=== PATIENT | male | born 1955 | race Caucasian/White ===

== ENCOUNTER 2023-09-02 22:23 | Emergency (ER) | payer MEDICARE, MEDICAID, SELFPAY ==
[2023-09-02 22:25] VITALS: BP 158/101; PULSE 102; RESP 15; TEMP 36.6; O2SAT 96; BMI 31.6
[2023-09-02 23:00] LABS: Absolute Lymphocyte Count 1.81 X10^3/uL (0.83-4.51); Basophil# 0.05 X10^3/uL; Basophil% 0.4 % (0-1); Eosinophil# 0.03 X10^3/uL; Eosinophils% 0.2 % (0-5); Hematocrit 45.3 % (40-54); Hemoglobin 14.8 g/dL (13.0-16.5); Lymphocyte # 1.81 X10^3/ul (0.83-4.51); Mean Corp Hgb Conc 32.7 g/dL (32-36); Mean Corpuscular Hgb 29.7 pg (27.0-32.0); Mean Platelet Vol. 10.5 fl (6.2-12.0); Monocyte# 0.96 X10^3/uL; Monocyte% 6.9 % (0-10); NRBC Flagged by Analyzer 0 % (0-5); Neutrophil % 79.1 % (47-70); Platelet Count 226 K/mm3 (150-450); RBC Distribution Width CV 12.9 % (11.6-14.6); RBC Distribution Width SD 42.8 fl (35.1-43.9); Red Blood Count 4.98 M/mm3 (4.6-6.2); White Blood Count 13.9 K/mm3 (4.4-11.0)
[2023-09-02 23:20] LABS: ALB/GLOB Ratio 0.9 RATIO (0.9-2.4); AST(SGOT) 22 U/L (15-37); Alanine Aminotransfer ALT/SGPT 45 U/L (16-61); Albumin, Serum 3.7 g/dL (3.2-5.0); Alkaline Phosphatase 59 U/L (45-117); Anion Gap 7 (5-15); BUN 9 mg/dL (7-18); BUN/Creat Ratio 8.6 RATIO (10-20); Calcium,Total 9.3 mg/dL (8.5-10.1); Chloride 106 mmol/L (98-107); Creatinine, Serum 1.05 mg/dL (0.70-1.30); EST Glomerular Filtration Rate 75 mL/min (>60); Est Glom Filt Rate - Afr Amer 90 mL/min (>60); Estimated Creatinine Clearance 62.95 ml/min; Globulin 3.9 g/dL (2.2-4.2); Glucose 101 mg/dL (74-106); Lipase 38 U/L (13-75); Potassium 3.6 mmol/L (3.5-5.1); Protein, Total 7.6 g/dL (6.4-8.2); Sodium Level 135 mmol/L (136-145)
--- NOTE | 2023-09-02 23:30 | US_ITS ---
STUDY: ABDOMINAL ULTRASOUND - RIGHT UPPER QUADRANT REASON FOR VISIT: Male, 68 years old patient with right upper quadrant abdominal pain. TECHNIQUE: Ultrasound evaluation of the right upper quadrant was performed with real-time and static jordan-scale imaging. TECHNICAL QUALITY: Adequate. COMPARISON: CT of abdomen and pelvis dated September 02, 2023. FINDINGS: Liver: The liver measures 17 cm. There is a heterogeneous increased echogenicity of the liver. The bile ducts are within normal limits. There is hepatic color flow. The direction of portal flow is hepatopetal. There is a small cyst with possible septation measuring 2.6 x 2.1 x 2.8 cm. Gallbladder: Normal distended gallbladder. The gallbladder wall measures 1.9 mm. There is a negative sonographic Wheat''s sign. There is no pericholecystic fluid. There are no gallstones. Common Bile Duct (C.B.D.): The common bile duct measures 4.2 mm. Pancreas: Normal size of the head, body and tail of the pancreas. There is increased echogenicity of the pancreas. There is no demonstrated pancreatic mass or cyst. Right Kidney: Normal size of the right kidney. The right kidney measures 12.7 x 4.9 x 5.7 cm. Normal renal cortex. The right cortex measures 1.6 cm. There is a small cyst arising from the upper pole of the right kidney measuring 1.4 x 1.2 by 2.1 cm. There are questionable nonobstructing renal calculi. There is no right hydronephrosis. US/Gallbladder IMPRESSION: 1. Hepatic steatosis. 2. Hepatic and right sided renal cysts. Electronically Signed: Heather Mcmanus MD at 2:10 EDT ,
--- NOTE | 2023-09-02 23:35 | CT_ITS ---
STUDY: CT ABDOMEN AND PELVIS WITH CONTRAST REASON FOR EXAM: Male, 68 years old. abdominal pain RADIATION DOSAGE (If Supplied By Facility): CTDIvol = ( 17.33 ) mGy, DLP = ( 1316.43 ) mGycm TECHNIQUE: Transaxial images were obtained from the dome of the diaphragm to the symphysis pubis without oral contrast. IV 100mL Isovue-370 was administered. Sagittal and coronal images were reconstructed. Individualized dose optimization techniques were used for this CT. COMPARISON: None. FINDINGS: The visualized lung bases are unremarkable. The visualized portions of the heart are within normal limits. Multiloculated cyst near the dome of the liver measuring 2.4 cm in diameter. Normal gallbladder and extrahepatic biliary system. Normal spleen. Normal pancreas. Normal bilateral adrenal glands. Normal right kidney. Millimeters simple left renal cortical cyst. No further follow-up required as it appears simple/benign. Normal visualized stomach. Normal small intestine. Circumferential thickening of the ascending colon and stranding of the mesenteric fat. The appendix is visualized and appears normal. Normal abdominal aorta. Normal inferior vena cava. Normal retroperitoneum. Normal urinary bladder. Normal abdominal wall. Slight retrolisthesis L5-S1. CT/Abdomen/Pelvis W IV Cont ONLY IMPRESSION: Acute nonspecific colitis on the right Electronically Signed: Elmo Knight MD at 0:59 EDT ,
--- NOTE | 2023-09-02 23:42 | ED.VIS.GI ---
HPI HPI - GI History of Present Illness Chief Complaint: Abd Pain Narrative Narrative: 68-year-old male presenting with abdominal pain. He describes it as cramping. It seems to be related with food. Every time he eats or drinks he has pain across the mid abdomen in the right upper quadrant. He has not a fever but notes he started having worsening diarrhea on Monday and he had chills and body aches. The abdominal pain started on no black or bloody stools. No urinary complaints. No chest pain or shortness of breath. He states that every time he eats he gets nauseous. Patient states that he was recently seen by his primary care provider and started on something for BPH because he was urinating 3 times a night. He states has been urinating much more frequently after he started this medication. He denies dysuria or hematuria. PFSH PFSH Home Medications ciprofloxacin HCl 500 mg tablet (Cipro) 500 mg PO BID 10 days #20 tabs 09/03/23 [Rx Last Taken Unknown] metronidazole 500 mg tablet 500 mg PO Q8H 10 days #30 tabs 09/03/23 [Rx Last Taken Unknown] ondansetron 4 mg disintegrating tablet 4 mg PO Q8H PRN PRN Nausea #14 tabs 09/03/23 [Rx Last Taken Unknown] Allergy/AdvReac Type Severity Reaction Status Date / Time No Known Allergies Allergy Verified 09/02/23 22:29 Social History Smoking Status: Never smoker EXAM Physical Exam Const Vital Signs: 09/02/23 22:25 09/03/23 02:38 Temperature 97.8 F Temperature Source Temporal Pulse Rate 102 H 82 Respiratory Rate 15 18 Blood Pressure 158/101 H 148/79 H Blood Pressure Mean 120 102 Pulse Ox 96 96 Oxygen Delivery Method Room Air General Appearance ED: Negative for pallor HEENT Reports normocephalic, head/scalp atraumatic and moist mucous membranes Eyes PERRL and EOMs intact bilaterally Neck no lymphadenopathy and supple Resp normal respiratory effort Cardio regular rate and regular rhythm GI non-distended Palpation: soft and tender epigastric and RUQ Narrative: Deferred Back/Spine no CVA tenderness Extremity normal to inspection General Extremety ED: Negative for edema or tenderness General Extremity: Negative for edema Neuro oriented x3 and CN's II-XII intact bilaterally Sensorium / Orientation: alert Motor Exam: strength 5/5 throughout Psych mental status grossly normal Attitude: No agitated Skin no rashes or lesions noted and no wounds General Skin Exam: Negative for jaundice or pallor MDM MDM MDM Narrative Medical decision making narrative: Patient presenting with right flank pain. Differential includes colitis, diverticulitis, gastritis, pancreatitis, acute cholecystitis, constipation, appendicitis, UTI, pyelonephritis, calculi, ureteral calculi, obstruction, malignancy, dehydration, electrolyte abnormalities. BC will be obtained to assess white blood cell count, hemoglobin, platelets. CMP to assess liver function, renal function, electrolytes, glucose. Lipase to assess for pancreatitis. Urinalysis to assess for UTI or occult blood. Declined analgesia. States he is tender in the right upper quadrant epigastric region I did order ultrasound which was ultimately negative. CT of the abdomen pelvis was obtained with IV contrast which shows a right-sided colitis which is nonspecific. Given the patient's white count I will start him on Cipro and Flagyl. He is given Zofran for nausea at home. Return precautions were discussed. Patient discharged home in stable condition. Impression: 1. Colitis 2. Nausea 3. Diarrhea Lab Data Attestation: I reviewed the patient's lab results. Labs: Laboratory Results - last 24 hr 09/02/23 09/02/23 22:54 23:12 WBC 13.9 H RBC 4.98 Hgb 14.8 Hct 45.3 MCV 91.0 MCH 29.7 MCHC 32.7 RDW Std Deviation 42.8 RDW Coeff of Brianna 12.9 Plt Count 226 MPV 10.5 Immature Gran % (Auto) 0.400 Neut % (Auto) 79.1 H Lymph % (Auto) 13.0 L Crenshaw % (Auto) 6.9 Eos % (Auto) 0.2 Baso % (Auto) 0.4 Absolute Neuts (auto) 11.0 H Absolute Lymphs (auto) 1.81 Nucleated RBC % 0 Sodium 135 L Potassium 3.6 Chloride 106 Carbon Dioxide 22.0 Anion Gap 7 BUN 9 Creatinine 1.05 Estim Creat Clear Calc 62.95 Est GFR (MDRD) Af Amer 90 Est GFR (MDRD) Non-Af 75 BUN/Creatinine Ratio 8.6 L Glucose 101 Calcium 9.3 Total Bilirubin 0.50 AST 22 ALT 45 Alkaline Phosphatase 59 Total Protein 7.6 Albumin 3.7 Globulin 3.9 Albumin/Globulin Ratio 0.9 Lipase 38 Urine Color Yellow Urine Clarity Clear Urine pH 6.0 Ur Specific Luana 1.025 Urine Protein 30 H Urine Glucose (UA) Normal Urine Ketones 15 H Urine Occult Blood 150 H Urine Nitrite Negative Urine Bilirubin Negative Urine Urobilinogen Normal Ur Leukocyte Esterase 25 H Urine RBC 0-5 SEEN Urine WBC 0-5 SEEN Ur Squamous Epith Cells 0 SEEN Urine Bacteria RARE Urine Mucus 0 SEEN Radiography Diagnostic Testing: Clinical Impression(s) from Imaging Studies Gallbladder Ultrasound 09/02/23 23:30 IMPRESSION: 1. Hepatic steatosis. 2. Hepatic and right sided renal cysts. Electronically Signed: Heather Mcmanus MD at 2:10 EDT Reading Location ID and State: [facility] / [place] , Service support , Abdomen/Pelvis CT 09/02/23 23:35 IMPRESSION: Acute nonspecific colitis on the right Electronically Signed: Elmo Knight MD at 0:59 EDT , Discharge Plan Triage Chief Complaint: Abd Pain ED Provider: Mohamud Chung Dx/Rx/DC Orders Instructions: ED Understanding Colitis Prescriptions: New ciprofloxacin HCl [Cipro] 500 mg tablet 500 mg PO BID 10 Days Qty: 20 0RF metronidazole 500 mg tablet 500 mg PO Q8H 10 Days Qty: 30 0RF ondansetron 4 mg tablet,disintegrating 4 mg PO Q8H PRN PRN (Reason: Nausea) Qty: 14 0RF Primary Care Provider: Care Physician,No Primary Referrals: Friend,Radames, DO [Med Staff - Active Staff] - As soon as possible Care Physician,No Primary [Primary Care Provider] - Disposition Disposition: Home, Self Care
[2023-09-02 23:47] LABS: Mucous, Urine 0 SEEN /hpf (<or=2+); Squamous Epithelial Cells - UA 0 SEEN /hpf (0-5)
[2023-09-02 23:49] LABS: Color, Urine Yellow (Yellow); Glucose, Dipstick Normal (Normal); Ketone-Dipstick 15 mg/dl (Negative); Leukocyte Esterase-Dipstick 25 /ul (Negative); Nitrite-Dipstick Negative (Negative); Occult Blood-Urine 150 /ul (Negative); Protein-Dipstick 30 mg/dl (Negative); Specific Gravity, Urine 1.025 (1.002-1.030); Urine Bilirubin Dipstick Negative (Negative); Urine Clarity Clear (Clear); Urine Urobilinogen Normal (Normal)
[2023-09-03 00:17] LABS: Bacteria RARE /hpf (None Seen); Red Blood Cells-Urine 0-5 SEEN /hpf (0-5); White Blood Cells 0-5 SEEN /hpf (0-5)
[2023-09-03] MEDS: Ciprofloxacin 500 MG Tablet PO (02:32)
[2023-09-03] MEDS: metroNIDAZOLE 500 MG Tablet PO (02:32)
[2023-09-03 02:38] VITALS: BP 148/79; PULSE 82; RESP 18; O2SAT 96
== END 2023-09-03 03:03 | disposition home or self-care (01) ==
PROVIDERS: Emergency Provider Student in an Organized Health Care Education/Training Program; Visit Provider Student in an Organized Health Care Education/Training Program
DX: K52.9 Noninfective gastroenteritis and colitis, unspecified (principal); R11.0 Nausea; R19.7 Diarrhea, unspecified
CPT/HCPCS: 74177; 76705; 80053; 81001; 83690; 85025; 99283; Q9967

== ENCOUNTER 2023-11-07 06:56 | Day surgery (SDC) | payer MEDICARE, SELFPAY ==
[2023-11-07 07:17] VITALS: BP 148/87; PULSE 62; RESP 18; TEMP 36.3; O2SAT 99; BMI 32.8
[2023-11-07] MEDS: Lactated Ringers 1,000 ML 15 ML IV (07:23)
--- NOTE | 2023-11-07 07:50 | HP.PCM_ITS ---
History and Physical Date of Admission: 11/07/23 Intake Vital Signs 09/02/2322:25 10/16/2313:20 Height 5 ft 7 in 5 ft 7 in Weight: 204 lb BMI 31.9 BP 162/77 H Blood Pressure Location Rt brachial Position Sitting Respiration 17 Pulse 69 Pulse Source Monitor Temp 97.8 F Temp Source Temporal Pulse Oximetry (%) 96 Oxygen Delivery Method room air Intake Visit Reasons: COLONOSCOPY Chief Complaint: colonoscopy Is patient in pain?: No Allergies No Known Allergies Allergy (Verified 10/16/23 13:21) Medications pantoprazole 20 mg tablet,delayed release (Protonix) 20 mg PO DAILY 10/16/23 [History Confirmed 10/16/23] PFSH Family History (Updated 10/16/23 @ 13:19 by Lisseth Eason) Mother Cancer Social History (Updated 10/16/23 @ 13:20 by Lisseth Eason) Smoking Status: Never smoker alcohol intake: never substance use type: does not use HPI HPI HPI: Patient is a 68-year-old male here for follow-up after ER visit. He was in the emergency room in early August and was diagnosed with right-sided colitis. He was given antibiotics. He says that it took about 4 weeks to finally go away but he is feeling better now with no current complaints. He does have family history of colon cancer and his last colonoscopy was 8 years ago. He denies any blood in his stool. ROS General General: No weight change, appetite, fatigue, colon cancer, breast cancer or weakness HEENT HEENT: No difficulty swallowing, eye injury, eye surgery, swollen glands or hoarseness Endo Endocrine: No thyroid disease, diabetes mellitus, thyroid cancer, Hair loss, heat intolerance or cold intolerance Skin Skin: No rash or changing moles Musc Musculoskeletal: Yes back problems and arthritis; No rheumatoid arthritis, gout or joint pain Cardio Cardiovascular: No murmur, pacemaker, heart disease, atrial fibrillation, high blood pressure, heart attack, heart stent, palpitations, shortness of breat with exertion or chest pain Psych Psychiatric: No depression, anxiety or hearing voices Resp Respiratory: No shortness of breath, No sleep apnea, No cough, No COPD, No asthma, No emphysema and No wheezing Gastro Gastrointestinal: No abdominal pain, No nausea or vomiting, No diarrhea, No constipation, No blood in stool, Yes acid reflux, Yes hemorrhoids, No ulcers, No gallbladder problem and No black,tarry stools Binu Hematologic: No blood thinners, No blood disorders, No bleeding, No anemia and No blood clots Neuro Neurologic: No system reviewed and no additional complaints, except as documented, No as per HPI, No abnormal gait, No abnormal hearing, No abnormal movements, No abnormal speech, No behavioral changes, No burning sensations, No confusion, No convulsions, No disequilibrium, No dizziness, No localized weakness, No frequent falls, No headache(s), No lack of coordination, No loss of vision, No memory loss, No numbness, No other visual disturbances, No radicular pain, No restless legs, No sensory deficit, No syncope, No tingling, No tremor(s), No weakness and No other Exam Const General: cooperative Orientation: alert and oriented x3 HENMT Head: normal to inspection Neck Neck: normal visual inspection and full ROM Chest Chest palpation & inspection: normal inspection of the chest Resp Effort & Inspection: normal respiratory effort Auscultation: clear to auscultation bilaterally Cardio Rate: regular rate Rhythm: regular rhythm GI Inspection: non-distended Palpation: soft and nontender Skin General: no rashes or lesions noted Neuro General: patient alert and patient oriented x3 Extrem General: full ROM Psych Appearance: grossly normal Mental Status: mental status grossly normal Assessment and Plan Assessment and Plan (1) History of colitis: Status: Acute Plan: The patient had colitis in early August and he is sent here for follow-up colonoscopy. His last colonoscopy was 8 years ago. I explained endoscopy in detail to the patient. I explained the risks including but not limited to stroke or heart attack with anesthesia, perforation of the GI tract, bleeding, infection. I explained that any of these could necessitate further emergency surgery. The patient understands and all questions were answered sufficiently. The patient wishes to proceed with procedure. Javier Portillo MD Pager: [facility] [address] [place] [address], [address] [place] [address] Office: I have examined the patient and the H&P has been reviewed. There are no clinical changes since date of exam.
[2023-11-07 08:19] VITALS: BP 104/69; BP 148/87; PULSE 71; RESP 16; TEMP 36.3; O2SAT 94
--- NOTE | 2023-11-07 08:20 | OP.COLON_ITS ---
Patient Name: Willy Sanders Procedure Date: 11/07/2023 7:56 AM Date of : 1955 Age: 68 Procedure: Colonoscopy Indications: Follow-up of colitis Providers: Javier Portillo MD Medicines: Propofol per Anesthesia Patient Profile: This is a 68 year old male. Refer to note in patient chart for documentation of history and physical. Last Colonoscopy: several years ago. Complications: No immediate complications. Procedure: Pre-Anesthesia Assessment: - Prior to the procedure, a History and Physical was performed, and patient medications and allergies were reviewed. The patient's tolerance of previous anesthesia was also reviewed. The risks and benefits of the procedure and the sedation options and risks were discussed with the patient. All questions were answered, and informed consent was obtained. Prior Anticoagulants: The patient has taken no anticoagulant or antiplatelet agents. After reviewing the risks and benefits, the patient was deemed in satisfactory condition to undergo the procedure. After I obtained informed consent, the scope was passed under direct vision. Throughout the procedure, the patient's blood pressure, pulse, and oxygen saturations were monitored continuously. The Colonoscope was introduced through the anus and advanced to the terminal ileum, with identification of the appendiceal orifice and IC valve. The colonoscopy was performed without difficulty. The patient tolerated the procedure well. The quality of the bowel preparation was good. Anatomical landmarks were photographed. Scope In: 8:03:13 AM Scope Withdrawal Time 0 hours 6 minutes 3 seconds Scope Out: 8:12:52 AM Total Procedure Duration Time 0 hours 9 minutes 39 seconds Findings: The entire examined colon appeared normal on direct and retroflexion views. Impression: - The entire examined colon is normal on direct and retroflexion views. - No specimens collected. Recommendation: - Discharge patient to home. - Resume previous diet. - Continue present medications. - Repeat colonoscopy is not recommended due to current age (66 years or older) for screening purposes. Procedure Code(s): --- Professional --- 59671, Colonoscopy, flexible; diagnostic, including collection of specimen(s) by brushing or washing, when performed (separate procedure) Diagnosis Code(s): --- Professional --- K52.9, Noninfective gastroenteritis and colitis, unspecified CPT copyright 2021 [employer]. All rights reserved. The codes documented in this report are preliminary and upon cpc coder review may be revised to meet current compliance requirements. Javier Portillo MD 11/07/2023 8:19:41 AM This report has been signed electronically. Number of Addenda: 0 Note Initiated On: 11/07/2023 7:56 AM
[2023-11-07 08:25] VITALS: BP 105/66; BP 148/87; PULSE 65; RESP 16; O2SAT 94
[2023-11-07 08:30] VITALS: BP 109/71; BP 148/87; PULSE 77; RESP 16; O2SAT 98
[2023-11-07 08:32] VITALS: BP 111/72; BP 148/87; PULSE 71; RESP 16; TEMP 36.6; O2SAT 97
[2023-11-07 08:58] VITALS: BP 148/87
== END 2023-11-07 09:02 | disposition home or self-care (01) ==
LOC: EN 06:59 → AC 07:01
PROVIDERS: Referring Provider Surgery; Visit Provider Surgery
PROC: 0DJD8ZZ Inspection of Lower Intestinal Tract, Via Natural or Artificial Opening Endoscopic (ICD-10-PCS; CPT 45378; principal; 2023-11-07 08:10)
DX: K52.9 Noninfective gastroenteritis and colitis, unspecified (principal); Z80.0 Family history of malignant neoplasm of digestive organs
CPT/HCPCS: 45378; J7120; J2405

== ENCOUNTER 2024-09-19 05:09 | Emergency (ER) | payer MEDICARE, SELFPAY ==
[2024-09-19] VITALS (13 sets, daily range): BP systolic 129–191; BP diastolic 71–107; PULSE 58–72; RESP 13–23; TEMP 36.4–36.7; O2SAT 94–97; BMI 35.2
--- OUTSIDE RECORDS SUMMARY | 2024-09-19 05:40 | XMS RPT_ITS | CCD ---
Author Organization [facility] Care Team Providers Care Spectrographer Name Role Phone ALIGUY Primary Care Physician [phone] GUY PINEDA Primary Care Unavailable PADILLA BONNER Attending Unavailable KIERAN RAMON, LYNNETTE Attending Unavailable GAVIN DURON CNP Primary Care Unavail able SO MEJÍA Attending Unavailable ALI, GUY Primary Care Unavailable Unavailable Primary Care Provider Unavailgiuliana Avila MD, Lizette Reis Primary Care Provider [phone] Lizette Avila MD Primary Care Provider [phone] AL SAIF, ALAA MAHDI Attending Unavailable AL SAIF, ALAA MAHDI Referring Unavailable AL SAIF, ALAA MAHDI Primary Care Unavailable EVELIA FALLON Attending Unavailable AL SAIF, ALAA MAHDI Primary Care Unavailable EVELIA FALLON Attending Unavailable AL SAIF, ALAA MAHDI Primary Care Unavailable EVELIA FALLON Referring Unavailable AL SAIF, ALAA MAHDI Primary Care Unavailable AL SAIF, ALAA MAHDI Attending Unavailable AL SAIF, ALAA MAHDI Primary Care Unavailable AL SAIF, ALAA MAHDI Referring Unavailable AL SAIF, ALAA MAHDI Primary Care Unavailable AL SAIF, ALAA MAHDI Referring Unavailable AL SAIF, ALAA MAHDI Primary Care Unavailable DELMA CHEEK Attending Unavailable AL SAIF, ALAA MAHDI Referring Unavailable AL SAIF, ALAA MAHDI Primary Care Unavailable MARGA CM Attending Unavailable DELMA CHEEK Referring Unavailable AL SAIF, ALAA MAHDI Primary Care Unavailable Medications Current Medications Medication Drug Class(es) Dates Sig (Normalized) Sig (Original) amLODIPine 5 mg oral tablet (3 sources) Dihydropyridine Calcium Channel Aileen Start: 10-17-20 22 End: 02-15-20 23 amLODIPine 5 mg oral tablet 0 Refill(s) Start Date: 10/30/22 Status: Ordered Comment on above: Take 1 tablet by russ once daily. amoxicillin 500 mg / clavulanate 125 mg oral tablet (2 sources) Penicillin-class Antibacterial Start: 10-30-20 End: 11-09-20 take 1 tablet by mouth every twelve hours Augmentin 500 mg-125 mg oral tablet 1 tab(s), Oral, q12h, X 10 day(s), # 20 tab(s), 0 Refill(s), 11/09/22 23:07:00 EST, 91.6 Start Date: 10/30/22 Stop Date: 11/09/22 Status: Ordered clindamycin 300 mg oral capsule (2 sources) Lincosamide Antibacterial Start: 10-30-20 End: 11-06-20 clindamycin 300 mg oral capsule Dose : 300 mg = 1 cap(s), Oral, q6h, X 7 day(s), # 28 cap(s), 0 Refill(s), 11/06/22 15:00:00 EST, 90 Start Date: 10/30/22 Stop Date: 11/06/22 Status: Ordered hydrocortisone 10 mg/ml topical cream (1 source) Corticosteroid Start: 02-15-20 End: 05-15-20 hydrocortisone (PROCTOCORT) 1 % cream Indications: Grade I hemorrhoids Apply 1 application to affected area twice daily as needed. 40 g 0 02/14/2023 05/15/2023 Active Comment on above: Apply 1 application to affected area twice daily as needed. methylPREDNISolone (4 sources) Corticosteroid Start: 07-15-20 methylPREDNISolone (MEDROL, WINDY,) 4 mg Dose-Pack Indications: Primary osteoarthritis of first carpometacarpal joint of right hand As Instructed per package 21 tablet 07/15/2024 Active pantoprazole 40 mg delayed release oral tablet (17 sources) Proton Pump Inhibitor Start: 03-07-20 End: 05-31-20 take 1 tablet by mouth once daily pantoprazole DR (PROTONIX) 40 mg tablet Indications: GERD without esophagitis Take 1 tablet by mouth once daily 30 tablet 05/31/2024 Active Start: 12-01-2023 End: 03-07-2024 take 1 tablet by mouth once daily pantoprazole DR (PROTONIX) 20 mg tablet Indications: GERD without esophagitis Take 1 tablet by mouth once daily. 90 tablet 3 12/01/2023 03/07/2024 Discontinued (Adjust Sig - Block E-Cancel) Start: 10-17-2022 take 1 tablet by russ th once daily pantoprazole DR (PROTONIX) 20 mg tablet Indications: GERD without esophagitis Take 1 tablet by mouth once daily. 90 tablet 3 10/17/2022 Active Comment on above: Take 1 tablet by russ once daily. tamsulosin hydrochloride 0.4 mg oral capsule (12 sources) alpha-Adrenergic Aileen Start: 3 End: take 1 capsule by mouth once daily at bedtime tamsulosin (FLOMAX) 0.4 mg Indications: Benign prostatic hyperplasia with urinary frequency Take 1 capsule by mouth daily at bedtime. 90 capsule 1 05/20/2024 11/16/2024 Active Comment on above: Take 1 capsule by mo [facility] daily at bedtime. Completed/Discontinued Medications Medication Drug Class(es) Dates Sig (Normalized) Sig (Original) betamethasone 3 mg/ml / betamethasone acetate 3 mg/ml injectable suspension (2 sources) Corticosteroid Start: 07-17-2024 End: 07-17-2024 betamethasone acetate-betamethason e sodium phosphate 3 mg injection (CELESTONE) Start: 07-17-2024 End: 07-17-2024 3 mg, Injection - FOR ORTHO USE ONLY, ONCE, 1 dose, Starting on Mon07/17/24 at 1148, Until Mon07/17/24 at 1148 famciclovir 250 mg oral tablet (2 sources) Herpes Simplex Virus Nucleoside Analog DNA Polymerase Inhibitor Start: 04-29-2022 End: 04-30-2022 famciclovir 250 mg oral tablet Dose : 750 mg = 3 tab(s), Oral, BID, herpes gingivostomatitis, # 6 tab(s), 0 Refill(s), Gingivostomatitis Viral pharyngitis Start Date: 04/29/22 Stop Date: 04/30/22 Status: Ordered fluticasone propionate 0.05 mg/actuat metered dose nasal spray (6 sources) Corticosteroid Start: 03-07-2024 End: 07-15-2024 take 1 spray(s) nasal route twice daily fluticasone (FLONASE) 50 mcg/actuation nasal spray Indications: Seasonal allergic rhinitis, unspecified trigger Use 1 Mckean in each nostril two times a day. 1 Each 1 03/07/2024 07/15/2024 Discontinued Comment on above: Use 1 Mckean in each nostril two times a day. 10 ml lidocaine hydrochloride 10 mg/ml injection (2 sources) Antiarrhythmic, Amide Local Anesthetic Start: 07-17-2024 End: 07-17-2024 lidocaine (PF) 10 mg/mL (1 %) 0.5 mL injection (XYLOCAINE) Start: 07-17-2024 End: 07-17-2024 0.5 mL, Injection - FOR ORTH O USE ONLY, ONCE, 1 dose, Starting on Mon07/17/24 at 1148, Until Mon07/17/24 at 1148 1 ml triamcinolone acetonide 40 mg/ml injection (1 source) Corticosteroid Start: 02-14-2023 End: 02-14-2023 triamcinolone acetonide 40 mg injection (KeNALog 40) Problems Active Problems Problem Classification Problem Date Documented Da te Episodic/Chronic Acute and chronic tonsillitis (2 sources) Hypertrophy of tonsils; Translations: [Hypertrophy of tonsils] Onset: 4 03-07-2024 Chronic Disorders of lipid metabolism (17 sources) Mixed hyperlipidemia; Translations: [Mixed hyperlipidemia] Onset: 3 Chronic Esophageal disorders (18 sources) Gastroesophageal reflux disease without esophagitis; Translations: [Gastro-esophageal reflux disease without esophagitis] Onset: 2 Chronic Essential hypertension (18 sources) Essential hypertension; Translations: [Essential (primary) hypertension] Onset: 2 Chronic Genitourinary symptoms and ill-defined conditions (1 source) Frequency of micturition; Translations: [Benign prostatic hyperplasia with urinary frequency] Onset: 4 Episodic Hemorrhoids (1 source) Internal hemorrhoids grade I; Translations: [First degree hemorrhoids] Episodic Hyperplasia of prostate (9 sources) Urinary frequency due to benign prostatic hypertrophy; Translations: [Benign prostatic hyperplasia with lower urinary tract symptoms] Onset: 3 08-17-2023 Chronic Lymphadenitis (3 sources) Cervical lymphadenopathy; Translations: [Localized enlarged lymph nodes] Onset: 4 03-07-2024 Episodic Nutritional deficiencies (16 sources) Vitamin D deficiency; Translations: [Vitamin D deficiency, unspecified] Onset: 3 Chronic Osteoarthritis (20 sources) Bilateral osteoarthritis of knees; Translations: [Bilateral primary osteoarthritis of knee] Onset: 3 Chronic Other and unspecified benign neoplasm (1 source) History of polyp of colon; Translations: [Personal history of colonic polyps] 09-12-2023 Episodic Other gastrointestinal disorders (1 source) Swollen abdomen; Translations: [Intra-abdominal and pelvic swelling, mass and lump, unspecified site] 08-17-2023 Episodic Other nutritional; endocrine; and metabolic disorders (15 sources) Obese class I; Translations: [Obesity, unspecified] Onset: 2 10-17-2022 Chronic Other nutritional; endocrine; and metabolic disorders (1 source) Obesity, unspecified; Translations: [Obesity, Class I, BMI 30-34.9] Onset: 2 Chronic Other upper respiratory disease (1 source) Seasonal allergic rhinitis; Translations: [Other seasonal allergic rhinitis] 03-07-2024 Chronic Other upper respiratory disease (1 source) Other seasonal allergic rhinitis; Translations: [Seasonal allergic rhinitis, unspecified trigger] Onset: 4 Chronic Past or Other Problems Problem Classification Problem Date Documented Da te Episodic/Chronic Administrative/social admission (2 sources) Patient encounter status; Translations: [Persons encountering health services in other specified circumstances] Onset: 09-12-2023 09-12-2023 Episodic Disorders of teeth and jaw (10 sources) Disorder of teeth AND/OR supporting structures; Translations: [Other specified disorders of teeth and supporting structures] Onset: 10-30-2022 Resolved: 08-17-2023 Episodic Noninfectious gastroenteritis (4 sources) Colitis; Translations: [Noninfective gastroenteritis and colitis, unspecified] Onset: 09-12-2023 09-12-2023 Episodic Nonspecific chest pain (10 sources) Chest pain; Translations: [Chest pain, unspecified] Onset: 10-30-2022 Resolved: 08-17-2023 Episodic Other and unspecified benign neoplasm (1 source) Personal history of colonic polyps; Translations: [History of colonic polyps] Onset: 09-12-2023 Episodic Other gastrointestinal disorders (1 source) Intra-abdominal and pelvic swelling, mass and lump, unspecified site; Translations: [Abdominal wall swelling] Onset: 08-17-2023 Episodic Results Test Name Value Interpretation Reference Range Facility [id number] 07-22-2024 [id number] HNO ID: [id number] Author: MARGA CM OTR/L Service: ? Author Type: Occupational Therapist Type: [id number] Filed: 07/22/2024 10:29 Note Text: [facility] Occupational Therapy Plan of Care Certification Patient Name: Willy Sanders : 1955 CC #: [id number] Date: 07/22/2024 To: Delma Cheek MD From Therapist: VY Hanson/Nela RE: Patient Certification/ Recertification Your review, approval and electronic signature are required in order to comply with Payor: [employer] [facility] [employer] / Plan: [employer]VANT[employer] HMO / Product Type: HMO / regulations. The identified Occupational Therapy PLAN OF CARE for the patient is as follows: M18.11 Osteoarthritis of right thumb PLAN OF CARE: Assessment: Willy Sanders presents with diagnosis of OA of right thumb. that interferes with physical activities, recreational activities, gripping, pinching . He presents with impairments in strength and symptom management. PROMIS? (Patient-Reported Outcomes Measurement Information System) scores were reviewed and identified as within normal limits. Prognosis for therapy is Good due to: within-session changes, current objective clinical presentation . He will benefit from skilled therapy services to meet the goals established for this plan of care as noted below. Goals for Episode of Care created on 07/22/24 through 07/22/24 All were met today. Patient will report a good understanding of diagnosis and OT recommendations for progression of program. Patient will demonstrate independence with ongoing home recommendations/exerci se program throughout therapy plan of care. Patient will independently demonstrate correct application of PREFABRICATED orthosis and verbalize understanding of proper wear/care. Patient Goals: decrease pain Planned Interventions, Frequency, and Duration: Current Frequency: 1 visit Duration: 1 visit Total Number of Visits Planned: 1 Planned Treatment Interventions: Prefabricated orthosis fitting, Self-penitentiary management ([id number]), Orthotics management and training ([id number]) PLAN FOR NEXT VISIT: Patient demonstrates good understanding of plan of care and treatment. The above goals and plan of care were discussed and agreed upon by patient/family. For further details regarding this patient refer to the Occupational Therapy electronically documented visit dated 07/22/2024. Provider Attestation I have reviewed the treatment plan for Willy Ciarra Sanders, [facility]# [id number] for the period of 07/22/24 -- 07/22/24, established on 07/22/2024. Signature certifies the need for therapy services. [facility] CNTHERAPYon 07-22-2024 CNTHERAPY OT/PT/Speech Visit (OTMROP) WILLY SANDERS ([id number]) 1955 M Date Time Provider Department 07/22/24 10:00 AM MARGA CM OTMROP Date Time Provider Department Center 07/22/2024 10:00 AM [id number], DEBORAH OTMROP [facility] Reason for Visit: OT Discharge [750] Visit Diagnosis:Osteoarthrit is of right thumb [M18.11] Allergies As of Date: 07/22/2024 (No Known Allergies) Date Reviewed: 07/17/2024 Reviewed by: Sugar Agulia MA - Fully Assessed Prescriptions as of 07/22/2024 - methylPREDNISolone (MEDROL, WINDY,) 4 mg Dose-Pack As Instructed per package - pantoprazole DR (PROTONIX) 40 mg tablet Take 1 tablet by mouth once daily - tamsulosin (FLOMAX) 0.4 mg Take 1 capsule by mouth daily at bedtime. Annotated image of OT HAND/CMC STRENGTHENING last updated by Marga Cm OTR/Nela on 07/22/2024 9:44 AM [facility] XR Finger - right AP and Lat eral and obliqueon 07-18-2024 IMPRESSION: Moderate osteoarthritic change first carpometacarpal joint. Technical Support Consultant: JAMAL Transcribe Date/Time: Jul 18 2024 6:22A Dictated by : BARBARA PALUMBO MD This examination was interpreted and the report reviewed and electronically signed by: BARBARA PALUMBO MD on Jul 18 2024 6:23AM EST [facility] * * *Final Report* * * DATE OF EXAM: Jul 15 2024 10:29AM [id number] [id number] - XR DIGIT 3V FRONTAL/LAT/OBL RT / PROCEDURE REASON: Primary osteoarthritis of first carpometacarpal joint of right hand * * * * Physician Interpretation * * * * XR DIGIT 3V FRONTAL/LAT/OBL RT Ordering Physician: LIZETTE AVILA Clinical Statement: Primary osteoarthritis. FINDINGS: No fracture or dislocation. The alignment is normal. Moderate osteoarthritic change at the first carpometacarpal joint. Mild degenerative changes are noted at the first metacarpal phalangeal joint and at the first interphalangeal joint. No chondrocalcinosis or erosive arthropathy. [facility] Provider, [facility] - 07/18/2024 * * *Final Report* * * DATE OF EXAM: Jul 15 2024 10:29AM [id number] [id number] - XR DIGIT 3V FRONTAL/LAT/OBL RT / PROCEDURE REASON: Primary osteoarthritis of first carpometacarpal joint of right hand * * * * Physician Interpretation * * * * XR DIGIT 3V FRONTAL/LAT/OBL RT Ordering Physician: LIZETTE AVILA Clinical Statement: Primary osteoarthritis. FINDINGS: No fracture or dislocation. The alignment is normal. Moderate osteoarthritic change at the first carpometacarpal joint. Mild degenerative changes are noted at the first metacarpal phalangeal joint and at the first interphalangeal joint. No chondrocalcinosis or erosive arthropathy. IMPRESSION IMPRESSION: Moderate osteoarthritic change first carpometacarpal joint. Technical Support Consultant: JAMAL Transcribe Date/Time: Jul 18 2024 6:22A Dictated by : BARBARA PALUMBO MD This examination was interpreted and the report reviewed and electronically signed by: BARBARA PALUMBO MD on Jul 18 2024 6:23AM EST [facility] XR Finger - right AP and Lat eral and obliqueOrdered By: Ccf Provider on 07-18-2024 [facility] CNOVon 07-17-2024 CNOV Office Visit ([facility]MB ) WILLY SANDERS ([id number]) 1955 M Date Time Provider Department 07/17/24 10:30 AM DELMA CHEEK [facility] During your visit today, we recorded the following information about you: Pulse Weight Height 78/minute 93.4 kg 1.702 m Delma Cheek MD 07/17/2024 11:49 AM Signed Delma Cheek MD Hand AND Upper Extremity Surgery [address], [facility] [address] [address] [facility] [address], [facility] [address] [address], [address], [place] [address] OUTPATIENT VISIT SERVICE DATE: 07/17/2024 CHIEF COMPLAINT: Right thumb pain HISTORY OF PRESENT ILLNESS: Willy Sanders is a Right Handed 69 year old male who presents for above chief complaint. Patient is referred by: My final recommendation will be communicated back to the requesting physician by way of shared medical record or letter to requesting physician via fax/US mail. Patient does not recall a specific injury. Pain has been worsening since doing a lot of drywall. Denies numbness/tingling. Has tried ice/heat, OTC oral medication, and rest/reposition with no relief. 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 Yes, Provider notified Yes, Provider notified Pain Scales Verbal (Numeric Rating or Visual Analog Scale) Verbal (Numeric Rating or Visual Analog Scale) Pain Level 8 5 Pain Location -- Hand-Right Description Sharp;Aching;Shooting Aching Duration Amount of Time 3 3 Duration Units Months Months Frequency Continuous Continuous Comments It is not better or worse with anything. PMDP report reviewed and All prescriptions have been APPROPRIATELY filled. No suspicious activity was identified. 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 PAST MEDICAL HISTORY 10/17/2022: GERD without esophagitis PAST SURGICAL HISTORY 1999: EXCISION OF A GRANULOMA SUTURE Comment: throat FAMILY HISTORY Problem Relation Age of Onset other (stomach cancer) Mother Brain Cancer Father Social History Tobacco Use Smoking status: Never Passive exposure: Never Smokeless tobacco: Never Vaping Use Vaping status: Never Used Substance Use Topics Alcohol use: Not Currently Drug use: Never MEDICATIONS: Current Outpatient Medications Medication Sig pantoprazole DR (PROTONIX) 40 mg tablet Take 1 tablet by mouth once daily tamsulosin (FLOMAX) 0.4 mg Take 1 capsule by mouth daily at bedtime. methylPREDNISolone (MEDROL, WINDY,) 4 mg Dose-Pack As Instructed per package (Patient not taking: Reported on 07/17/2024) No current facility-administered medications for this visit. ALLERGIES: ALLERGIES No Known Allergies PHYSICAL EXAM: VITAL SIGNS: Pulse 78 Ht 5' 7.008 (1.70m) Wt 206 lb (93.4kg) SpO2 98% BMI 32.26 kg/(m2). GENERAL: The patient is awake, alert, and oriented with appropriate mood and affect. SKIN: The skin over the right hand shows no rash, lesion or erythema, and that is comparable to the contralateral hand. INSPECTION/PALPATION: There is no gross asymmetry compared to the contralateral hand. There is localized swelling about the thumb CMC joint, with obvious shoulder sign deformity. There is no palpable joint effusion. TENDERNESS: There is tenderness to palpation about the right CMC joint with a positive grind test. Hyperextension of the right thumb reproduces the pain. There is no tenderness at the STT joint. There is no tenderness with palpation over the 1st dorsal compartment. ROM: There is limited range of motion of the thumb, and there is an adducted posture to the thumb. LIGAMENTS: There is no compensatory hyperextension of the MP joint. 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 NEURO: The patient reports no decreased sensation to the thumb. VASCULAR: Strong radial pulse. Excellent capillary refill to all digits. IMAGING PER MY INTERPRETATION: 3 views of the right thumb finger were reviewed from 07/15/24 and demonstrate cystic changes at the base of the 1st metacarpal with early degenerative changes. OTHER TESTS: None ASSESSMENT AND PLAN: (M18.11) Osteoarthritis of right thumb (primary encounter diagnosis) Discussed the treatment algorithm of thumb CMC arthritis which includes hand-based thumb braces, topical anti-inflammatories, oral anti-inflammatories, steroid injections and surgical intervention in late stages. Patient wishes to try injection and bracing. OT order placed. Risks of corticosteroid injection were discussed including self-ha (more content not included)... Normal [facility] Small Joint Arthro/Inj: R th umb CMCon 07-17-2024 Delma Cheek MD 07/17/2024 11:49 AM Small Joint Arthro/Inj: R thumb CMC Informed Consent Consent Obtained: Verbal Rozet Protocol A moment to CARE was completed. SIGN IN Personnel directly involved with the procedure wore the appropriate PPE. Special Equipment: N/A Patient/Surrogate Stated/Verified: Patient name, Relevant allergies and Intended procedure TIME OUT Intended patient and procedure match the source document(s). Relevant labs, photos, and/or imaging studies have been reviewed. Correct side/site marked and visible. Medications required for procedure verified. No fire risk assessment and interventions applicable. No implant(s) inserted. 07/17/2024 11:48 AM The procedure site was prepped in the usual sterile fashion. Medications: 3 mg betamethasone acetate-betamethasone sodium phosphate 6 mg/mL Anesthetics: 0.5 mL lidocaine (PF) 10 mg/mL (1 %) Outcome: tolerated well, no immediate complications Post-injection instructions were reviewed with the patient and the patient voiced understanding of these instructions. SIGN OUT All instruments, equipment, possible retained foreign bodies accounted for. [facility] 25(OH)D3 Davidl-Duy 2023 25-hydroxyvitamin D3 [Mass/Vol] 18.8 ng/mL Low 30.0-100.0 [facility] Comment on above: Order Comment: Speci men Type: BLOOD SPECIMENOrdering Facility: [facility] Address: [address] [place] [address] Result Comment: Defi ciency\X09\Less than 20 ng/mL Insufficiency\X09\20 - Less than 30 ng/mL Sufficiency\X09\30 - 100 ng/mL Performed By: #### 2 857-1, 1989-01 ####[facility] LABORATORYCLIA [id number] [place] [address] [place] [facility] 25-hydroxyvitamin D3 [Mass/V ol]on 07-15-2024 Interpretation and review of laboratory results Abnormal [facility] CBC panel Auto (Bld)Ordered By: Lynne Wheeler on 07-15-2024 Erythrocyte distribution width (RBC) [Ratio] 12.9 % 11.5 - 15.0 % [facility] Hematocrit (Bld) [Volume fraction] 45.0 % 39.0 - 51.0 % [facility] Hemoglobin (Bld) [Mass/Vol] 14.8 g/dL 13.0 - 17.0 g/dL [facility] Interpretation and review of laboratory results Normal [facility] MCH (RBC) [Entitic mass] 29.5 pg 26.0 - 34.0 pg [facility] MCHC (RBC) [Mass/Vol] 32.9 g/dL 30.5 - 36.0 g/dL [facility] MCV (RBC) [Entitic vol] 89.6 fL 80.0 - 100.0 fL [facility] Platelet mean volume (Bld) [Entitic vol] 10.3 fL 9.0 - 12.7 fL [facility] Platelets (Bld) [#/Vol] 241 10*3/uL [facility] RBC (Bld) [#/Vol] 5.02 10*6/uL 4.20 - 6.0 0 m/uL [facility] WBC (Bld) [#/Vol] 9.11 10*3/uL [facility] CBC panel Auto (Bld)on 07-15 Erythrocyte distribution width (RBC) [Ratio] 12.9 % Normal 11.5-15.0 [facility] Comment on above: Order Comment: Speci men Type: BLOOD SPECIMENOrdering Facility: [facility] Address: [address] [place] [address] Performed By: #### 5 8410-2 ####[facility] LABCLIA [id number] [place] [address] [facility] Hematocrit (Bld) [Volume fraction] 45.0 % Normal 39.0-51.0 [facility] Comment on above: Order Comment: Speci men Type: BLOOD SPECIMENOrdering Facility: [facility] Address: [address] [place] [address] Performed By: #### 5 8410-2 ####[facility] LABCLIA [id number] [place] [address] [facility] Hemoglobin (Bld) [Mass/Vol] 14.8 g/dL Normal 13.0-17.0 [facility] Comment on above: Order Comment: Speci men Type: BLOOD SPECIMENOrdering Facility: [facility] Address: [address] [place] [address] Performed By: #### 5 8410-2 ####PAT HAWTHORNESamantha LABCLIA [id number] [place] [id number] [facility] MCH (RBC) [Entitic mass] 29.5 pg Normal 26.0-34.0 [facility] Comment on above: Order Comment: Speci men Type: BLOOD SPECIMENOrdering Facility: [facility] Address: [address] [place] [address] Performed By: #### 5 8410-2 ####PAT HAWTHORNESamantha LABCLIA [id number] [place] [address] [place] [facility] MCHC (RBC) [Mass/Vol] 32.9 g/dL Normal 30.5-36.0 [facility] Comment on above: Order Comment: Speci men Type: BLOOD SPECIMENOrdering Facility: [facility] Address: [address] [place] [address] Performed By: #### 5 8410-2 ####PAT HAWTHORNESamantha LABCLIA [id number] [place] [address] [facility] MCV (RBC) [Entitic vol] 89.6 fL Normal 80.0-100.0 [facility] Comment on above: Order Comment: Speci men Type: BLOOD SPECIMENOrdering Facility: [facility] Address: [address] [place] [address] Performed By: #### 5 8410-2 ####PAT TOLBERT LABCLIA [id number] [place] [address] [place] Platelet mean volume (Bld) [Entitic vol] 10.3 fL Normal 9.0-12.7 [facility] Comment on above: Order Comment: Speci men Type: BLOOD SPECIMENOrdering Facility: [facility] Address: [address] [place] [address] Performed By: #### 5 8410-2 ####GABRIELARoxane CONSUELOPARRIS LABCLIA [id number] [place] [address] [place] Platelets (Bld) [#/Vol] 241 10*3/uL Normal 150-400 [facility] Comment on above: Order Comment: Speci men Type: BLOOD SPECIMENOrdering Facility: [facility] Address: [address] [place] [address] Performed By: #### 5 8410-2 ####GABRIELARoxane CONSUELOPARRIS LABIA [id number] [place] [address] [place] RBC (Bld) [#/Vol] 5.02 10*6/uL Normal 4.20-6.00 [facility] Comment on above: Order Comment: Speci men Type: BLOOD SPECIMENOrdering Facility: [facility] Address: [address] [place] [address] Performed By: #### 5 8410-2 ####GABRIEALRoxane CONSUELOPARRIS LABCLIA [id number] [place] [address] [place] WBC (Bld) [#/Vol] 9.11 10*3/uL Normal 3.70-11.00 [facility] Comment on above: Order Comment: Speci men Type: BLOOD SPECIMENOrdering Facility: [facility] Address: [address] [place], [place] [address], [place] [address] Performed By: #### 5 8410-2 ####PAT TOLBERT [facility] [id number] [place] [address] [facility] CNOVon 07-15-2024 CNOV Office Visit (FAMAAR ) WILLY SANDERS ([id number]) 1955 M Date Time Provider Department 07/15/24 9:30 AM LIZETTE AVILA FAMAAR During your visit today, we recorded the following information about you: Pulse Blood pressure Weight Height 61/minute 135/70 93.4 kg 1.702 m Lizette Avila MD 07/15/2024 9:50 AM Signed This note was created using [employer]. Subjective Willy Sanders is a 69 year old male. HPI RIght Thumb Pain (Wlily is here today for RIght Thumb Pain. Pain in the right thumb MCP joint first. 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 Pain with movement. BPH on tamsulosin stable. GERD on PPI symptoms controlled , no dysphagia, no weight loss, no blood in the stool. Stable to continue. Obesity Body mass index is 32.26 kg/m?. The patient is asked to make an attempt to improve diet and exercise patterns to aid in medical management of this problem. PAST MEDICAL HISTORY 10/17/2022: GERD without esophagitis PAST SURGICAL HISTORY 1999: EXCISION OF A GRANULOMA SUTURE Comment: throat Social History Tobacco Use Smoking status: Never Passive exposure: Never Smokeless tobacco: Never Vaping Use Vaping status: Never Used Substance Use Topics Alcohol use: Not Currently Drug use: Never All medications have been reviewed and verified. Review of Systems Constitutional: Negative for fever. HENT: Negative for congestion, dental problem, drooling and ear discharge. Eyes: Negative for pain, discharge and itching. Respiratory: Negative for cough, chest tightness, shortness of breath and wheezing. Cardiovascular: Negative for chest pain, palpitations and leg swelling. Gastrointestinal: Negative for abdominal pain, blood in stool and constipation. Endocrine: Negative for cold intolerance, heat intolerance, polydipsia, polyphagia and polyuria. Genitourinary: Negative for difficulty urinating, dysuria, enuresis and flank pain. Musculoskeletal: Positive for arthralgias. Skin: Negative for color change and pallor. Allergic/Immunologic: Negative for environmental allergies, food allergies and immunocompromised state. Neurological: Negative for dizziness, facial asymmetry, light-headedness and headaches. Hematological: Negative for adenopathy. Does not bruise/bleed easily. Objective BP 144/78 (BP Site: Left Arm, BP Position: Sitting, BP Cuff Size: Large Adult) Pulse 61 Ht 170.2 cm (5' 7 ) Wt 93.4 kg (206 lb) SpO2 95% BMI 32.26 kg/m? Physical Exam Vitals and nursing note reviewed. Constitutional: General: He is not in acute distress. Appearance: Normal appearance. He is obese. He is not ill-appearing. HENT: Head: Normocephalic and atraumatic. Nose: Nose normal. No congestion or rhinorrhea. Eyes: Pupils: Pupils are equal, round, and reactive to light. Cardiovascular: Rate and Rhythm: Normal rate and regular rhythm. Pulses: Normal pulses. Heart sounds: Normal heart sounds. No murmur heard. Pulmonary: Effort: Pulmonary effort is normal. No respiratory distress. Breath sounds: Normal breath sounds. No wheezing, rhonchi or rales. Abdominal: General: Bowel sounds are normal. Palpations: Abdomen is soft. There is no mass. Tenderness: There is no abdominal tenderness. Hernia: No hernia is present. Musculoskeletal: General: Normal range of motion. Right wrist: Swelling and tenderness present. Arms: Cervical back: Normal range of motion and neck supple. Lymphadenopathy: Cervical: No cervical adenopathy. Skin: Findings: No bruising, lesion or rash. Neurological: General: No focal deficit present. Mental Status: He is alert and oriented to person, place, and time. Mental status is at baseline. Cranial Nerves: No cranial nerve deficit. Motor: No weakness. Gait: Gait normal. Psychiatric: Mood and Affect: Mood normal. Behavior: Behavior normal. Assessment and Plan ASSESSMENT/PLAN: 1. Primary osteoarthritis of first carpometacarpal joint of right hand - ICD9: 715.14, ICD10: M18.11 (primary diagnosis) - XR DIGIT GENERAL 3V FRONTAL/LAT/OBL RIGHT - CONSULT TO ORTHOPAEDIC SURGERY - METHYLPREDNISOLONE 4 MG TABLETS IN A DOSE PACK 2. Benign prostatic hyperplasia with urinary frequency - ICD9: 600.01, 788.41, ICD10: N40.1, R35.0 - PROSTATE-SPECIFIC ANTIGEN DIAGNOSTIC 3. Obesity, Class I, BMI 30-34.9 - ICD9: 278.00, ICD10: E66.9 Obesity Body mass index is 32.26 kg/m?. Last Wt 07/15/24 : 93.4 kg (206 lb) 5% weight loss = 196 lbs, 10% weight loss = 185 lbs The patient is asked to make an attempt to improve diet and exercise patterns to aid in medical management of this problem. Counseling 15 min . 4. 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 Essential hypertension - ICD9: 401.9, ICD10: (more content not included)... Normal [facility] Comprehensive metabolic 2000 panelon 07-15-2024 Albumin [Mass/Vol] 4.1 g/dL 3.2 - 5.0 g/dL [facility] ALP [Catalytic activity/Vol] 64 U/L 45 - 117 U/L [facility] ALT [Catalytic activity/Vol] 71 U/L High 13 - 61 U/L [facility] Comment on above: Results may be false ly depressed after the administration of Sulfasalazine and/or Sulfapyridine. Anion gap [Moles/Vol] 8 mmol/L 5 - 16 mmol/L [facility] AST [Catalytic activity/Vol] 61 U/L High 8 - 34 U/L [facility] Comment on above: Results may be false ly depressed after the administration of Sulfasalazine and/or Sulfapyridine. Bilirubin [Mass/Vol] 0.5 mg/dL 0.2 - 1 .0 mg/dL [facility] Calcium [Mass/Vol] 10.1 mg/dL 8.5 - 10. 5 mg/dL [facility] Chloride [Moles/Vol] 107 mmol/L 98 - 10 7 mmol/L [facility] CO2 [Moles/Vol] 24 mmol/L 21 - 32 mmol/L [facility] Creatinine [Mass/Vol] 0.85 mg/dL 0.50 - 1.40 mg/dL [facility] Comment on above: Patients receiving e ither N-Acetylcysteine (NAC) or Metamizole prior to venipuncture, may have falsely depressed results. GFR/1.73 sq M.predicted among non-blacks MDRD (S/P/Bld) [Vol rate/Area] 94 mL/min/{1.73_m2} - PINF [facility] Comment on above: Estimated Glomerular Filtration Rate (eGFR) is calculated using the 2020 CKD-EPI creatinine equation. This equation utilizes serum creatinine, sex, and age as parameters. The creatinine assay has traceable calibration to isotope dilution-mass spectrometry. Refer to KDIGO guidelines for clinical interpretation. In patients with unstable renal function, e.g. those with acute kidney injury, the eGFR may not accurately reflect actual GFR. Glucose [Mass/Vol] 100 mg/dL 70 - 100 mg/dL [facility] Comment on above: The [place] Diabete s Association (ADA) provides guidance for cutoff values for fasting glucose and random glucose. The ADA defines fasting as no caloric intake for at least 8 hours. Fasting plasma glucose results between 100 to 125 mg/dL indicate increased risk for diabetes (prediabetes). Fasting plasma glucose results greater than or equal to 126 mg/dL meet the criteria for diagnosis of diabetes. In the absence of unequivocal hyperglycemia, results should be confirmed by repeat testing. In a patient with classic symptoms of hyperglycemia or hyperglycemic crisis, random plasma glucose results greater than or equal to 200 mg/dL meet the criteria for diagnosis of diabetes. Reference: Standards of Medical Care in Diabetes 2016, [place] Diabetes Association. Diabetes Care. 2016.39(Suppl 1). Results may be falsely elevated after the administration of Sulfapyridine. Results may be falsely depressed after the administration of Sulfasalazine. Potassium [Moles/Vol] 4.2 mmol/L 3.5 - 5.1 mmol/L [facility] Protein [Mass/Vol] 8.0 g/dL 6.0 - 8.5 g/dL [facility] Sodium [Moles/Vol] 139 mmol/L 136 - 145 mmol/L [facility] Urea nitrogen [Mass/Vol] 11 mg/dL 7 - 26 mg/dL [facility] Albumin [Mass/Vol] 4.1 g/dL Normal 3.2-5.0 [facility] Comment on above: Order Comment: Speci men Type: BLOOD SPECIMENOrdering Facility: [facility] Address: [address] [place] [address] Performed By: #### 2 4323-8, 3016-3 ####[facility] LABORATORYCLIA [id number] [place] [address] [place]#### 95972-1 ####[facility] LABORATORYCLIA [id number] [address] MASSILLON LABCLIA [id number] [place], [place] [address] [place] [address] ALP [Catalytic activity/Vol] 64 U/L Normal 45-117 [facility] Comment on above: Order Comment: Speci men Type: BLOOD SPECIMENOrdering Facility: [facility] Address: [address] [place] [address] Performed By: #### 2 4323-8, 6-3 ####[facility] LABORATORYCLIA [id number] [place] [address] [place]#### 31279-8 ####[facility] LABORATORYCLIA [id number] [place] [id number] [facility] MASSILLON LABCLIA [id number] [place], [place] [address] [place] [address] [place] ALT [Catalytic activity/Vol] 71 U/L High 13-61 [facility] Comment on above: Order Comment: Speci men Type: BLOOD SPECIMENOrdering Facility: [facility] Address: [address] [place] [address] Result Comment: Resu lts may be falsely depressed after the administration of Sulfasalazine and/or Sulfapyridine. Performed By: #### 2 4323-8, 6-3 ####[facility] LABORATORYCLIA [id number] [address] [place]#### 75379-5 ####[facility] LABORATORYCLIA [id number] [place] [id number] [facility] MASSILLON LABCLIA [id number] [place], [place] [address] [place] [address] [place] [facility] Anion gap [Moles/Vol] 8 mmol/L Normal 5-16 [facility] Comment on above: Order Comment: Speci men Type: BLOOD SPECIMENOrdering Facility: [facility] Address: [address] [place] [address] Performed By: #### 2 4323-8, 3015-3 ####[facility] LABORATORYCLIA [id number] [address]#### 89493-1 ####[facility] LABORATORYCLIA [id number] [address] LABCLIA [id number] [address] STATES [facility] AST [Catalytic activity/Vol] 61 U/L High 8-34 [facility] Comment on above: Order Comment: Speci men Type: BLOOD SPECIMENOrdering Facility: [facility] Address: [address] [place] [address] Result Comment: Resu lts may be falsely depressed after the administration of Sulfasalazine and/or Sulfapyridine. Performed By: #### 2 4323-8, 3015-3 ####[facility] LABORATORYCLIA [id number] [address] OF [facility]#### 72270-0 ####[facility] LABORATORYCLIA [id number] [address] LABCLIA [id number] [place] [address] [place] Bilirubin [Mass/Vol] 0.5 mg/dL Normal 0.2-1.0 [facility] Comment on above: Order Comment: Speci men Type: BLOOD SPECIMENOrdering Facility: [facility] Address: [address] [place] [address] Performed By: #### 2 4323-8, 3015-3 ####[facility] LABORATORYCLIA [id number] [place] [id number] [place]#### 86248-3 ####[facility] LABORATORYCLIA [id number] [place] [id number] [place] [facility] [place] LABCLIA [id number] [place] [address] [place] [facility] Calcium [Mass/Vol] 10.1 mg/dL Normal 8.5-10.5 [facility] Comment on above: Order Comment: Speci men Type: BLOOD SPECIMENOrdering Facility: [facility] Address: [address] [place], [place] [address] Performed By: #### 2 4323-8, 3 ####[facility] LABORATORYCLIA [id number] [place] [address] [place]#### 44076-2 ####[facility] LABORATORYCLIA [id number] [place] [id number] [place] [facility] [place] LABCLIA [id number] [address] Chloride [Moles/Vol] 107 mmol/L Normal 98-107 [facility] Comment on above: Order Comment: Speci men Type: BLOOD SPECIMENOrdering Facility: [facility] Address: [address] [place], [place] [address] Performed By: #### 2 4323-8, 3015-3 ####[facility] LABORATORYCLIA [id number] [place] [id number] [place]#### 68188-9 ####[facility] LABORATORYCLIA [id number] [place] [id number] [place] [facility] [place] LABCLIA [id number] [place], [place] [address] [place] [address] [facility] CO2 [Moles/Vol] 24 mmol/L Normal 21-32 [facility] Comment on above: Order Comment: Speci men Type: BLOOD SPECIMENOrdering Facility: [facility] Address: [address] [place] [address] Performed By: #### 2 4323-8, 3016-3 ####[facility] LABORATORYCLIA [id number] [address]#### 27916-0 ####[facility] LABORATORYCLIA [id number] [address] LABCLIA [id number] [address] Creatinine [Mass/Vol] 0.85 mg/dL Normal 0.50-1.40 [facility] Comment on above: Order Comment: Speci men Type: BLOOD SPECIMENOrdering Facility: [facility] Address: [address] [place] [address] Result Comment: Janie ents receiving either N-Acetylcysteine (NAC) or Metamizole prior to venipuncture, may have falsely depressed results. Performed By: #### 2 4323-8, 6-3 ####[facility] LABORATORYCLIA [id number] [address]#### 97831-9 ####[facility] LABORATORYCLIA [id number] [address] LABCLIA [id number] [address] Creatinine and Glomerular filtration rate.predicted panel (S/P/Bld) 94 mL/min/1.73m??? Normal >=60 [facility] Comment on above: Order Comment: Speci men Type: BLOOD SPECIMENOrdering Facility: [facility] Address: [address] [place] [address] Result Comment: Jodie mated Glomerular Filtration Rate (eGFR) is calculated using the 2021 CKD-EPI creatinine equation. This equation utilizes serum creatinine, sex, and age as parameters. The creatinine assay has traceable calibration to isotope dilution-mass spectrometry. Refer to KDIGO guidelines for clinical interpretation. In patients with unstable renal function, e.g. those with acute kidney injury, the eGFR may not accurately reflect actual GFR. Performed By: #### 2 4323-8, 3015-3 ####[facility] LABORATORYCLIA [id number] [place] [id number] [facility]#### 83020-2 ####[facility] LABORATORYCLIA [id number] [place] [address] [facility] LABCLIA [id number] [place] [address] [place] [facility] Glucose [Mass/Vol] 100 mg/dL Normal 70-100 [facility] Comment on above: Order Comment: Speci men Type: BLOOD SPECIMENOrdering Facility: [facility] Address: [address] [place], [place] [address] [address] Result Comment: The [place] Diabetes Association (ADA) provides guidance for cutoff values for fasting glucose and random glucose. The ADA defines fasting as no caloric intake for at least 8 hours. Fasting plasma glucose results between 100 to 125 mg/dL indicate increased risk for diabetes (prediabetes). Fasting plasma glucose results greater than or equal to 126 mg/dL meet the criteria for diagnosis of diabetes. In the absence of unequivocal hyperglycemia, results should be confirmed by repeat testing. In a patient with classic symptoms of hyperglycemia or hyperglycemic crisis, random plasma glucose results greater than or equal to 200 mg/dL meet the criteria for diagnosis of diabetes. Reference: Standards of Medical Care in Diabetes 2016, [place] Diabetes Association. Diabetes Care. 2016.39(Suppl 1). Results may be falsely elevated after the administration of Sulfapyridine. Results may be falsely depressed after the administration of Sulfasalazine. Performed By: #### 2 4323-8, 3015-3 ####[facility] LABORATORYCLIA [id number] [place] [id number] [place]#### 40178-7 ####[facility] LABORATORYCLIA [id number] [place] [address] [place] [facility] [place] LABCLIA [id number] [place] [address] [place] Potassium [Moles/Vol] 4.2 mmol/L Normal 3.5-5.1 [facility] Comment on above: Order Comment: Speci men Type: BLOOD SPECIMENOrdering Facility: [facility] Address: [address] [place] [address] Performed By: #### 2 4323-8, 3015-3 ####[facility] LABORATORYCLIA [id number] [place] [address] [place]#### 73846-9 ####[facility] LABORATORYCLIA [id number] [place] [id number] [place] [facility] [place] LABCLIA [id number] [place] [address] [place] Protein [Mass/Vol] 8.0 g/dL Normal 6.0-8.5 [facility] Comment on above: Order Comment: Speci men Type: BLOOD SPECIMENOrdering Facility: [facility] Address: [address] [place] [address] Performed By: #### 2 4323-8, 3015-3 ####[facility] LABORATORYCLIA [id number] [place] [address] [place]#### 88507-1 ####[facility] LABORATORYCLIA [id number] [place] [id number] [place] [facility] [place] LABCLIA [id number] [place] [address] [place] Sodium [Moles/Vol] 139 mmol/L Normal 136-145 [facility] Comment on above: Order Comment: Speci men Type: BLOOD SPECIMENOrdering Facility: [facility] Address: [address] [place] [address] Performed By: #### 2 4323-8, 3015-3 ####[facility] LABORATORYCLIA [id number] [address] [place]#### 69140-7 ####[facility] LABORATORYCLIA [id number] [place] [id number] [facility] [place] LABCLIA [id number] [place] [address] [place] Urea nitrogen [Mass/Vol] 11 mg/dL Normal 06-21 [facility] Comment on above: Order Comment: Speci men Type: BLOOD SPECIMENOrdering Facility: [facility] Address: [address] [place] [address] Performed By: #### 2 4323-8, 3016-3 ####[facility] LABORATORYCLIA [id number] [address] [place]#### 04087-7 ####[facility] LABORATORYCLIA [id number] [place] [id number] [facility] [place] LABCLIA [id number] [place] [address] [place] Lipid 1996 panelon 4 Cholesterol [Mass/Vol] 202 mg/dL High 0 - 199 mg/dL [facility] Comment on above: <200 mg/dL, Desirabl e 200-239 mg/dL, Borderline high >239 mg/dL, High Cholesterol in HDL [Mass/Vol] 45 mg/dL 40 - PINF mg/dL [facility] Comment on above: 40-59 mg/dL, Accepta ble >59 mg/dL, High: Negative risk factor for coronary heart disease <40 mg/dL, Low: Positive risk factor for coronary heart disease Cholesterol in LDL [Mass/Vol] 116 mg/dL 0 - 129 mg/dL [facility] Comment on above: <100 mg/dL, Optimal 100-129 mg/dL, Near optimal/above optimal 130-159 mg/dL, Borderline high 160-189 mg/dL, High >189 mg/dL, Very high Secondary prevention optimal LDL Cholesterol levels are recommended to be < 70 mg/dL Cholesterol in LDL/Cholesterol in HDL [Mass ratio] 2.58 {ratio} High NINF - 2.54 [facility] Comment on above: Reference: 1. National Cholesterol Education Program ATP III Guideline At-A-Glance Quick Desk Reference: National Heart, Lung, and Blood [place]. National Institutes of Health. 2001: NIH Publication No. 01-3305. 2. An International Atherosclerosis Society position paper: global recommendations for the management of dyslipidemia: executive summary, Atherosclerosis. 2014: 232(2):410-413. Cholesterol in VLDL [Mass/Vol] 41 mg/dL High NINF - 30 mg/dL [facility] Cholesterol non HDL [Mass/Vol] 157 mg/dL High NINF - 130 mg/dL [facility] Comment on above: <130 mg/dL, Optimal 130-159 mg/dL, Near optimal/above optimal 160-189 mg/dL, Borderline high 190-219 mg/dL, High >219 mg/dL, Very high Secondary prevention optimal non HDL Cholesterol levels are recommended to be <100 mg/dL Cholesterol.total/Cho lesterol in HDL [Mass ratio] 4.49 {ratio} NINF - 5.10 [facility] Fasting Time 12 hrs [facility] Triglyceride [Mass/Vol] 203 mg/dL High 30 - 149 mg/dL [facility] Comment on above: <150 mg/dL, Normal 150-199 mg/dL, Borderline high 200-499 mg/dL, High >499 mg/dL, Very high Patients receiving either N-Acetylcysteine (NAC) or Metamizole prior to venipuncture, may have falsely depressed results. Cholesterol [Mass/Vol] 202 mg/dL High 0-199 [facility] Comment on above: Order Comment: Speci men Type: BLOOD SPECIMENOrdering Facility: [facility] Address: [address] [place] [address] Result Comment: <200 mg/dL, Desirable 200-239 mg/dL, Borderline high >239 mg/dL, High Performed By: #### 2 4323-8, 3016-3 ####[facility] LABORATORYCLIA [id number] [address] [place]#### [address]-6 ####[facility] LABORATORYCLIA [id number] [address] STATES OF [place] LABCLIA [id number] [place] [address] [place] [facility] Cholesterol in HDL [Mass/Vol] 45 mg/dL Normal >40 [facility] Comment on above: Order Comment: Speci men Type: BLOOD SPECIMENOrdering Facility: [facility] Address: [address] [place] [address] Result Comment: 40-5 9 mg/dL, Acceptable >59 mg/dL, High: Negative risk factor for coronary heart disease <40 mg/dL, Low: Positive risk factor for coronary heart disease Performed By: #### 2 4323-8, 3015-3 ####[facility] LABORATORYCLIA [id number] [address]#### [address]-6 ####[facility] LABORATORYCLIA [id number] [place] [address] [facility] [place] LABCLIA [id number] [address] Cholesterol in LDL [Mass/Vol] 116 mg/dL Normal 0-129 [facility] Comment on above: Order Comment: Speci men Type: BLOOD SPECIMENOrdering Facility: [facility] Address: [address] [place] [address] Result Comment: <100 mg/dL, Optimal 100-129 mg/dL, Near optimal/above optimal 130-159 mg/dL, Borderline high 160-189 mg/dL, High >189 mg/dL, Very high Secondary prevention optimal LDL Cholesterol levels are recommended to be < 70 mg/dL Performed By: #### 2 4323-8, 3015-3 ####[facility] LABORATORYCLIA [id number] [place] [id number] [place]#### [address]-0 ####[facility] LABORATORYCLIA [id number] [place] [address] [facility] [place] LABCLIA [id number] [place] [address] [facility] Cholesterol in LDL/Cholesterol in HDL [Mass ratio] 2.58 {ratio} High <2.54 [facility] Comment on above: Order Comment: Speci men Type: BLOOD SPECIMENOrdering Facility: [facility] Address: [address] [place] [address] Result Comment: Dustin murray: 1. National Cholesterol Education Program ATP III Guideline At-A-Glance Quick Desk Reference: National Heart, Lung, and Blood [place]. National Institutes of Health. 2001: NIH Publication No. 01-3305. 2. An International Atherosclerosis Society position paper: global recommendations for the management of dyslipidemia: executive summary, Atherosclerosis. 2014: 232(2):410-413. Performed By: #### 2 4323-8, 6-3 ####[facility] LABORATORYCLIA [id number] [address]#### [address]-3 ####[facility] LABORATORYCLIA [id number] [address] [place] LABCLIA [id number] [address] Cholesterol in VLDL [Mass/Vol] 41 mg/dL High <30 [facility] Comment on above: Order Comment: Speci men Type: BLOOD SPECIMENOrdering Facility: [facility] Address: [address] [place] [address] Performed By: #### 2 4323-8, 6-3 ####[facility] LABORATORYCLIA [id number] [address]#### [address]-5 ####[facility] LABORATORYCLIA [id number] [address] [place] LABCLIA [id number] [address] Cholesterol non HDL [Mass/Vol] 157 mg/dL High <130 [facility] Comment on above: Order Comment: Speci men Type: BLOOD SPECIMENOrdering Facility: [facility] Address: [address], [place] [address] Result Comment: <130 mg/dL, Optimal 130-159 mg/dL, Near optimal/above optimal 160-189 mg/dL, Borderline high 190-219 mg/dL, High >219 mg/dL, Very high Secondary prevention optimal non HDL Cholesterol levels are recommended to be <100 mg/dL Performed By: #### 2 4323-8, 3015-3 ####[facility] LABORATORYCLIA [id number] [address]#### 822[address]-2 ####[facility] LABORATORYCLIA [id number] [place] [address] [facility] LABCLIA [id number] [address] Cholesterol.total/Cho lesterol in HDL [Mass ratio] 4.49 {ratio} Normal <5.10 [facility] Comment on above: Order Comment: Speci men Type: BLOOD SPECIMENOrdering Facility: [facility] Address: [address] [place] [id number] Performed By: #### 2 4323-8, 3016-01 ####[facility] LABORATORYCLIA [id number] [address]#### [address]-0 ####[facility] LABORATORYCLIA [id number] [address] [place] LABCLIA [id number] [address] FASTING TIME 12 hrs Normal [facility] Comment on above: Order Comment: Speci men Type: BLOOD SPECIMENOrdering Facility: [facility] Address: [address] [place] [address] Performed By: #### 2 4323-8, 3 ####[facility] LABORATORYCLIA [id number] [place] [address] [facility]#### 68997-4 ####[facility] LABORATORYCLIA [id number] [place] [address] [facility] LABCLIA [id number] [place] [address] [facility] Triglyceride [Mass/Vol] 203 mg/dL High 30-149 [facility] Comment on above: Order Comment: Speci men Type: BLOOD SPECIMENOrdering Facility: [facility] Address: [address] [place], [place] [id number] Result Comment: <150 mg/dL, Normal 150-199 mg/dL, Borderline high 200-499 mg/dL, High >499 mg/dL, Very high Patients receiving either N-Acetylcysteine (NAC) or Metamizole prior to venipuncture, may have falsely depressed results. Performed By: #### 2 4323-8, 3016-3 ####[facility] LABORATORYCLIA [id number] [address]#### [address]-0 ####[facility] LABORATORYCLIA [id number] [address] LABCLIA [id number] [place] [address] [place] [facility] No Panel Informationon 07-15 [facility] Interpretation and review of laboratory results Abnormal [facility] PROSTATE-SPECIFIC ANTIGEN DI AGNOSTICon 07-15-2024 Prostate specific Ag [Mass/Vol] 1.48 ng/mL NINF - 2.60 ng/mL [facility] Comment on above: This is a new method ology for this marker. Tumor markers obtained from different assay methods cannot be used interchangeably. Expect results of this assay to run lower than the previous assay. It is recommended to re-baseline patients when changing to a new methodology. PSA SerPl-mCncon 07-15-2024 Prostate specific Ag [Mass/Vol] 1.48 ng/mL Normal <2.60 [facility] Comment on above: Order Comment: Speci men Type: BLOOD SPECIMENOrdering Facility: [facility] Address: [address] [place], [place] [address] Result Comment: This is a new methodology for this marker. Tumor markers obtained from different assay methods cannot be used interchangeably. Expect results of this assay to run lower than the previous assay. It is recommended to re-baseline patients when changing to a new methodology. Performed By: #### 2 857-1, 1989-01 ####[facility] LABORATORYCLIA [id number] [place] [address] [place] Prostate specific Ag [Mass/V ol]on 07-15-2024 Interpretation and review of laboratory results Normal [facility] THYROID STIMULATING HORMONEo n 07-15-2024 TSH Qn 1.672 m[IU]/L [facility] Comment on above: 3rd generation ultra sensitive TSH. TSH Qnon 07-15-2024 Interpretation and review of laboratory results Normal [facility] TSH SerPl-aCncon 07-15-2024 TSH Qn 1.672 m[IU]/L Normal 0.358-3.740 [facility] Comment on above: Order Comment: Speci men Type: BLOOD SPECIMENOrdering Facility: [facility] Address: [address] [place] [address] Result Comment: 3rd generation ultra sensitive TSH. Performed By: #### 2 4323-8, 3016-3 ####[facility] LABORATORYCLIA [id number] [address] [place]#### [address]-5 ####[facility] LABORATORYCLIA [id number] [place] [id number] [place] [facility] LABIA [id number] [place] [address] [place] VITAMIN D 25 HYDROXYon 07-15 25-hydroxyvitamin D3 [Mass/Vol] 18.8 ng/mL Low 30.0 - 100.0 ng/mL [facility] Comment on above: Deficiency Less than 20 ng/mL Insufficiency 20 - Less than 30 ng/mL Sufficiency 30 - 100 ng/mL XR DIGIT 3V FRONTAL/LAT/OBL RTon 07-15-2024 XR DIGIT 3V FRONTAL/LAT/OBL RT * * *Final Report* * * DATE OF EXAM: Jul 15 2024 10:29AM RMX [id number] - XR DIGIT 3V FRONTAL/LAT/OBL RT / PROCEDURE REASON: Primary osteoarthritis of first carpometacarpal joint of right hand * * * * Physician Interpretation * * * * XR DIGIT 3V FRONTAL/LAT/OBL RT Ordering Physician: LIZETTE AVILA Clinical Statement: Primary osteoarthritis. FINDINGS: No fracture or dislocation. The alignment is normal. Moderate osteoarthritic change at the first carpometacarpal joint. Mild degenerative changes are noted at the first metacarpal phalangeal joint and at the first interphalangeal joint. No chondrocalcinosis or erosive arthropathy. IMPRESSION: Moderate osteoarthritic change first carpometacarpal joint. Technical Support Consultant: PSCB Transcribe Date/Time: Jul 18 2024 6:22A Dictated by : BARBARA PALUMBO MD This examination was interpreted and the report reviewed and electronically signed by: BARBARA PALUMBO MD on Jul 18 2024 6:23AM EST [id number] [facility] XR Finger - right AP and Lat eral and obliqueon 07-15-2024 Radiology Study observation (narrative) [facility] 05-27-2024 CNPN Telephone (FAMAAR) WILLY SANDERS ([id number]) 1955 M Date Time Provider Department 05/27/24 [facility] During your visit today, we recorded the following information about you: Michelle Alexandra MA 05/27/2024 10:15 AM Signed Items addressed in this encounter: Prior Authorization I received a PA request for Pantoprazole and after PA was submitted, plan responded back with No PA required. Able to close encounter. Michlele Alexandra MA May 27, 2024 10:13 AM 10:13 AM Allergies As of Date: 05/27/2024 (No Known Allergies) Date Reviewed: 03/07/2024 Reviewed by: Evelia Fallon APRN.FREEZER WORKER - Fully Assessed Reason for Visit: Pantoprazole is available without a PA [Other] Prescriptions as of 05/27/2024 - tamsulosin (FLOMAX) 0.4 mg Take 1 capsule by mouth daily at bedtime. - pantoprazole DR (PROTONIX) 40 mg tablet Take 1 tablet by mouth once daily. - fluticasone (FLONASE) 50 mcg/actuation nasal spray Use 1 Mckean in each nostril two times a day. Problem List As Of Date 05/27/2024 Noted Resolved Obesity, Class I, BMI 30-34.9 [E66.9] 10/17/2022 Essential (primary) hypertension [I10] 10/17/2022 GERD without esophagitis [K21.9] 10/17/2022 Combined hyperlipidemia [E78.2] 02/14/2023 Vitamin D deficiency [E55.9] 02/14/2023 Chest pain [R07.9] 10/30/2022 08/17/2023 Disorder of teeth and supporting structures [K0*10/30/2022 08/17/2023 Osteoarthritis of both knees [M17.0] 08/17/2023 Encounter Status:Closed by MICHELLE ALEXANDRA on 05/27/24 [facility] Twyla 05-20-2024 [facility] Telephone (FAMAAR) WILLY SANDERS ([id number]) 1955 M Date Time Provider Department 05/20/24 LIZETTE AVILA FAMAARhona During your visit today, we recorded the following information about you: Rissa Greenwood 05/20/2024 3:23 PM Signed Pt needs tamsulosin refilled send to [facility], stated its . Karena Jeong MA 05/20/2024 4:27 PM Signed Medication was sent to pharmacy Allergies As of Date: 05/20/2024 (No Known Allergies) Date Reviewed: 03/07/2024 Reviewed by: Evelia Fallon APRN.[facility] - Fully Assessed Reason for Visit: Refill Request [94] Visit Diagnosis:Benign prostatic hyperplasia with urinary frequency [N40.1, R35.0] Order(s):tamsulosin (FLOMAX) 0.4 mgTake 1 capsule by mouth daily at bedtime.Disp: 90 capsuleRfl: 1 Prescriptions as of 05/20/2024 - tamsulosin (FLOMAX) 0.4 mg Take 1 capsule by mouth daily at bedtime. - pantoprazole DR (PROTONIX) 40 mg tablet Take 1 tablet by mouth once daily. - fluticasone (FLONASE) 50 mcg/actuation nasal spray Use 1 Mckean in each nostril two times a day. Problem List As Of Date 05/20/2024 Noted Resolved Obesity, Class I, BMI 30-34.9 [E66.9] 10/17/2022 Essential (primary) hypertension [I10] 10/17/2022 GERD without esophagitis [K21.9] 10/17/2022 Combined hyperlipidemia [E78.2] 02/14/2023 Vitamin D deficiency [E55.9] 02/14/2023 Chest pain [R07.9] 10/30/2022 08/17/2023 Disorder of teeth and supporting structures [K0*10/30/2022 08/17/2023 Osteoarthritis of both knees [M17.0] 08/17/2023 Prescriptions ordered this encounter Disp Refills Start End TAMSULOSIN 0.4 MG CAPSULE 90 c* 1 05/20/2024 11/16/2024 Route: ORAL Sig: Take 1 capsule by mouth daily at bedtime. Medications Discontinued During This Encounter Prescriptions - tamsulosin (FLOMAX) 0.4 mg (Discontinued) Take 1 capsule by mouth daily at bedtime. Encounter Status:Closed by LIZETTE AVILA on 05/20/24 [facility] Twyla 03-19-2024 [facility] Telephone (FAMAAR) MARILYNWILLY ([id number]) 1955 M Date Time Provider Department 03/19/24 EVELIA FALLON During your visit today, we recorded the following information about you: Evelia Fallon APRN.CNP 03/19/2024 1:25 PM Signed Please let patient know that there are 2 lymph nodes on the right side of his neck and 1 on the left that appear enlarged on exam by ultrasound. All of them appear to be benign and likely reactive. Is he having any improvement in his sore throat since we increased his pantoprazole? Lola Yen MA 03/19/2024 1:57 PM Signed Patient states he has had huge improvements since the pantoprazole was increased and had no further questions regarding US results. Allergies As of Date: 03/19/2024 (No Known Allergies) Date Reviewed: 03/07/2024 Reviewed by: Evelia Fallon APRN.[employer]ZER WORKER - Fully Assessed Reason for Visit: Results [95] Prescriptions as of 03/19/2024 - pantoprazole DR (PROTONIX) 40 mg tablet Take 1 tablet by mouth once daily. - fluticasone (FLONASE) 50 mcg/actuation nasal spray Use 1 Mckean in each nostril two times a day. - tamsulosin (FLOMAX) 0.4 mg Take 1 capsule by mouth daily at bedtime. Problem List As Of Date 03/19/2024 Noted Resolved Obesity, Class I, BMI 30-34.9 [E66.9] 10/17/2022 Essential (primary) hypertension [I10] 10/17/2022 GERD without esophagitis [K21.9] 10/17/2022 Combined hyperlipidemia [E78.2] 02/14/2023 Vitamin D deficiency [E55.9] 02/14/2023 Chest pain [R07.9] 10/30/2022 08/17/2023 Disorder of teeth and supporting structures [K0*10/30/2022 08/17/2023 Osteoarthritis of both knees [M17.0] 08/17/2023 Encounter Status:Closed by EVELIA FALLON on 03/19/24 [facility] US HEAD/NECK SOFT TISSUE ROCHELLE Fannie 03-19-2024 US HEAD/NECK SOFT TISSUE OTHER * * *Final Report* * * DATE OF EXAM: Mar 19 2024 12:18PM U [id number] - US HEAD/NECK SOFT TISSUE OTHER / PROCEDURE REASON: Lymphadenopathy, cervical * * * * Physician Interpretation * * * * ULTRASOUND NECK SOFT TISSUES Clinical Statement: Lymphadenopathy, cervical. Comparison: None. TECHNIQUE: Hannah scale and Doppler images were acquired in the anterior neck corresponding to the areas of clinical concern. FINDINGS: Right neck: There is a mildly prominent lymph node in the anterior right neck palpable area with dimensions of 1.4 x 0.5 x 1.2 cm. The lymph node demonstrates normal morphology with non-thickened cortex and preserved echogenic hilum. There is no pathologic vascularity on Doppler. There is a right submental lymph node also visualized with dimensions of 1.7 x 0.5 x 1.4 cm with similar sonographic features. Left neck: There is a prominent anterior left seminal tubular lymph node measuring 2.2 x 0.8 x 2.2 cm. The lymph node demonstrates normal morphology with mild diffuse cortex thickening and preserved echogenic hilum. There is no pathologic vascularity on Doppler. The surrounding soft tissues are unremarkable. IMPRESSION: Prominent lymph nodes in the right and left neck areas of concern as detailed above which are probably reactive based on sonographic features. Clinical follow-up is recommended. Technical Support Consultant: JAMAL Transcribe Date/Time: Mar 19 2024 1:09P Dictated by : ETHEL ROJAS MD This examination was interpreted and the report reviewed and electronically signed by: ETHEL ROJAS MD on Mar 19 2024 1:14PM EST [id number] [facility] US Head and neck soft tissue on 03-19-2024 IMPRESSION: Prominent lymph nodes in the right and left neck areas of concern as detailed above which are probably reactive based on sonographic features. Clinical follow-up is recommended. Technical Support Consultant: JAMAL Transcribe Date/Time: Mar 19 2024 1:09P Dictated by : ETHEL ROJAS MD This examination was interpreted and the report reviewed and electronically signed by: ETHEL ROJAS MD on Mar 19 2024 1:14PM EST [facility] * * *Final Report* * * DATE OF EXAM: Mar 19 2024 12:18PM [facility] [place] 1052 - US HEAD/NECK SOFT TISSUE OTHER / PROCEDURE REASON: Lymphadenopathy, cervical * * * * Physician Interpretation * * * * ULTRASOUND NECK SOFT TISSUES Clinical Statement: Lymphadenopathy, cervical. Comparison: None. TECHNIQUE: Hannah scale and Doppler images were acquired in the anterior neck corresponding to the areas of clinical concern. FINDINGS: Right neck: There is a mildly prominent lymph node in the anterior right neck palpable area with dimensions of 1.4 x 0.5 x 1.2 cm. The lymph node demonstrates normal morphology with non-thickened cortex and preserved echogenic hilum. There is no pathologic vascularity on Doppler. There is a right submental lymph node also visualized with dimensions of 1.7 x 0.5 x 1.4 cm with similar sonographic features. Left neck: There is a prominent anterior left seminal tubular lymph node measuring 2.2 x 0.8 x 2.2 cm. The lymph node demonstrates normal morphology with mild diffuse cortex thickening and preserved echogenic hilum. There is no pathologic vascularity on Doppler. The surrounding soft tissues are unremarkable. [facility] Provider, Jennifer Chase - 03/19/2024 * * *Final Report* * * DATE OF EXAM: Mar 19 2024 12:18PM [facility] [place] 1052 - US HEAD/NECK SOFT TISSUE OTHER / PROCEDURE REASON: Lymphadenopathy, cervical * * * * Physician Interpretation * * * * ULTRASOUND NECK SOFT TISSUES Clinical Statement: Lymphadenopathy, cervical. Comparison: None. TECHNIQUE: Hannah scale and Doppler images were acquired in the anterior neck corresponding to the areas of clinical concern. FINDINGS: Right neck: There is a mildly prominent lymph node in the anterior right neck palpable area with dimensions of 1.4 x 0.5 x 1.2 cm. The lymph node demonstrates normal morphology with non-thickened cortex and preserved echogenic hilum. There is no pathologic vascularity on Doppler. There is a right submental lymph node also visualized with dimensions of 1.7 x 0.5 x 1.4 cm with similar sonographic features. Left neck: There is a prominent anterior left seminal tubular lymph node measuring 2.2 x 0.8 x 2.2 cm. The lymph node demonstrates normal morphology with mild diffuse cortex thickening and preserved echogenic hilum. There is no pathologic vascularity on Doppler. The surrounding soft tissues are unremarkable. IMPRESSION IMPRESSION: Prominent lymph nodes in the right and left neck areas of concern as detailed above which are probably reactive based on sonographic features. Clinical follow-up is recommended. Technical Support Consultant: PSCB Transcribe Date/Time: Mar 19 2024 1:09P Dictated by : ETHEL ROJAS MD This examination was interpreted and the report reviewed and electronically signed by: ETHEL ROJAS MD on Mar 19 2024 1:14PM EST [facility] Radiology Study observation (narrative) [facility] US Head and neck soft tissue Ordered By: Jennifer Provider on 03-19-2024 [facility] CNOVon 03-07-2024 CNOV Office Visit (FAMAAR ) ANAMWILLY GALAN ([id number]) 1955 M Date Time Provider Department 03/07/24 10:00 AM EVELIA FALLON During your visit today, we recorded the following information about you: Temperature Pulse Blood pressure Weight 98.5 degrees 85/minute 124/86 93 kg Height 1.702 m Evelia Fallon, RAVEN.FREEZER WORKER 03/07/2024 6:21 PM Signed Willy Lafleur Marilyn is a 68 year old male who presents with Acute Visit (Pt states he has had a sore throat for three weeks now.He has taken zyrtec and IBU. It doesn't seem to help. He is not using a nasal spray and not a smoker.) Willy presents today with c/o sore throat x 3 weeks. Has also been having nasal congestion, mild bitemporal headache. Clear nasal drainage. Denies cough. Has not noted PND. Tried Zyrtec for the past 4 days, which has not helped. States he previously had similar symptoms years ago and was started on pantoprazole 40mg. Was seen by ENT at that time. This was eventually decreased to 20mg. Has not noticed GERD symptoms, but states he did not at that time, either. States throat feels like somebody put a wire brush down my throat. Feels like he has trouble swallowing and has to take sips of water to get things down. Has been going on for quite a while, but much worse over the past few weeks. The history is provided by the patient. Hemoglobin A1C Date Value Ref Range Status 10/17/2022 5.7 4.3 - 6.0 % Final Comment: [place] [employer] guidelines indicate that patients with HgbA1c in the range 5.7-6.4% are at increased risk for development of diabetes, and intervention by lifestyle modification may be beneficial. HgbA1c greater or equal to 6.5% is considered diagnostic of diabetes. TSH Date Value Ref Range Status 10/17/2022 1.475 0.358 - 3.740 mIU/L Final Comment: 3rd generation ultra sensitive TSH. Albumin, Urine Random Date Value Ref Range Status 10/17/2022 5.0 0.0 - 19.0 mg/L Final PAST MEDICAL HISTORY Diagnosis Date GERD without esophagitis 10/17/2022 ACTIVE PROBLEM LIST Obesity, Class I, Bmi 30-34.9 Essential (Primary) Hypertension Gerd Without Esophagitis Combined Hyperlipidemia Vitamin D Deficiency Osteoarthritis of Both Knees Current Outpatient Medications Medication Sig Dispense Refill pantoprazole DR (PROTONIX) 20 mg tablet Take 1 tablet by mouth once daily. 90 tablet 3 tamsulosin (FLOMAX) 0.4 mg Take 1 capsule by mouth daily at bedtime. 90 capsule 1 No current facility-administered medications for this visit. Social History Tobacco Use Smoking status: Never Smokeless tobacco: Never Vaping Use Vaping Use: Never used Substance Use Topics Alcohol use: Never Drug use: Never FAMILY HISTORY Problem Relation Age of Onset other (stomach cancer) Mother Brain Cancer Father Review of Systems All other systems reviewed and are negative. BP 124/86 Pulse 85 Temp 98.5 Ht 5' 7 (1.70m) Wt 205 lb (93.0kg) SpO2 98% BMI 32.10 kg/(m2). Physical Exam Vitals and nursing note reviewed. Constitutional: Appearance: Normal appearance. He is obese. HENT: Head: Normocephalic and atraumatic. Right Ear: Ear canal and external ear normal. Left Ear: Ear canal and external ear normal. Ears: Comments: Grossly normal hearing Nose: Congestion and rhinorrhea present. Mouth/Throat: Mouth: Mucous membranes are moist. Pharynx: Oropharynx is clear. Comments: 2-3+ tonsillar hypertrophy Eyes: Pupils: Pupils are equal, round, and reactive to light. Comments: Glasses Neck: Comments: 1 palpable cervical lymph node R anterior Cardiovascular: Rate and Rhythm: Normal rate and regular rhythm. Pulses: Normal pulses. Heart sounds: Normal heart sounds. No murmur heard. Pulmonary: Effort: Pulmonary effort is normal. Breath sounds: Normal breath sounds. Abdominal: General: Bowel sounds are normal. Palpations: Abdomen is soft. Tenderness: There is no abdominal tenderness. Musculoskeletal: General: No swelling. Cervical back: Neck supple. Lymphadenopathy: Cervical: Cervical adenopathy present. Skin: General: Skin is warm and dry. Capillary Refill: Capillary refill takes less than 2 seconds. Findings: No lesion or rash. Neurological: General: No focal deficit present. Mental Status: He is alert and oriented to person, place, and time. Psychiatric: Mood and Affect: Mood normal. Behavior: Behavior normal. Medications were reviewed and verified. Assessment AND Plan ASSESSMENT/PLAN: 1. GERD without esophagitis - ICD9: 530.81, ICD10: K21.9 (primary diagnosis) Patient describes same presentation when he was told he had GERD. States that he was not having any obvious reflux at that time, nor is he now. Trial increasing pantoprazole to 40 mg - PANTOPRAZOLE 40 MG TABLET,DELAYED RELEASE - PANTOPRAZOLE 40 MG TABLET,DELAYED RELEASE 2. Tonsillar h (more content not included)... Normal [facility] CNOVon 09-12-2023 CNOV Office Visit (FAMAAR ) WILLY SANDERS ([id number]) 1955 M Date Time Provider Department 09/12/23 3:20 PM EVELIA FALLON During your visit today, we recorded the following information about you: Temperature Pulse Respiration Blood pressure 98.7 degrees 70/minute 17/minute 140/90 Weight 91 kg Grahambrady DavidTYE santana 09/12/2023 4:14 PM Signed ER follow up 09/02/2023 went to [place] [facility] for Abdominal pain, diarrhea, continuous nausea. Infection in lower intestine Was started on ATB and advised to have colonoscopy JIGNESH. Provider told him to be checked for Chrons Provider stated he did not like what he saw on testing results stated he had an enlargement. Still having nausea, diarrhea X 2 daily David Jones MA September 12, 2023 4:10 PM Evelia Fallon APRN.[employer] WORKER 09/13/2023 12:11 AM Signed Willy Sanders is a 68 year old male who presents with ED Follow-up Willy presents today for f/u from [place] [facility] 09/02 for colitis. He was started on cipro and flagyl, finishing today. He states he is doing better, but still feels a little nauseated. Pain has resolved. States stools look darker to him, but not black. No herminia blood. Appetite has not improved. Had zofran from ER, but has not had to take for a few days. Had a colonoscopy about 8 years ago, but cannot recall with whom. The history is provided by the patient. Hemoglobin A1C Date Value Ref Range Status 10/17/2022 5.7 4.3 - 6.0 % Final Comment: [place] [employer] guidelines indicate that patients with HgbA1c in the range 5.7-6.4% are at increased risk for development of diabetes, and intervention by lifestyle modification may be beneficial. HgbA1c greater or equal to 6.5% is considered diagnostic of diabetes. TSH Date Value Ref Range Status 10/17/2022 1.475 0.358 - 3.740 mIU/L Final Comment: 3rd generation ultra sensitive TSH. Albumin, Urine Random Date Value Ref Range Status 10/17/2022 5.0 0.0 - 19.0 mg/L Final PAST MEDICAL HISTORY Diagnosis Date GERD without esophagitis 10/17/2022 ACTIVE PROBLEM LIST Obesity, Class I, Bmi 30-34.9 Essential (Primary) Hypertension Gerd Without Esophagitis Combined Hyperlipidemia Vitamin D Deficiency Osteoarthritis of Both Knees Current Outpatient Medications Medication Sig Dispense Refill tamsulosin (FLOMAX) 0.4 mg Take 1 capsule by mouth daily at bedtime. [address] (PROTONIX) 20 mg tablet Take 1 tablet by mouth once daily. 90 tablet 3 No current facility-administered medications for this visit. Social History Tobacco Use Smoking status: Never Smokeless tobacco: Never Vaping Use Vaping Use: Never used Substance Use Topics Alcohol use: Never Drug use: Never FAMILY HISTORY Problem Relation Age of Onset other (stomach cancer) Mother Brain Cancer Father Review of Systems Constitutional: Positive for appetite change. Negative for activity change, fatigue and unexpected weight change. HENT: Negative for hearing loss and trouble swallowing. Eyes: Negative for visual disturbance. Respiratory: Negative for cough and shortness of breath. Cardiovascular: Negative for chest pain, palpitations and leg swelling. Gastrointestinal: Positive for diarrhea and nausea. Negative for vomiting. Genitourinary: Negative for difficulty urinating. Skin: Negative for rash and wound. Neurological: Negative for dizziness, light-headedness and headaches. Psychiatric/Behavioral : Negative for dysphoric mood. All other systems reviewed and are negative. There were no vitals taken for this visit. Physical Exam Vitals and nursing note reviewed. Constitutional: Appearance: Normal appearance. He is obese. HENT: Head: Normocephalic and atraumatic. Ears: Comments: Grossly normal hearing Eyes: Pupils: Pupils are equal, round, and reactive to light. Comments: Glasses Cardiovascular: Rate and Rhythm: Normal rate and regular rhythm. Pulses: Normal pulses. Heart sounds: Normal heart sounds. No murmur heard. Pulmonary: Effort: Pulmonary effort is normal. Breath sounds: Normal breath sounds. Abdominal: General: Bowel sounds are normal. Palpations: Abdomen is soft. There is no mass. Tenderness: There is no abdominal tenderness. There is no guarding. Musculoskeletal: General: No swelling. Cervical back: Neck supple. Lymphadenopathy: Cervical: No cervical adenopathy. Skin: General: Skin is warm and dry. Capillary Refill: Capillary refill takes less than 2 seconds. Findings: No lesion or rash. Neurological: General: No focal deficit present. Mental Status: He is alert and oriented to person, place, and time. Psychiatric: Mood and Affect: Mood normal. Behavior: Behavior normal. Medications were reviewed and verified. Assessment AND Plan ASSESSMENT/PLAN: 1. Encounter for support and coordination of transition of (more content not included)... [facility] CNOVon 08-17-2023 CNOV Office Visit (FAMAAR ) MARNIEWILLY ARMSTRONG ([id number]) 1955 M Date Time Provider Department 08/17/23 1:30 PM LIZETTE AVILA During your visit today, we recorded the following information about you: Temperature Pulse Respiration Blood pressure 97.7 degrees 65/minute 20/minute 134/88 Weight Height 91.1 kg 1.702 m Melvina Mallory MA 08/17/2023 1:50 PM Addendum Willy is here today for a 6 month follow up to chronic conditions. C/O having trouble urinating in the mornings. No other concerns at this time MELVINA MALLORY MA August 17, 2023 1:44 PM Lizette Avila MD 08/17/2023 2:08 PM Signed Office follow up note: 68 year old male, presents today for follow up visit. Patient reports being compliant with medication(s) and no adverse reactions to medication(s). GERD on PPI symptoms controlled , no dysphagia, no weight loss, no blood in the stool. Stable to continue. Hypertension has not been taking his blood pressure medication. Self stopped. BPH not emptying well. Nocturia 3 times. Knees pain chronic Degenerative joints disease. Aching worse with stairs. Obesity Body mass index is 31.45 kg/m?. Last Wt 08/17/23 : 91.1 kg (200 lb 12.8 oz) 5% weight loss = 191 lbs, 10% weight loss = 181 lbs The patient is asked to make an attempt to improve diet and exercise patterns to aid in medical management of this problem. Counseling 15 min . ALLERGIES No Known Allergies Current Outpatient Medications Medication Sig pantoprazole (PROTONIX) 20 mg tablet Take 1 tablet by mouth once daily. No current facility-administered medications for this visit. 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 REVIEW OF SYSTEMS: GENERAL: Negative for malaise, significant weight loss, night sweats and fever HEENT: No changes in hearing or vision. No sinus pain or pressure, No trouble swallowing RESPIRATORY: Negative for cough, wheezing and shortness of breath CADIOVASCULAR: Negative for chest pain, leg swelling, palpitations, orthopnea GI: Negative for abdominal discomfort, hematochezia, melena, hematemesis, change in bowel habits, diarrhea, constipation, nausea or vomiting. HEMATOLOGY Negative for prolonged bleeding, bruising easily, and swollen nodes. ENDOCRINE: Negative for cold or heat intolerance, polyuria, polydipsia and goiter. NEURO: Negative for lightheadedness, dizziness, tremor, gait imbalance, syncope and seizures. PHYSICAL EXAM: VITALS: Blood pressure 134/88, pulse 65, temperature 36.5 ?C (97.7 ?F), resp. rate 20, height 170.2 cm (5' 7 ), weight 91.1 kg (200 lb 12.8 oz), SpO2 96 %., Body mass index is 31.45 kg/m?. GENERAL: Healthy, alert, no distress, cooperative SKIN: Skin color, texture, turgor normal. No rashes or lesions. HEENT: PERRL, EOMI, and normal dentition CARDIAC: Normal S1 and S2; no rubs, murmurs, or gallops LUNGS: Lungs clear to auscultation, Good diaphragmatic excursion ABDOMEN Right Upper quadrant swelling. EXTREMITIES: Extremities normal, no deformities, edema, clubbing or skin discoloration. Good capillary refill., No ulcers NEURO: Gait normal. Reflexes normal and symmetric. Sensation grossly intact, Cranial nerves II-XII intact PULSES: 2+ radial LAB RESULTS: Results for orders placed or performed in visit on 10/17/22 COLOGUARD Result Value Ref Range Stool DNA Negative Negative ASSESSMENT/PLAN: 1. 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 GERD without esophagitis - ICD9: 530.81, ICD10: K21.9 - Discussed lifestyle modifications including losing weight, limiting caffeine, no meals three hours before sleep, and head of bed elevation 3. Obesity, Class I, BMI 30-34.9 - ICD9: 278.00, ICD10: E66.9 Continue current management plan. 4. Osteoarthritis of both knees, unspecified osteoarthritis type - ICD9: 715.96, ICD10: M17.0 5. Benign prostatic hyperplasia with urinary frequency - ICD9: 600.01, 788.41, ICD10: N40.1, R35.0 - Patient education for prevention given - TAMSULOSIN 0.4 MG CAPSULE - PSA/PROSTSPECAG DIAG - US ABDOMEN COMPLETE 6. Essential hypertension - ICD9: 401.9, ICD10: I10 - Controlled - Continue current medications - Recommend home blood pressure monitoring, to bring results to next visit - En (more content not included)... Normal [facility] CVFLURVon 10-31-2022 FLU A PCR Negative Normal Negative [facility] ([place]) Comment on above: Result Comment: [place] s [id number] Performed By: #### C VFLURV #### [address] [address] FLU B PCR Negative Normal Negative [facility] ([place]) Comment on above: Result Comment: Note s [id number] Performed By: #### C VFLURV #### [facility] [address] [place] [address] RSV PCR Negative Normal Negative [facility] ([place]) Comment on above: Result Comment: Note s [id number] Performed By: #### C VFLURV #### [address] [address] SARS-CoV-2 (COVID-19) RNA SAMMY+probe Ql (Unsp spec) Negative Normal Negative [facility] ([place]) Comment on above: Result Comment: Note s [id number] This test has been authorized by FDA under an EUA for use by authorized laboratories and has not been FDA cleared or approved. Results from the Xpert Xpress SARS-CoV-2/Flu/RSV or Xpert Xpress SARS-CoV-2 only test should be correlated with the clinical history, epidemiological data, and other data available to the clinician evaluating the patient. Performance of the Xpert Xpress SARS-CoV-2/Flu/RSV or Xpert Xpress SARS-CoV-2 only test has only been established in nasopharyngeal swab specimens. Erroneous test results might occur from improper specimen collection; failure to follow the recommended sample collection, handling, and storage procedures; technical error; or sample mix-up.False negative results may occur if virus is present at levels below the analytical limit of detection. Viral nucleic acid may persist in vivo, independent of virus viability. Detection of analyte target(s) does not imply that the corresponding virus(es) are infectious or are the causative agents for clinical symptoms.Recent patient exposure to FluMist or other live attenuated influenza vaccines may cause inaccurate positive results. Performed By: #### C VFLURV #### [place] [address] LACon 10-31-2022 Lactic Acid Lvl 1.6 mmol/L Normal 0.2-2.0 [facility] ([place]) Comment on above: Performed By: #### L AC #### [place] [address] Lactic Acid Lvl 2.1 mmol/L High 0.2-2.0 [facility] ([place]) Comment on above: Performed By: #### L AC #### [place] [address] .Auto Diffon 10-30-2022 Basophil, Absolute 0.0 10 3/mcL Normal 0.0-0.2 [facility] ([place]) Comment on above: Performed By: #### B BEAU VILLALOBOSS, GFR #### [address] [address] Basophils/100 WBC (Bld) 0.4 % Normal 0.0-2.5 [facility] ([place]) Comment on above: Performed By: #### B BEAU VILLALOBOSS, GFR #### [address] [address] Eosinophil, Absolute 0.2 10 3/mcL Normal 0.0-0.4 [facility] ([place] Comment on above: Performed By: #### B GRISELDA TROPHS, GFR #### [address] [address] Eosinophils/100 WBC (Bld) 1.8 % Normal 0.0-7.0 [facility] ([place]) Comment on above: Performed By: #### B GRISELDA TROPHS, GFR #### [address] [address] Lymphocyte, Absolute 2.3 10 3/mcL Normal 0.8-3.9 [facility] ([place] Comment on above: Performed By: #### B GRISELDA TROPHS, GFR #### [address] [address] Lymphocytes/100 WBC (Bld) 18.3 % Normal 10.0-50.0 [facility] ([place]) Comment on above: Performed By: #### B GRISELDA TROPHS, GFR #### [address] [address] Monocyte, Absolute 1.2 10 3/mcL High 0.2-1.0 [facility] ([place] Comment on above: Performed By: #### B GRISELDA TROPHS, GFR #### [address] [address] Monocytes/100 WBC (Bld) 9.3 % Normal 1.7-13.0 [facility] ([place] Comment on above: Performed By: #### B GRISELDA TROPHS, GFR #### [address] [address] Neutrophils/100 WBC (Bld) 70.2 % Normal 37.0-80.0 [facility] ([place]) Comment on above: Performed By: #### B GRISELDA, TROPHS, GFR #### [address] [address] .GFRon 10-30-2022 GFR 97 ml/min/1.73sqm Normal [facility] ([place]) Comment on above: Result Comment: GFR Population mean for , Non- Americans Ages 20-29 = 116 mL/min/1.73 sq.m. Ages 30-39 = 107 mL/min/1.73 sq.m. Ages 40-49 = 99 mL/min/1.73 sq.m. Ages 50-59 = 93 mL/min/1.73 sq.m. Ages 60-69 = 85 mL/min/1.73 sq.m. Ages 70+ = 75 mL/min/1.73 sq.m. Chronic Kidney Disease: Less than 60 mL/min/1.73 square meters End Stage Renal Disease: Less than 15 mL/min/1.73 square meters Performed By: #### C VFLURV #### [address] [address] GFR Non- 80 ml/min/1.73sqm Normal [facility] ([place]) Comment on above: Result Comment: GFR Population mean for , Non- Americans Ages 20-29 = 116 mL/min/1.73 sq.m. Ages 30-39 = 107 mL/min/1.73 sq.m. Ages 40-49 = 99 mL/min/1.73 sq.m. Ages 50-59 = 93 mL/min/1.73 sq.m. Ages 60-69 = 85 mL/min/1.73 sq.m. Ages 70+ = 75 mL/min/1.73 sq.m. Chronic Kidney Disease: Less than 60 mL/min/1.73 square meters End Stage Renal Disease: Less than 15 mL/min/1.73 square meters Performed By: #### C VFLURV #### [address] [address] .MDWon 10-30-2022 Monocyte Distribution Width 16.70 Normal 0.00-20.00 [facility] ([place]) Comment on above: Result Comment: For ED adult patients suspected of sepsis, MDW<=20.0 does not rule out sepsis or risk of sepsis Performed By: #### B MP, TROPHS, GFR #### [address] [address] .NEUABSon 12-04-2022 Neutrophil, Absolute 8.9 10 3/mcL High 2.9-6.2 [facility] ([place] Comment on above: Performed By: #### B MP, TROPHS, GFR #### Ara [address] [address] [facility] 10-30-2022 BUN/Creatinine Ratio 9 ratio Normal 7-27 [facility] ([place] Comment on above: Performed By: #### C VFLURV #### [address] [address] Calcium [Mass/Vol] 9.3 mg/dL Normal 8.4-10.2 [facility] ([place]) Comment on above: Performed By: #### C VFLURV #### [address] [address] Chloride [Moles/Vol] 102 mmol/L Normal 98-107 [facility] ([place] Comment on above: Performed By: #### C VFLURV #### [address] [address] CO2 [Moles/Vol] 29 mmol/L Normal 23-31 [facility] ([place]) Comment on above: Performed By: #### C VFLURV #### [address] [address] Creatinine [Mass/Vol] 0.94 mg/dL Normal 0.70-1.30 [facility] ([place]) Comment on above: Performed By: #### C VFLURV #### [address] [address] Electrolyte Balance 9.0 mEq/L Normal 4.0-15.0 [facility] ([place]) Comment on above: Performed By: #### C VFLURV #### [address] [address] Glucose [Mass/Vol] 108 mg/dL Normal 80-115 [facility] ([place] Comment on above: Performed By: #### C VFLURV #### [address] [address] Potassium [Moles/Vol] 4.0 mmol/L Normal 3.5-5.1 [facility] ([place] Comment on above: Performed By: #### C VFLURV #### [address] [address] Sodium [Moles/Vol] 140 mmol/L Normal 136-145 [facility] ([place] Comment on above: Performed By: #### C VFLURV #### [address] [address] Urea nitrogen [Mass/Vol] 8 mg/dL Normal 7-18 [facility] ([place] Comment on above: Performed By: #### C VFLURV #### [address] [address] CBCon 10-30-2022 Erythrocyte distribution width (RBC) [Ratio] 13.4 % Normal 11.5-14.5 [facility] ([place]) Comment on above: Performed By: #### B GRISELDA, TROPHS, GFR #### [address] [address] Hematocrit (Bld) [Volume fraction] 44.3 % Normal 42.0-52.0 [facility] ([place] Comment on above: Performed By: #### B MP, TROPHS, GFR #### [address] [address] Hgb 15.0 G/dL Normal 14.0-18.0 [facility] ([place] Comment on above: Performed By: #### B MP, TROPHS, GFR #### [address] [address] MCH (RBC) [Entitic mass] 30.1 pg Normal 27.0-31.2 [facility] ([place]) Comment on above: Performed By: #### B MP, TROPHS, GFR #### [address] [address] MCHC 33.8 G/dL Normal 31.8-35.4 [facility] ([place] Comment on above: Performed By: #### B MP, TROPHS, GFR #### [address] [address] MCV (RBC) [Entitic vol] 89.0 fL Normal 80.0-94.0 [facility] ([place] Comment on above: Performed By: #### B CONOR VILLALOBOS, GFR #### [address] [address] Platelet 223 10 3/mcL Normal 130-400 [facility] ([place] Comment on above: Performed By: #### B CONOR VILLALOBOS, GFR #### [address] [address] Platelet mean volume (Bld) [Entitic vol] 8.5 fL Normal 7.4-10.4 [facility] ([place]) Comment on above: Performed By: #### B CONOR VILLALOBOS GFR #### [address] [address] RBC 4.98 10 6/mcL Normal 4.04-6.13 [facility] ([place] Comment on above: Performed By: #### B CONOR VILLALOBOS, GFR #### [address] [address] WBC 12.7 10 3/mcL High 4.6-10.8 [facility] ([place]) Comment on above: Performed By: #### B CONOR VILLALOBOS GFR #### [address] [address] [address] HEAD OR BRAIN W/O CONTRAS Ton 10-30-2022 CT HEAD OR BRAIN W/O CONTRAST ORIGINAL EXAMINATION: CT OF THE HEAD WITHOUT CONTRAST 10/30/2022 7:21 pm TECHNIQUE: CT of the head was performed without the administration of intravenous contrast. Automated exposure control, iterative reconstruction, and/or weight based adjustment of the mA/kV was utilized to reduce the radiation dose to as low as reasonably achievable. COMPARISON: None. HISTORY: ORDERING SYSTEM PROVIDED HISTORY: Reason for Exam: HEADACHE, DIZZINESS SINCE 10/28, PT STATES NO NEURO HX dizzy FINDINGS: BRAIN/VENTRICLES: There is no acute intracranial hemorrhage, mass effect or midline shift. No abnormal extra-axial fluid collection. The hannah-white differentiation is maintained without evidence of an acute infarct. There is no evidence of hydrocephalus. ORBITS: The visualized portion of the orbits demonstrate no acute abnormality. SINUSES: There is nonspecific mucosal thickening within the right maxillary and bilateral sphenoid sinuses. SOFT TISSUES/SKULL: No acute abnormality of the visualized skull or soft tissues. IMPRESSION: No acute intracranial hemorrhage or acute large vessel territory infarct. I have personally reviewed the images of this examination and agree with the resident's findings and interpretation. Interpreted by: Jc Carvajal Preliminary Report By: Soledad Pack Electronically signed By Jc Carvajal Dictated Date: 10/30/2022 7:26:22 PM Prelim Date: 10/30/2022 7:28:57 PM Sign Date: 10/30/2022 7:47:48 PM Ordering Provider: FAN Lindsay [facility] ([place]) LABORATORYOrdered By: Allyssa chen on 10-30-2022 Lactate [Moles/Vol] 1.6 mmol/L Invalid Interpretation Code 0.2 - 2.0 mmol/L AH Auto Chem SS LABORATORYOrdered By: Beni Olvera on 10-30-2022 Lactate [Moles/Vol] 2.1 mmol/L Invalid Interpretation Code 0.2 - 2.0 mmol/L AH Auto Chem SS LABORATORYOrdered By: Joycelyn Orlando on 10-30-2022 Appearance (U) Clear (10/30/22 9:11 PM) Invalid Interpretation Code Clear AH Auto Urine SS Bilirubin Ql (U) Negative (10/30/22 9:11 PM) Invalid Interpretation Code Neg-Trace AH Auto Urine SS Color (U) Yellow (10/30/22 9:11 PM) Invalid Interpretation Code AH Auto Urine SS Glucose Test strip (U) [Mass/Vol] Negative Invalid Interpretation Code Negativemg/d L AH Auto Urine SS Hemoglobin Auto test strip (U) [Mass/Vol] Negative (10/30/22 9:11 PM) Invalid Interpretation Code Neg-Trace AH Auto Urine SS Ketones Ql (U) Trace mg/dL Invalid Interpretation Code Neg-Tracemg/ dL AH Auto Urine SS UA Leuk Est Negative (10/30/22 9:11 PM) Invalid Interpretation Code Negative AH Auto Urine SS UA Nitrite Negative (10/30/22 9:11 PM) Invalid Interpretation Code Negative AH Auto Urine SS UA pH 7.0 (10/30/22 9:11 PM) Invalid Interpretation Code 5.0 - 8.0 AH Auto Urine SS UA Protein Negative Invalid Interpretation Code Negativemg/d L AH Auto Urine SS UA Spec Grav 1.020 (10/30/22 9:11 PM) Invalid Interpretation Code 1.006-1.029 AH Auto Urine SS UA Specimen Type Clean Catch (10/30/22 9:11 PM) Invalid Interpretation Code AH Auto Urine SS UA Urobilinogen 1.0 E.U./dL Invalid Interpretation Code 0.2-1.0E.U./ dL AH Auto Urine SS LABORATORYOrdered By: Mago Stovall on 10-30-2022 FLUAV RNA SAMMY+probe Ql (Resp) Negative 2 (10/30/22 9:11 PM) Invalid Interpretation Code Negative AH Auto Viro/Sero SS Comment on above: Result Comment: [place] [id number] FLUBV RNA SAMMY+probe Ql (Resp) Negative 3 (10/30/22 9:11 PM) Invalid Interpretation Code Negative AH Auto Viro/Sero SS Comment on above: Result Comment: [place] [id number] RSV PCR Negative 4 (10/30/22 9:11 PM) Invalid Interpretation Code Negative AH Auto Viro/Sero SS Comment on above: Result Comment: [place] [id number] SARS-CoV-2 (COVID-19) RNA SAMMY+probe Ql (Resp) Negative 1 (10/30/22 9:11 PM) Invalid Interpretation Code Negative AH Auto Viro/Sero SS Comment on above: Result Comment: [place] [id number] LABORATORYOrdered By: SYSTEM SYSTEM on 10-30-2022 Troponin I.cardiac DL <= 0.01 ng/mL [Mass/Vol] ng/L Invalid Interpretation Code 0.00 - 54.00 ng/L AH ADM SS GFR 97 ml/min/1.73sqm Invalid Interpretation Code AO Chemistry S GFR Non- 80 ml/min/1.73sqm Invalid Interpretation Code AO Chemistry S LABORATORYOrdered By: Aamir Gutiérrez on 10-30-2022 Troponin I.cardiac DL <= 0.01 ng/mL [Mass/Vol] 5.8 ng/L Invalid Interpretation Code 0.0 - 76.2 ng/L AO ADM SS Basophil, Absolute 0.0 103/mcL Invalid Interpretation Code 0.0 - 0.2 10^3/mcL AO Workflow SS Basophils/100 WBC (Bld) 0.4 % Invalid Interpretation Code 0.0 - 2.5 % AO Workflow SS Calcium [Mass/Vol] 9.3 mg/dL Invalid Interpretation Code 8.4 - 10.2 mg/dL AO ADM SS Chloride [Moles/Vol] 102 mmol/L Invalid Interpretation Code 98 - 107 mmol/L AO ADM SS CO2 [Moles/Vol] 29 mmol/L Invalid Interpretation Code 23 - 31 mmol/L AO ADM SS Creatinine [Mass/Vol] 0.94 mg/dL Invalid Interpretation Code 0.70 - 1.30 mg/dL AO ADM SS Electrolyte Balance 9.0 mEq/L Invalid Interpretation Code 4.0 - 15.0 mEq/L AO ADM SS Eosinophil, Absolute 0.2 103/mcL Invalid Interpretation Code 0.0 - 0.4 10^3/mcL AO Workflow SS Eosinophils/100 WBC (Bld) 1.8 % Invalid Interpretation Code 0.0 - 7.0 % AO Workflow SS Erythrocyte distribution width (RBC) [Ratio] 13.4 % Invalid Interpretation Code 11.5 - 14.5 % AO Workflow SS Glucose [Mass/Vol] 108 mg/dL Invalid Interpretation Code 80 - 115 mg/dL AO ADM SS Hematocrit (Bld) [Volume fraction] 44.3 % Invalid Interpretation Code 42.0 - 52.0 % AO Workflow SS Hemoglobin (Bld) [Mass/Vol] 15.0 G/dL Invalid Interpretation Code 14.0 - 18.0 G/dL AO Workflow SS Lymphocyte, Absolute 2.3 103/mcL Invalid Interpretation Code 0.8 - 3.9 10^3/mcL AO Workflow SS Lymphocytes/100 WBC (Bld) 18.3 % Invalid Interpretation Code 10.0 - 50.0 % AO Workflow SS MCH (RBC) [Entitic mass] 30.1 pg Invalid Interpretation Code 27.0 - 31.2 pg AO Workflow SS MCHC 33.8 G/dL Invalid Interpretation Code 31.8 - 35.4 G/dL AO Workflow SS MCV (RBC) [Entitic vol] 89.0 fL Invalid Interpretation Code 80.0 - 94.0 fL AO Workflow SS Monocyte distribution width Auto (Bld) [Entitic vol] 16.70 Invalid Interpretation Code 0.00 - 20.00 AO Workflow SS Comment on above: Result Comment: For ED adult patients suspected of sepsis, MDW<=20.0 does not rule out sepsis or risk of sepsis Monocyte, Absolute 1.2 103/mcL Invalid Interpretation Code 0.2 - 1.0 10^3/mcL AO Workflow SS Monocytes/100 WBC (Bld) 9.3 % Invalid Interpretation Code 1.7 - 13.0 % AO Workflow SS Neutrophil, Absolute 8.9 103/mcL Invalid Interpretation Code 2.9 - 6.2 10^3/mcL AO Workflow SS Neutrophils/100 WBC (Bld) 70.2 % Invalid Interpretation Code 37.0 - 80.0 % AO Workflow SS Platelet mean volume (Bld) [Entitic vol] 8.5 fL Invalid Interpretation Code 7.4 - 10.4 fL AO Workflow SS Platelets (Bld) [#/Vol] 223 103/mcL Invalid Interpretation Code 130 - 400 10^3/mcL AO Workflow SS Potassium [Moles/Vol] 4.0 mmol/L Invalid Interpretation Code 3.5 - 5.1 mmol/L AO ADM SS RBC (Bld) [#/Vol] 4.98 106/mcL Invalid Interpretation Code 4.04 - 6.13 10^6/mcL AO Workflow SS Sodium [Moles/Vol] 140 mmol/L Invalid Interpretation Code 136 - 145 mmol/L AO ADM SS Troponin I.cardiac DL <= 0.01 ng/mL [Mass/Vol] 7.0 ng/L Invalid Interpretation Code 0.0 - 76.2 ng/L AO ADM SS Urea nitrogen [Mass/Vol] 8 mg/dL Invalid Interpretation Code 7 - 18 mg/dL AO ADM SS Urea nitrogen/Creatinine [Mass ratio] 9 ratio Invalid Interpretation Code 7 - 27 ratio AO ADM SS WBC (Bld) [#/Vol] 12.7 103/mcL Invalid Interpretation Code 4.6 - 10.8 10^3/mcL AO Workflow SS No Panel Informationon 10-30 Culture Urine No growth to date [facility] Microscopic examination of blood, culture Culture has been received in lab and is no growth to date. Routine cultures are held for 5 days. [facility] 10-30-2022 Troponin I High Sensitivity <2.50 Normal 0.00-54.00 [facility] ([place]) Comment on above: Result Comment: If t he High Sensitive Troponin result is below the 99th percentile value (<45 ng/L) at the first blood draw, at least two additional blood samples should be drawn before results are interpreted as negative for AMI. Performed By: #### T ROPHS #### [place] [address] Troponin I High Sensitivity 5.8 ng/L Normal 0.0-76.2 [facility] ([place]) Comment on above: Performed By: #### C VFLURV #### [place] [address] Troponin I High Sensitivity 7.0 ng/L Normal 0.0-76.2 [facility] ([place]) Comment on above: Performed By: #### C VFLURV #### [place] [address] UAon 10-30-2022 Color (U) Yellow Normal [facility] ([place]) Comment on above: Performed By: #### U A #### [place] [address] Glucose (U) [Mass/Vol] Negative Normal Negative [facility] ([place]) Comment on above: Performed By: #### U A #### [place] [address] Ketones Ql (U) Trace Normal Neg-Trace [facility] ([place]) Comment on above: Performed By: #### U A #### [place] [address] UA Appear Clear Normal Clear [facility] ([place]) Comment on above: Performed By: #### U A #### [place] [address] UA Blood Negative Normal Neg-Trace [facility] ([place]) Comment on above: Performed By: #### U A #### [place] [id number] UA Leuk Est Negative Normal Negative [facility] ([place]) Comment on above: Performed By: #### U A #### [place] [address] UA Nitrite Negative Normal Negative [facility] ([place]) Comment on above: Performed By: #### U A #### [place] [address] UA pH 7.0 Normal 5.0 - 8.0 [facility] ([place]) Comment on above: Performed By: #### U A #### [address] [address] UA Protein Negative Normal Negative [facility] ([place]) Comment on above: Performed By: #### U A #### [address] [address] UA Spec Grav 1.020 Normal 1.006-1.029 [facility] ([place]) Comment on above: Performed By: #### U A #### [address] [address] UA Specimen Type Clean Catch Normal [facility] ([place]) Comment on above: Performed By: #### U A #### [address] [address] UA Urobilinogen 1.0 E.U./dL Normal 0.2-1.0 [facility] ([place]) Comment on above: Performed By: #### U A #### [address] [address] Urobilinogen (U) [Mass/Vol] Negative Normal Neg-Trace [facility] ([place]) Comment on above: Performed By: #### U A #### [address] [address] XR CHEST 1 VIEWon 10-30-2022 XR CHEST 1 VIEW ORIGINAL EXAMINATION: ONE XRAY VIEW OF THE CHEST10/30/2022 9:26 am COMPARISON: None. HISTORY: ORDERING SYSTEM PROVIDED HISTORY: Reason for Exam: chest pain FINDINGS: The heart is borderline in size. Vascular structures appear within normal limits. There is no consolidation. No pleural fluid or pneumothorax. No aggressive osseous lesions identified. IMPRESSION: No acute radiographic findings. Interpreted by: Mauro Johnston MD Preliminary Report By: Mauro Johnston MD Electronically signed By Mauro Johnston MD Dictated Date: 10/30/2022 9:29:30 AM Prelim Date: 10/30/2022 9:30:03 AM Sign Date: 10/30/2022 9:30:03 AM Ordering Provider: SO MEJÍA [facility] ([place]) STREP (POC)on 04-29-2022 Perf Loc - POCT Tested at AM Normal [facility]) Comment on above: Result Comment: Fannie Tolbert [address] [place], [place] [address] Group A Streptococcus Antigen (POC) Negative Normal Negative [facility] ([place]) Comment on above: Result Comment: Grou p A streptococcus antigen screen results are not quantitative. Positive results have been reported in asymptomatic carriers of Group A Strep. Test results must be evaluated in conjunction with other clinical data. Performing Instrument - POCT [id number] Normal [facility] ([place]) Vital Signs Date Time Vital Sign Value Performing Clinician Facility 07-17-2024 10:32-0400 Body height 170.2 cm Delma Cheek MD Work Phone: [facility] 07-17-2024 10:32-0400 Body mass index (BMI) [Ratio] 32.26 kg/m2 Delma Cheek MD Work Phone: [facility] 07-17-2024 10:32-0400 Body weight 93.44 kg Delma Cheek MD Work Phone: [facility] 07-17-2024 10:32-0400 Heart rate 78 /min Delma Cheek MD Work Phone: [facility] 07-17-2024 10:32-0400 SaO2% (BldA) [Mass fraction] 98 % Delma Cheek MD Work Phone: [facility] 07-15-2024 09:09-0400 Body height 170.2 cm Lizette Avila MD Work Phone: [facility] 07-15-2024 09:09-0400 Body mass index (BMI) [Ratio] 32.26 kg/m2 Lizette Avila MD Work Phone: [facility] 07-15-2024 09:09-0400 Body weight 93.44 kg Lizette Avila MD Work Phone: [facility] 07-15-2024 09:09-0400 Diastolic blood pressure 70 mm[Hg] Lizette Avila MD Work Phone: [facility] 07-15-2024 09:09-0400 Heart rate 61 /min Lizette Avila MD Work Phone: [facility] 07-15-2024 09:09-0400 SaO2% (BldA) [Mass fraction] 95 % Lizette Avila MD Work Phone: [facility] 07-15-2024 09:09-0400 Systolic blood pressure 135 mm[Hg] Lizette Avila MD Work Phone: [facility] 03-07-2024 09:50-0400 Body height 170.2 cm Evelia Noling PACKING AND FINAL ASSEMBLY SUPERVISOR.FREEZER WORKER Work Phone: [facility] 03-07-2024 09:50-0400 Body temperature 98.49 [degF] Evelia Noling PACKING AND FINAL ASSEMBLY SUPERVISOR.FREEZER WORKER Work Phone: [facility] 03-07-2024 09:50-0400 Body weight 92.99 kg Evelia Noling PACKING AND FINAL ASSEMBLY SUPERVISOR.FREEZER WORKER Work Phone: [facility] 03-07-2024 09:50-0400 Diastolic blood pressure 86 mm[Hg] Evelia Noling PACKING AND FINAL ASSEMBLY SUPERVISOR.FREEZER WORKER Work Phone: [facility] 03-07-2024 09:50-0400 Heart rate 85 /min Evelia Noling P[employer]ING AND FINAL ASSEMBLY SUPERVISOR.FREEZER WORKER Work Phone: [facility] 03-07-2024 09:50-0400 SaO2% (BldA) [Mass fraction] 98 % Evelia Noling PACKING AND FINAL ASSEMBLY SUPERVISOR.FREEZER WORKER Work Phone: [facility] 03-07-2024 09:50-0400 Systolic blood pressure 124 mm[Hg] Evelia Noling PACKING AND FINAL ASSEMBLY SUPERVISOR.FREEZER WORKER Work Phone: [facility] 09-12-2023 16:11-0400 Body temperature 98.71 [degF] Evelia Noling PACKING AND FINAL ASSEMBLY SUPERVISOR.FREEZER WORKER Work Phone: [facility] 09-12-2023 16:11-0400 Body weight 90.99 kg Evelia Noling PACKING AND FINAL ASSEMBLY SUPERVISOR.FREEZER WORKER Work Phone: [facility] 09-12-2023 16:11-0400 Diastolic blood pressure 90 mm[Hg] Evelia Noling PACKING AND FINAL ASSEMBLY SUPERVISOR.FREEZER WORKER Work Phone: [facility] 09-12-2023 16:11-0400 Heart rate 70 /min Evelia Noling PACKING AND FINAL ASSEMBLY SUPERVISOR.FREEZER WORKER Work Phone: [facility] 09-12-2023 16:11-0400 Respiratory rate 17 /min Evelia Noling PACKING AND FINAL ASSEMBLY SUPERVISOR.FREEZER WORKER Work Phone: [facility] 09-12-2023 16:11-0400 SaO2% (BldA) [Mass fraction] 96 % Evelia Noling PACKING AND FINAL ASSEMBLY SUPERVISOR.FREEZER WORKER Work Phone: [facility] 09-12-2023 16:11-0400 Systolic blood pressure 140 mm[Hg] Evelia Noling PACKING AND FINAL ASSEMBLY SUPERVISOR.FREEZER WORKER Work Phone: [facility] 08-17-2023 13:51-0400 Body height 170.2 cm Lizette Avila MD Work Phone: [facility] 08-17-2023 13:51-0400 Body temperature 97.7 [degF] Lizette Avila MD Work Phone: [facility] 08-17-2023 13:51-0400 Body weight 91.08 kg Lizette Avila MD Work Phone: [facility] 08-17-2023 13:51-0400 Diastolic blood pressure 88 mm[Hg] Lizette Avila MD Work Phone: [facility] 08-17-2023 13:51-0400 Heart rate 65 /min Lizette Avila MD Work Phone: [facility] 08-17-2023 13:51-0400 Respiratory rate 20 /min Lizette Avila MD Work Phone: [facility] 08-17-2023 13:51-0400 SaO2% (BldA) [Mass fraction] 96 % Lizette Avila MD Work Phone: [facility] 08-17-2023 13:51-0400 Systolic blood pressure 134 mm[Hg] Lizette Avila MD Work Phone: [facility] 02-14-2023 11:24-0400 Body height 170.2 cm Lizette Avila MD Work Phone: [facility] 02-14-2023 11:24-0400 Body temperature 97 [degF] Lizette Avila MD Work Phone: [facility] 02-14-2023 11:24-0400 Body weight 92.08 kg Lizette Avila MD Work Phone: [facility] 02-14-2023 11:24-0400 Diastolic blood pressure 80 mm[Hg] Lizette Avila MD Work Phone: [facility] 02-14-2023 11:24-0400 Heart rate 67 /min Lizette Avila MD Work Phone: [facility] 02-14-2023 11:24-0400 Respiratory rate 18 /min Lizette Avila MD Work Phone: [facility] 02-14-2023 11:24-0400 SaO2% (BldA) [Mass fraction] 96 % Lizette Avila MD Work Phone: [facility] 02-14-2023 11:24-0400 Systolic blood pressure 136 mm[Hg] Lizette Avila MD Work Phone: [facility] 10-30-2022 23:45-0500 Diastolic Blood Pressure Non-Invasive 49 1 PADILLA BONNER MD [facility] 10-30-2022 23:45-0500 Heart rate 88 /min PADILLA BONNER MD [facility] 10-30-2022 23:45-0500 Reason For Taking VItal Signs PADILLA BONNER MD [facility] 10-30-2022 23:45-0500 Respiratory rate 20 /min PADILLA BONNER MD [facility] 10-30-2022 23:45-0500 Systolic Blood Pressure Non-Invasive 112 1 PADILLA BONNER MD [facility] 10-30-2022 23:30-0500 Diastolic Blood Pressure Non-Invasive 57 1 PADILLA BONNER MD [facility] 10-30-2022 23:30-0500 Heart rate 95 /min PADILLA BONNER MD [facility] 10-30-2022 23:30-0500 Mean blood pressure 75 mm[Hg] PADILLA BONNER MD [facility] 10-30-2022 23:30-0500 Respiratory rate 22 /min PADILLA BONNER MD [facility] 10-30-2022 23:30-0500 Systolic Blood Pressure Non-Invasive 118 1 PADILLA BONNER MD [facility] 10-30-2022 23:15-0500 Diastolic Blood Pressure Non-Invasive 56 1 PADILLA BONNER MD [facility] 10-30-2022 23:15-0500 Heart rate 92 /min PADILLA BONNER MD [facility] 10-30-2022 23:15-0500 Mean blood pressure 77 mm[Hg] PADILLA BONNER MD [facility] 10-30-2022 23:15-0500 Reason For Taking VItal Signs PADILLA BONNER MD [facility] 10-30-2022 23:15-0500 Respiratory rate 20 /min PADILLA BONNER MD [facility] 10-30-2022 23:15-0500 Systolic Blood Pressure Non-Invasive 128 1 PADILLA BONNER MD [facility] 10-30-2022 23:00-0500 Heart rate 97 /min PADILLA BONNER MD [facility] 10-30-2022 22:30-0500 Heart rate 100 /min PADILLA BONNER MD [facility] 10-30-2022 22:15-0500 Heart rate 103 /min PADILLA BONNER MD [facility] 10-30-2022 21:19-0500 Body temperature 102.38 [degF] PADILLA BONNER MD [facility] 10-30-2022 18:58-0500 Body temperature 100.22 [degF] PADILLA BONNER MD [facility] 10-30-2022 18:58-0500 Body weight 91.6 kg PADILLA BONNER MD [facility] 10-30-2022 10:13-0500 Diastolic Blood Pressure Non-Invasive 86 1 SO REICHFIELD DO [facility] 10-30-2022 10:13-0500 Heart rate 72 /min SO REICHFIELD DO [facility] 10-30-2022 10:13-0500 Respiratory rate 18 /min SO REICHFIELD DO [facility] 10-30-2022 10:13-0500 Systolic Blood Pressure Non-Invasive 148 1 SO REICHFIELD DO [facility] 10-30-2022 08:54-0500 Body temperature 98.78 [degF] SO REICHFIELD DO [facility] 10-30-2022 08:54-0500 Diastolic Blood Pressure Non-Invasive 101 1 SO REICHFIELD DO [facility] 10-30-2022 08:54-0500 Heart rate 85 /min SO MEJÍA DO [facility] 10-30-2022 08:54-0500 [facility]piratory rate 18 /[facility] 10-30-2022 08:54-0500 Systolic Blood Pressure Non-Invasive 192 1 [facility] Encounters Encounter Date Encounter Type Care Provider Facility Start: 07-22-2024 End: 07-22-2024 ambulatory Marga Cm OTR/L Work Phone: [facility] Comment on above: Osteoarthritis of ri ght thumb Start: 07-17-2024 End: 07-17-2024 Patient encounter procedure Delma Cheek MD Work Phone: [facility] Comment on above: Osteoarthritis of ri ght thumb (Primary Dx) Start: 07-17-2024 End: 07-17-2024 ambulatory DELMA CHEEK Facility:[id number] Start: 07-15-2024 End: 07-15-2024 ambulatory LIZETTE AVILA Facility:[id number] Start: 07-15-2024 End: 07-15-2024 Subsequent hospital visit by physician Antonio Tolbert Work Phone: [facility] [place] Comment on above: Primary osteoarthrit is of first carpometacarpal joint of right hand [M18.11] Start: 07-15-2024 End: 07-15-2024 Patient encounter procedure Lizette Avila MD Work Phone: [facility] Comment on above: Primary osteoarthrit is of first carpometacarpal joint of right hand (Primary Dx); Benign prostatic hyperplasia with urinary frequency; Obesity, Class I, BMI 30-34.9; Combined hyperlipidemia; Essential hypertension; Vitamin D deficiency Start: 07-15-2024 End: 07-15-2024 ambulatory LIZETTE AVILA Facility:[id number] Start: 05-31-2024 Refill Evelia L Noling P[employer]ING AND FINAL ASSEMBLY SUPERVISOR.FREEZER WORKER Work Phone: [place] Comment on above: Refill Request Start: 05-27-2024 Telephone encounter Lizette Avila MD Work Phone: [place] Comment on above: Pantoprazole is avai lable without a PA Start: 05-20-2024 Telephone encounter Lizette Avila MD Work Phone: [place] Comment on above: Refill Request Start: 03-19-2024 Telephone encounter Evelia L No ling PACKING AND FINAL ASSEMBLY SUPERVISOR.FREEZER WORKER Work Phone: [place] Comment on above: Results Start: 03-19-2024 ambulatory EVELIA L NOLING Facility :[id number] Start: 03-19-2024 End: 03-19-2024 Subsequent hospital visit by physician [facility] Comment on above: Lymphadenopathy, cer vical [R59.0] Start: 03-07-2024 End: 03-07-2024 Office outpatient visit 15 minutes Evelia L Noling PACKING AND FINAL ASSEMBLY SUPERVISOR.FREEZER WORKER Work Phone: [place] Comment on above: GERD without esophag itis (Primary Dx); Tonsillar hypertrophy; Seasonal allergic rhinitis, unspecified trigger; Lymphadenopathy, cervical Start: 03-07-2024 End: 03-07-2024 ambulatory EVELIA L NOLING Facility:[id number] Start: 09-12-2023 End: 09-12-2023 Office outpatient visit 15 minutes Evelia L Noling P[employer]ING AND FINAL ASSEMBLY SUPERVISOR.FREEZER WORKER Work Phone: [place] Comment on above: Encounter for suppor t and coordination of transition of care (Primary Dx); Colitis; Chronic diarrhea; History of colonic polyps Start: 09-12-2023 End: 09-12-2023 ambulatory EVELIA L NOLING Facility:[id number] Start: 08-17-2023 End: 08-17-2023 Patient encounter procedure Lizette Avila MD Work Phone: [place] Comment on above: Combined hyperlipide jian (Primary Dx); GERD without esophagitis; Obesity, Class I, BMI 30-34.9; Osteoarthritis of both knees, unspecified osteoarthritis type; Benign prostatic hyperplasia with urinary frequency; Essential hypertension; Abdominal wall swelling Start: 08-17-2023 End: 08-17-2023 ambulatory LIZETTE AVILA Facility:[id number] Start: 02-14-2023 End: 02-14-2023 Patient encounter procedure Lizette Avila MD Work Phone: [place] Comment on above: Essential hypertensi on (Primary Dx); GERD without esophagitis; Combined hyperlipidemia; Vitamin D deficiency; Osteoarthritis of both knees, unspecified osteoarthritis type; Grade I hemorrhoids Start: 10-30-2022 End: 10-31-2022 Emergency department patient visit GUY PINEDA Facility:A Start: 10-30-2022 End: 10-31-2022 Emergency department patient visit PADILLA BONNER MD [facility] Start: 10-30-2022 End: 10-30-2022 Emergency department patient visit [facility] Facility:B Start: 10-30-2022 End: 10-30-2022 Emergency department patient visit [facility] DO [facility] Start: 04-29-2022 End: 04-29-2022 Emergency department patient visit LYNNETTE ALCARAZ MD Facility:A Procedures Date Procedure Procedure Detail Performing Clinician Start: 07-17-2024 Arthrocentesis aspir &/inj small jt/bursa w/o us Delma Cheek MD Work Phone: Start: 07-15-2024 Radex fingr minimum 2 views Lizette Avila MD Work Phone: Start: 07-15-2024 Lipid 1996 panel - S shay or Plasma Lizette Avila MD Work Phone: Start: 03-19-2024 Us soft tissue head & neck real time imge docm Evelia Fallon APRN.FREEZER WORKER Work Phone: Start: 03-07-2024 Adult depression scr eening assessment Lizette Avila MD Work Phone: Start: 10-17-2022 Lipid 1996 panel - S shay or Plasma Lizette Avila MD Work Phone: None (qualifier value) SO MEJÍA DO Plan of Treatment Date Care Activity Detail Author Start: 07-15-2029 Lipid panel Lipid Screening [facility] Start: 07-15-2029 Prostate specific antigen measurement Prostate Cancer Screening Discussion [facility] Start: 10-17-2027 Lipid 1996 panel - Serum or Plasma Lipid Screening [facility] Start: 10-17-2027 Lipid panel Lipid Screening [facility] Start: 10-17-2027 LIPID SCREEN LIPID SCREEN [facility] Start: 10-17-2027 PROSTATE CANCER SCREENING DISCUSSION PROSTATE CANCER SCREENING DISCUSSION [facility] Start: 10-17-2027 Prostate specific antigen measurement Prostate Cancer Screening Discussion [facility] Start: 07-15-2027 Diabetes Screening Diabetes Screenin g [facility] Start: 01-24-2026 COLOGUARD (FIT-DNA) COLOGUARD (FIT-D NA) [facility] Start: 01-24-2026 COLORECTAL CANCER SCREENING COLORECTAL CANCER SCREENING [facility] Start: 01-24-2026 Screening for malign ant neoplasm of colon [facility] Start: 10-17-2025 DIABETES SCREEN DIABETES SCREEN [facility] Start: 10-17-2025 Diabetes Screening Diabetes Screenin g [facility] Start: 07-15-2025 Annual PCP Team Sheet Mill Supervisor aaliyah Disease Visit Annual PCP Team Chronic Disease Visit [facility] Start: 03-07-2025 Annual PCP Team Sheet Mill Supervisor aaliyah Disease Visit Annual PCP Team Chronic Disease Visit [facility] Start: 03-07-2025 Anxiety Screening Anxiety Screening [facility] Start: 03-07-2025 Depression Screening Depression Scre ening [facility] Start: 01-15-2025 End: 01-15-2025 Patient encounter procedure 01/15/2025 9:10 AM EST Office Visit [facility] [address] [place] [phone] Lizette Avila MD [address] [place] [address] AMW [facility] [place] Comment on above: AMW Start: 09-12-2024 Annual PCP Team Sheet Mill Supervisor aaliyah Disease Visit Annual PCP Team Chronic Disease Visit [facility] Start: 08-17-2024 Annual PCP Team Sheet Mill Supervisor aaliyah Disease Visit Annual PCP Team Chronic Disease Visit [facility] Start: 07-22-2024 End: 07-22-2024 ambulatory 07/22/2024 10:00 AM EDT OT/PT/Speech Visit [facility] [address] [place] [address] Marga Cm, OTR/L [address] [place] [address] Osteoarthritis of right thumb [M18.11] [facility] Comment on above: Osteoarthritis of ri ght thumb [M18.11] Start: 07-17-2024 End: 07-17-2024 Patient encounter procedure 07/17/2024 10:30 AM EDT Office Visit [facility] [address] [facility] [address] [place] [address] Delma Cheek MD [address] [place] [address] right thumb arthritis [facility] Comment on above: right thumb arthriti s Start: 04-08-2024 End: 04-08-2024 Patient encounter procedure 04/08/2024 8:00 AM EDT Office Visit [facility] [place] [address] [facility] [place] [phone] Lizette Avila MD [address] [place] [address] 6 month follow up [facility] [place] Comment on above: 6 month follow up Start: 02-15-2024 ANNUAL PCP TEAM STAY CUTTER AALIYAH DISEASE VISIT ANNUAL PCP TEAM CHRONIC DISEASE VISIT [facility] Start: 02-15-2024 BP CONTROLLED (<130/80) BP CONTROLLE D (<130/80) [facility] Start: 11-27-2023 Advance Directive Discussion Advance Directive Discussion [facility] Start: 08-17-2023 End: 08-17-2024 CBC panel - Blood by Automated count CBC Lab Routine Essential hypertension Expected: 08/17/2023, Expires: 08/17/2024 [facility] Work Phone: Comment on above: Expected: 08/17/2023 , Expires: 08/17/2024 Start: 08-17-2023 End: 08-17-2024 Comprehensive metabolic 2000 panel - Serum or Plasma COMP METABOLIC PANEL Lab Routine Combined hyperlipidemia Essential hypertension Expected: 08/17/2023, Expires: 08/17/2024 [facility] Work Phone: Comment on above: Expected: 08/17/2023 , Expires: 08/17/2024 Start: 08-17-2023 End: 08-17-2024 Lipid 1996 panel - Serum or Plasma LIPID PANEL BASIC Lab Routine Combined hyperlipidemia Essential hypertension Expected: 08/17/2023, Expires: 08/17/2024 [facility] Work Phone: Comment on above: Expected: 08/17/2023 , Expires: 08/17/2024 Start: 08-17-2023 End: 08-07-2024 Prostate specific Ag [Mass/volume] in Serum or Plasma PSA/PROSTSPECAG DIAG Lab Routine Benign prostatic hyperplasia with urinary frequency Expected: 08/17/2023, Expires: 08/07/2024 [facility] Work Phone: Comment on above: Expected: 08/17/2023 , Expires: 08/07/2024 Start: 08-17-2023 End: 08-17-2024 Thyrotropin [Units/volume] in Serum or Plasma TSH BLD Lab Routine Essential hypertension Expected: 08/17/2023, Expires: 08/17/2024 [facility] Work Phone: Comment on above: Expected: 08/17/2023 , Expires: 08/17/2024 Start: 02-14-2023 End: 02-15-2024 25-hydroxyvitamin D3 [Mass/volume] in Serum or Plasma VITAMIN D 25 HYDROXY Lab Routine Vitamin D deficiency Expected: 02/14/2023, Expires: 02/15/2024 [facility] Work Phone: Comment on above: Expected: 02/14/2023 , Expires: 02/15/2024 Start: 02-14-2023 End: 02-15-2024 ALBUMIN/CREAT RATIO RND UR ALBUMIN/CREAT RATIO RND UR Lab Routine Essential hypertension Expected: 02/14/2023, Expires: 02/15/2024 [facility] Work Phone: Comment on above: Expected: 02/14/2023 , Expires: 02/15/2024 Start: 02-14-2023 End: 02-15-2024 CBC panel - Blood by Automated count CBC Lab Routine Combined hyperlipidemia Expected: 02/14/2023, Expires: 02/15/2024 [facility] Work Phone: Comment on above: Expected: 02/14/2023 , Expires: 02/15/2024 Start: 02-14-2023 End: 02-15-2024 Comprehensive metabolic 2000 panel - Serum or Plasma COMP METABOLIC PANEL Lab Routine Combined hyperlipidemia Expected: 02/14/2023, Expires: 02/15/2024 [facility] Work Phone: Comment on above: Expected: 02/14/2023 , Expires: 02/15/2024 Start: 02-14-2023 End: 02-15-2024 Lipid 1996 panel - Serum or Plasma LIPID PANEL BASIC Lab Routine Combined hyperlipidemia Expected: 02/14/2023, Expires: 02/15/2024 [facility] Work Phone: Comment on above: Expected: 02/14/2023 , Expires: 02/15/2024 Start: 02-14-2023 End: 02-15-2024 Thyrotropin [Units/volume] in Serum or Plasma TSH BLD Lab Routine Combined hyperlipidemia Expected: 02/14/2023, Expires: 02/15/2024 [facility] Work Phone: Comment on above: Expected: 02/14/2023 , Expires: 02/15/2024 Start: 2015 RSV Vaccine (1 - 1-d ose 60+ series) RSV Vaccine (1 - 1-dose 60+ series) [facility] Start: 2000 Colonoscopy COLONOSCOPY [facility] Start: [address] COLONOGRAPHY [facility] Start: 2000 FECAL OCCULT BLOOD FECAL OCCULT BLOO D [facility] Start: 2000 Screening for malign ant neoplasm of colon [facility] Start: 2000 SIGMOIDOSCOPY SIGMOIDOSCOPY [facility] End: 09-15-2024 US ABDOMEN COMPLETE US ABDOMEN COMPLETE Radiology Routine Benign prostatic hyperplasia with urinary frequency Abdominal wall swelling 1 Occurrences starting 08/17/2023 until 09/15/2024 [facility] Work Phone: Comment on above: 1 Occurrences starti ng 08/17/2023 until 09/15/2024 End: 04-06-2025 US Head and neck soft tissue US HEAD/NECK SOFT TISSUE OTHER Radiology Routine Lymphadenopathy, cervical 1 Occurrences starting 03/07/2024 until 04/06/2025 [facility] Work Phone: Comment on above: 1 Occurrences starti ng 03/07/2024 until 04/06/2025 End: 08-14-2025 XR Finger - right AP and Lateral and oblique XR DIGIT GENERAL 3V FRONTAL/LAT/OBL RIGHT Radiology Routine Primary osteoarthritis of first carpometacarpal joint of right hand 1 Occurrences starting 07/15/2024 until 08/14/2025 [facility] Work Phone: Comment on above: 1 Occurrences starti ng 07/15/2024 until 08/14/2025 XR Finger - right AP and Lateral and oblique XR DIGIT GENERAL 3V FRONTAL/LAT/OBL RIGHT Radiology Routine Primary osteoarthritis of first carpometacarpal joint of right hand 07/15/2024 10:29 AM EDT [facility] Payers Date Payer Category Payer Unknown ANTH BLUE [facility] AND BLUE [facility] ANTH MEDICARE ADVANTAGE HMO [id number] 2024-Present [phone] [id number] [place] [address] HMO [id number] 2024 Medicare [id number] 2022 Medicare [id number] 2022 Private Health Insurance [id number] 1955 Unknown [id number] 1955 Unknown [id number] 1955 Unknown [id number] Social History Date Type Detail Facility Start: 10-17-2022 End: 10-30-2022 Tobacco smoking status Never smoked tobacco (finding) [facility] Sex Assigned At Sex [facility] Start: 10-17-2022 End: 07-15-2024 Tobacco use and exposure Smokeless tobacco non-user [facility] Start: 02-14-2023 End: 03-07-2024 Alcohol intake Lifetime non-drinker (finding) [facility] Start: 1955 Sex Assigned At Not on file [facility] Start: 08-17-2023 End: 03-07-2024 History of Social function [facility] Start: 08-17-2023 End: 03-07-2024 [facility] Has the [employer], or water company threatened to shut off services in your home in past 12Mo No [facility] How often to you hav e a drink containing alcohol? Monthly or less [facility] How many standard drinks containing alcohol do you have on a typical day? 1 or 2 [facility] How often do you hav e 6 or more drinks on 1 occasion? Never [facility] How hard is it for y ou to pay for the very basics like food, housing, medical care, and heating Not very hard [facility] Adult Depression Screening Assessment 0 [facility] Work Phone: Do you feel stress - tense, restless, nervous, or anxious, or unable to sleep at night because your mind is troubled all the time - these days [OSQ] Only a little [facility] (I/We) worried tony er (my/our) food would run out before (I/we) got money to buy more. Never true [facility] Start: 07-15-2024 End: 07-17-2024 Alcoholic beverage intake Ex-drinker (finding) [facility] Start: 07-15-2024 Education 21 [facility] NEGATED: Highlighted rowStart: ADONISF History of tobacco use Passive smoker [facility] Functional Status Date Assessment Result Facility 10-31-2022 Functional Status Up ad seble [facility] 10-30-2022 Functional Status Standard Safet y ID band on, Call device within reach, Bed in low position, Wheels locked, Bedside Cart Locked, Visitor at bedside [facility] 10-30-2022 Functional Status Independent [facility] Mental Status Date Assessment Result Facility 10-31-2022 Mental Status Orientation Oriented x [address] [facility] 10-30-2022 Mental Status [facility] 10-30-2022 Mental Status Orientation Oriented x 4 [facility] 10-30-2022 Mental Status [facility] Clinical Notes 10-30-2022 to 07-22-2024 Marga Cm OTR/L - 07/22/2024 10:19 AM Sugar Yates MA - 07/17/2024 10:31 AM Sugar Yates MA - 07/17/2024 10:31 AM Delma Andujar MD - 07/17/2024 10:30 AM EDT Note Date & Type Note Facility 07-22-2024 Note HNO ID: [id number] Author: MARGA CM OTR/L Service: ? Author Type: Occupational Therapist Type: Progress Notes Filed: 07/22/2024 10:30 Note Text: Episode Visit Count: 1 Therapist That Will Accept/Oversee The Plan Of Care: VY Hanson/Nela CHT Start of Care Date: 07/22/24 Onset Date: 03/27/24 Plan of Care Certification Date: 07/22/24 Next Certification Due Date: 07/22/24 Patient Identified by Name and Date of : Yes [facility] OCCUPATIONAL THERAPY EVALUATION and DISCHARGE PLAN OF CARE: Assessment: Willy Sanders presents with diagnosis of OA of right thumb. that interferes with physical activities, recreational activities, gripping, pinching . He presents with impairments in strength and symptom management. PROMIS? (Patient-Reported Outcomes Measurement Information System) scores were reviewed and identified as within normal limits. Prognosis for therapy is Good due to: within-session changes, current objective clinical presentation . He will benefit from skilled therapy services to meet the goals established for this plan of care as noted below. Goals for Episode of Care created on 07/22/24 through 07/22/24 All were met today. Patient will report a good understanding of diagnosis and OT recommendations for progression of program. Patient will demonstrate independence with ongoing home recommendations/exercise program throughout therapy plan of care. Patient will independently demonstrate correct application of PREFABRICATED orthosis and verbalize understanding of proper wear/care. Patient Goals: decrease pain Planned Interventions, Frequency, and Duration: Current Frequency: 1 visit Duration: 1 visit Total Number of Visits Planned: 1 Planned Treatment Interventions: Prefabricated orthosis fitting, Self-penitentiary management ([id number]), Orthotics management and training ([id number]) PLAN FOR NEXT VISIT: Patient demonstrates good understanding of plan of care and treatment. The above goals and plan of care were discussed and agreed upon by patient/family. SUBJECTIVE: 69 y/o right dominant male with onset of right thumb pain/OA from Dr. Cheek for Metagrip brace. 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 5 points is clinically meaningfully difference Percentiles provide an indication of how the patient's score ranks in relation to the general population. Higher percentile rankings indicate better function/quality of life. 50th percentile is the average of the general population and indicates half of respondents had a worse score. OBJECTIVE MEASURES WITH LEVEL OF FUNCTION: Hand Shoulder AROM: WFL Elbow AROM: WFL Wrist AROM: WFL Thumb AROM: WFL Strength: Obstetrics Nurse Practitioner Position 2, Pinch Meter Sensation: Denies tingling or numbness Dexterity/Coordination: Observed to be functional Hand Strength Obstetrics Nurse Practitioner Tool Number: 2 R Obstetrics Nurse Practitioner Position 2 (lbs): 47 lbs L Obstetrics Nurse Practitioner Position 2 (lbs): 85 lbs R Lateral Pinch (lbs): 15 lbs L Lateral Pinch (lbs): 23 lbs UE AROM Thumb AROM: WFL Education: Education Learning Preferences: Demonstration, Explanation, Performance Barriers: None Learning/educational needs: Home exercise program, Plan of Care, Brace Fit Education Provided: Yes, see treatment interventions for education provided Education Provided To: Patient Education Mode/Type: Demonstration, Explanation/Discussion, Performance Response to Education/Teach Back: States/Identifies, Return Demonstration TREATMENT: OT Treatment Interventions : Prefabricated Orthosis Fitting, Orthotic Mgmt/Train (Initial), Self-Residential Management Evaluation Self-Residential Management: 1: Pt education regarding diagnosis and POC 2: Pt education regarding CMC joint protection; handout provided 3: Pt instructed in CMC joint stabilization exercises; pt returns demonstration and agrees to incorporate into a HEP; handout provided 4: Pt instructed in use of Metagrip orthosis for the thumb; pt reports good fit of orthosis. 5: yellow putty issued with instruction for director news and pinch with pain free efforts Skilled Intervention: Skilled judgment in the selection of proper modification for activity of daily living/home managemen (more content not included)... [facility] 07-22-2024 History of Present illness Narrative Episode Visit Count: 1 Therapist That Will Accept/Oversee The Plan Of Care: VY Hanson/Nela BERMUDEZ Start of Care Date: 07/22/24 Onset Date: 03/27/24 Plan of Care Certification Date: 07/22/24 Next Certification Due Date: 07/22/24 Patient Identified by Name and Date of : Yes [facility] OCCUPATIONAL THERAPY EVALUATION and DISCHARGE PLAN OF CARE: Assessment: Willy Sanders presents with diagnosis of OA of right thumb. that interferes with physical activities, recreational activities, gripping, pinching . He presents with impairments in strength and symptom management. PROMIS (Patient-Reported Outcomes Measurement Information System) scores were reviewed and identified as within normal limits. Prognosis for therapy is Good due to: within-session changes, current objective clinical presentation . He will benefit from skilled therapy services to meet the goals established for this plan of care as noted below. Goals for Episode of Care created on 07/22/24 through 07/22/24 All were met today. Patient will report a good understanding of diagnosis and OT recommendations for progression of program. Patient will demonstrate independence with ongoing home recommendations/exercise program throughout therapy plan of care. Patient will independently demonstrate correct application of PREFABRICATED orthosis and verbalize understanding of proper wear/care. Patient Goals: decrease pain Planned Interventions, Frequency, and Duration: Current Frequency: 1 visit Duration: 1 visit Total Number of Visits Planned: 1 Planned Treatment Interventions: Prefabricated orthosis fitting, Self-penitentiary management ([id number]), Orthotics management and training ([id number]) PLAN FOR NEXT VISIT: Patient demonstrates good understanding of plan of care and treatment. The above goals and plan of care were discussed and agreed upon by patient/family. SUBJECTIVE: 69 y/o right dominant male with onset of right thumb pain/OA from Dr. Cheek for Metagrip brace. 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 5 points is clinically meaningfully difference Percentiles provide an indication of how the patient's score ranks in relation to the general population. Higher percentile rankings indicate better function/quality of life. 50th percentile is the average of the general population and indicates half of respondents had a worse score. OBJECTIVE MEASURES WITH LEVEL OF FUNCTION: Hand Shoulder AROM: WFL Elbow AROM: WFL Wrist AROM: WFL Thumb AROM: WFL Strength: Obstetrics Nurse Practitioner Position 2, Pinch Meter Sensation: Denies tingling or numbness Dexterity/Coordination: Observed to be functional Hand Strength Obstetrics Nurse Practitioner Tool Number: 2 R Obstetrics Nurse Practitioner Position 2 (lbs): 47 lbs L Obstetrics Nurse Practitioner Position 2 (lbs): 85 lbs R Lateral Pinch (lbs): 15 lbs L Lateral Pinch (lbs): 23 lbs UE AROM Thumb AROM: WFL Education: Education Learning Preferences: Demonstration, Explanation, Performance Barriers: None Learning/educational needs: Home exercise program, Plan of Care, Brace Fit Education Provided: Yes, see treatment interventions for education provided Education Provided To: Patient Education Mode/Type: Demonstration, Explanation/Discussion, Performance Response to Education/Teach Back: States/Identifies, Return Demonstration TREATMENT: OT Treatment Interventions : Prefabricated Orthosis Fitting, Orthotic Mgmt/Train (Initial), Self-Residential Management Evaluation Self-Residential Management: 1: Pt education regarding diagnosis and POC 2: Pt education regarding CMC joint protection; handout provided 3: Pt instructed in CMC joint stabilization exercises; pt returns demonstration and agrees to incorporate into a HEP; handout provided 4: Pt instructed in use of Metagrip orthosis for the thumb; pt reports good fit of orthosis. 5: yellow putty issued with instruction for director news and pinch with pain free efforts Skilled Intervention: Skilled judgment in the selection of proper modification for activity of daily living/home management based on clinical presentation, deficits, and needs. Educated the patient regarding recommendations and provided written instruction to facilitate compliance. Provided written instruction for activities of daily living techniques to facilitate proper performance and compliance. Activity progression based on professional judgement. Reviewed and educated patient on additions/changes for home program. Prefabricated orthosis: L 3923 (a) HFO w/out joints (PUSH Metagrip, Actimove) Prefabricated orthosis to provide support of right CMC joint to allow pain free use.Patient was instructed in wear and care. Instructed in wearing schedule As needed day and/or night for pain relief.. Skilled Intervention: Technical skill required for proper fitting of pre-fabricated orthotic and wearing schedule Patient/caregiver was educated in correct method for donning/doffing orthosis as well as wear and care of orthosis. Orthotics Management and Training: OT Orthotic Mgmt/Train (Initial): Metagrip right size 3 Skilled Intervention: Technical skill required for proper fitting of pre-fabricated orthotic and wearing schedule Patient/caregiver was educated in correct method for donning/doffing orthosis as well as wear and care of orthosis. Billing * Evaluation Low Complexity: 1 Unit Self-Care/Home Management Treatment Minutes: 16 Orthotic Mgmt/Train (Initial) Treatment Minutes: 10 * L 3923 (a) HFO w/out joints (PUSH Metagrip, Actimove): 1 Skilled Treatment Time Minutes (timed and untimed codes): 38 Total Session Time (minutes): 38 Session Start Time : 09 Session Stop Time : 1025 SRI Hanson CHT documented in this encounter [facility] 07-17-2024 Nurse Note 69 year male pt here for pain in his right thumb. Xray done on 07-15-24. [facility] 07-17-2024 Nurse Note 69 year male pt here for pain in his right thumb. Xray done on 07-15-24. documented in this encounter [facility] 07-17-2024 History of Present illness Narrative Associated Order(s): Small Joint Arthro/Inj: R thumb CMC Post-Procedure Diagnose(s): Osteoarthritis of right thumb Images from the original note were not included. Delma Cheek MD Hand & Upper Extremity Surgery [address], [facility] [address] [address] [facility] [address], [facility] [id number], [address], [place] [address] OUTPATIENT VISIT SERVICE DATE: 07/17/2024 CHIEF COMPLAINT: Right thumb pain HISTORY OF PRESENT ILLNESS: Willy Sanders is a Right Handed 69 year old male who presents for above chief complaint. Patient is referred by: My final recommendation will be communicated back to the requesting physician by way of shared medical record or letter to requesting physician via fax/US mail. Patient does not recall a specific injury. Pain has been worsening since doing a lot of drywall. Denies numbness/tingling. Has tried ice/heat, OTC oral medication, and rest/reposition with no relief. 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 Yes, Provider notified Yes, Provider notified Pain Scales Verbal (Numeric Rating or Visual Analog Scale) Verbal (Numeric Rating or Visual Analog Scale) Pain Level 8 5 Pain Location -- Hand-Right Description Sharp;Aching;Shooting Aching Duration Amount of Time 3 3 Duration Units Months Months Frequency Continuous Continuous Comments It is not better or worse with anything. PMDP report reviewed and All prescriptions have been APPROPRIATELY filled. No suspicious activity was identified. 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 PAST MEDICAL HISTORY 10/17/2022: GERD without esophagitis PAST SURGICAL HISTORY 1999: EXCISION OF A GRANULOMA SUTURE Comment: throat FAMILY HISTORY Problem Relation Age of Onset other (stomach cancer) Mother Brain Cancer Father Social History Tobacco Use Smoking status: Never Passive exposure: Never Smokeless tobacco: Never Vaping Use Vaping status: Never Used Substance Use Topics Alcohol use: Not Currently Drug use: Never MEDICATIONS: Current Outpatient Medications Medication Sig pantoprazole DR (PROTONIX) 40 mg tablet Take 1 tablet by mouth once daily tamsulosin (FLOMAX) 0.4 mg Take 1 capsule by mouth daily at bedtime. methylPREDNISolone (MEDROL, WINDY,) 4 mg Dose-Pack As Instructed per package (Patient not taking: Reported on 07/17/2024) No current facility-administered medications for this visit. ALLERGIES: ALLERGIES No Known Allergies PHYSICAL EXAM: VITAL SIGNS: Pulse 78 Ht 5' 7.008 (1.70m) Wt 206 lb (93.4kg) SpO2 98% BMI 32.26 kg/(m^2). GENERAL: The patient is awake, alert, and oriented with appropriate mood and affect. SKIN: The skin over the right hand shows no rash, lesion or erythema, and that is comparable to the contralateral hand. INSPECTION/PALPATION: There is no gross asymmetry compared to the contralateral hand. There is localized swelling about the thumb CMC joint, with obvious shoulder sign deformity. There is no palpable joint effusion. TENDERNESS: There is tenderness to palpation about the right CMC joint with a positive grind test. Hyperextension of the right thumb reproduces the pain. There is no tenderness at the STT joint. There is no tenderness with palpation over the 1st dorsal compartment. ROM: There is limited range of motion of the thumb, and there is an adducted posture to the thumb. LIGAMENTS: There is no compensatory hyperextension of the MP joint. 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 NEURO: The patient reports no decreased sensation to the thumb. VASCULAR: Strong radial pulse. Excellent capillary refill to all digits. IMAGING PER MY INTERPRETATION: 3 views of the right thumb finger were reviewed from 07/15/24 and demonstrate cystic changes at the base of the 1st metacarpal with early degenerative changes. OTHER TESTS: None ASSESSMENT AND PLAN: (M18.11) Osteoarthritis of right thumb (primary encounter diagnosis) Discussed the treatment algorithm of thumb CMC arthritis which includes hand-based thumb braces, topical anti-inflammatories, oral anti-inflammatories, steroid injections and surgical intervention in late stages. Patient wishes to try injection and bracing. OT order placed. Risks of corticosteroid injection were discussed including self-limited post-injection flare, risk of transient blood glucose elevation, risk of self-limited facial flushing, risk of skin atrophy or depigmentation and risk of infection. Activities and restrictions after injection were also discussed. Patient may perform any ADLs after injection. I recommend no increase in baseline activity while the lidocaine is in effect. It could take 3-5 days for maximal steroid effect. Patient advised to monitor symptoms for the next 3 days and allow 2 weeks for maximal effect. Patient will contact me if symptoms are not improved after 2 weeks from the injection for further workup and management. Small Joint Arthro/Inj: R thumb CMC Informed Consent Consent Obtained: Verbal Rozet Protocol A moment to CARE was completed. SIGN IN Personnel directly involved with the procedure wore the appropriate PPE. Special Equipment: N/A Patient/Surrogate Stated/Verified: Patient name, Relevant allergies and Intended procedure TIME OUT Intended patient and procedure match the source document(s). Relevant labs, photos, and/or imaging studies have been reviewed. Correct side/site marked and visible. Medications required for procedure verified. No fire risk assessment and interventions applicable. No implant(s) inserted. 07/17/2024 11:48 AM The procedure site was prepped in the usual sterile fashion. Medications: 3 mg betamethasone acetate-betamethasone sodium phosphate 6 mg/mL Anesthetics: 0.5 mL lidocaine (PF) 10 mg/mL (1 %) Outcome: tolerated well, no immediate complications Post-injection instructions were reviewed with the patient and the patient voiced understanding of these instructions. SIGN OUT All instruments, equipment, possible retained foreign bodies accounted for. Patient/family acknowledges understanding of instructions: Yes Patient advised to call with questions or concerns Follow up as needed No X-Rays Needed Delma Cheek MD This note was generated using [email or web address] voice dictation. All resonable efforts were made to correct dictation errors but they still may occur given the nature of the software. Phone: [phone] FAX: [phone] ([email or web address]) Medical Decision Making: Problems: Moderate: 1+ chronic illnesses with change Data: Unique source(s) for external note(s) reviewed: 1 Unique test result(s) reviewed: 1 Risk: Moderate: Moderate risk from testing/treatment Medical Decision Making Level: 4 - Moderate documented in this encounter [facility] 07-17-2024 Note HNO ID: [id number] Author: DELMA CHEEK MD Service: ? Author Type: Physician Type: Progress Notes Filed: 07/17/2024 11:49 Note Text: Delma Cheek MD Hand AND Upper Extremity Surgery [address], [facility] [address] [address], [facility] [id number] [address], [address], [place] [address] OUTPATIENT VISIT SERVICE DATE: 07/17/2024 CHIEF COMPLAINT: Right thumb pain HISTORY OF PRESENT ILLNESS: Willy Sanders is a Right Handed 69 year old male who presents for above chief complaint. Patient is referred by: My final recommendation will be communicated back to the requesting physician by way of shared medical record or letter to requesting physician via fax/US mail. Patient does not recall a specific injury. Pain has been worsening since doing a lot of drywall. Denies numbness/tingling. Has tried ice/heat, OTC oral medication, and rest/reposition with no relief. 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 Yes, Provider notified Yes, Provider notified Pain Scales Verbal (Numeric Rating or Visual Analog Scale) Verbal (Numeric Rating or Visual Analog Scale) Pain Level 8 5 Pain Location -- Hand-Right Description Sharp;Aching;Shooting Aching Duration Amount of Time 3 3 Duration Units Months Months Frequency Continuous Continuous Comments It is not better or worse with anything. PMDP report reviewed and All prescriptions have been APPROPRIATELY filled. No suspicious activity was identified. 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 PAST MEDICAL HISTORY 10/17/2022: GERD without esophagitis PAST SURGICAL HISTORY 1999: EXCISION OF A GRANULOMA SUTURE Comment: throat FAMILY HISTORY Problem Relation Age of Onset other (stomach cancer) Mother Brain Cancer Father Social History Tobacco Use Smoking status: Never Passive exposure: Never Smokeless tobacco: Never Vaping Use Vaping status: Never Used Substance Use Topics Alcohol use: Not Currently Drug use: Never MEDICATIONS: Current Outpatient Medications Medication Sig pantoprazole DR (PROTONIX) 40 mg tablet Take 1 tablet by mouth once daily tamsulosin (FLOMAX) 0.4 mg Take 1 capsule by mouth daily at bedtime. methylPREDNISolone (MEDROL, WINDY,) 4 mg Dose-Pack As Instructed per package (Patient not taking: Reported on 07/17/2024) No current facility-administered medications for this visit. ALLERGIES: ALLERGIES No Known Allergies PHYSICAL EXAM: VITAL SIGNS: Pulse 78 Ht 5' 7.008 (1.70m) Wt 206 lb (93.4kg) SpO2 98% BMI 32.26 kg/(m2). GENERAL: The patient is awake, alert, and oriented with appropriate mood and affect. SKIN: The skin over the right hand shows no rash, lesion or erythema, and that is comparable to the contralateral hand. INSPECTION/PALPATION: There is no gross asymmetry compared to the contralateral hand. There is localized swelling about the thumb CMC joint, with obvious shoulder sign deformity. There is no palpable joint effusion. TENDERNESS: There is tenderness to palpation about the right CMC joint with a positive grind test. Hyperextension of the right thumb reproduces the pain. There is no tenderness at the STT joint. There is no tenderness with palpation over the 1st dorsal compartment. ROM: There is limited range of motion of the thumb, and there is an adducted posture to the thumb. LIGAMENTS: There is no compensatory hyperextension of the MP joint. 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 NEURO: The patient reports no decreased sensation to the thumb. VASCULAR: Strong radial pulse. Excellent capillary refill to all digits. IMAGING PER MY INTERPRETATION: 3 views of the right thumb finger were reviewed from 07/15/24 and demonstrate cystic changes at the base of the 1st metacarpal with early degenerative changes. OTHER TESTS: None ASSESSMENT AND PLAN: (M18.11) Osteoarthritis of right thumb (primary encounter diagnosis) Discussed the treatment algorithm of thumb CMC arthritis which includes hand-based thumb braces, topical anti-inflammatories, oral anti-inflammatories, steroid injections and surgical intervention in late stages. Patient wishes to try injection and bracing. OT order placed. Risks of corticosteroid injection were discussed including self-limited post-injection flare, risk of transient blood glucose elevation, risk of self-limited facial flushing, risk of skin atrophy or depigmentation and risk of infection. Activities and restrictions after injection were also discussed. Pat (more content not included)... [facility] 07-15-2024 History of Present illness Narrative Radiology Service Progress Note PATIENT NAME: Willy Sanders DATE OF SERVICE: July 15, 2024 TIME: 10:29 AM PATIENT IDENTITY VERIFICATION COMPLETED USING TWO (2) IDENTIFIERS: Name and Date of confirmed by patient verbally. FALL SCREENING: Has the patient had 2 falls in the last year or 1 fall with injury or currently using an Ambulatory Assistive Device (Walker, Cane, Wheelchair, Crutches, etc.)? No PATIENT GENDER DATA: Male PATIENT RELEVANT IMPLANT DATA REVIEWED: Not Applicable PATIENT PRESENTS WITH AN IMPLANTABLE OR ATTACHED DATA ANALYST ETL DEVELOPER: No RADIOLOGY DEPARTMENT: General X-ray: Exam(s) Completed: Upper Extremity X-Ray(s): Fingers/Thumb, right PERIPHERAL IV DATA: Not applicable SIGNED BY: RT Harpal(R) July 15, 2024 10:29 AM documented in this encounter [facility] 07-15-2024 Note HNO ID: [id number] Author: JORGE KEITH RT(Rhona) Service: ? Author Type: Technologist Type: Progress Notes Filed: 07/15/2024 10:29 Note Text: Radiology Service Progress Note PATIENT NAME: Willy Sanders DATE OF SERVICE: July 15, 2024 TIME: 10:29 AM PATIENT IDENTITY VERIFICATION COMPLETED USING TWO (2) IDENTIFIERS: Name and Date of confirmed by patient verbally. FALL SCREENING: Has the patient had 2 falls in the last year or 1 fall with injury or currently using an Ambulatory Assistive Device (Walker, Cane, Wheelchair, Crutches, etc.)? No PATIENT GENDER DATA: Male PATIENT RELEVANT IMPLANT DATA REVIEWED: Not Applicable PATIENT PRESENTS WITH AN IMPLANTABLE OR ATTACHED DATA ANALYST ETL DEVELOPER: No RADIOLOGY DEPARTMENT: General X-ray: Exam(s) Completed: Upper Extremity X-Ray(s): Fingers/Thumb, right PERIPHERAL IV DATA: Not applicable SIGNED BY: RT Harpal(R) July 15, 2024 10:29 AM [facility] 07-15-2024 Note HNO ID: [id number] Author: LIZETTE AVILA MD Service: ? Author Type: Physician Type: Progress Notes Filed: 07/15/2024 09:50 Note Text: This note was created using [employer]. Subjective Willy Sanders is a 69 year old male. HPI RIght Thumb Pain (Willy is here today for RIght Thumb Pain. Pain in the right thumb MCP joint first. 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 Pain with movement. BPH on tamsulosin stable. GERD on PPI symptoms controlled , no dysphagia, no weight loss, no blood in the stool. Stable to continue. Obesity Body mass index is 32.26 kg/m?. The patient is asked to make an attempt to improve diet and exercise patterns to aid in medical management of this problem. PAST MEDICAL HISTORY 10/17/2022: GERD without esophagitis PAST SURGICAL HISTORY 1999: EXCISION OF A GRANULOMA SUTURE Comment: throat Social History Tobacco Use Smoking status: Never Passive exposure: Never Smokeless tobacco: Never Vaping Use Vaping status: Never Used Substance Use Topics Alcohol use: Not Currently Drug use: Never All medications have been reviewed and verified. Review of Systems Constitutional: Negative for fever. HENT: Negative for congestion, dental problem, drooling and ear discharge. Eyes: Negative for pain, discharge and itching. Respiratory: Negative for cough, chest tightness, shortness of breath and wheezing. Cardiovascular: Negative for chest pain, palpitations and leg swelling. Gastrointestinal: Negative for abdominal pain, blood in stool and constipation. Endocrine: Negative for cold intolerance, heat intolerance, polydipsia, polyphagia and polyuria. Genitourinary: Negative for difficulty urinating, dysuria, enuresis and flank pain. Musculoskeletal: Positive for arthralgias. Skin: Negative for color change and pallor. Allergic/Immunologic: Negative for environmental allergies, food allergies and immunocompromised state. Neurological: Negative for dizziness, facial asymmetry, light-headedness and headaches. Hematological: Negative for adenopathy. Does not bruise/bleed easily. Objective BP 144/78 (BP Site: Left Arm, BP Position: Sitting, BP Cuff Size: Large Adult) Pulse 61 Ht 170.2 cm (5' 7 ) Wt 93.4 kg (206 lb) SpO2 95% BMI 32.26 kg/m? Physical Exam Vitals and nursing note reviewed. Constitutional: General: He is not in acute distress. Appearance: Normal appearance. He is obese. He is not ill-appearing. HENT: Head: Normocephalic and atraumatic. Nose: Nose normal. No congestion or rhinorrhea. Eyes: Pupils: Pupils are equal, round, and reactive to light. Cardiovascular: Rate and Rhythm: Normal rate and regular rhythm. Pulses: Normal pulses. Heart sounds: Normal heart sounds. No murmur heard. Pulmonary: Effort: Pulmonary effort is normal. No respiratory distress. Breath sounds: Normal breath sounds. No wheezing, rhonchi or rales. Abdominal: General: Bowel sounds are normal. Palpations: Abdomen is soft. There is no mass. Tenderness: There is no abdominal tenderness. Hernia: No hernia is present. Musculoskeletal: General: Normal range of motion. Right wrist: Swelling and tenderness present. Arms: Cervical back: Normal range of motion and neck supple. Lymphadenopathy: Cervical: No cervical adenopathy. Skin: Findings: No bruising, lesion or rash. Neurological: General: No focal deficit present. Mental Status: He is alert and oriented to person, place, and time. Mental status is at baseline. Cranial Nerves: No cranial nerve deficit. Motor: No weakness. Gait: Gait normal. Psychiatric: Mood and Affect: Mood normal. Behavior: Behavior normal. Assessment and Plan ASSESSMENT/PLAN: 1. Primary osteoarthritis of first carpometacarpal joint of right hand - ICD9: 715.14, ICD10: M18.11 (primary diagnosis) - XR DIGIT GENERAL 3V FRONTAL/LAT/OBL RIGHT - CONSULT TO ORTHOPAEDIC SURGERY - METHYLPREDNISOLONE 4 MG TABLETS IN A DOSE PACK 2. Benign prostatic hyperplasia with urinary frequency - ICD9: 600.01, 788.41, ICD10: N40.1, R35.0 - PROSTATE-SPECIFIC ANTIGEN DIAGNOSTIC 3. Obesity, Class I, BMI 30-34.9 - ICD9: 278.00, ICD10: E66.9 Obesity Body mass index is 32.26 kg/m?. Last Wt 07/15/24 : 93.4 kg (206 lb) 5% weight loss = 196 lbs, 10% weight loss = 185 lbs The patient is asked to make an attempt to improve diet and exercise patterns to aid in medical management of this problem. Counseling 15 min . 4. 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 Essential hypertension - ICD9: 401.9, ICD10: I10 - Uncontrolled - Recommend home blood pressure monitoring, to bring results to next visit - Encouraged sodium restriction, DASH or Mediterranean diet - Recommend regular aerobic exercise - COMPLETE BLOOD COUNT - COMPREHENSIVE METABOLIC PANEL - THYROID STIMUL (more content not included)... [facility] 07-15-2024 History of Present illness Narrative Images from the original note were not included. This note was created using [employer]. Subjective Willy Sanders is a 69 year old male. HPI RIght Thumb Pain (Willy is here today for RIght Thumb Pain. Pain in the right thumb MCP joint first. 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 Pain with movement. BPH on tamsulosin stable. GERD on PPI symptoms controlled , no dysphagia, no weight loss, no blood in the stool. Stable to continue. Obesity Body mass index is 32.26 kg/m . The patient is asked to make an attempt to improve diet and exercise patterns to aid in medical management of this problem. PAST MEDICAL HISTORY 10/17/2022: GERD without esophagitis PAST SURGICAL HISTORY 1999: EXCISION OF A GRANULOMA SUTURE Comment: throat Social History Tobacco Use Smoking status: Never Passive exposure: Never Smokeless tobacco: Never Vaping Use Vaping status: Never Used Substance Use Topics Alcohol use: Not Currently Drug use: Never All medications have been reviewed and verified. Review of Systems Constitutional: Negative for fever. HENT: Negative for congestion, dental problem, drooling and ear discharge. Eyes: Negative for pain, discharge and itching. Respiratory: Negative for cough, chest tightness, shortness of breath and wheezing. Cardiovascular: Negative for chest pain, palpitations and leg swelling. Gastrointestinal: Negative for abdominal pain, blood in stool and constipation. Endocrine: Negative for cold intolerance, heat intolerance, polydipsia, polyphagia and polyuria. Genitourinary: Negative for difficulty urinating, dysuria, enuresis and flank pain. Musculoskeletal: Positive for arthralgias. Skin: Negative for color change and pallor. Allergic/Immunologic: Negative for environmental allergies, food allergies and immunocompromised state. Neurological: Negative for dizziness, facial asymmetry, light-headedness and headaches. Hematological: Negative for adenopathy. Does not bruise/bleed easily. Objective BP 144/78 (BP Site: Left Arm, BP Position: Sitting, BP Cuff Size: Large Adult) Pulse 61 Ht 170.2 cm (5' 7 ) Wt 93.4 kg (206 lb) SpO2 95% BMI 32.26 kg/m Physical Exam Vitals and nursing note reviewed. Constitutional: General: He is not in acute distress. Appearance: Normal appearance. He is obese. He is not ill-appearing. HENT: Head: Normocephalic and atraumatic. Nose: Nose normal. No congestion or rhinorrhea. Eyes: Pupils: Pupils are equal, round, and reactive to light. Cardiovascular: Rate and Rhythm: Normal rate and regular rhythm. Pulses: Normal pulses. Heart sounds: Normal heart sounds. No murmur heard. Pulmonary: Effort: Pulmonary effort is normal. No respiratory distress. Breath sounds: Normal breath sounds. No wheezing, rhonchi or rales. Abdominal: General: Bowel sounds are normal. Palpations: Abdomen is soft. There is no mass. Tenderness: There is no abdominal tenderness. Hernia: No hernia is present. Musculoskeletal: General: Normal range of motion. Right wrist: Swelling and tenderness present. Arms: Cervical back: Normal range of motion and neck supple. Lymphadenopathy: Cervical: No cervical adenopathy. Skin: Findings: No bruising, lesion or rash. Neurological: General: No focal deficit present. Mental Status: He is alert and oriented to person, place, and time. Mental status is at baseline. Cranial Nerves: No cranial nerve deficit. Motor: No weakness. Gait: Gait normal. Psychiatric: Mood and Affect: Mood normal. Behavior: Behavior normal. Assessment and Plan ASSESSMENT/PLAN: 1. Primary osteoarthritis of first carpometacarpal joint of right hand - ICD9: 715.14, ICD10: M18.11 (primary diagnosis) - XR DIGIT GENERAL 3V FRONTAL/LAT/OBL RIGHT - CONSULT TO ORTHOPAEDIC SURGERY - METHYLPREDNISOLONE 4 MG TABLETS IN A DOSE PACK 2. Benign prostatic hyperplasia with urinary frequency - ICD9: 600.01, 788.41, ICD10: N40.1, R35.0 - PROSTATE-SPECIFIC ANTIGEN DIAGNOSTIC 3. Obesity, Class I, BMI 30-34.9 - ICD9: 278.00, ICD10: E66.9 Obesity Body mass index is 32.26 kg/m . Last Wt 07/15/24 : 93.4 kg (206 lb) 5% weight loss = 196 lbs, 10% weight loss = 185 lbs The patient is asked to make an attempt to improve diet and exercise patterns to aid in medical management of this problem. Counseling 15 min . 4. 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 Essential hypertension - ICD9: 401.9, ICD10: I10 - Uncontrolled - Recommend home blood pressure monitoring, to bring results to next visit - Encouraged sodium restriction, DASH or Mediterranean diet - Recommend regular aerobic exercise - COMPLETE BLOOD COUNT - COMPREHENSIVE METABOLIC PANEL - THYROID STIMULATING HORMONE 6. Vitamin D deficiency - ICD9: 268.9, ICD10: E55.9 - VITAMIN D 25 HYDROXY Lizette Avila MD documented in this encounter [facility] 05-27-2024 Telephone encounter Note Items addressed in this encounter: Prior Authorization I received a PA request for Pantoprazole and after PA was submitted, plan responded back with No PA required. Able to close encounter. Michelle Alexandra MA May 27, 2024 10:13 AM 10:13 AM [facility] 05-27-2024 Miscellaneous Notes Items addressed in this encounter: Prior Authorization I received a PA request for Pantoprazole and after PA was submitted, plan responded back with No PA required. Able to close encounter. Michelle Alexandra MA May 27, 2024 10:13 AM 10:13 AM documented in this encounter [facility] 05-20-2024 Telephone encounter Note Medication was sent to pharmacy [facility] 05-20-2024 Miscellaneous Notes Medication was sent to pharmacy Summary: refill Pt [facility] . documented in this encounter [facility] 05-20-2024 Telephone encounter Note Summary: refill Pt [facility] . [facility] 03-19-2024 Telephone encounter Note Patient states he has had huge improvements since the pantoprazole was increased and had no further questions regarding US results. [facility] 03-19-2024 Miscellaneous Notes Patient states he has had huge improvements since the pantoprazole was increased and had no further questions regarding US results. Please let patient know that there are 2 lymph nodes on the right side of his neck and 1 on the left that appear enlarged on exam by ultrasound. All of them appear to be benign and likely reactive. Is he having any improvement in his sore throat since we increased his pantoprazole? documented in this encounter [facility] 03-19-2024 Telephone encounter Note Please let patient know that there are 2 lymph nodes on the right side of his neck and 1 on the left that appear enlarged on exam by ultrasound. All of them appear to be benign and likely reactive. Is he having any improvement in his sore throat since we increased his pantoprazole? [facility] 03-07-2024 Instructions Evelia Fallon APRN.CNP - 03/07/2024 10:30 AM EDT Call [phone] to schedule ultrasound Flonase 1 spray each nostril twice a day Increase pantoprazole to 40mg Use ibuprofen or tylenol as needed for discomfort documented in this encounter [facility] 03-07-2024 Note HNO ID: [id number] Author: EVELIA FALLON APRN.CNP Service: ? Author Type: Nurse Practitioner Type: Progress Notes Filed: 03/07/2024 18:21 Note Text: Willy Sanders is a 68 year old male who presents with Acute Visit (Pt states he has had a sore throat for three weeks now.He has taken zyrtec and IBU. It doesn't seem to help. He is not using a nasal spray and not a smoker.) Willy presents today with c/o sore throat x 3 weeks. Has also been having nasal congestion, mild bitemporal headache. Clear nasal drainage. Denies cough. Has not noted PND. Tried Zyrtec for the past 4 days, which has not helped. States he previously had similar symptoms years ago and was started on pantoprazole 40mg. Was seen by ENT at that time. This was eventually decreased to 20mg. Has not noticed GERD symptoms, but states he did not at that time, either. States throat feels like somebody put a wire brush down my throat. Feels like he has trouble swallowing and has to take sips of water to get things down. Has been going on for quite a while, but much worse over the past few weeks. The history is provided by the patient. Hemoglobin A1C Date Value Ref Range Status 10/17/2022 5.7 4.3 - 6.0 % Final Comment: [place] [employer] guidelines indicate that patients with HgbA1c in the range 5.7-6.4% are at increased risk for development of diabetes, and intervention by lifestyle modification may be beneficial. HgbA1c greater or equal to 6.5% is considered diagnostic of diabetes. TSH Date Value Ref Range Status 10/17/2022 1.475 0.358 - 3.740 mIU/L Final Comment: 3rd generation ultra sensitive TSH. Albumin, Urine Random Date Value Ref Range Status 10/17/2022 5.0 0.0 - 19.0 mg/L Final PAST MEDICAL HISTORY Diagnosis Date GERD without esophagitis 10/17/2022 ACTIVE PROBLEM LIST Obesity, Class I, Bmi 30-34.9 Essential (Primary) Hypertension Gerd Without Esophagitis Combined Hyperlipidemia Vitamin D Deficiency Osteoarthritis of Both Knees Current Outpatient Medications Medication Sig Dispense Refill pantoprazole DR (PROTONIX) 20 mg tablet Take 1 tablet by mouth once daily. 90 tablet 3 tamsulosin (FLOMAX) 0.4 mg Take 1 capsule by mouth daily at bedtime. 90 capsule 1 No current facility-administered medications for this visit. Social History Tobacco Use Smoking status: Never Smokeless tobacco: Never Vaping Use Vaping Use: Never used Substance Use Topics Alcohol use: Never Drug use: Never FAMILY HISTORY Problem Relation Age of Onset other (stomach cancer) Mother Brain Cancer Father Review of Systems All other systems reviewed and are negative. BP 124/86 Pulse 85 Temp 98.5 Ht 5' 7 (1.70m) Wt 205 lb (93.0kg) SpO2 98% BMI 32.10 kg/(m2). Physical Exam Vitals and nursing note reviewed. Constitutional: Appearance: Normal appearance. He is obese. HENT: Head: Normocephalic and atraumatic. Right Ear: Ear canal and external ear normal. Left Ear: Ear canal and external ear normal. Ears: Comments: Grossly normal hearing Nose: Congestion and rhinorrhea present. Mouth/Throat: Mouth: Mucous membranes are moist. Pharynx: Oropharynx is clear. Comments: 2-3+ tonsillar hypertrophy Eyes: Pupils: Pupils are equal, round, and reactive to light. Comments: Glasses Neck: Comments: 1 palpable cervical lymph node R anterior Cardiovascular: Rate and Rhythm: Normal rate and regular rhythm. Pulses: Normal pulses. Heart sounds: Normal heart sounds. No murmur heard. Pulmonary: Effort: Pulmonary effort is normal. Breath sounds: Normal breath sounds. Abdominal: General: Bowel sounds are normal. Palpations: Abdomen is soft. Tenderness: There is no abdominal tenderness. Musculoskeletal: General: No swelling. Cervical back: Neck supple. Lymphadenopathy: Cervical: Cervical adenopathy present. Skin: General: Skin is warm and dry. Capillary Refill: Capillary refill takes less than 2 seconds. Findings: No lesion or rash. Neurological: General: No focal deficit present. Mental Status: He is alert and oriented to person, place, and time. Psychiatric: Mood and Affect: Mood normal. Behavior: Behavior normal. Medications were reviewed and verified. Assessment AND Plan ASSESSMENT/PLAN: 1. GERD without esophagitis - ICD9: 530.81, ICD10: K21.9 (primary diagnosis) Patient describes same presentation when he was told he had GERD. States that he was not having any obvious reflux at that time, nor is he now. Trial increasing pantoprazole to 40 mg - PANTOPRAZOLE 40 MG TABLET,DELAYED RELEASE - PANTOPRAZOLE 40 MG TABLET,DELAYED RELEASE 2. Tonsillar hypertrophy - ICD9: 474.11, ICD10: J35.1 Unclear if this is usual presentation for him. He states he has not previously been told his tonsils were large. Recommend follow-up at next office visit. Does not appear acutely infected at this time 3. Seasonal allergic rhinitis, unspecif (more content not included)... [facility] 03-07-2024 History of Present illness Narrative Willy Sanders is a 68 year old male who presents with Acute Visit (Pt states he has had a sore throat for three weeks now.He has taken zyrtec and IBU. It doesn't seem to help. He is not using a nasal spray and not a smoker.) Willy presents today with c/o sore throat x 3 weeks. Has also been having nasal congestion, mild bitemporal headache. Clear nasal drainage. Denies cough. Has not noted PND. Tried Zyrtec for the past 4 days, which has not helped. States he previously had similar symptoms years ago and was started on pantoprazole 40mg. Was seen by ENT at that time. This was eventually decreased to 20mg. Has not noticed GERD symptoms, but states he did not at that time, either. States throat feels like somebody put a wire brush down my throat. Feels like he has trouble swallowing and has to take sips of water to get things down. Has been going on for quite a while, but much worse over the past few weeks. The history is provided by the patient. Hemoglobin A1C Date Value Ref Range Status 10/17/2022 5.7 4.3 - 6.0 % Final Comment: [place] [employer] guidelines indicate that patients with HgbA1c in the range 5.7-6.4% are at increased risk for development of diabetes, and intervention by lifestyle modification may be beneficial. HgbA1c greater or equal to 6.5% is considered diagnostic of diabetes. TSH Date Value Ref Range Status 10/17/2022 1.475 0.358 - 3.740 mIU/L Final Comment: 3rd generation ultra sensitive TSH. Albumin, Urine Random Date Value Ref Range Status 10/17/2022 5.0 0.0 - 19.0 mg/L Final PAST MEDICAL HISTORY Diagnosis Date GERD without esophagitis 10/17/2022 ACTIVE PROBLEM LIST Obesity, Class I, Bmi 30-34.9 Essential (Primary) Hypertension Gerd Without Esophagitis Combined Hyperlipidemia Vitamin D Deficiency Osteoarthritis of Both Knees Current Outpatient Medications Medication Sig Dispense Refill pantoprazole DR (PROTONIX) 20 mg tablet Take 1 tablet by mouth once daily. 90 tablet 3 tamsulosin (FLOMAX) 0.4 mg Take 1 capsule by mouth daily at bedtime. 90 capsule 1 No current facility-administered medications for this visit. Social History Tobacco Use Smoking status: Never Smokeless tobacco: Never Vaping Use Vaping Use: Never used Substance Use Topics Alcohol use: Never Drug use: Never FAMILY HISTORY Problem Relation Age of Onset other (stomach cancer) Mother Brain Cancer Father Review of Systems All other systems reviewed and are negative. BP 124/86 Pulse 85 Temp 98.5 Ht 5' 7 (1.70m) Wt 205 lb (93.0kg) SpO2 98% BMI 32.10 kg/(m^2). Physical Exam Vitals and nursing note reviewed. Constitutional: Appearance: Normal appearance. He is obese. HENT: Head: Normocephalic and atraumatic. Right Ear: Ear canal and external ear normal. Left Ear: Ear canal and external ear normal. Ears: Comments: Grossly normal hearing Nose: Congestion and rhinorrhea present. Mouth/Throat: Mouth: Mucous membranes are moist. Pharynx: Oropharynx is clear. Comments: 2-3+ tonsillar hypertrophy Eyes: Pupils: Pupils are equal, round, and reactive to light. Comments: Glasses Neck: Comments: 1 palpable cervical lymph node R anterior Cardiovascular: Rate and Rhythm: Normal rate and regular rhythm. Pulses: Normal pulses. Heart sounds: Normal heart sounds. No murmur heard. Pulmonary: Effort: Pulmonary effort is normal. Breath sounds: Normal breath sounds. Abdominal: General: Bowel sounds are normal. Palpations: Abdomen is soft. Tenderness: There is no abdominal tenderness. Musculoskeletal: General: No swelling. Cervical back: Neck supple. Lymphadenopathy: Cervical: Cervical adenopathy present. Skin: General: Skin is warm and dry. Capillary Refill: Capillary refill takes less than 2 seconds. Findings: No lesion or rash. Neurological: General: No focal deficit present. Mental Status: He is alert and oriented to person, place, and time. Psychiatric: Mood and Affect: Mood normal. Behavior: Behavior normal. Medications were reviewed and verified. Assessment & Plan ASSESSMENT/PLAN: 1. GERD without esophagitis - ICD9: 530.81, ICD10: K21.9 (primary diagnosis) Patient describes same presentation when he was told he had GERD. States that he was not having any obvious reflux at that time, nor is he now. Trial increasing pantoprazole to 40 mg - PANTOPRAZOLE 40 MG TABLET,DELAYED RELEASE - PANTOPRAZOLE 40 MG TABLET,DELAYED RELEASE 2. Tonsillar hypertrophy - ICD9: 474.11, ICD10: J35.1 Unclear if this is usual presentation for him. He states he has not previously been told his tonsils were large. Recommend follow-up at next office visit. Does not appear acutely infected at this time 3. Seasonal allergic rhinitis, unspecified trigger - ICD9: 477.9, ICD10: J30.2 Flonase twice daily - FLUTICASONE PROPIONATE 50 MCG/ACTUATION NASAL SPRAY,SUSPENSION 4. Lymphadenopathy, cervical - ICD9: 785.6, ICD10: R59.0 1 palpable anterior right cervical chain node. Nontender. Check ultrasound - US HEAD/NECK SOFT TISSUE OTHER Evelia Fallon APRN.CNP PATIENT NAME: Willy Sanders DATE: March 07, 2024 SIGNATURE: Evelia Fallon APRN.CNP documented in this encounter [facility] 09-12-2023 Instructions Evelia Fallon APRN.CNP - 09/12/2023 4:34 PM EDT Finish antibiotic [place] diet, advance as tolerated Referral to GI, please let us know if you have not heard from them in 1 week. documented in this encounter [facility] 09-12-2023 Note HNO ID: [id number] Author: Evelia Fallon APRN.CNP Service: ? Author Type: Nurse Practitioner Type: Progress Notes Filed: 09/13/2023 12:11 AM Note Text: Willy Sanders is a 68 year old male who presents with ED Follow-up Willy presents today for f/u from [place] [facility] 09/02 for colitis. He was started on cipro and flagyl, finishing today. He states he is doing better, but still feels a little nauseated. Pain has resolved. States stools look darker to him, but not black. No herminia blood. Appetite has not improved. Had zofran from ER, but has not had to take for a few days. Had a colonoscopy about 8 years ago, but cannot recall with whom. The history is provided by the patient. Hemoglobin A1C Date Value Ref Range Status 10/17/2022 5.7 4.3 - 6.0 % Final Comment: [place] [employer] guidelines indicate that patients with HgbA1c in the range 5.7-6.4% are at increased risk for development of diabetes, and intervention by lifestyle modification may be beneficial. HgbA1c greater or equal to 6.5% is considered diagnostic of diabetes. TSH Date Value Ref Range Status 10/17/2022 1.475 0.358 - 3.740 mIU/L Final Comment: 3rd generation ultra sensitive TSH. Albumin, Urine Random Date Value Ref Range Status 10/17/2022 5.0 0.0 - 19.0 mg/L Final PAST MEDICAL HISTORY Diagnosis Date GERD without esophagitis 10/17/2022 ACTIVE PROBLEM LIST Obesity, Class I, Bmi 30-34.9 Essential (Primary) Hypertension Gerd Without Esophagitis Combined Hyperlipidemia Vitamin D Deficiency Osteoarthritis of Both Knees Current Outpatient Medications Medication Sig Dispense Refill tamsulosin (FLOMAX) 0.4 mg Take 1 capsule by mouth daily at bedtime. [address] (PROTONIX) 20 mg tablet Take 1 tablet by mouth once daily. 90 tablet 3 No current facility-administered medications for this visit. Social History Tobacco Use Smoking status: Never Smokeless tobacco: Never Vaping Use Vaping Use: Never used Substance Use Topics Alcohol use: Never Drug use: Never FAMILY HISTORY Problem Relation Age of Onset other (stomach cancer) Mother Brain Cancer Father Review of Systems Constitutional: Positive for appetite change. Negative for activity change, fatigue and unexpected weight change. HENT: Negative for hearing loss and trouble swallowing. Eyes: Negative for visual disturbance. Respiratory: Negative for cough and shortness of breath. Cardiovascular: Negative for chest pain, palpitations and leg swelling. Gastrointestinal: Positive for diarrhea and nausea. Negative for vomiting. Genitourinary: Negative for difficulty urinating. Skin: Negative for rash and wound. Neurological: Negative for dizziness, light-headedness and headaches. Psychiatric/Behavioral: Negative for dysphoric mood. All other systems reviewed and are negative. There were no vitals taken for this visit. Physical Exam Vitals and nursing note reviewed. Constitutional: Appearance: Normal appearance. He is obese. HENT: Head: Normocephalic and atraumatic. Ears: Comments: Grossly normal hearing Eyes: Pupils: Pupils are equal, round, and reactive to light. Comments: Glasses Cardiovascular: Rate and Rhythm: Normal rate and regular rhythm. Pulses: Normal pulses. Heart sounds: Normal heart sounds. No murmur heard. Pulmonary: Effort: Pulmonary effort is normal. Breath sounds: Normal breath sounds. Abdominal: General: Bowel sounds are normal. Palpations: Abdomen is soft. There is no mass. Tenderness: There is no abdominal tenderness. There is no guarding. Musculoskeletal: General: No swelling. Cervical back: Neck supple. Lymphadenopathy: Cervical: No cervical adenopathy. Skin: General: Skin is warm and dry. Capillary Refill: Capillary refill takes less than 2 seconds. Findings: No lesion or rash. Neurological: General: No focal deficit present. Mental Status: He is alert and oriented to person, place, and time. Psychiatric: Mood and Affect: Mood normal. Behavior: Behavior normal. Medications were reviewed and verified. Assessment AND Plan ASSESSMENT/PLAN: 1. Encounter for support and coordination of transition of care - ICD9: V65.8, ICD10: Z76.89 (primary diagnosis) 2. Colitis - ICD9: 558.9, ICD10: K52.9 Resolving. Finish antibiotic. Diet as tolerated. Refer to GI - CONSULT TO GASTROENTEROLOGY 3. Chronic diarrhea - ICD9: 787.91, ICD10: K52.9 - CONSULT TO GASTROENTEROLOGY 4. History of colonic polyps - ICD9: V12.72, ICD10: Z86.010 - CONSULT TO GASTROENTEROLOGY Evelia Fallon APRN.BLANCA PATIENT NAME: Willy Sanders DATE: September 12, 2023 SIGNATURE: Evelia Fallon APRN.[employer] WORKER [facility] 09-12-2023 History of Present illness Narrative Willy Sanders is a 68 year old male who presents with ED Follow-up Willy presents today for f/u from [place] [facility] 09/02 for colitis. He was started on cipro and flagyl, finishing today. He states he is doing better, but still feels a little nauseated. Pain has resolved. States stools look darker to him, but not black. No herminia blood. Appetite has not improved. Had zofran from ER, but has not had to take for a few days. Had a colonoscopy about 8 years ago, but cannot recall with whom. The history is provided by the patient. Hemoglobin A1C Date Value Ref Range Status 10/17/2022 5.7 4.3 - 6.0 % Final Comment: [place] [employer] guidelines indicate that patients with HgbA1c in the range 5.7-6.4% are at increased risk for development of diabetes, and intervention by lifestyle modification may be beneficial. HgbA1c greater or equal to 6.5% is considered diagnostic of diabetes. TSH Date Value Ref Range Status 10/17/2022 1.475 0.358 - 3.740 mIU/L Final Comment: 3rd generation ultra sensitive TSH. Albumin, Urine Random Date Value Ref Range Status 10/17/2022 5.0 0.0 - 19.0 mg/L Final PAST MEDICAL HISTORY Diagnosis Date GERD without esophagitis 10/17/2022 ACTIVE PROBLEM LIST Obesity, Class I, Bmi 30-34.9 Essential (Primary) Hypertension Gerd Without Esophagitis Combined Hyperlipidemia Vitamin D Deficiency Osteoarthritis of Both Knees Current Outpatient Medications Medication Sig Dispense Refill tamsulosin (FLOMAX) 0.4 mg Take 1 capsule by mouth daily at bedtime. [address] (PROTONIX) 20 mg tablet Take 1 tablet by mouth once daily. 90 tablet 3 No current facility-administered medications for this visit. Social History Tobacco Use Smoking status: Never Smokeless tobacco: Never Vaping Use Vaping Use: Never used Substance Use Topics Alcohol use: Never Drug use: Never FAMILY HISTORY Problem Relation Age of Onset other (stomach cancer) Mother Brain Cancer Father Review of Systems Constitutional: Positive for appetite change. Negative for activity change, fatigue and unexpected weight change. HENT: Negative for hearing loss and trouble swallowing. Eyes: Negative for visual disturbance. Respiratory: Negative for cough and shortness of breath. Cardiovascular: Negative for chest pain, palpitations and leg swelling. Gastrointestinal: Positive for diarrhea and nausea. Negative for vomiting. Genitourinary: Negative for difficulty urinating. Skin: Negative for rash and wound. Neurological: Negative for dizziness, light-headedness and headaches. Psychiatric/Behavioral: Negative for dysphoric mood. All other systems reviewed and are negative. There were no vitals taken for this visit. Physical Exam Vitals and nursing note reviewed. Constitutional: Appearance: Normal appearance. He is obese. HENT: Head: Normocephalic and atraumatic. Ears: Comments: Grossly normal hearing Eyes: Pupils: Pupils are equal, round, and reactive to light. Comments: Glasses Cardiovascular: Rate and Rhythm: Normal rate and regular rhythm. Pulses: Normal pulses. Heart sounds: Normal heart sounds. No murmur heard. Pulmonary: Effort: Pulmonary effort is normal. Breath sounds: Normal breath sounds. Abdominal: General: Bowel sounds are normal. Palpations: Abdomen is soft. There is no mass. Tenderness: There is no abdominal tenderness. There is no guarding. Musculoskeletal: General: No swelling. Cervical back: Neck supple. Lymphadenopathy: Cervical: No cervical adenopathy. Skin: General: Skin is warm and dry. Capillary Refill: Capillary refill takes less than 2 seconds. Findings: No lesion or rash. Neurological: General: No focal deficit present. Mental Status: He is alert and oriented to person, place, and time. Psychiatric: Mood and Affect: Mood normal. Behavior: Behavior normal. Medications were reviewed and verified. Assessment & Plan ASSESSMENT/PLAN: 1. Encounter for support and coordination of transition of care - ICD9: V65.8, ICD10: Z76.89 (primary diagnosis) 2. Colitis - ICD9: 558.9, ICD10: K52.9 Resolving. Finish antibiotic. Diet as tolerated. Refer to GI - CONSULT TO GASTROENTEROLOGY 3. Chronic diarrhea - ICD9: 787.91, ICD10: K52.9 - CONSULT TO GASTROENTEROLOGY 4. History of colonic polyps - ICD9: V12.72, ICD10: Z86.010 - CONSULT TO GASTROENTEROLOGY Evelia Fallon APRN.CNP PATIENT NAME: Willy Sanders DATE: September 12, 2023 SIGNATURE: Evelia Fallon APRN.BLANCA documented in this encounter [facility] 09-12-2023 Nurse Note ER follow up 09/02/2023 went to [place] [facility] for Abdominal pain, diarrhea, continuous nausea. Infection in lower intestine Was started on ATB and advised to have colonoscopy JIGNESH. Provider told him to be checked for Chrons Provider stated he did not like what he saw on testing results stated he had an enlargement. Still having nausea, diarrhea X 2 daily David Jones MA September 12, 2023 4:10 PM documented in this encounter [facility] 08-17-2023 Note HNO ID: [id number] Author: Lizette Avila MD Service: ? Author Type: Physician Type: Progress Notes Filed: 08/17/2023 2:08 PM Note Text: Office follow up note: 68 year old male, presents today for follow up visit. Patient reports being compliant with medication(s) and no adverse reactions to medication(s). GERD on PPI symptoms controlled , no dysphagia, no weight loss, no blood in the stool. Stable to continue. Hypertension has not been taking his blood pressure medication. Self stopped. BPH not emptying well. Nocturia 3 times. Knees pain chronic Degenerative joints disease. Aching worse with stairs. Obesity Body mass index is 31.45 kg/m?. Last Wt 08/17/23 : 91.1 kg (200 lb 12.8 oz) 5% weight loss = 191 lbs, 10% weight loss = 181 lbs The patient is asked to make an attempt to improve diet and exercise patterns to aid in medical management of this problem. Counseling 15 min . ALLERGIES No Known Allergies Current Outpatient Medications Medication Sig pantoprazole DR (PROTONIX) 20 mg tablet Take 1 tablet by mouth once daily. No current facility-administered medications for this visit. 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 REVIEW OF SYSTEMS: GENERAL: Negative for malaise, significant weight loss, night sweats and fever HEENT: No changes in hearing or vision. No sinus pain or pressure, No trouble swallowing RESPIRATORY: Negative for cough, wheezing and shortness of breath CADIOVASCULAR: Negative for chest pain, leg swelling, palpitations, orthopnea GI: Negative for abdominal discomfort, hematochezia, melena, hematemesis, change in bowel habits, diarrhea, constipation, nausea or vomiting. HEMATOLOGY Negative for prolonged bleeding, bruising easily, and swollen nodes. ENDOCRINE: Negative for cold or heat intolerance, polyuria, polydipsia and goiter. NEURO: Negative for lightheadedness, dizziness, tremor, gait imbalance, syncope and seizures. PHYSICAL EXAM: VITALS: Blood pressure 134/88, pulse 65, temperature 36.5 ?C (97.7 ?F), resp. rate 20, height 170.2 cm (5' 7 ), weight 91.1 kg (200 lb 12.8 oz), SpO2 96 %., Body mass index is 31.45 kg/m?. GENERAL: Healthy, alert, no distress, cooperative SKIN: Skin color, texture, turgor normal. No rashes or lesions. HEENT: PERRL, EOMI, and normal dentition CARDIAC: Normal S1 and S2; no rubs, murmurs, or gallops LUNGS: Lungs clear to auscultation, Good diaphragmatic excursion ABDOMEN Right Upper quadrant swelling. EXTREMITIES: Extremities normal, no deformities, edema, clubbing or skin discoloration. Good capillary refill., No ulcers NEURO: Gait normal. Reflexes normal and symmetric. Sensation grossly intact, Cranial nerves II-XII intact PULSES: 2+ radial LAB RESULTS: Results for orders placed or performed in visit on 10/17/22 COLOGUARD Result Value Ref Range Stool DNA Negative Negative ASSESSMENT/PLAN: 1. 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 GERD without esophagitis - ICD9: 530.81, ICD10: K21.9 - Discussed lifestyle modifications including losing weight, limiting caffeine, no meals three hours before sleep, and head of bed elevation 3. Obesity, Class I, BMI 30-34.9 - ICD9: 278.00, ICD10: E66.9 Continue current management plan. 4. Osteoarthritis of both knees, unspecified osteoarthritis type - ICD9: 715.96, ICD10: M17.0 5. Benign prostatic hyperplasia with urinary frequency - ICD9: 600.01, 788.41, ICD10: N40.1, R35.0 - Patient education for prevention given - TAMSULOSIN 0.4 MG CAPSULE - PSA/PROSTSPECAG DIAG - US ABDOMEN COMPLETE 6. Essential hypertension - ICD9: 401.9, ICD10: I10 - Controlled - Continue current medications - Recommend home blood pressure monitoring, to bring results to next visit - Encouraged sodium restriction, DASH or Mediterranean diet - Recommend regular aerobic exercise - CBC - COMP METABOLIC PANEL - LIPID PANEL BASIC - TSH BLD 7. Abdominal wall swelling - ICD9: 789.30, ICD10: R19.00 - US ABDOMEN COMPLETE Lizette Avila MD [facility] 08-17-2023 History of Present illness Narrative Office follow up note: 68 year old male, presents today for follow up visit. Patient reports being compliant with medication(s) and no adverse reactions to medication(s). GERD on PPI symptoms controlled , no dysphagia, no weight loss, no blood in the stool. Stable to continue. Hypertension has not been taking his blood pressure medication. Self stopped. BPH not emptying well. Nocturia 3 times. Knees pain chronic Degenerative joints disease. Aching worse with stairs. Obesity Body mass index is 31.45 kg/m . Last Wt 08/17/23 : 91.1 kg (200 lb 12.8 oz) 5% weight loss = 191 lbs, 10% weight loss = 181 lbs The patient is asked to make an attempt to improve diet and exercise patterns to aid in medical management of this problem. Counseling 15 min . ALLERGIES No Known Allergies Current Outpatient Medications Medication Sig pantoprazole DR (PROTONIX) 20 mg tablet Take 1 tablet by mouth once daily. No current facility-administered medications for this visit. 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 REVIEW OF SYSTEMS: GENERAL: Negative for malaise, significant weight loss, night sweats and fever HEENT: No changes in hearing or vision. No sinus pain or pressure, No trouble swallowing RESPIRATORY: Negative for cough, wheezing and shortness of breath CADIOVASCULAR: Negative for chest pain, leg swelling, palpitations, orthopnea GI: Negative for abdominal discomfort, hematochezia, melena, hematemesis, change in bowel habits, diarrhea, constipation, nausea or vomiting. HEMATOLOGY Negative for prolonged bleeding, bruising easily, and swollen nodes. ENDOCRINE: Negative for cold or heat intolerance, polyuria, polydipsia and goiter. NEURO: Negative for lightheadedness, dizziness, tremor, gait imbalance, syncope and seizures. PHYSICAL EXAM: VITALS: Blood pressure 134/88, pulse 65, temperature 36.5 C (97.7 F), resp. rate 20, height 170.2 cm (5' 7 ), weight 91.1 kg (200 lb 12.8 oz), SpO2 96 %., Body mass index is 31.45 kg/m . GENERAL: Healthy, alert, no distress, cooperative SKIN: Skin color, texture, turgor normal. No rashes or lesions. HEENT: PERRL, EOMI, and normal dentition CARDIAC: Normal S1 and S2; no rubs, murmurs, or gallops LUNGS: Lungs clear to auscultation, Good diaphragmatic excursion ABDOMEN Right Upper quadrant swelling. EXTREMITIES: Extremities normal, no deformities, edema, clubbing or skin discoloration. Good capillary refill., No ulcers NEURO: Gait normal. Reflexes normal and symmetric. Sensation grossly intact, Cranial nerves II-XII intact PULSES: 2+ radial LAB RESULTS: Results for orders placed or performed in visit on 10/17/22 [facility] Result Value Ref Range Stool DNA Negative Negative ASSESSMENT/PLAN: 1. 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 GERD without esophagitis - ICD9: 530.81, ICD10: K21.9 - Discussed lifestyle modifications including losing weight, limiting caffeine, no meals three hours before sleep, and head of bed elevation 3. Obesity, Class I, BMI 30-34.9 - ICD9: 278.00, ICD10: E66.9 Continue current management plan. 4. Osteoarthritis of both knees, unspecified osteoarthritis type - ICD9: 715.96, ICD10: M17.0 5. Benign prostatic hyperplasia with urinary frequency - ICD9: 600.01, 788.41, ICD10: N40.1, R35.0 - Patient education for prevention given - TAMSULOSIN 0.4 MG CAPSULE - PSA/PROSTSPECAG DIAG - US ABDOMEN COMPLETE 6. Essential hypertension - ICD9: 401.9, ICD10: I10 - Controlled - Continue current medications - Recommend home blood pressure monitoring, to bring results to next visit - Encouraged sodium restriction, DASH or Mediterranean diet - Recommend regular aerobic exercise - CBC - COMP METABOLIC PANEL - LIPID PANEL BASIC - TSH BLD 7. Abdominal wall swelling - ICD9: 789.30, ICD10: R19.00 - US ABDOMEN COMPLETE Lizette Avila MD documented in this encounter [facility] 08-17-2023 Nurse Note Willy is here today for a 6 month follow up to chronic conditions. C/O having trouble urinating in the mornings. No other concerns at this time MELVINA MALLORY MA August 17, 2023 1:44 PM documented in this encounter [facility] 02-14-2023 History of Present illness Narrative Office follow up note: 67 year old male, presents today for follow up visit. Patient reports being compliant with medication(s) and no adverse reactions to medication(s). Hypertension Stopped taking amlodipine due to dizziness. Blood pressure staying around 130/80 Knees pain chronic Bilateral Worse with stairs. Had kenalog injection in the past helped. Intramuscular. GERD ON PROTONIX. Controlled No dysphagia No weight loss. Hyperlipidemia Dieting. The patient is asked to make an attempt to improve diet and exercise patterns to aid in medical management of this problem. Hemorrhoids Mild grade one. No constipation. ALLERGIES No Known Allergies Current Outpatient Medications Medication Sig pantoprazole DR (PROTONIX) 20 mg tablet Take 1 tablet by mouth once daily. amLODIPine (NORVASC) 5 mg tablet Take 1 tablet by mouth once daily. (Patient not taking: Reported on 02/14/2023) No current facility-administered medications for this visit. PAST MEDICAL HISTORY Diagnosis Date GERD without esophagitis 10/17/2022 PAST SURGICAL HISTORY Procedure Laterality Date EXCISION OF A GRANULOMA SUTURE 1999 throat FAMILY HISTORY Problem Relation Age of Onset other (stomach cancer) Mother Brain Cancer Father REVIEW OF SYSTEMS: GENERAL: Negative for malaise, significant weight loss, night sweats and fever HEENT: No changes in hearing or vision. No sinus pain or pressure, No trouble swallowing RESPIRATORY: Negative for cough, wheezing and shortness of breath CADIOVASCULAR: Negative for chest pain, leg swelling, palpitations, orthopnea GI: Negative for abdominal discomfort, hematochezia, melena, hematemesis, change in bowel habits, diarrhea, constipation, nausea or vomiting. : Negative for dysuria, frequency and incontinence HEMATOLOGY Negative for prolonged bleeding, bruising easily, and swollen nodes. ENDOCRINE: Negative for cold or heat intolerance, polyuria, polydipsia and goiter. NEURO: Negative for lightheadedness, dizziness, tremor, gait imbalance, syncope and seizures. PHYSICAL EXAM: VITALS: Blood pressure 136/80, pulse 67, temperature 36.1 C (97 F), temperature source Temporal, resp. rate 18, height 170.2 cm (5' 7 ), weight 92.1 kg (203 lb), SpO2 96 %., Body mass index is 31.79 kg/m . GENERAL: Healthy, alert, no distress, cooperative SKIN: Skin color, texture, turgor normal. No rashes or lesions. HEENT: PERRL, EOMI, and normal dentition CARDIAC: Normal S1 and S2; no rubs, murmurs, or gallops LUNGS: Lungs clear to auscultation, Good diaphragmatic excursion ABDOMEN: Non distended, positive bowel sounds all 4 quadrants, soft non-tender, no organomegaly EXTREMITIES: Extremities normal, no deformities, edema, clubbing or skin discoloration. Good capillary refill., No ulcers NEURO: Gait normal. Reflexes normal and symmetric. Sensation grossly intact, Cranial nerves II-XII intact PULSES: 2+ radial LAB RESULTS: Results for orders placed or performed in visit on 10/17/22 [facility] Result Value Ref Range Stool DNA Negative Negative ASSESSMENT/PLAN: 1. Essential hypertension - ICD9: 401.9, ICD10: I10 (primary diagnosis) - good control - Recommended regular aerobic exercise. - Recommend home blood pressure monitoring, to bring results in on next visit - Goal of BP <130/80 - ALBUMIN/CREAT RATIO RND UR 2. GERD without esophagitis - ICD9: 530.81, ICD10: K21.9 - Discussed lifestyle modifications including losing weight, limiting caffeine, no meals three hours before sleep, and head of bed elevation 3. Combined hyperlipidemia - ICD9: 272.2, ICD10: E78.2 - good control - Continue current medication. - Check fasting lipid panel and ALT. - CBC - COMP METABOLIC PANEL - LIPID PANEL BASIC - TSH BLD 4. Vitamin D deficiency - ICD9: 268.9, ICD10: E55.9 - VITAMIN D 25 HYDROXY Lizette Avila MD Patient declined immunizations documented in this encounter [facility] 11-05-2022 Note . MICRO - Microbiology PROCEDURE: Blood Culture (bacterial) [*1] SOURCE: Blood BODY SITE: COLLECTED DATE/TIME: 10/30/2022 22:03 EST RECEIVED DATE/TIME: 10/30/2022 22:53 EST START DATE/TIME: 10/30/2022 22:54 EST FREE TEXT SOURCE: FINAL REPORTS Final Report [] Verified Date/Time/Personnel: 11/04/2022 22:59 EST Blood Culture: No Growth at 5 days. PRELIMINARY REPORTS Preliminary Report [] Verified Date/Time/Personnel: 10/30/2022 23:59 EST Culture has been received in lab and is no growth to date. Routine cultures are held for 5 days. Performing Locations *1: This test was performed at: [address], [facility] , [facility] ([place]) 11-05-2022 Note . MICRO - Microbiology PROCEDURE: Blood Culture (bacterial) [*1] SOURCE: Blood BODY SITE: COLLECTED DATE/TIME: 10/30/2022 22:03 EST RECEIVED DATE/TIME: 10/30/2022 22:53 EST START DATE/TIME: 10/30/2022 22:54 EST FREE TEXT SOURCE: FINAL REPORTS Final Report [] Verified Date/Time/Personnel: 11/04/2022 22:59 EST Blood Culture: No Growth at 5 days. PRELIMINARY REPORTS Preliminary Report [] Verified Date/Time/Personnel: 10/30/2022 23:59 EST Culture has been received in lab and is no growth to date. Routine cultures are held for 5 days. Performing Locations *1: This test was performed at: [address], [facility] , [facility] ([place]) 11-01-2022 Note . MICRO - Microbiology PROCEDURE: Urine Culture [*1] SOURCE: Urine, Clean Catch BODY SITE: COLLECTED DATE/TIME: 10/30/2022 22:29 EST RECEIVED DATE/TIME: 10/30/2022 22:58 EST START DATE/TIME: 10/30/2022 22:58 EST FREE TEXT SOURCE: FINAL REPORTS Final Report [] Verified Date/Time/Personnel: 11/01/2022 07:31 EST <10,000 cfu/ml. No Significant growth. Sensitivity not indicated. PRELIMINARY REPORTS Preliminary Report [] Verified Date/Time/Personnel: 10/31/2022 09:45 EST No growth to date Performing Locations *1: This test was performed at: [facility], [address] [place] [address], [id number] , [facility] ([place]) 10-31-2022 Hospital Discharge instructions Patient Education 10/30/2022 23:08:23 Dental Abscess Dental Abscess An abscess is a pocket of pus at the tip of a tooth root in your jaw bone. It is caused by an infection at the root of the tooth. It can cause pain and swelling of the gum, cheek, or jaw. Pain may spread from the tooth to your ear or the area of your jaw on the same side. If the abscess isn t treated, it appears as a bubble or swelling on the gum near the tooth. The pressure that builds in this swelling is the source of the pain. More serious infections cause your face to swell. An abscess can be caused by a crack in the tooth, a cavity, a gum infection, or a combination of these. Once the pulp of the tooth is exposed, bacteria can spread down the roots to the tip. If the bacteria are not stopped, they can damage the bone and soft tissue, and an abscess can form. Home care Follow these guidelines when caring for yourself at home: Don't have hot and cold foods and drinks. Your tooth may be sensitive to changes in temperature. Don t chew on the side of the infected tooth. If your tooth is chipped or cracked, or if there is a large open cavity, put oil of cloves directly on the tooth to relieve pain. You can buy oil of cloves at drugstores. Some pharmacies carry an mkfv-dlk-vlpbpsp toothache kit. This contains a paste that you can put on the exposed tooth to make it less sensitive. Put a cold pack on your jaw over the sore area to help reduce pain. You may use fmkv-une-zjbbxpi medicine to ease pain, unless another medicine was prescribed. If you have chronic liver or kidney disease, talk with your healthcare provider before using acetaminophen or ibuprofen. Also talk with your provider if you ve had a stomach ulcer or GI bleeding. An antibiotic will be prescribed. Take it until finished, even if you are feeling better after a few days. Follow-up care Follow up with your dentist or an oral surgeon, or as advised. Once an infection occurs in a tooth, it will continue to be a problem until the infection is drained. This is done through surgery or a root canal. Or you may need to have your tooth pulled. Call 911 Call 911 if any of these occur: Unusual drowsiness Headache or stiff neck Weakness or fainting Difficulty swallowing, breathing, or opening your mouth Swollen eyelids When to seek medical advice Call your healthcare provider right away if any of these occur: Your face becomes more swollen or red Pain gets worse or spreads to your neck Fever of 100.4 F (38.0 C) or higher, or as directed by your healthcare provider Pus drains from the tooth [id number] [employer] ([place]). [address] [place] [address]. All rights reserved. This information is not intended as a substitute for professional medical care. Always follow your healthcare professional's instructions. Follow Up Care 10/30/2022 18:36:59 With:[facility] Address: When:2-4 days Comments:Follow-up with your dentist as soon as possible. [facility] 10-30-2022 Emergency department Discharge summary Discharge Instructions Thank you for allowing [facility] to assist you with your healthcare needs. The following is important discharge information regarding your hospital visit. Diagnosis from Today's Visit Dizziness Headache What to Do Next Instructions from Your Care Team - Discontinue clindamycin antibiotic -Start prescribed Augmentin -Take ibuprofen for pain -Continue to push fluids: Electrolyte type sports drinks -Follow-up with your primary care for blood pressure medication No qualifying data available. Post Acute Orders No qualifying data available. You Need to Schedule the Following Appointments Follow Up with [facility] When Within 2-4 days Why: Follow-up with your dentist as soon as possible. Where: Allergies [facility] Medications Please ask your primary doctor or pharmacist before taking any other medication not listed, including over the counter drugs, herbal medications, vitamins and or supplements as they may interact with your home medications. What How Much When Why Instructions Last Dose New amoxicillin-clavulanate (Augmentin 500 mg-125 mg oral tablet) 1 tab(s) by mouth Every 12 hours Duration: 10 Days Printed Prescription Unchanged amLODIPine (amLODIPine 5 mg oral tablet) Unchanged clindamycin (clindamycin 300 mg oral capsule) 1 cap by mouth Every 6 hours Duration: 7 Days Unchanged famciclovir (famciclovir 250 mg oral tablet) 3 tab(s) by mouth Two (2) times a day Gingivostomatitis Viral pharyngitis Duration: 1 Days herpes gingivostomatitis Unchanged pantoprazole (pantoprazole 20 mg oral enteric coated tablet) Please take this list to your next doctor s visit. Bring all medications you take, including over the counter medications, herbals and other supplements with you to your doctor s visit. Patients and families are reminded to discard old lists and to update any records with all medication providers or retail pharmacies. Education Materials Dental Abscess An abscess is a pocket of pus at the tip of a tooth root in your jaw bone. It is caused by an infection at the root of the tooth. It can cause pain and swelling of the gum, cheek, or jaw. Pain may spread from the tooth to your ear or the area of your jaw on the same side. If the abscess isn t treated, it appears as a bubble or swelling on the gum near the tooth. The pressure that builds in this swelling is the source of the pain. More serious infections cause your face to swell. An abscess can be caused by a crack in the tooth, a cavity, a gum infection, or a combination of these. Once the pulp of the tooth is exposed, bacteria can spread down the roots to the tip. If the bacteria are not stopped, they can damage the bone and soft tissue, and an abscess can form. Home care Follow these guidelines when caring for yourself at home: Don't have hot and cold foods and drinks. Your tooth may be sensitive to changes in temperature. Don t chew on the side of the infected tooth. If your tooth is chipped or cracked, or if there is a large open cavity, put oil of cloves directly on the tooth to relieve pain. You can buy oil of cloves at drugstores. Some pharmacies carry an zcrt-rtg-bvukhpy toothache kit. This contains a paste that you can put on the exposed tooth to make it less sensitive. Put a cold pack on your jaw over the sore area to help reduce pain. You may use rdgs-mek-iznqweq medicine to ease pain, unless another medicine was prescribed. If you have chronic liver or kidney disease, talk with your healthcare provider before using acetaminophen or ibuprofen. Also talk with your provider if you ve had a stomach ulcer or GI bleeding. An antibiotic will be prescribed. Take it until finished, even if you are feeling better after a few days. Follow-up care Follow up with your dentist or an oral surgeon, or as advised. Once an infection occurs in a tooth, it will continue to be a problem until the infection is drained. This is done through surgery or a root canal. Or you may need to have your tooth pulled. Call 911 Call 911 if any of these occur: Unusual drowsiness Headache or stiff neck Weakness or fainting Difficulty swallowing, breathing, or opening your mouth Swollen eyelids When to seek medical advice Call your healthcare provider right away if any of these occur: Your face becomes more swollen or red Pain gets worse or spreads to your neck Fever of 100.4 F (38.0 C) or higher, or as directed by your healthcare provider Pus drains from the tooth [id number] [employer] ([place]). [address] [place] [address]. All rights reserved. This information is not intended as a substitute for professional medical care. Always follow your healthcare professional's instructions. Additional Information VACCINATE! IT SAVES LIVES! Members of the community who have not yet received the COVID-19 vaccine and would like to receive it can visit one of [facility] vaccine clinics. There are many vaccine clinic locations within the [facility]. For locations and available times, please visit [email or web address]. It is important to note that some COVID mobile vaccine clinics are held outdoors and may be canceled in rainy or stormy conditions. To learn more about pediatric vaccinations (ages 5-11), we invite you to visit the [facility] webpage. [email or web address] To learn more about the COVID-19 vaccine, we invite you to visit the [employer] website for a list of frequently asked questions. [email or web address] [email or web address] [facility] Patient Portal Access Instructions: Stay connected with your healthcare team and access your personal medical information anytime with the [employer] Patient Portal. If you would like a full copy of your medical records please contact the [facility] Medical Records Department Monday through Monday between 8a.m. and 4:30p.m. Please follow the directions below to access the portal: 1.Access the email account you provided upon registration to the [facility].2.Look for an invitation email from [facility].3.Open the email and access the invitation link: Accept Invitation to [facility]4.Fill in the required ramos to create your account. Sign into [email or web address] with your username and password that you created in the above steps to stay up to date. You can then view a summary of results, a summary of your visits, and the ability to download your summaries to your computer or send the information securely to a physician. Remember that your healthcare information is confidential, so carefully consider who you will allow to register on the [facility] Patient Portal for access to your information. You can also access the [employer] Patient Portal on the Fever chito. Simply click on Health Records under Health Data and then click on the [employer] logo. HOW TO SAFELY DISPOSE OF PRESCRIPTION MEDICATIONS Please use one of the following methods to safely dispose of your unused medications. 1.Use a drug disposal kit: the drug disposal pouch allows you to safely discard your old and unused drugs. Ask your nurse to give you one when you are discharged.2.Visit a local take-back location: Many local pharmacies and police departments have programs that collect old and unwanted prescription drugs. Call your local pharmacy or go to http://bit.[employer]/9O4Gw0t to find one close to you.3.Make use of household items: Use cat litter or old coffee grounds to dispose medications if other options are not available. Mix your drugs with these household products, seal them in an airtight container and throw it into the garbage. Call [facility]: [phone] to be sure your drugs can be disposed of in this way. Some medicines may require a different approach.4.Never flush your medications down the toilet. IF YOU HAVE BEEN PRESCRIBED AN OPIOIDS FOR PAIN If you have been prescribed an opioid (such as hydrocodone, oxycodone or morphine), it is critical to understand the possible side effects and risks of opioid pain medications. Even when taken as directed, opioids can have several side effects including: Tolerance, meaning you might need to take more of a medication for the same pain relief. Nausea, vomiting and/or constipation. Sleepiness, dizziness, dry mouth, confusion, depression or itching. Physical dependence, meaning you have withdrawal symptoms when a medication is stopped ? this can develop within a few days. KNOW YOUR RESPONSIBILITIES It is important to know exactly how much and how often to take the opioid pain medications you are prescribed. Never take opioids in higher amounts or more often than prescribed. Do not combine opioids with alcohol or other drugs that cause drowsiness, such as benzodiazepines, also known as benzos, including diazepam and alprazolam, muscle relaxants or sleep aids. Never sell or share prescription opioids. This is illegal. Store opioids in a secure place and out of reach of others (including children, family, friends and visitors). The last page(s) of this document has been signed and retained as a CHART COPY Signatures Patient Education Materials Dental Abscess Medication Leaflets My discharge plan and instructions have been reviewed and explained to me and I,WILLY SANDERS understand my current condition and have read and understand these discharge instructions. I have received a written copy of the plan/instructions. If I have questions, I am aware that I should contact my doctor. Patient/Corporate Associate Signature: Date/Time: Relationship to Patient: ____ Witness Name/Signature: Date/Time: [facility] 10-30-2022 Note ORIGINAL EXAMINATION: CT OF THE HEAD WITHOUT CONTRAST 10/30/2022 7:21 pm TECHNIQUE: CT of the head was performed without the administration of intravenous contrast. Automated exposure control, iterative reconstruction, and/or weight based adjustment of the mA/kV was utilized to reduce the radiation dose to as low as reasonably achievable. COMPARISON: None. HISTORY: ORDERING SYSTEM PROVIDED HISTORY: Reason for Exam: HEADACHE, DIZZINESS SINCE 10/28, PT STATES NO NEURO HX dizzy FINDINGS: BRAIN/VENTRICLES: There is no acute intracranial hemorrhage, mass effect or midline shift. No abnormal extra-axial fluid collection. The hannah-white differentiation is maintained without evidence of an acute infarct. There is no evidence of hydrocephalus. ORBITS: The visualized portion of the orbits demonstrate no acute abnormality. SINUSES: There is nonspecific mucosal thickening within the right maxillary and bilateral sphenoid sinuses. SOFT TISSUES/SKULL: No acute abnormality of the visualized skull or soft tissues. IMPRESSION: No acute intracranial hemorrhage or acute large vessel territory infarct. I have personally reviewed the images of this examination and agree with the resident's findings and interpretation. Interpreted by: Jc Carvajal Preliminary Report By: Soledad Pack Electronically signed By Jc Carvajal Dictated Date: 10/30/2022 7:26:22 PM Prelim Date: 10/30/2022 7:28:57 PM Sign Date: 10/30/2022 7:47:48 PM Ordering Provider: [facility] 10-30-2022 Note ORIGINAL EXAMINATION: CT OF THE HEAD WITHOUT CONTRAST 10/30/2022 7:21 pm TECHNIQUE: CT of the head was performed without the administration of intravenous contrast. Automated exposure control, iterative reconstruction, and/or weight based adjustment of the mA/kV was utilized to reduce the radiation dose to as low as reasonably achievable. COMPARISON: None. HISTORY: ORDERING SYSTEM PROVIDED HISTORY: Reason for Exam: HEADACHE, DIZZINESS SINCE 10/28, PT STATES NO NEURO HX dizzy FINDINGS: BRAIN/VENTRICLES: There is no acute intracranial hemorrhage, mass effect or midline shift. No abnormal extra-axial fluid collection. The hannah-white differentiation is maintained without evidence of an acute infarct. There is no evidence of hydrocephalus. ORBITS: The visualized portion of the orbits demonstrate no acute abnormality. SINUSES: There is nonspecific mucosal thickening within the right maxillary and bilateral sphenoid sinuses. SOFT TISSUES/SKULL: No acute abnormality of the visualized skull or soft tissues. IMPRESSION: No acute intracranial hemorrhage or acute large vessel territory infarct. I have personally reviewed the images of this examination and agree with the resident's findings and interpretation. Interpreted by: Jc Carvajal Preliminary Report By: Soledad Pack Electronically signed By Jc Carvajal Dictated Date: 10/30/2022 7:26:22 PM Prelim Date: 10/30/2022 7:28:57 PM Sign Date: 10/30/2022 7:47:48 PM Ordering Provider: FAN VENTURA [facility] 10-30-2022 History of Past i llness Narrative Problem Noted Date Diagnosed Date Resolved Date Chest pain 10/30/2022 08/17/2023 08/17/2023 Disorder of teeth and supporting structures 10/30/2022 08/17/2023 08/17/2023 documented as of this encounter (statuses as of 08/18/2023) [facility] History of Past illness Narrative* Problem Noted Date Diagnosed Date Resolved Date Chest pain 10/30/2022 08/17/2023 08/17/2023 Disorder of teeth and supporting structures 10/30/2022 08/17/2023 08/17/2023 documented as of this encounter (statuses as of 09/13/2023) [facility] History of Past illness Narrative* Problem Noted Date Diagnosed Date Resolved Date Chest pain 10/30/2022 08/17/2023 08/17/2023 Disorder of teeth and supporting structures 10/30/2022 08/17/2023 08/17/2023 documented as of this encounter (statuses as of 03/08/2024) [facility]12-04-2022 Note Discharge Instructions Thank you for allowing [facility] to assist you with your healthcare needs. The following is importantdischarge information regarding your hospital visit. Diagnosis from Today's Visit Chest pain Dentalgia Hypertension Chest pain What to Do Next Instructions from Your Care Team No qualifying data available. Post Acute Orders No qualifying data available. You Need to Schedule the Following Appointments Follow Up with Dental Referral List When Within 2-4 days Follow Up with SOCO XAVIER MD When Within 1-2 days Where: [address] [facility] [place] [address] [phone] Follow Up with Go to emergency room if symptoms worsen When Within 2-4 days Follow Up with GAVIN DURON When Within 2-4 days Where: [address] [facility] [address] [place] [address]- Allergies NKA Medications Please ask your primary doctor or pharmacist before taking any other medication not listed, including over the counter drugs, herbal medications, vitamins and or supplements as they may interact withyour home medications. What How Much When Why Instructions Last Dose New clindamycin (clindamycin 300 mg oral capsule) 1 cap by mouth Every 6 hours Duration: 7 Days Printed Prescription Unchanged amLODIPine (amLODIPine 5 mg oral tablet) Unchanged famciclovir (famciclovir 250 mg oral tablet) 3 tab(s) by mouth Two (2) times a day Gingivostomatitis Viral pharyngitis Duration: 1 Days herpes gingivostomatitis Unchanged pantoprazole (pantoprazole 20 mg oral enteric coated tablet) Please take this list to your next doctor s visit. Bring all medications you take, including over the counter medications, herbals and other supplements with you to your doctor s visit. Patients and families are reminded to discard old lists and to update any records with all medication providers or retail pharmacies. Education Materials Dental Pain A crack or cavity in a tooth can cause tooth pain. This is because the crack or cavity exposes the sensitive inner area of the tooth. An infection in the gum or the root of the tooth can cause pain and swelling. The pain is often made worse when you drink hot or cold beverages. It can also be worsewhen you bite on hard foods. Pain may spread from the tooth to your ear or the area of the jaw on the same side. Home care Follow these tips when caring for yourself at home: Don't have hot and cold foods and drinks. Your tooth may be sensitive to changes in temperature. Use toothpaste made for sensitive teeth. Kearsarge gently up and down instead of sideways. Brushing sideways can wear away root surfaces if they are exposed. If your tooth is chipped or cracked, or if there is a large open cavity, put oil of cloves directlyon the tooth to relieve pain. You can buy oil of cloves at drugstores. Some pharmacies carry an mqrz-pdd-deryxgm toothache kit. This contains a paste that you can put on the exposed tooth to make it less sensitive. Put a cold pack on your jaw over the sore area to help reduce pain. You may use qlyp-nrd-slswcuf medicine to ease pain, unless your doctor prescribed another medicine.If you have chronic liver or kidney disease, talk with your healthcare provider before using acetaminophen or ibuprofen. Also talk with your provider if you ve had a stomach ulcer or GI bleeding. If you have signs of an infection, you will be given an antibiotic. Take it as directed. Follow-up care Follow up with your dentist, or as advised. Your pain may go away with the treatment given today. But only a dentist can fully look at and treat the cause of your pain. This will keep the pain from coming back. Call 911 Call 911 if any of these occur: Unusual drowsiness Headache or stiff neck Weakness or fainting Difficulty swallowing or breathing When to seek medical advice Call your health care provider right away if any of these occur: Your face becomes swollen or red Pain gets worse or spreads to your neck Fever of 100.4 F (38.0 C) or higher, or as directed by your healthcare provider Pus drains from the tooth [id number] [employer] ([place]). [address] [place] [address]. All rights reserved. This information is not intended as a substitute for professional medical care. Always follow yourhealthcare professional's instructions. Uncertain Causes of Chest Pain Chest pain can happen for a number of reasons. Sometimes the cause can't be determined. If your condition does not seem serious, and your pain does not appear to be coming from your heart, your healthcare provider may recommend watching it closely. Sometimes the signs of a serious problem take moretime to appear. Many problems not related to your heart can cause chest pain. These include: Musculoskeletal. Costochondritis is an inflammation of the tissues around the ribs that can occur from trauma or overuse injuries, or a strain of the muscles of the chest wall Respiratory. Pneumonia, collapsed lung (pneumothorax), or inflammation of the lining of the chest and lungs (pleurisy) Gastrointestinal. Esophageal reflux, heartburn, ulcers, or gallbladder disease Anxiety and panic disorders Nerve compression and inflammation Rare miscellaneous problems such as aortic aneurysm (a swelling of the large artery coming out of the heart) or pulmonary embolism (a blood clot in the lungs) Home care After your visit, follow these recommendations: Rest today and avoid strenuous activity. Take any prescribed medicine as directed. Be aware of any recurrent chest pain and notice any changes Follow-up care Follow up with your healthcare provider if you do not start to feel better within 24 hours, or as advised. Call 911 Call 911 if any of these occur: A change in the type of pain: if it feels different, becomes more severe, lasts longer, or begins to spread into your shoulder, arm, neck, jaw or back Shortness of breath or increased pain with breathing Weakness, dizziness, or fainting Rapid heart beat Crushing sensation in your chest When to seek medical advice Call your healthcare provider right away if any of the following occur: Cough with dark colored sputum (phlegm) or blood Fever of 100.4 F (38 C) or higher, or as directed by your healthcare provider Swelling, pain or redness in one leg 8901-7797 [employer] ([place]). [address] [place] [address]. All rights reserved. This information is not intended as a substitute for professional medical care. Always follow yourhealthcare professional's instructions. Additional Information VACCINATE! IT SAVES LIVES! Members of the community who have not yet received the COVID-19 vaccine and would like to receive it can visit one of [facility] vaccine clinics. There are many vaccine clinic locations within the [facility]. For locations and available times, please visit [email or web address]. It is important to note that some COVID mobile vaccine clinics are held outdoors and may be canceled in rainy orstormy conditions. To learn more about pediatric vaccinations (ages 5-11), we invite you to visit the [facility] webpage. [email or web address] learn more about the COVID-19 vaccine, we invite you to visit the [employer] website for a list of frequently asked questions. [email or web address] [facility] Patient Portal Access Instructions: Stay connected with your healthcare team and access your personal medical information anytime with the [facility] Patient Portal. If you would like a full copy of your medical records please contact the [facility] Medical Records Department Monday through Monday between 8a.m. and 4:30p.m. Please follow the directions below to access the portal: 1.Access the email account you provided upon registration to the [facility].2.Look for an invitation email from [facility].3.Open the email and access the invitation link: Accept Invitation to [facility] [employer]4.Fill in the required ramos to create your account. Sign into [email or web address] with your username and password that you created in the above steps to stay up to date. You can then view a summary of results, a summary of your visits, and the ability to download your summaries to your computer or send the information securely to a physician. Remember that your healthcare information is confidential, so carefully consider who you will allow to register on the [facility] Patient Portal for access to your information. You can also access the [facility] [employer] Patient Portal on the Fever chito. Simply click on Health Records under HealthData and then click on the [facility] logo. HOW TO SAFELY DISPOSE OF PRESCRIPTION MEDICATIONS Please use one of the following methods to safely dispose of your unused medications. 1.Use a drug disposal kit: the drug disposal pouch allows you to safely discard your old and unuseddrugs. Ask your nurse to give you one when you are discharged.2.Visit a local take-back location: Many local pharmacies and police departments have programs that collect old and unwanted prescriptiondrugs. Call your local pharmacy or go to http://bit.ly/9B3Zy2b to find one close to you.3.Make use of household items: Use cat litter or old coffee grounds to dispose medications if other options arenot available. Mix your drugs with these household products, seal them in an airtight container andthrow it into the garbage. Call [facility]: [phone] to be sure your drugs can be disposed of in this way. Some medicines may require a different approach.4.Never flush your medications down the toilet. IF YOU HAVE BEEN PRESCRIBED AN OPIOIDS FOR PAIN If you have been prescribed an opioid (such as hydrocodone, oxycodone or morphine), it is critical to understand the possible side effects and risks of opioid pain medications. Even when taken as directed, opioids can have several side effects including: Tolerance, meaning you might need to take more of a medication for the same pain relief. Nausea, vomiting and/or constipation. Sleepiness, dizziness, dry mouth, confusion, depression or itching. Physical dependence, meaning you have withdrawal symptoms when a medication is stopped ? this can develop within a few days. KNOW YOUR RESPONSIBILITIES It is important to know exactly how much and how often to take the opioid pain medications you are prescribed. Never take opioids in higher amounts or more often than prescribed. Do not combine opioids with alcohol or other drugs that cause drowsiness, such as benzodiazepines, also known as benzos,including diazepam and alprazolam, muscle relaxants or sleep aids. Never sell or share prescriptionopioids. This is illegal. Store opioids in a secure place and out of reach of others (including children, family, friends and visitors). The last page(s) of this document has been signed and retained as a CHART COPY Signatures Patient Education Materials Dental Pain Chest Pain, Uncertain Cause Medication Leaflets My discharge plan and instructions have been reviewed and explained to me and I,WILLY SANDERS understand my current condition and have read and understand these discharge instructions. I have received a written copy of the plan/instructions. If I have questions, I am aware that I should contactmy doctor. Patient/Corporate Associate Signature: Date/Time: Relationship to Patient: Witness Name/Signature: Date/Time: [facility]12-04-2022 Hospital Discharge instructions Patient Education 10/30/2022 09:58:16 Dental Pain Dental Pain A crack or cavity in a tooth can cause tooth pain. This is because the crack or cavity exposes the sensitive inner area of the tooth. An infection in the gum or the root of the tooth can cause pain and swelling. The pain is often made worse when you drink hot or cold beverages. It can also be worsewhen you bite on hard foods. Pain may spread from the tooth to your ear or the area of the jaw on the same side. Home care Follow these tips when caring for yourself at home: Don't have hot and cold foods and drinks. Your tooth may be sensitive to changes in temperature. Use toothpaste made for sensitive teeth. Kearsarge gently up and down instead of sideways. Brushing sideways can wear away root surfaces if they are exposed. If your tooth is chipped or cracked, or if there is a large open cavity, put oil of cloves directlyon the tooth to relieve pain. You can buy oil of cloves at drugstores. Some pharmacies carry an iwoi-qmw-fmjwldx toothache kit. This contains a paste that you can put on the exposed tooth to make it less sensitive. Put a cold pack on your jaw over the sore area to help reduce pain. You may use llxu-qeh-toumyge medicine to ease pain, unless your doctor prescribed another medicine.If you have chronic liver or kidney disease, talk with your healthcare provider before using acetaminophen or ibuprofen. Also talk with your provider if you ve had a stomach ulcer or GI bleeding. If you have signs of an infection, you will be given an antibiotic. Take it as directed. Follow-up care Follow up with your dentist, or as advised. Your pain may go away with the treatment given today. But only a dentist can fully look at and treat the cause of your pain. This will keep the pain from coming back. Call 911 Call 911 if any of these occur: Unusual drowsiness Headache or stiff neck Weakness or fainting Difficulty swallowing or breathing When to seek medical advice Call your health care provider right away if any of these occur: Your face becomes swollen or red Pain gets worse or spreads to your neck Fever of 100.4 F (38.0 C) or higher, or as directed by your healthcare provider Pus drains from the tooth [id number] [employer] ([place]). [address] [place] [address]. All rights reserved. This information is not intended as a substitute for professional medical care. Always follow yourhealthcare professional's instructions. 10/30/2022 09:03:10 Chest Pain, Uncertain Cause Uncertain Causes of Chest Pain Chest pain can happen for a number of reasons. Sometimes the cause can't be determined. If your condition does not seem serious, and your pain does not appear to be coming from your heart, your healthcare provider may recommend watching it closely. Sometimes the signs of a serious problem take moretime to appear. Many problems not related to your heart can cause chest pain. These include: Musculoskeletal. Costochondritis is an inflammation of the tissues around the ribs that can occur from trauma or overuse injuries, or a strain of the muscles of the chest wall Respiratory. Pneumonia, collapsed lung (pneumothorax), or inflammation of the lining of the chest and lungs (pleurisy) Gastrointestinal. Esophageal reflux, heartburn, ulcers, or gallbladder disease Anxiety and panic disorders Nerve compression and inflammation Rare miscellaneous problems such as aortic aneurysm (a swelling of the large artery coming out of the heart) or pulmonary embolism (a blood clot in the lungs) Home care After your visit, follow these recommendations: Rest today and avoid strenuous activity. Take any prescribed medicine as directed. Be aware of any recurrent chest pain and notice any changes Follow-up care Follow up with your healthcare provider if you do not start to feel better within 24 hours, or as advised. Call 911 Call 911 if any of these occur: A change in the type of pain: if it feels different, becomes more severe, lasts longer, or begins to spread into your shoulder, arm, neck, jaw or back Shortness of breath or increased pain with breathing Weakness, dizziness, or fainting Rapid heart beat Crushing sensation in your chest When to seek medical advice Call your healthcare provider right away if any of the following occur: Cough with dark colored sputum (phlegm) or blood Fever of 100.4 F (38 C) or higher, or as directed by your healthcare provider Swelling, pain or redness in one leg 3590-2690 [employer] ([place]). [address] [place] [address], [place] [address]. All rights reserved. This information is not intended as a substitute for professional medical care. Always follow yourhealthcare professional's instructions. Follow Up Care 10/30/2022 08:48:40 With:Dental Referral List Address:Unknown When:2-4 days With:SOCO XAVIER MD Address: [address] [facility] [address] [facility] [place] [phone] When:1-2 days With:Go to emergency room if symptoms worsen Address:Unknown When:2-4 days With:GAVIN DURON APRN-FREEZER WORKER Address: [address] [place] [address] [place] [address]- When:2-4 days [facility] 12-04-2022 Note ORIGINAL EXAMINATION: ONE XRAY VIEW OF THE CHEST10/30/2022 9:26 am COMPARISON: None. HISTORY: ORDERING SYSTEM PROVIDED HISTORY: Reason for Exam: chest pain FINDINGS: The heart is borderline in size. Vascular structures appear within normal limits. There is no consolidation. No pleural fluid or pneumothorax. No aggressive osseous lesions identified. IMPRESSION: No acute radiographic findings. Interpreted by: Mauro Johnston MD Preliminary Report By: Mauro Johnston MD Electronically signed By Mauro Johnston MD Dictated Date: 10/30/2022 9:29:30 AM Prelim Date: 10/30/2022 9:30:03 AM Sign Date: 10/30/2022 9:30:03 AM Ordering Provider: [facility]12-04-2022 Note ORIGINAL EXAMINATION: ONE XRAY VIEW OF THE CHEST10/30/2022 9:26 am COMPARISON: None. HISTORY: ORDERING SYSTEM PROVIDED HISTORY: Reason for Exam: chest pain FINDINGS: The heart is borderline in size. Vascular structures appear within normal limits. There is no consolidation. No pleural fluid or pneumothorax. No aggressive osseous lesions identified. IMPRESSION: No acute radiographic findings. Interpreted by: Mauro Johnston MD Preliminary Report By: Mauro Johnston MD Electronically signed By Mauro Johnston MD Dictated Date: 10/30/2022 9:29:30 AM Prelim Date: 10/30/2022 9:30:03 AM Sign Date: 10/30/2022 9:30:03 AM [facility] No data available for this section [facility] Evaluation note* Diagnosis Essential hypertension- Primary Unspecified essential hypertension GERD without esophagitis Esophageal reflux Combined hyperlipidemia Mixed hyperlipidemia Vitamin D deficiency Unspecified vitamin D deficiency Osteoarthritis of both knees, unspecified osteoarthritis type Grade I hemorrhoids Unspecified hemorrhoids without mention of complication documented in this encounter [facility] note* Diagnosis Combined hyperlipidemia- Primary Mixed hyperlipidemia GERD without esophagitis Esophageal reflux Obesity, Class I, BMI 30-34.9 Obesity, unspecified Osteoarthritis of both knees, unspecified osteoarthritis type Benign prostatic hyperplasia with urinary frequency Essential hypertension Unspecified essential hypertension Abdominal wall swelling Abdominal or pelvic swelling, mass or lump, unspecified site documented in this encounter [facility] note* Diagnosis Encounter for support and coordination of transition of care- Primary Colitis Other and unspecified noninfectious gastroenteritis and colitis Chronic diarrhea Diarrhea History of colonic polyps Personal history of colonic polyps documented in this encounter [facility] note* Diagnosis GERD without esophagitis- Primary Esophageal reflux Tonsillar hypertrophy Hypertrophy of tonsils alone Seasonal allergic rhinitis, unspecified trigger Lymphadenopathy, cervical Enlargement of lymph nodes documented in this encounter [facility] note* Diagnosis Benign prostatic hyperplasia with urinary frequency documented in this encounter [facility] note* Diagnosis GERD without esophagitis Esophageal reflux documented in this encounter [facility] note* Diagnosis Primary osteoarthritis of first carpometacarpal joint of right hand- Primary Primary localized osteoarthrosis, hand Benign prostatic hyperplasia with urinary frequency Obesity, Class I, BMI 30-34.9 Obesity, unspecified Combined hyperlipidemia Mixed hyperlipidemia Essential hypertension Unspecified essential hypertension Vitamin D deficiency Unspecified vitamin D deficiency documented in this encounter [facility] note* Diagnosis Osteoarthritis of right thumb- Primary documented in this encounter [facility] note* Diagnosis Osteoarthritis of right thumb documented in this encounter [facility] note* Diagnosis Primary osteoarthritis of first carpometacarpal joint of right hand Primary localized osteoarthrosis, hand documented in this encounter [facility] note* Diagnosis Lymphadenopathy, cervical Enlargement of lymph nodes documented in this encounter [facility] for referral (narrative)* Diagnostic Procedure Only (Routine) - Pending Review Specialty Diagnoses / Procedures Referred By Luli orozco Referred To Contact US IMAGING Diagnoses Benign prostatic hyperplasia with urinary frequency Abdominal wall swelling Procedures US ABDOMEN COMPLETE US ABDOMINAL REAL TIME W/IMAGE DOCUMENTATION Lizette Avila MD [address] [place] [address] [place] [address] Referral ID Status Reason Start Date Expiration Date Visits Requested Visits Authorized [id number] Pending Review Auto-Generat ed Referral 08/17/2023 09/15/2024 1 1 [facility] for referral (narrative)* Diagnostic Procedure Only (Routine) - Authorized Specialty Diagnoses / Procedures Referred By Contac t Referred To Contact US IMAGING Diagnoses Lymphadenopathy, cervical Procedures US HEAD/NECK SOFT TISSUE OTHER US SOFT TISSUE HEAD & NECK REAL TIME IMGE DOCEvelia Todd, PACKING AND FINAL ASSEMBLY SUPERVISOR.FREEZER WORKER [address] [facility] [place] [address] [place] [address] [place] [address] Referral ID Status Reason Start Date Expiration Date Visits Requested Visits Authorized [id number] Authorized Auto-Generat ed Referral 03/07/2024 04/06/2025 1 1 Electronically signed by Evelia Fallon PACKING AND FINAL ASSEMBLY SUPERVISOR.FREEZER WORKER at 03/07/2024 10:34 AM EDT [facility] for referral (narrative)* Diagnostic Procedure Only (Routine) - Closed Specialty Diagnoses / Procedures Referred By Contac t Referred To Contact XR IMAGING Diagnoses Primary osteoarthritis of first carpometacarpal joint of right hand Procedures XR DIGIT GENERAL 3V FRONTAL/LAT/OBL RIGHT RADEX FINGR MINIMUM 2 VIEWS Lizette Avila MD [address] [facility] [place] [address] [place] [address] Referral ID Status Reason Start Date Expiration Date V isits Requested Visits Authorized [id number] Closed Auto-Generate d Referral 07/15/2024 08/14/2025 1 1 [facility] for referral (narrative)* Diagnostic Procedure Only (Routine) - Closed Specialty Diagnoses / Procedures Referred By Contac t Referred To Contact US IMAGING Diagnoses Lymphadenopathy, cervical Procedures US HEAD/NECK SOFT TISSUE OTHER US SOFT TISSUE HEAD & NECK REAL TIME IMGE DOCEvelia Todd, PACKING AND FINAL ASSEMBLY SUPERVISOR.FREEZER WORKER [address] [facility] [address] [place] [address] [place] [address] Referral ID Status Reason Start Date Expiration Date V isits Requested Visits Authorized [id number] Closed Auto-Generate d Referral 03/07/2024 04/06/2025 1 1 Electronically signed by Evelia Fallon PACKING AND FINAL ASSEMBLY SUPERVISOR.FREEZER WORKER at 03/19/2024 11:52 AM EDT [facility] for visit Narrative* Diagnostic Procedure Only (Routine) - Closed Specialty Diagnoses / Procedures Referred By Contac t Referred To Contact XR IMAGING Diagnoses Primary osteoarthritis of first carpometacarpal joint of right hand Procedures XR DIGIT GENERAL 3V FRONTAL/LAT/OBL RIGHT RADEX FINGR MINIMUM 2 VIEWS Lizette Avila MD [address] [place] [address] [place] [address] Referral ID Status Reason Start Date Expiration Date V isits Requested Visits Authorized [id number] Closed Auto-Generate d Referral 07/15/2024 08/14/2025 1 1 [facility] for visit Narrative* Diagnostic Procedure Only (Routine) - Closed Specialty Diagnoses / Procedures Referred By Contac t Referred To Contact US IMAGING Diagnoses Lymphadenopathy, cervical Procedures US HEAD/NECK SOFT TISSUE OTHER US SOFT TISSUE HEAD & NECK REAL TIME IMGE Evelia Ruffin, PACKING AND FINAL ASSEMBLY SUPERVISOR.FREEZER WORKER [address] [place] [address] [place] [address] Referral ID Status Reason Start Date Expiration Date V isits Requested Visits Authorized [id number] Closed Auto-Generate d Referral 03/07/2024 04/06/2025 1 1 [facility] Summary Purpose Family History No Family History Records FoundNo Family History Records Found Advance Directives No Advanced Directives Records FoundNo Advanced Directives Records Found Medications Administered Section Inactive Administered Medications - up to 3 most recent administrations Medication Order MAR Action Action Date Dose Rate Site triamcinolone acetonide 40 mg injection (KeNALog 40) 40 mg, INTRAMUSCULAR, ONCE, 1 dose, On Mon02/14/23 at 1200 Given 02/14/2023 12:32 PM EDT 40 mg Buttocks, Right Reason for Referral Specialty Diagnoses / Procedures Referred By Contac t Referred To Contact Occupational Therapy / OCCUPATIONAL THERAPY Diagnoses Osteoarthritis of right thumb Procedures CONSULT TO PLATE PAINTER APPRENTICE OCCUPATIONAL THERAPY EVAL HIGH COMPLEX 60 MINS Delma Cheek MD [address] [facility] [address] [place] [address] Marga Cm, OTR/L [address] [place] [address] Referral ID Status Reason Start Date Expiration Date Visits Requested Visits Authorized [id number] Authorized Auto-Generat ed Referral 06/27/2024 11/26/2024 20 20 Specialty Diagnoses / Procedures Referred By Contac t Referred To Contact Orthopedics Diagnoses Primary osteoarthritis of first carpometacarpal joint of right hand Procedures CONSULT TO ORTHOPAEDIC SURGERY OFFICE/OUTPATIENT SELECT AT [place] 60 MINUTES Lizette Avila MD [address] [place] [address] Delma Cheek MD [address] [facility] [address] [place] [address] Referral ID Status Reason Start Date Expiration Date Visits Requested Visits Authorized [id number] Authorized PCP Requested Referral 07/15/2024 07/15/2025 1 1 Specialty Diagnoses / Procedures Referred By Contac t Referred To Contact XR IMAGING Diagnoses Primary osteoarthritis of first carpometacarpal joint of right hand Procedures XR DIGIT GENERAL 3V FRONTAL/LAT/OBL RIGHT RADEX FINGR MINIMUM 2 VIEWS Lizette Avila MD [address] [place] [address] [place] [address] Referral ID Status Reason Start Date Expiration Date V isits Requested Visits Authorized [id number] Closed Auto-Generate d Referral 07/15/2024 08/14/2025 1 1 Specialty Diagnoses / Procedures Referred By Contac t Referred To Contact Gastroenterology Diagnoses Colitis Chronic diarrhea History of colonic polyps Procedures CONSULT TO GASTROENTEROLOGY Noling, Evelia L, PACKING AND FINAL ASSEMBLY SUPERVISOR.FREEZER WORKER [address] [place] [address] [place] [address] Friend, Radames Montesinos, DO [address] [place] [address] Referral ID Status Reason Start Date Expiration Date Visits Requested Visits Authorized [id number] Ref Not Required PCP Requested Referral 3 12/11/2023 3 3 Additional Source Comments Care Team (unrecognized sect ion and content) Care Team Personnel Name: GUY PINEDA Member Role: Primary Care Physician Address: Address: [address] [place] [address] Name: SO MEJÍA DO Position: ED Physician Member Role: Attending Physician Address: Address: [address] [place] [address] Care Team Related Persons Name: EMIGDIO SANDERS Care Team Personnel Name: GUY PINEDA Member Role: Primary Care Physician Address: Address: [address] [place] [address] Name: ABIGAIL ROCHA MD Position: Resident Member Role: Resident Address: Address: [address] [place] [address] ED Resident [address] Name: FAN VENTURA Position: ED Physician Dynamite Cartridge Crimper Member Role: ED PA Address: Address: [address] [place] [address] Name: PADILLA BONNER MD Position: ED Physician Member Role: Attending Physician Address: Address: [address] [place] [address] Emergency Physicians [address] Care Team Related Persons Name: EMIGDIO SANDERS (unrecognized sect ion and content) No Status Records FoundNo Status Records Found INFORMATION SOURCE (unrecogn ized section and content) DATE CREATED AUTHOR 11/16/2022 [facility] ([place]) DATE CREATED AUTHOR AUTHOR'S MADELAINE ATKARIE 07/23/2024 [facility] Ce nter Source Comments (unrecognize d section and content) In the event this informatio n is protected by the Federal Confidentiality of Alcohol and Drug Abuse Patient Records regulations: The Federal rules restrict any use of the information to criminally investigate or prosecute any alcohol or drug abuse patient.[facility] the event this information is protected by the Federal Confidentiality of Alcohol and Drug Abuse Patient Records regulations: The Federal rules restrict any use of the information to criminally investigate or prosecute any alcohol or drug abuse patient.[facility] the event this information is protected by the Federal Confidentiality of Alcohol and Drug Abuse Patient Records regulations: The Federal rules restrict any use of the information to criminally investigate or prosecute any alcohol or drug abuse patient.[facility] the event this information is protected by the Federal Confidentiality of Alcohol and Drug Abuse Patient Records regulations: The Federal rules restrict any use of the information to criminally investigate or prosecute any alcohol or drug abuse patient.[facility] the event this information is protected by the Federal Confidentiality of Alcohol and Drug Abuse Patient Records regulations: The Federal rules restrict any use of the information to criminally investigate or prosecute any alcohol or drug abuse patient.[facility] the event this information is protected by the Federal Confidentiality of Alcohol and Drug Abuse Patient Records regulations: The Federal rules restrict any use of the information to criminally investigate or prosecute any alcohol or drug abuse patient.[facility] the event this information is protected by the Federal Confidentiality of Alcohol and Drug Abuse Patient Records regulations: The Federal rules restrict any use of the information to criminally investigate or prosecute any alcohol or drug abuse patient.[facility] the event this information is protected by the Federal Confidentiality of Alcohol and Drug Abuse Patient Records regulations: The Federal rules restrict any use of the information to criminally investigate or prosecute any alcohol or drug abuse patient.[facility] the event this information is protected by the Federal Confidentiality of Alcohol and Drug Abuse Patient Records regulations: The Federal rules restrict any use of the information to criminally investigate or prosecute any alcohol or drug abuse patient.[facility] the event this information is protected by the Federal Confidentiality of Alcohol and Drug Abuse Patient Records regulations: The Federal rules restrict any use of the information to criminally investigate or prosecute any alcohol or drug abuse patient.[facility] the event this information is protected by the Federal Confidentiality of Alcohol and Drug Abuse Patient Records regulations: The Federal rules restrict any use of the information to criminally investigate or prosecute any alcohol or drug abuse patient.[facility] the event this information is protected by the Federal Confidentiality of Alcohol and Drug Abuse Patient Records regulations: The Federal rules restrict any use of the information to criminally investigate or prosecute any alcohol or drug abuse patient.[facility] the event this information is protected by the Federal Confidentiality of Alcohol and Drug Abuse Patient Records regulations: The Federal rules restrict any use of the information to criminally investigate or prosecute any alcohol or drug abuse patient.[facility] Reason for Visit (unrecogniz ed section and content) Reason Comments Follow Up 4 month , Does need a knee injection for pain on his right knee.Amlodipine was causing him to be light headed and felt dizzy did take it for 3 weeks and stopped. Has been monitoring his blood pressure at home and has been staying low even while not taking the blood pressure medication. Reason Comments 6 Month Exam Willy is here today for a 6 month follow up to chronic conditions.C/O having trouble urinating in the mornings.No other concerns at this timeSherie GROVE 2022 1:44 PM Reason Comments ED Follow-up Reason Comments Acute Visit Pt states he has had a sore throat for three weeks now.He has taken zyrtec and IBU. It doesn't seem to help. He is not using a nasal spray and not a smoker. Reason Comments Results Reason Comments Refill Request Reason Comments Pantoprazole is available without a PA Reason Comments RIght Thumb Pain Willy is here today for RIght Thumb Pain. Sally Da Silva 2023 9:09 AM Reason Comments New Specialty Diagnoses / Procedures Referred By Luli t Referred To Contact Orthopedics Diagnoses Primary osteoarthritis of first carpometacarpal joint of right hand Procedures CONSULT TO ORTHOPAEDIC SURGERY OFFICE/OUTPATIENT NEW HIGH MDM 60 MINUTES Lizette Avila MD [address] [place] [address] Delma Cheek MD [address] [place] [address] Referral ID Status Reason Start Date Expiration Date V isits Requested Visits Authorized [id number] Closed PCP Requested Referral 07/15/2024 07/15/2025 1 1 Reason Comments OT Discharge Specialty Diagnoses / Procedures Referred By Contye t Referred To Contact Occupational Therapy / OCCUPATIONAL THERAPY Diagnoses Osteoarthritis of right thumb Procedures CONSULT TO PLATE PAINTER APPRENTICE OCCUPATIONAL THERAPY EVAL HIGH COMPLEX 60 MINS Delma Cheek MD [address] [facility] [address] [place] [address] Marga Cm, OTR/L [address] [place] [address] Referral ID Status Reason Start Date Expiration Date Visits Requested Visits Authorized [id number] Authorized Auto-Generat ed Referral 06/27/2024 11/26/2024 20 20 Care Teams (unrecognized sec tion and content) Spectrographer Relationship Specialty Start Date End Date Lizette Avila MD [address] [place] [address] PCP - General Family Medicine 08/17/23 Spectrographer Relationship Specialty Start Date End Date Lizette Avila MD [address] [place] [address] PCP - General Family Medicine 08/17/23 Spectrographer Relationship Specialty Start Date End Date Lizette Avila MD [address] [place], [place] [address] PCP - General Family Medicine 08/17/23 Spectrographer Relationship Specialty Start Date End Date Lizette Avila MD [address] [place] [address] PCP - General Family Medicine 08/17/23 Spectrographer Relationship Specialty Start Date End Date Lizette Avila MD [address] [place] [address] PCP - General Family Medicine 08/17/23 Spectrographer Relationship Specialty Start Date End Date Lizette Avila MD [address] [place] [address] PCP - General Family Medicine 08/17/23 Spectrographer Relationship Specialty Start Date End Date Lizette Avila MD [address] [place] [address] PCP - General Family Medicine 08/17/23 Spectrographer Relationship Specialty Start Date End Date Lizette Avila MD [address] [place] [address] PCP - General Family Medicine 08/17/23 Spectrographer Relationship Specialty Start Date End Date Lizette Avila MD [address] [place] [address] PCP - General Family Medicine 08/17/23 Spectrographer Relationship Specialty Start Date End Date Lizette Avila MD [address] [place] [address] PCP - General Family Medicine 08/17/23 FOR RECORDS PERTAINING TO PATIENTS WHO ARE OR HAVE BEEN ENROLLED IN A CHEMICAL DEPENDENCY/SUBSTANCEABUSE PROGRAM, SOME INFORMATION MAY BE OMITTED. This clinical summary was aggregated from multiple sources. Caution should be exercised in using it in the provision of clinical care. This summary normalizes information from multiple sources, and as a consequence, information in this document may materially change the coding, format and clinical context of patient data. In addition, data may be omitted in some cases. CLINICAL DECISIONS SHOULD BE BASED ON THE PRIMARY CLINICAL RECORDS. [facility] [employer] [facility]. provides no warranty or guarantee of the accuracy or completeness of information in this document.
--- NOTE | 2024-09-19 05:41 | EKG12_ITS ---
Test Reason : CP Blood Pressure : / mmHG Vent. Rate : 071 BPM Atrial Rate : 071 BPM P-R Int : 168 ms QRS Dur : 090 ms QT Int : 376 ms P-R-T Axes : 028 -18 043 degrees QTc Int : 408 ms Normal sinus rhythm Normal ECG Confirmed by AUDRA BISHOP MD ([id number]), editor dictionary JUAN RAMON BARNES ([id number]) on 09/20/2024 9:53:21 AM Referred By: AR Confirmed By:AUDRA BISHOP MD
--- NOTE | 2024-09-19 05:53 | CT_ITS ---
STUDY: CT BRAIN WITHOUT CONTRAST REASON FOR EXAM: Male, 69 years old patient with hypertension. RADIATION DOSAGE (If Supplied By Facility): CTDIvol = ( 44.99 ) mGy, DLP = ( 812.98 ) mGycm TECHNIQUE: Transaxial CT imaging of the brain was performed without administration of intravenous contrast material. Individualized dose optimization techniques were used for this CT. COMPARISON: No relevant priors. FINDINGS: Normal soft tissue structures. Normal calvarium. Normal size ventricles and extra-axial spaces for the patient''s age. Normal white matter tracts of the cerebral hemispheres. Normal basal ganglia and thalami. Normal brainstem. Normal cerebellum. There is no intracranial hemorrhage. There are no findings of an acute ischemic infarction. There is mild mucosal thickening in the right maxillary sinus. CT/Brain/Head without Contrast IMPRESSION: No CT evidence of acute intracranial hemorrhage. Electronically Signed: Heather Mcmanus MD at 7:47 EDT ,
--- NOTE | 2024-09-19 05:56 | ED.VIS.CHEST ---
HPI History of Present Illness Chief Complaint: Chest Pain Narrative Narrative: 69-year-old male past medical history of hypertension, states that he is not currently on medication for high blood pressure because 10 years ago they could not find a medication that would treat his hypertension effectively without dropping his blood pressure too low. He states that since Monday evening, approximately 2 days ago, he started having chest pressure in the middle of his chest. It is nonradiating. It never completely goes away, but it subsides. He denies any fevers or chills, no nausea or vomiting associated with this, no shortness of breath or sweating. Today, he had a 15-minute episode of what he called confusion, which she states can happen when his blood pressure is too high. He states that his chest pressure only lasts a few minutes at a time, then will subside. No leg swelling, no other symptoms. [facility] Medical History Loss of hearing Wears dentures Wears partial dentures Wears glasses Arthritis Back pain Gastric reflux Non-smoker Hypertension Home Medications ?Medication ?Instructions ?Recorded ?Last Taken ?Type pantoprazole 20 mg tablet,delayed 20 mg PO QHS 10/16/23 Unknown History release (Protonix) amlodipine 2.5 mg tablet 2.5 mg PO DAILY #30 tabs 09/19/24 Unknown Rx tamsulosin 0.4 mg capsule 0.4 mg PO QHS 09/19/24 Unknown History Allergy/AdvReac Type Severity Reaction Status Date / Time No Known Allergies Allergy Verified 09/19/24 05:13 Family History Mother Cancer Surgical History Hx of colonoscopy Social History Smoking Status: Never smoker alcohol intake: never substance use type: does not use ROS ROS ED ROS Narrative Constitutional: No fever, no chills. HEENT: No sore throat. No neck pain. No loss of vision. No rhinorrhea. Cardiovascular: Positive chest pressure/chest pain. No palpitations. No pedal edema. Respiratory: No cough, no shortness of breath. Abdominal: No abdominal pain. No nausea. No vomiting. Genitourinary: No dysuria. No hematuria. Musculoskeletal: No myalgias. No arthralgias. Neurologic: No headaches. No dizziness. No lightheadedness. 15-minute episode of confusion yesterday. Skin: No rash. No change in color. Psychiatric: No depression. No anxiety. EXAM Physical Exam Narrative Exam Narrative: Afebrile. Vital signs noted. Nontoxic-appearing. Regular rate and rhythm. Lungs clear to auscultation bilaterally. Abdomen soft nontender with normal active bowel sounds. Neurological examination nonfocal nonlateralizing. Awake, alert, oriented. No pedal edema. Const Vital Signs: 09/19/24 05:13 09/19/24 05:27 09/19/24 05:30 Temperature 98.0 F Temperature Source Oral Pulse Rate 72 68 67 Respiratory Rate 15 17 23 H Blood Pressure 191/107 H 171/89 H Blood Pressure Mean 135 111 Pulse Ox 96 95 96 Oxygen Delivery Method Room Air 09/19/24 05:41 09/19/24 05:45 09/19/24 06:00 Temperature Temperature Source Pulse Rate 64 Respiratory Rate 18 Blood Pressure 158/93 H 129/102 H Blood Pressure Mean 111 110 Pulse Ox 96 Oxygen Delivery Method Room Air 09/19/24 06:10 09/19/24 06:16 09/19/24 06:17 Temperature Temperature Source Pulse Rate 63 62 Respiratory Rate 22 H 17 Blood Pressure 169/87 H Blood Pressure Mean 112 Pulse Ox 97 Oxygen Delivery Method 09/19/24 06:30 09/19/24 06:45 09/19/24 07:48 Temperature Temperature Source Pulse Rate 61 71 58 L Respiratory Rate 18 23 H 16 Blood Pressure 154/77 H 154/71 H 160/89 H Blood Pressure Mean 100 98 112 Pulse Ox 94 95 94 Oxygen Delivery Method Room Air 09/19/24 08:27 Temperature Temperature Source Pulse Rate 62 Respiratory Rate 16 Blood Pressure 160/104 H Blood Pressure Mean 122 Pulse Ox 95 Oxygen Delivery Method MDM MDM MDM Narrative Medical decision making narrative: Initially upon arrival, his blood pressure was 191/107. Upon my history and physical, his blood pressure did come down to 156 systolic. Differential diagnosis includes but not limited to hypertensive urgency versus ACS versus pulmonary embolism versus pneumothorax. I have low suspicion for pulmonary embolism because is not tachycardic and pulse ox is 96% on room air. He has equal breath sounds bilaterally so I doubt pneumothorax. Comprehensive workup was pursued. I discussed with him that he most likely will need to start antihypertensives. As he had an episode of confusion, I will obtain a CT of the brain to make sure he does not have an intracranial hemorrhage, but currently this is low on the differential because he does not have a headache, and he is currently oriented. EKG was obtained and interpreted by myself independently as normal sinus rhythm at 71 bpm without ectopy or acute ST changes. No STEMI. I reviewed his laboratory work and he has normal white count of 10.4 with hemoglobin 14.4, hematocrit 44.2, platelet count normal at 240. Electrolyte panel is significant for chloride of 109 which I think is more nonspecific. BUN normal at 11 with creatinine 0.96. Glucose elevated at 110 with a normal anion gap of 5. Initial high-sensitivity troponin is 5. Repeat examination while he is awaiting his second troponin shows him stating that he feels the same, no increased chest pressure. His blood pressure was 154/71. He was given amlodipine 2.5 mg orally here and a prescription written to take 1 tablet daily for the next 30 days. He was told that he may need to invest in a blood pressure cuff and keep a log of his pressures for his primary care provider. Chest x-ray 1 view interpreted by myself independently shows no evidence of an acute process. No pneumonia, no pneumothorax. I reviewed the radiology report which confirms my independent interpretation. I reviewed the radiology report of the CT of the brain which shows no acute process. At this point in time, he will be discharged to follow-up with his primary care provider. He was told that he should get a blood pressure check, and take his medication. Return instructions to the emergency department were reviewed. Disposition is discharged home in stable condition. History & Record Review Discussion w/independent historian: Patient Lab Data Attestation: I reviewed the patient's lab results. Labs: Laboratory Results - last 24 hr 09/19/24 09/19/24 05:20 07:52 WBC 10.4 RBC 4.84 Hgb 14.4 Hct 44.2 MCV 91.3 MCH 29.8 MCHC 32.6 RDW Std Deviation 42.8 RDW Coeff of Brianna 12.8 Plt Count 240 MPV 11.0 Immature Gran % (Auto) 0.300 Neut % (Auto) 44.0 L Lymph % (Auto) 42.6 H [place] % (Auto) 9.7 Eos % (Auto) 2.9 Baso % (Auto) 0.5 Absolute Neuts (auto) 4.6 Absolute Lymphs (auto) 4.44 Nucleated RBC % 0 Sodium 139 Potassium 3.9 Chloride 109 H Carbon Dioxide 25.0 Anion Gap 5 BUN 11 Creatinine 0.96 Estim Creat Clear Calc 74.70 Est GFR (MDRD) Af Amer 100 Est GFR (MDRD) Non-Af 83 BUN/Creatinine Ratio 11.5 Glucose 110 H Calcium 9.4 Troponin I High Sens 5 6 Radiography Diagnostic Testing: Clinical Impression(s) from Imaging Studies Brain CT 09/19/24 05:53 IMPRESSION: No CT evidence of acute intracranial hemorrhage. Electronically Signed: Heather Mcmanus MD at 7:47 EDT Reading Location ID and State: [facility] / [place] , Service support , Chest X-Ray 09/19/24 06:08 IMPRESSION: Borderline cardiomegaly and mild pulmonary vascular congestion. Electronically Signed: Heather Mcmanus MD at 7:59 EDT , Discharge Plan Triage Chief Complaint: Chest Pain ED Provider: Benny Dunham Dx/Rx/DC Orders Clinical Impression: Uncontrolled hypertension, Chest pressure Instructions: ED Chest Pain, Uncertain Cause, ED Hypertension New Begin Treatment Prescriptions: New amlodipine 2.5 mg tablet 2.5 mg PO DAILY Qty: 30 0RF No Action pantoprazole [Protonix] 20 mg tablet,delayed release (DR/EC) 20 mg PO QHS tamsulosin 0.4 mg capsule 0.4 mg PO QHS Primary Care Provider: Lizette Avila Referrals: Lizette Avila MD [Primary Care Provider] - 3-5 Days Activity Restrictions/Additional Instructions: Try to keep a log of your blood pressures by taking it at the same time every day. He might need to invest in a blood pressure cuff/machine. Follow-up with your primary care provider. Return with consistently elevated blood pressure, increased chest pain, or chest pressure, new or worsening symptoms Print Language: Romanian Disposition Disposition: Home, Self Care
[2024-09-19 06:04] LABS: Absolute Lymphocyte Count 4.44 X10^3/uL (0.83-4.51); Absolute Neutrophil Count 4.6 X10^3/uL (2.0-7.7); Basophil# 0.05 X10^3/uL; Basophil% 0.5 % (0-1); Eosinophils% 2.9 % (0-5); Hematocrit 44.2 % (40-54); Hemoglobin 14.4 g/dL (13.0-16.5); Lymphocyte # 4.44 X10^3/ul (0.83-4.51); Lymphocyte % 42.6 % (19-41); Mean Corp Hgb Conc 32.6 g/dL (32-36); Mean Corpuscular Hgb 29.8 pg (27.0-32.0); Mean Corpuscular Volume 91.3 fL (80-94); Monocyte# 1.01 X10^3/uL; Monocyte% 9.7 % (0-10); NRBC Flagged by Analyzer 0 % (0-5); Platelet Count 240 K/mm3 (150-450); RBC Distribution Width CV 12.8 % (11.6-14.6); RBC Distribution Width SD 42.8 fl (35.1-43.9); Red Blood Count 4.84 M/mm3 (4.6-6.2); White Blood Count 10.4 K/mm3 (4.4-11.0)
--- NOTE | 2024-09-19 06:08 | RAD_ITS ---
STUDY: X-RAY CHEST REASON FOR EXAM: Male, 69 years old patient with chest pain. TECHNIQUE: Single AP portable view of the chest. COMPARISON: Prior comparable comparison studies are not available for review at this time. FINDINGS: Cardiac monitoring leads are present. There are prominent bronchovascular markings in both lungs. There is no demonstrated pleural abnormality. There is borderline cardiomegaly. Normal mediastinum and tunde. There is prominence of the pulmonary hilar arteries with peripheral pulmonary vascular congestion. Normal visualized aortic arch and descending thoracic aorta. Normal visualized thoracic spine. Normal visualized ribs, clavicles, and shoulders. There is no demonstrated abnormality of the visualized soft tissue structures of the upper abdomen. RAD/Chest 1 View (Portable) IMPRESSION: Borderline cardiomegaly and mild pulmonary vascular congestion. Electronically Signed: Heather Mcmanus MD at 7:59 EDT ,
[2024-09-19 06:11] LABS: Anion Gap 5 (5-15); BUN 11 mg/dL (7-18); BUN/Creat Ratio 11.5 RATIO (10-20); Calcium,Total 9.4 mg/dL (8.5-10.1); Chloride 109 mmol/L (98-107); Creatinine, Serum 0.96 mg/dL (0.70-1.30); EST Glomerular Filtration Rate 83 mL/min (>60); Est Glom Filt Rate - Afr Amer 100 mL/min (>60); Glucose 110 mg/dL (74-106); Potassium 3.9 mmol/L (3.5-5.1); Sodium Level 139 mmol/L (136-145); Troponin-I HS (w/2H Reflex) 5 pg/mL (3.0-78.0)
[2024-09-19] MEDS: Aspirin 81 MG TAB.CHEW 324 MG PO (06:44)
[2024-09-19 07:45] LABS: Reflex Troponin-HS? (from REC) Y
[2024-09-19] MEDS: amLODIPine 2.5 MG Tablet PO (07:53)
[2024-09-19 08:32] LABS: Troponin-I HS 6 pg/mL (3.0-78.0)
== END 2024-09-19 08:50 | disposition home or self-care (01) ==
PROVIDERS: Emergency Provider Emergency Medicine; PCP Student in an Organized Health Care Education/Training Program; Visit Provider Emergency Medicine
DX: R07.89 Other chest pain (principal); I10 Essential (primary) hypertension
CPT/HCPCS: 70450; 71045; 80048; 84484; 85025; 93005; 99283; A4216

== ENCOUNTER 2025-11-19 02:51 | Emergency (ER) | payer MEDICARE, SELFPAY ==
[2025-11-19 02:54] VITALS: BP 194/85; PULSE 105; RESP 16; TEMP 36.6; O2SAT 97; BMI 36.1
--- NOTE | 2025-11-19 03:07 | EKG12_ITS ---
Test Reason : CP Blood Pressure : */* mmHG Vent. Rate : 105 BPM Atrial Rate : 105 BPM P-R Int : 190 ms QRS Dur : 74 ms QT Int : 322 ms P-R-T Axes : 57 -15 68 degrees QTcB Int : 425 ms Sinus tachycardia Inferior infarct , age undetermined Abnormal ECG Confirmed by Senthil Blackman ([id number]), website/blog editor JUAN RAMON BARNES ([id number]) on 11/21/2025 8:08:12 AM Referred By: DAVI Confirmed By: Senthil Blackman
--- NOTE | 2025-11-19 03:09 | EDS_ITS ---
HPI History of Present Illness Chief Complaint: Chest Pain Informant: patient and spouse/S.O. Narrative Narrative: Patient is a 70-year-old male with past medical history of hypertension and hyperlipidemia as well as BPH. He states that around noon he developed m idsternal chest discomfort which he describes as a pressure. He states there is slight shortness of breath associated with it. He states that the symptoms have been waxing and waning since that time. He denies any radiation of the pain. He states there is no associated nausea or vomiting or diaphoresis. He does report that he recently drove to and from [place] in the past few weeks however he denies any increasing pain with deep inspiration. He states he is unsure if this is cardiac or not as symptoms have not resolved and he does have risk factors for CAD and therefore comes in for evaluation. [facility] Medical History Loss of hearing Wears dentures Wears partial dentures Wears glasses Arthritis Back pain Gastric reflux Non-smoker Hypertension Home Medications ?Medication ?Instructions ?Recorded ?Last Taken ?Type tamsulosin 0.4 mg capsule 0.4 mg PO QHS 09/19/24 Unkno wn History amlodipine 10 mg tablet 10 mg PO DAILY 11/19/25 Unkn own History metronidazole 500 mg tablet 500 mg PO TID 11/19/25 Unk nown History rosuvastatin 5 mg tablet (Crestor) 5 mg PO DAILY 11/19 Unknown History Allergy/AdvReac Type Severity Reaction Status Date / Time No Known Allergies Allergy Verified 11/19/25 02:55 Family History Mother Cancer Surgical History Hx of colonoscopy Social History Smoking Status: Never smoker alcohol intake: never substance use type: does not use ROS ROS ED Constitutional Constitutional ED: Denies chills or fever(s) Eyes Eyes: Denies blurry vision or change in vision ENT ENT ED: Denies sore throat Cardiovascular Cardiovascular: Reports chest pain; Denies palpitations or racing heartbeat Respiratory/Chest Respiratory/Chest: Reports dyspnea; Denies cough Gastrointestinal Gastrointestinal: Denies abdominal pain, diarrhea, nausea or vomiting Musculoskeletal Musculoskeletal: Denies back pain or myalgias Integumentary Denies rash Neurologic Neurologic: Denies headache(s) Hematologic/Lymphatic Hematologic/Lymphatic: Denies easy bleeding or easy bruising EXAM Physical Exam Const Vital Signs: 11/19/25 02:54 11/19/25 02:54 11/19/25 03:34 Temperature 97.8 F Temperature Source Oral Pulse Rate 105 H 83 Respiratory Rate 16 18 Respiratory Effort Normal Non-Labored Respiratory Pattern Normal Blood Pressure 194/85 H 151/75 H Blood Pressure Mean 121 100 Pulse Ox 97 99 Oxygen Delivery Method Room Air Room Air 11/19/25 04:00 11/19/25 05:01 Temperature Temperature Source Pulse Rate 84 78 Respiratory Rate 18 18 Respiratory Effort Respiratory Pattern Blood Pressure 154/84 H 148/72 H Blood Pressure Mean 107 97 Pulse Ox 99 95 Oxygen Delivery Method Room Air Room Air Positive well nourished and well developed General Appearance ED: well developed; Negative for pallor HEENT HEENT Narrative: Normocephalic atraumatic Eyes PERRL and EOMs intact bilaterally General Eye ED: Negative for scleral icterus Neck supple and no JVD Chest Wall palpation of chest normal Chest Narrative: No bony deformity or subcutaneous emphysema noted No increased pain or reproducible pain with palpation Resp normal respiratory effort and clear to auscultation bilaterally Cardio regular rhythm Rate: tachycardic and other Other Details: Slight tachycardic rate with regular rhythm Radial and carotid pulses are equal and symmetric GI normal to inspection, nondistended, normoactive bowel sounds, non-tender, non- distended and no masses GI Narrative: No voluntary guarding no rigidity or pulsatile mass Auscultation: normoactive bowel sounds Palpation: soft Extremity normal to inspection Extremity Narrative: No asymmetric edema no pitting edema negative Homans' sign bilaterally Neuro oriented x3, CN's II-XII intact bilaterally and no sensory deficits noted Sensorium / Orientation: alert Motor Exam: strength 5/5 throughout Psych Mood & Affect: anxious Skin no rashes or lesions noted General Skin Exam: Negative for jaundice or pallor MDM MDM MDM Narrative Medical decision making narrative: Patient arrived to the ER hypertensive but otherwise with stable vitals. He reported vague chest discomfort with slight shortness of breath but otherwise no nausea vomiting or diaphoresis. Differential diagnosis is for acute coronary syndrome versus cardiac dysrhythmia versus pulmonary embolus versus dissection versus potential abdominal pathology such as pancreatitis or biliary colic. In order to assess for lung pathology such as pneumonia or pneumothorax a chest x- ray was added. Patient is EKG revealed nonspecific ST segment depression but no cardiac dysrhythmia or active STEMI. The D-dimer is normal for his age going against dissection or PE. His initial and delta troponin were less than 6 going against acute coronary syndrome. He was kept on the buhr dresser and there was no cardiac dysrhythmia noted. Without additional medications provided in the ER his blood pressure and heart rate spontaneously improved. The lipase was normal going against pancreatitis and liver enzymes are normal going against biliary colic. Therefore this time with spontaneous resolution of symptoms as well as spontaneous improvement of his vitals and negative cardiac workup I do not feel there is need for inpatient evaluation and patient can discuss outpatient cardiac testing with his family doctor. History & Record Review Discussion w/independent historian: Patient and Significant other Additional record(s) reviewed:: Prior ED visit Lab Data Attestation: I reviewed the patient's lab results. Labs: Laboratory Results - last 24 hr 11/19/25 11/19/25 02:55 04:45 WBC 13.0 H RBC 5.22 Hgb 15.3 Hct 46.6 MCV 89.3 MCH 29.3 MCHC 32.8 RDW Std Deviation 42.0 RDW Coeff of Brianna 12.9 Plt Count 271 MPV 11.2 Immature Gran % (Auto) 0.300 Neut % (Auto) 43.5 L Lymph % (Auto) 42.1 H [place] % (Auto) 8.4 Eos % (Auto) 5.1 H Baso % (Auto) 0.6 Absolute Neuts (auto) 5.7 Absolute Lymphs (auto) 5.47 H Nucleated RBC % 0 Reactive Lymphocytes RARE D-Dimer Quant (PE/DVT) 0.65 H* Sodium 139 Potassium 3.7 Chloride 104 Carbon Dioxide 18.9 L Anion Gap 16 BUN 12 Creatinine 1.01 Estim Creat Clear Calc 71.00 Est GFR (MDRD) Non-Af 80 BUN/Creatinine Ratio 11.6 Glucose 119 H Calcium 10.2 Magnesium 2.3 H Total Bilirubin 0.45 Direct Bilirubin 0.16 AST 29 ALT 29 Alkaline Phosphatase 73 Troponin T High Sens < 6 Troponin T Hi Sens 2 Hr < 6 Total Protein 8.2 Albumin 4.8 Globulin 3.4 Lipase 45 Radiography Diagnostic Testing: Clinical Impression(s) from Imaging Studies Chest X-Ray 11/19/25 03:20 IMPRESSION: No evidence for acute abnormality. Reading Location: [place] [id number] Chest x-ray as interpreted by the emergency medicine physician reveals no acute infiltrate pneumothorax pleural effusion or widening the mediastinum Discharge Plan Triage Chief Complaint: Chest Pain ED Provider: Ross Lugo Dx/Rx/DC Orders Clinical Impression: Nonspecific chest pain, Hypertension, Hyperlipidemia, BPH (benign prostatic hyperplasia) Instructions: ED Chest Pain, Uncertain Cause, ED Hypertension, Established Prescriptions: No Action tamsulosin 0.4 mg capsule 0.4 mg PO QHS amlodipine 10 mg tablet 10 mg PO DAILY metronidazole 500 mg tablet 500 mg PO TID rosuvastatin [Crestor] 5 mg tablet 5 mg PO DAILY Primary Care Provider: Lizette Avila Referrals: Lizette Avila MD [Primary Care Provider, Family Practice] Activity Restrictions/Additional Instructions: Your workup today revealed no sign of active heart damage or abnormal heart rhythm. Please continue all of your home medication as directed by your doctor. Based on your moderate cardiac risk factors I would recommend you follow-up with your family doctor and discuss obtaining an outpatient stress test and cardiac echo to further assess your heart. If symptoms persist or there is any further concerns please return to the ER for repeat evaluation Print Language: Citizen Of [place] Disposition Disposition: Home, Self Care
[2025-11-19 03:20] LABS: Hematocrit 46.6 % (40-54); Hemoglobin 15.3 g/dL (13.0-16.5); Immature Granulocytes Count 0.040 X10^3/uL (0.0-0.0); Mean Corp Hgb Conc 32.8 g/dL (32-36); Mean Corpuscular Volume 89.3 fL (80-94); Mean Platelet Vol. 11.2 fl (6.2-12.0); NRBC Flagged by Analyzer 0 % (0-5); POSITIVE DIFFERENTIAL YES; POSITIVE MORPHOLOGY YES; Platelet Count 271 K/mm3 (150-450); RBC Distribution Width CV 12.9 % (11.6-14.6); RBC Distribution Width SD 42.0 fl (35.1-43.9); Red Blood Count 5.22 M/mm3 (4.6-6.2); White Blood Count 13.0 K/mm3 (4.4-11.0)
--- NOTE | 2025-11-19 03:20 | RAD_ITS ---
PROCEDURE: CHEST PA AND LATERAL 11/19/2025 REASON FOR EXAM: CHEST PAIN TECHNIQUE: Procedure Code: RADCXR Modality: DX Procedure: CHEST PA AND LATERAL COMPARISON: 09/19/2024. FINDINGS: The lungs are expanded. There is no demonstrated parenchymal abnormality. There is no demonstrated pleural abnormality. Normal heart and pericardium. Normal mediastinum and tunde. Normal visualized pulmonary arteries. Normal visualized aortic arch and descending thoracic aorta. Diffuse spondylosis of the visualized thoracic spine. Normal visualized ribs, clavicles, and shoulders. There is no demonstrated abnormality of the visualized soft tissue structures of the upper abdomen. RAD/Chest PA and Lateral IMPRESSION: No evidence for acute abnormality. [facility]
[2025-11-19 03:34] VITALS: BP 151/75; PULSE 83; RESP 18; O2SAT 99
[2025-11-19 03:39] LABS: Differential Indicated SCAN CRITERIA MET
[2025-11-19 03:42] LABS: D-Dimer Quantitative (DVT/PE) 0.65 FEU/ug/m (0.27-0.49)
[2025-11-19 03:59] LABS: Magnesium 2.3 mg/dL (1.5-2.2); Troponin T High Sensitivity < 6 ng/L (<=22)
[2025-11-19 04:00] VITALS: BP 154/84; PULSE 84; RESP 18; O2SAT 99
[2025-11-19 04:03] LABS: Reactive Lymphocyte RARE
[2025-11-19 04:13] LABS: AST(SGOT) 29 U/L (<=37); Alanine Aminotransfer ALT/SGPT 29 U/L (<=46); Albumin, Serum 4.8 g/dL (3.4-4.8); Alkaline Phosphatase 73 U/L (40-129); Anion Gap 16 (7-18); BUN 12 mg/dL (4-19); BUN/Creat Ratio 11.6 RATIO (10-20); Bilirubin, Direct 0.16 mg/dL (0.00-0.30); Calcium,Total 10.2 mg/dL (7.6-11.0); Carbon Dioxide 18.9 mmol/L (20.0-29.0); Chloride 104 mmol/L (96-106); Estimated Creatinine Clearance 71.00 ml/min (50-250); Globulin 3.4 g/dL (2.2-4.2); Glucose 119 mg/dL (70-99); Lipase 45 U/L (13-75); Potassium 3.7 mmol/L (3.5-5.1)
--- OUTSIDE RECORDS SUMMARY | 2025-11-19 04:23 | XMS RPT_ITS | CCD ---
Author Organization [facility] Care Team Providers Care Associate Professor Of Counseling Name Role Phone ALI, SAROSALEE Primary Care Physician ALI, SAROSALEE Primary Care Unavailable PADILLA BONNER Attending Unavailable KIERAN RAMON, LYNNETTE Attending Unavailable GAVIN DURON CNP Primary Care Unavail able SO MEJÍA Attending Unavailable ALI, SAROSALEE Primary Care Unavailable Unavailable Primary Care Provider Unavailabl e Wu Brooks MD, Lizette Reis Primary Care Provider Care Physician, No Primary Referring Provider Un available Dr. Javier Portillo Attending Provider [phone] Dr. Javier Portillo Referring Provider [phone] Dr. Javier Portillo Other Provider GUY, ARTI Primary Care Provider Wu Brooks MD, Lizette Reis Primary Care Provider Javier Portillo Attending Unavailable Javier Portillo Consulting Unavailable BRIE, SMITHA Primary Care Unavailable Javier Portillo Referring Unavailable Javier Portillo Attending Unavailable SHANK, SMITHA Primary Care Unavailable Javier Portillo Referring Unavailable Benny Dunham Attending Unavailable Al Saif, Alaa Primary Care Unavailable Care Physician, No Primary Referring Unava ilable Care Physician, No Primary Primary Care Unava ilable Javier Portillo Attending Unavailable AL SALIZETTE TURK Attending Unavailable AL SAIF, ALAA Primary Care Unavailable AL SAIF, LIZETTE REIS Attending Unavailable AL SAIF, ALAA Primary Care Unavailable AL SAIF, ALAA Referring Unavailable AL SAIF, ALAA Primary Care Unavailable AL SAIF, ALAA Referring Unavailable AL SAIF, ALAA MAHDI Primary [...] Drug Class(es) Dates Sig (Normalized) Sig (Original) albendazole 200 mg oral tablet (2 sources) Antihelminthic Start: 08-12-2025 End: 08-14-2025 take 1 tablet by mouth twice daily albendazole (ALBENZA) 200 mg tablet Indications: Chronic diarrhea Take 1 tablet by mouth two times a day for 2 days. 4 tablet 08/12/2025 08/14/2025 Active Start: 08-12-2025 End: 08-12-2025 take 2 tablets by mouth twice daily albendazole (ALBENZA) 200 mg tablet Indications: Chronic diarrhea Take 2 tablets by mouth two times a day for 3 days. 12 tablet 08/12/2025 08/12/2025 Discontinued amLODIPine 10 mg oral tablet (20 sources) Dihydropyridine Calcium Channel Aileen Start: 01-15-2025 End: 01-15-2026 take 1 tablet by mouth once daily amLODIPine (NORVASC) 10 mg tablet Indications: Essential hypertension Take 1 tablet by mouth once daily. 90 tablet 3 01/15/2025 01/15/2026 Active Start: 10-01-2024 End: 03-30-2025 take 1 tablet by mouth once daily amLODIPine (NORVASC) 5 mg tablet Indications: Essential hypertension Take 1 tablet by mouth once daily. 90 tablet 1 10/01/2024 01/15/2025 Discontinued (Changing Therapy/Dosage Form) Start: 09-19-2024 End: 10-01-2024 take 1 tablet by mouth once amLODIPine (NORVASC) 2.5 m g tablet Take 1 tablet by mouth every afternoon. 09/19/2024 10/01/2024 Discontinued (Changing Therapy/Dosage Form) Start: 10-17-2022 End: 02-14-2023 amLODIPine 5 mg oral tablet 0 Refill(s) Start Date: 10/30/22 Status: Ordered Comment on above: Take 1 tablet by russ th once daily. amoxicillin 500 mg / clavulanate 125 mg oral tablet (2 sources) Penicillin-class Antibacterial Start: 10-30-20 End: 11-09-20 take 1 tablet by mouth every twelve hours Augmentin 500 mg-125 mg oral tablet 1 tab(s), Oral, q12h, X 10 day(s), # 20 tab(s), 0 Refill(s), 11/09/22 23:07:00 EST, 91.6 Start Date: 10/30/22 Stop Date: 11/09/22 Status: Ordered ciprofloxacin 500 mg oral tablet (2 sources) Quinolone Antimicrobial Start: 07-07-20 End: 07-14-20 take 1 tablet by mouth twice daily ciprofloxacin HCl (CIPRO) 500 mg tablet Indications: Acute diverticulitis Take 1 tablet by mouth two times a day for 7 days. 14 tablet 07/07/2025 07/14/2025 Active Start: 09-03-2023 End: 10-16-2023 take 1 tablet by mouth twice daily Ciprofloxacin Hcl (Cipro) 500 mg tablet Discontinued 500 MG PO TWICE A DAY 15 09September 02, 2023 11:00pm October 16, 2023 1:21pm clindamycin 300 mg oral capsule (2 sources) Lincosamide Antibacterial Start: 10-30-2022 End: 11-06-2022 clindamycin 300 mg oral capsule Dose : 300 mg = 1 cap(s), Oral, q6h, X 7 day(s), # 28 cap(s), 0 Refill(s), 11/06/22 15:00:00 EST, 90 Start Date: 10/30/22 Stop Date: 11/06/22 Status: Ordered hydrocortisone 10 mg/ml topical cream (1 source) Corticosteroid Start: 02-14-2023 End: 05-15-2023 hydrocortisone (PROCTOCORT) 1 % cream Indications: Grade I hemorrhoids Apply 1 application to affected area twice daily as needed. 40 g 0 02/14/2023 05/15/2023 Active Comment on above: Apply 1 application to affected area twice daily as needed. Lactobac 66-Bifido 4-S.thermo (PROBIOTIC ACIDOPHILUS,14-STRN, ) 3 billion cell chew (1 source) Start: 07-07-2025 End: 07-14-2025 Lactobac 66-Bifido 4-S.thermo (PROBIOTIC ACIDOPHILUS,14-STRN ,) 3 billion cell chew Indications: Acute diverticulitis Take 1 tablet by mouth two times a day for 7 days. 14 tablet 07/07/2025 07/14/2025 Active metroNIDAZOLE 500 mg oral tablet (2 sources) Nitroimidazole Antimicrobial Start: 07-07-2025 End: 07-14-2025 take 1 tablet by mouth three times daily metroNIDAZOLE (FLAGYL) 500 mg tablet Indications: Acute diverticulitis Take 1 tablet by mouth three times a day for 7 days. 21 tablet 07/07/2025 07/14/2025 Active Start: 09-03-2023 End: 10-16-2023 take 500 mg by mouth every eight hours Metronidazole Discontinued 500 MG PO Q8H 30 September 02, 2023 11:00pm October 16, 2023 1:21pm pantoprazole 40 mg delayed release oral tablet (20 sources) Proton Pump Inhibitor Start: 09-16-2024 End: 01-15-2026 take 1 tablet by mouth once daily pantoprazole DR (PROTONIX) 40 mg tablet Indications: GERD without esophagitis Take 1 tablet by mouth once daily. 90 tablet 3 01/15/2025 01/15/2026 Active Start: 03-07-2024 End: 05-31-2024 take 1 tablet by mouth once daily [...] Discontinued (Adjust Sig - Block E-Cancel) Start: 10-16-2023 take 1 tablet by russ th at bedtime Pantoprazole (Protonix) 20 mg tablet,delayed release (DR/EC) Active 20 MG PO AT BEDTIME October 16, 2023 12:00am Start: 10-17-2022 take 1 tablet by russ th once daily pantoprazole DR (PROTONIX) 20 mg tablet Indications: GERD without esophagitis Take 1 tablet by mouth once daily. 90 tablet 3 10/17/2022 Active Comment on above: Take 1 tablet by russ th once daily. rosuvastatin calcium 5 mg oral tablet (7 sources) HMG-CoA Reductase Inhibitor Start: 02-26-20 End: 02-26-20 take 1 tablet by mouth once daily at bedtime rosuvastatin (CRESTOR) 5 mg tablet Indications: Combined hyperlipidemia Take 1 tablet by mouth daily at bedtime. 90 tablet 3 02/25/2025 02/25/2026 Active tamsulosin hydrochloride 0.4 mg oral capsule (20 sources) alpha-Adrenergic Aileen Start: 08-17-20 End: 01-15-20 take 1 capsule by mouth at bedtime as needed tamsulosin (FLOMAX) 0.4 mg Indications: Benign prostatic hyperplasia with urinary frequency Take 1 capsule by mouth at bedtime as needed. 90 capsule 3 01/15/2025 01/15/2026 Active Comment on above: Take 1 capsule by mo uth daily at bedtime. Completed/Discontinued Medications Medication Drug [...] Seasonal allergic rhinitis, unspecified trigger Use 1 Stewardson in each nostril two times a day. 1 Each 1 03/07/2024 07/15/2024 Discontinued Comment on above: Use 1 Stewardson in each nostril two times a day. 10 ml lidocaine hydrochloride 10 mg/ml injection (2 sources) Antiarrhythmic, Amide Local Anesthetic Start: 07-17-2024 End: 07-17-2024 lidocaine (PF) 10 mg/mL (1 %) 0.5 mL injection (XYLOCAINE) Start: 07-17-2024 End: 07-17-2024 0.5 mL, Injection - FOR ORTH O USE ONLY, ONCE, 1 dose, Starting on Mon07/17/24 at 1148, Until Mon07/17/24 at 1148 methylPREDNISolone (7 sources) Corticosteroid Start: 07-15-2024 End: 10-01-2024 methylPREDNISolone (MEDROL, WINDY,) 4 mg Dose-Pack Indications: Primary osteoarthritis of first carpometacarpal joint of right hand As Instructed per package 21 tablet 07/15/2024 10/01/2024 Discontinued Start: 07-15-2024 methylPREDNISo lone (MEDROL, WINDY,) 4 mg Dose-Pack Indications: Primary osteoarthritis of first carpometacarpal joint of right hand As Instructed per package 21 tablet 07/15/2024 Active ondansetron 4 mg disintegrating oral tablet (1 source) Serotonin-3 Receptor Antagonist Start: 09-03-2023 End: 10-16-2023 take 4 mg by mouth every eight hours as needed Ondansetron Discontinued 4 MG PO EVERY 8 HOURS NEEDED September 02, 2023 11:00pm October 16, 2023 1:21pm 1 ml triamcinolone acetonide 40 mg/ml injection (1 source) Corticosteroid Start: 02-14-2023 End: 02-14-2023 triamcinolone acetonide 40 mg injection (KeNALog 40) Problems Active Problems Problem Classification Problem Date Documented Da te Episodic/Chronic Acute and chronic tonsillitis (1 source) Hypertrophy of tonsils; Translations: [Hypertrophy of tonsils] 03-07-2024 Chronic Administrative/social admission (4 sources) Patient encounter status; Translations: [Persons encountering health services in other specified circumstances] 09-12-2023 Episodic Disorders of lipid metabolism (20 sources) Mixed hyperlipidemia; Translations: [Mixed hyperlipidemia] Onset: 3 Chronic Diverticulosis and diverticulitis (2 sources) Diverticulitis of intestine; Translations: [Diverticulitis of intestine, part unspecified, without perforation or abscess without bleeding] Onset: 5 07-07-2025 Chronic Esophageal disorders (20 sources) Gastroesophageal reflux disease without esophagitis; Translations: [Gastro-esophageal reflux disease without esophagitis] Onset: 2 Chronic Essential hypertension (20 sources) Essential hypertension; Translations: [Essential (primary) hypertension] Onset: 2 Chronic Hemorrhoids (1 source) Internal hemorrhoids grade I; Translations: [First degree hemorrhoids] Episodic Hyperplasia of prostate (20 sources) Urinary frequency due to benign prostatic hypertrophy; Translations: [Benign prostatic hyperplasia with lower urinary tract symptoms] Onset: 3 08-17-2023 Chronic Lymphadenitis (2 sources) Cervical lymphadenopathy; Translations: [Localized enlarged lymph nodes] 03-07-2024 Episodic Noninfectious gastroenteritis (8 sources) Colitis; Translations: [Noninfective gastroenteritis and colitis, unspecified] Onset: 3 09-12-2023 Episodic Nutritional deficiencies (20 sources) Vitamin D deficiency; Translations: [Vitamin D [...] and lump, unspecified site] 08-17-2023 Episodic Other hereditary and degenerative nervous system conditions (1 source) Impaired cognition; Translations: [Mild cognitive impairment, so stated] 01-15-2025 Chronic Other hereditary and degenerative nervous system conditions (1 source) Mild cognitive impairment, so stated; Translations: [Mild cognitive impairment] Onset: 5 Chronic Other nervous system disorders (11 sources) Polyneuropathy; Translations: [Polyneuropathy, unspecified] Onset: 5 01-15-2025 Chronic Other nervous system disorders (1 source) Cognitive deficit in communication skills; Translations: [Cognitive communication deficit] 01-16-2025 Chronic Other nervous system disorders (1 source) Other chronic pain; Translations: [Chronic midline low back pain without sciatica] Onset: 5 Chronic Other nervous system disorders (1 source) Polyneuropathy, unspecified; Translations: [Peripheral polyneuropathy] Onset: 5 Chronic Other nervous system disorders (1 source) Impaired cognition 01-15-2025 Episodic Other nutritional; endocrine; and metabolic disorders (20 sources) Obese class I; Translations: [Obesity, unspecified] Onset: 2 10-17-2022 Chronic Other upper respiratory disease (1 source) Seasonal allergic rhinitis; Translations: [Other seasonal allergic rhinitis] 03-07-2024 Chronic Unclassified (1 source) Chronic midline low back pain without sciatica; Translations: [Chronic midline low back pain without sciatica] Onset: 5 Unclassified (1 source) Obesity, Class I, BMI 30-34.9; Translations: [Obesity, Class I, BMI 30-34.9] Onset: 2 Past or Other Problems Problem Classification Problem Date Documented Da te Episodic/Chronic Disorders of teeth and jaw (20 sources) Disorder of teeth AND/OR supporting structures; Translations: [Other specified disorders of teeth and supporting structures] Onset: 10-30-2022 Resolved: 08-17-2023 Episodic Genitourinary symptoms and ill-defined conditions (1 source) Frequency of micturition; Translations: [Benign prostatic hyperplasia with urinary frequency] Onset: 07-15-2024 Episodic Nonspecific chest pain (20 sources) Chest pain; Translations: [Chest pain, unspecified] Onset: 10-30-2022 Resolved: 08-17-2023 Episodic Other gastrointestinal disorders (8 sources) H/O: colitis; Translations: [Personal history of other diseases of the digestive system] Onset: 10-16-2023 10-16-2023 Episodic Other gastrointestinal disorders (2 sources) Personal history of other diseases of the digestive system; Translations: [Personal history of other diseases of digestive system] Onset: 10-16-2023 10-16-2023 Episodic Other screening for suspected conditions (not mental disorders or infectious disease) (9 sources) Other specified abnormal findings of blood chemistry; Translations: [Other abnormal blood chemistry] Onset: 02-25-2025 02-25-2025 Episodic Screening and history of mental health and substance abuse codes (2 sources) Encounter for screening for depression; Translations: [Encounter for screening examination for other mental health and behavioral disorders] Onset: 02-25-2025 Episodic Spondylosis; intervertebral disc disorders; other back problems (11 sources) Chronic low back pain; Translations: [Chronic midline low back pain without sciatica] Onset: 01-15-2025 01-15-2025 Episodic Results Test Name Value Interpretation Reference Range Facility [facility] 08-12-2025 CNOV Office Visit (FAMAAR) WILLY SANDERS ([id number]) 1955 M Date Time Provider Department 08/12/25 3:00 PM LIZETTE AVILA During your visit today, we recorded the following information about you: Pulse Blood pressure Weight Height 76/minute 122/68 88.2 kg 1.702 m Lizette Avila MD 08/12/2025 2:33 PM Signed The patient is a 70-year-old male presenting for evaluation of abdominal cramps and diarrhea concerning for suspected parasitic infection. Abdominal Cramping and Diarrhea: - Abdominal cramping, borborygmi, flatulence, and diarrhea. - Symptoms similar to those experienced by Willy's daughter. ALLERGIES No Known Allergies Current Outpatient Medications Medication Sig rosuvastatin (CRESTOR) 5 mg tablet Take 1 tablet by mouth daily at bedtime. tamsulosin (FLOMAX) 0.4 mg Take 1 capsule by mouth at bedtime as needed. (Patient taking differently: Take 0.4 mg by mouth once daily.) amLODIPine (NORVASC) 10 mg tablet Take 1 tablet by mouth once daily. pantoprazole DR (PROTONIX) 40 mg tablet Take 1 tablet by mouth once daily. albendazole (ALBENZA) 200 mg tablet Take 2 tablets by mouth two times a day for 3 days. No current facility-administere d medications for this visit. PAST MEDICAL HISTORY Diagnosis Date GERD without esophagitis 10/17/2022 Hypertension PAST SURGICAL HISTORY Procedure Laterality Date EXCISION OF A GRANULOMA SUTURE 2000 throat FAMILY HISTORY Problem Relation Age of Onset other (stomach cancer) Mother Brain Cancer Father SOCIAL HISTORY[1] All medications have been reviewed and verified. Gastrointestinal: (+) abdominal cramps, (+) abdominal gurgling, (+) flatulence, (+) diarrhea VITALS: Blood pressure 122/68, pulse 76, height 170.2 cm (5' 7), weight 88.2 kg (194 lb 8 oz), SpO2 98%., Body mass index is 30.46 kg/m?. GENERAL: NAD, alert and oriented SKIN: unremarkable, no rash or skin lesions. HEAD: normocephalic EYES: PERRLA, EOMI, conjunctiva clear EARS: external ears normal, canals clear, TM's normal. NOSE/SINUSES: Nares normal. Septum midline. OROPHARYNX: lips, mucosa, and tongue normal, good dentition. No oral lesions noted. NECK: Supple, no lymphadenopathy, normal thyroid, no carotid bruits. LUNGS: Clear to auscultation bilaterally, no wheezes/rhonchi/rale s. HEART: Regular rate and rhythm, no murmurs. No ectopy. EXTREMITIES: Normal, No deformities, No skin discoloration, No edema. NEURO: Awake, alert and oriented x3, cranial nerves II-XII grossly intact, normal gait, no involuntary motions 1. Chronic diarrhea (K52.9) - Symptoms include abdominal cramps, borborygmi, flatulence, and diarrhea. - Empiric treatment with albendazole 400 mg PO once daily for 3 days. - Discussed that if symptoms persist after treatment, further evaluation will be pursued, including stool testing and possible referral to GI for colonoscopy. - Patient expressed understanding and agreement with the plan. 2. Essential (primary) hypertension (I10) Continue current management plan. Recording using ambient AI software for draft documentation of the visit was discussed with the patient/authorized pharmaceutical specialty representative; all questions welcomed and answered. Patient/authorized pharmaceutical specialty representative agreed to proceed Lizette Avila MD [1] Social History Tobacco Use Smoking status: Never Passive exposure: Never Smokeless tobacco: Never Vaping Use Vaping status: Never Used Substance Use Topics Alcohol use: Not Currently Drug use: Never Lizette Avila MD 08/12/2025 2:40 PM Signed Addended by: LIZETTE AVILA on: 08/12/2025 02:40 PM Modules accepted: Orders Referring Provider: LIZETTE AVILA [[id number]] Allergies As of Date: 08/12/2025 (No Known Allergies) Date Reviewed: 08/12/2025 Reviewed by: Mli Henson LPH - Fully Assessed Reason for Visit: Follow Up [171] Cmt: Willy is here today with concerns of parasite in stool/colon. He has been having abdominal cramping, diarrhea for 4 months . Previous bacterial stool testing was negative. Mil Henson LPN August 12, 2025 2:18 PM Primary Visit Diagnosis:Chronic diarrhea [K52.9] Other Visit Diagnosis:Essential (primary) hypertension [I10] Order(s):albendazole (ALBENZA) 200 mg tabletTake 1 tablet by mouth two times a day for 2 days.Disp: 4 tabletRfl: 0 Prescriptions as of 08/12/2025 - albendazole (ALBENZA) 200 mg tablet Take 1 tablet by mouth two times a day for 2 days. - rosuvastatin (CRESTOR) 5 mg tablet Take 1 tablet by mouth daily at bedtime. - tamsulosin (FLOMAX) 0.4 mg Take 1 capsule by mouth at bedtime as needed. - amLODIPine (NORVASC) 10 mg tablet Take 1 tablet by mouth once daily. - pantoprazole DR (PROTONIX) 40 mg tablet Take 1 tablet by mouth once daily. Problem List As Of Date 08/12/2025 Noted Resolved Obesity, Class I, BMI 30-34.9 [E66.811] 10/17/ (more content not included)... [facility] 08-11-2025 [facility] Telephone (FAMAAR) MARILYNWILLY ([id number]) 1955 M Date Time Provider Department 08/11/25 LIZETTE AVILA FAMAAR During your visit today, we recorded the following information about you: Mil Henson LPH 08/11/2025 9:42 AM Signed Patient concerned about having a parasite is his colon. He has been looking online and has all the symptoms. Would like tested. Please advise. Lizette Avila MD 08/11/2025 10:23 AM Signed Please schedule routine appointment to address. Allergies As of Date: 08/11/2025 (No Known Allergies) Date Reviewed: 07/07/2025 Reviewed by: Mil Henson LPH - Fully Assessed Prescriptions as of 08/11/2025 - rosuvastatin (CRESTOR) 5 mg tablet Take 1 tablet by mouth daily at bedtime. - tamsulosin (FLOMAX) 0.4 mg Take 1 capsule by mouth at bedtime as needed. - amLODIPine (NORVASC) 10 mg tablet Take 1 tablet by mouth once daily. - pantoprazole DR (PROTONIX) 40 mg tablet Take 1 tablet by mouth once daily. Problem List As Of Date 08/11/2025 Noted Resolved Obesity, Class I, BMI 30-34.9 [E66.811] 10/17/2022 Essential (primary) hypertension [I10] 10/17/2022 GERD without esophagitis [K21.9] 10/17/2022 Combined hyperlipidemia [E78.2] 02/14/2023 Vitamin D deficiency [E55.9] 02/14/2023 Chest pain [R07.9] 10/30/2022 08/17/2023 Diagnosed: 08/17/2023 Disorder of teeth and supporting structures [K0*10/30/2022 08/17/2023 Diagnosed: 08/17/2023 Osteoarthritis of both knees [M17.0] 08/17/2023 Benign prostatic hyperplasia with lower urinary*08/17/2023 Peripheral polyneuropathy [G62.9] 01/15/2025 Benign prostatic hyperplasia [N40.0] 07/15/2024 History of colitis [Z87.19] 10/16/2023 Low back pain, unspecified [M54.50] 01/15/2025 Primary osteoarthritis of right hand [M19.041] 02/25/2025 Elevated LFTs [R79.89] 02/25/2025 Encounter Status:Closed by MIL HENSON on 08/11/25 [facility] 08-04-2025 CNPN Telephone (FAMAAR) WILLY SANDERS ([id number]) 1955 M Date Time Provider Department 08/04/25 LIZETTE AVILA During your visit today, we recorded the following information about you: Cathleen Wells MA 08/04/2025 2:13 PM Signed Pt called inquiring about the status of his referral. Called him back, left vmail. KATIE Anderson August 04, 2025 2:12 PM Cathleen Wells MA 08/04/2025 4:31 PM Signed Spoke with patient and advised of referral information. Advised pt to call GI office for appt. Pt was also advised if the office stated they do not have referral to call me back and I will send directly. Allergies As of Date: 08/04/2025 (No Known Allergies) Date Reviewed: 07/07/2025 Reviewed by: Mil Henson [facility] - Fully Assessed Prescriptions as of 08/04/2025 - rosuvastatin (CRESTOR) 5 mg tablet Take 1 tablet by mouth daily at bedtime. - tamsulosin (FLOMAX) 0.4 mg Take 1 capsule by mouth at bedtime as needed. - amLODIPine (NORVASC) 10 mg tablet Take 1 tablet by mouth once daily. - pantoprazole DR (PROTONIX) 40 mg tablet Take 1 tablet by mouth once daily. Problem List As Of Date 08/04/2025 Noted Resolved Obesity, Class I, BMI 30-34.9 [E66.811] 10/17/2022 Essential (primary) hypertension [I10] 10/17/2022 GERD without esophagitis [K21.9] 10/17/2022 Combined hyperlipidemia [E78.2] 02/14/2023 Vitamin D deficiency [E55.9] 02/14/2023 Chest pain [R07.9] 10/30/2022 08/17/2023 Diagnosed: 08/17/2023 Disorder of teeth and supporting structures [K0*10/30/2022 08/17/2023 Diagnosed: 08/17/2023 Osteoarthritis of both knees [M17.0] 08/17/2023 Benign prostatic hyperplasia with lower urinary*08/17/2023 Peripheral polyneuropathy [G62.9] 01/15/2025 Benign prostatic hyperplasia [N40.0] 07/15/2024 History of colitis [Z87.19] 10/16/2023 Low back pain, unspecified [M54.50] 01/15/2025 Primary osteoarthritis of right hand [M19.041] 02/25/2025 Elevated LFTs [R79.89] 02/25/2025 Encounter Status:Closed by KATIE WELLS SHAUNDA on 08/04/25 [facility] 07-31-2025 CNCO Letter Text [facility] CNPNon 07-30-2025 CNPN Telephone (FAMAAR) WILLY SANDERS ([id number]) 1955 M Date Time Provider Department 07/30/25 LIZETTE AVILA During your visit today, we recorded the following information about you: Mil Henson LPH 07/30/2025 9:45 AM Signed Patient stool testing negative. Still having diarrhea, wanting to know what is the next step. Please advise. Lizette Avila MD 07/30/2025 9:48 AM Signed Diagnoses and all orders for this visit: Chronic diarrhea - CONSULT TO GASTROENTEROLOGY; Future Allergies As of Date: 07/30/2025 (No Known Allergies) Date Reviewed: 07/07/2025 Reviewed by: Mil Henson LPH - Fully Assessed Primary Visit Diagnosis:Chronic diarrhea [K52.9] Order(s):CONSULT TO GASTROENTEROLOGY [9010] Order #: [id number]: 1 FUTURE Prescriptions as of 07/30/2025 - rosuvastatin (CRESTOR) 5 mg tablet Take 1 tablet by mouth daily at bedtime. - tamsulosin (FLOMAX) 0.4 mg Take 1 capsule by mouth at bedtime as needed. - amLODIPine (NORVASC) 10 mg tablet Take 1 tablet by mouth once daily. - pantoprazole DR (PROTONIX) 40 mg tablet Take 1 tablet by mouth once daily. Problem List As Of Date 07/30/2025 Noted Resolved Obesity, Class I, BMI 30-34.9 [E66.811] 10/17/2022 Essential (primary) hypertension [I10] 10/17/2022 GERD without esophagitis [K21.9] 10/17/2022 Combined hyperlipidemia [E78.2] 02/14/2023 Vitamin D deficiency [E55.9] 02/14/2023 Chest pain [R07.9] 10/30/2022 08/17/2023 Diagnosed: 08/17/2023 Disorder of teeth and supporting structures [K0*10/30/2022 08/17/2023 Diagnosed: 08/17/2023 Osteoarthritis of both knees [M17.0] 08/17/2023 Benign prostatic hyperplasia with lower urinary*08/17/2023 Peripheral polyneuropathy [G62.9] 01/15/2025 Benign prostatic hyperplasia [N40.0] 07/15/2024 History of colitis [Z87.19] 10/16/2023 Low back pain, unspecified [M54.50] 01/15/2025 Primary osteoarthritis of right hand [M19.041] 02/25/2025 Elevated LFTs [R79.89] 02/25/2025 Encounter Status:Closed by MIL HENSON on 07/30/25 Normal [facility] Gastrointestinal pathogens i dentified SAMMY+probe Nom (Stl)on 07-16-2025 Campylobacter sp DNA SAMMY+probe Nom (Unsp spec) Not detected Normal Not Detected [facility] Comment on above: Order Comment: Speci men Type: STOOL SPECIMENOrdering Facility: [facility] Address: [address] [place] [address] Performed By: #### 7 9390-1 ####[facility] LABCLIA [id number] [place] [address] [place] Salmonella sp DNA SAMMY+probe Ql (Unsp spec) Not detected Normal Not Detected [facility] Comment on above: Order Comment: Speci men Type: STOOL SPECIMENOrdering Facility: [facility] Address: [address] [place] [address] Performed By: #### 7 9390-1 ####[facility] LABCLIA [id number] [place] [address] [place] Shiga toxin stx gene SAMMY+probe Nom (Unsp spec) Not detected Normal Not Detected [facility] Comment on above: Order Comment: Speci men Type: STOOL SPECIMENOrdering Facility: [facility] Address: [address] [place] [address] Performed By: #### 7 9390-1 ####[facility] LABCLIA [id number] [place] [address] [place] Shigella sp DNA SAMMY+probe Ql (Unsp spec) Not detected Normal Not Detected [facility] Comment on above: Order Comment: Speci men Type: STOOL SPECIMENOrdering Facility: [facility] Address: [address] [place] [address] Performed By: #### 7 9390-1 ####[facility] YANG [id number] [place] [id number] [place], [place] [id number] [facility] CNOVon 07-07-2025 CNOV Office Visit (FAMAAR) WILLY SANDERS ([id number]) 1955 M Date Time Provider Department 07/07/25 4:00 PM LIZETTE AVILA FAMAAR During your visit today, we recorded the following information about you: Pulse Blood pressure Weight Height 58/minute 128/72 90.1 kg 1.702 m Lizette Avila MD 07/07/2025 3:41 PM Signed Diarrhea (Willy is here today with concerns of diarrhea for the past 6 weeks. 4-5 episodes per day. States he had a fever and cold sores on the lips 2 weeks ago . Willy Sanders is a 70-year-old male with a history of diverticulitis, presenting with diarrhea x6 weeks. Diarrhea: - Diarrhea x6 weeks, occurring approximately 5 times daily. - Stool consistency varies between watery and soft. - Uncertain about presence of blood in stool. - Associated with abdominal cramping, particularly severe prior to bowel movements. - Reports a burning sensation during defecation, suspecting too much acid in the system. - Developed a rash around the anus, possibly due to frequent bowel movements. - No recent dietary changes; denies consumption of probiotics. - Recent weight loss noted. - Similar episode of diarrhea occurred a few years ago, but current symptoms are described as different. - Last colonoscopy was approximately one year ago. - Last blood work was in December, with results reported as normal. - No other household members are experiencing similar symptoms. ALLERGIES[1] CURRENT MEDICATIONS[2] PAST MEDICAL HISTORY[3] PAST SURGICAL HISTORY Procedure Laterality Date EXCISION OF A GRANULOMA SUTURE 1999 throat FAMILY HISTORY[4] SOCIAL HISTORY[5] All medications have been reviewed and verified. Constitutional: (+) weight loss Gastrointestinal: (+) diarrhea, (+) abdominal cramps, (+) anal burning, (-) blood in stool Musculoskeletal: (+) back pain Skin: (+) perianal rash VITALS: Blood pressure 128/72, pulse (!) 58, height 170.2 cm (5' 7), weight 90.1 kg (198 lb 9.6 oz), SpO2 96%., Body mass index is 31.11 kg/m?. GENERAL: NAD, alert and oriented. SKIN: Unremarkable, no rash or skin lesions. HEAD: Normocephalic. EYES: PERRLA, EOMI, conjunctiva clear. EARS: External ears normal, canals clear, TM's normal. NOSE/SINUSES: Nares normal. Septum midline. OROPHARYNX: Lips, mucosa, and tongue normal, good dentition. No oral lesions noted. NECK: Supple, no lymphadenopathy, normal thyroid, no carotid bruits. LUNGS: Clear to auscultation bilaterally, no wheezes/rhonchi/rale s. HEART: Regular rate and rhythm, no murmurs. No ectopy. EXTREMITIES: Normal, no deformities, no skin discoloration, no edema. ABDOMEN: Tenderness noted in the left lower quadrant. NEURO: Awake, alert and oriented x3, cranial nerves II-XII grossly intact, normal gait, no involuntary motions. Labs: - (December) Blood work: All values reported as normal Tests: - Colonoscopy: Performed approximately one year ago; no results discussed in the transcript 1. Chronic diarrhea (K52.9) 2. Acute diverticulitis (K57.92) - Diarrhea for 6 weeks, 5 times daily, with associated abdominal cramping and perianal rash; abdominal tenderness on exam. - Treated with Flagyl and Cipro for 7 days. - Provided stool sample collection kit; if no improvement after antibiotics, will submit sample for further testing. - Advised use of Vaseline for perianal rash. 3. Essential (primary) hypertension (I10) 4. Combined hyperlipidemia (E78.2) LIPID. Recording using [employer] software for draft documentation of the visit was discussed with the patient/authorized pharmaceutical specialty representative; all questions welcomed and answered. Patient/authorized pharmaceutical specialty representative agreed to proceed Lizette Avila MD [1] No Known Allergies [2] Current Outpatient Medications Medication Sig rosuvastatin (CRESTOR) 5 mg tablet Take 1 tablet by mouth daily at bedtime. tamsulosin (FLOMAX) 0.4 mg Take 1 capsule by mouth at bedtime as needed. (Patient taking differently: Take 0.4 mg by mouth once daily.) amLODIPine (NORVASC) 10 mg tablet Take 1 tablet by mouth once daily. pantoprazole DR (PROTONIX) 40 mg tablet Take 1 tablet by mouth once daily. ciprofloxacin HCl (CIPRO) 500 mg tablet Take 1 tablet by mouth two times a day for 7 days. metroNIDAZOLE (FLAGYL) 500 mg tablet Take 1 tablet by mouth three times a day for 7 days. Lactobac 66-Bifido 4-S.thermo (PROBIOTIC ACIDOPHILUS,14-STRN, ) 3 billion cell chew Take 1 tablet by mouth two times a day for 7 days. No current facility-administere d medications for this visit. [3] Past Medical History: 10/17/2022: GERD without esophagitis No date: Hypertension [4] Review of patient's family history indicates: Problem: other (stomach cancer) Relation: Mother Age of Onset: (Not Specified) Problem: Brain Cancer Relation: Father Age of Onset: (Not Specified) [5] Social History Tobacco (more content not included)... [facility] (FAMAAR) WILLY SANDERS ([id number]) 1955 M Date Time Provider Department 04/15/25 9:30 AM LIZETTE AVILA During your visit today, we recorded the following information about you: Pulse Blood pressure Weight Height 65/minute 118/66 90.9 kg 1.702 m Lizette Avila MD 04/15/2025 9:59 AM Signed Willy is a 69-year-old male presenting for a follow-up visit, with complaints of right thumb pain. Right Thumb Pain: - Chronic aching pain in the right thumb, attributed to arthritis. - Previously received an injection from orthopedics with minimal relief. - Tried using a wrist brace with thumb support but found it restrictive and exacerbated pain when removed. - Pain seems to improve with activity. - Taking ibuprofen PRN, but reports it causes blisters on lips and believes it raises body temperature. Hypertension controlled. Stable on current medications. No headache or palpitations. No lightheadedness. Hyperlipidemia on statin no myalgia taking the pill at night. Lipid panel reviewed. To continue current medication. Discussed healthy diet. GERD on PPI symptoms controlled , no dysphagia, no weight loss, no blood in the stool. Stable to continue. ALLERGIES No Known Allergies Current Outpatient Medications Medication Sig rosuvastatin (CRESTOR) 5 mg tablet Take 1 tablet by mouth daily at bedtime. tamsulosin (FLOMAX) 0.4 mg Take 1 capsule by mouth at bedtime as needed. (Patient taking differently: Take 0.4 mg by mouth once daily.) amLODIPine (NORVASC) 10 mg tablet Take 1 tablet by mouth once daily. pantoprazole DR (PROTONIX) 40 mg tablet Take 1 tablet by mouth once daily. meloxicam (MOBIC) 15 mg tablet Take 1 tablet by mouth once daily as needed for pain. No current facility-administere d medications for this visit. PAST MEDICAL HISTORY Diagnosis Date GERD without esophagitis 10/17/2022 Hypertension PAST SURGICAL HISTORY Procedure Laterality Date EXCISION OF A GRANULOMA SUTURE 1999 throat FAMILY HISTORY Problem Relation Age of Onset other (stomach cancer) Mother Brain Cancer Father Social History Tobacco Use Smoking status: Never Passive exposure: Never Smokeless tobacco: Never Vaping Use Vaping status: Never Used Substance Use Topics Alcohol use: Not Currently Drug use: Never All medications have been reviewed and verified. Musculoskeletal: (+) right thumb arthralgia VITALS: Blood pressure 118/66, pulse 65, height 170.2 cm (5' 7), weight 90.9 kg (200 lb 4.8 oz), SpO2 99%., Body mass index is 31.37 kg/m?. GENERAL: NAD, alert and oriented SKIN: unremarkable, no rash or skin lesions. HEAD: normocephalic EYES: PERRLA, EOMI, conjunctiva clear EARS: external ears normal, canals clear, TM's normal. NOSE/SINUSES: Nares normal. Septum midline. OROPHARYNX: lips, mucosa, and tongue normal, good dentition. No oral lesions noted. NECK: Supple, no lymphadenopathy, normal thyroid, no carotid bruits. LUNGS: Clear to auscultation bilaterally, no wheezes/rhonchi/rale s. HEART: Regular rate and rhythm, no murmurs. No ectopy. EXTREMITIES: Right thumb with tenderness noted at the metacarpal joint. Otherwise normal, no deformities, no skin discoloration, no edema. NEURO: Awake, alert and oriented x3, cranial nerves II-XII grossly intact, normal gait, no involuntary motions 1. Essential (primary) hypertension (I10) - Stable on current management. 2. Combined hyperlipidemia (E78.2) - Stable on current management. 3. Primary osteoarthritis of right hand (M19.041) - Persistent pain in right thumb metacarpal despite previous corticosteroid injection. - Discussed surgical options, including fusion surgery, but not recommended at this time due to potential complications and limited benefit. - Advised against regular use of ibuprofen due to adverse effects (oral blisters) and potential renal impact. - Prescribed Meloxicam 15 mg orally once daily as an alternative NSAID. - Recommended continued use of heat therapy. 4. Benign prostatic hyperplasia with lower urinary tract symptoms, symptom details unspecified (N40.1) - Stable on current management. 5. GERD without esophagitis (K21.9) - Stable on current management. 6. Vitamin D deficiency (E55.9) - Stable on current management. Recording using [employer] software for draft documentation of the visit was discussed with the patient/authorized pharmaceutical specialty representative; all questions welcomed and answered. Patient/authorized pharmaceutical specialty representative agreed to proceed MD Austin Grady Alaa Mahdi, MD 04/15/2025 9:57 AM Signed - Start Mobic (meloxicam) once daily for your right thumb arthritis; prescription has been sent to your pharmacy. - Use acetaminophen (Tylenol) as needed for pain relief. - Apply warm compresses to your right thumb to help ease discomfort. - Avoid taking ibuprofen (more content not included)... [facility] CNOVon 02-25-2025 CNOV Office Visit (FAMAAR) WILLY SANDERS ([id number]) 1955 M Date Time Provider Department 02/25/25 2:30 PM LIZETTE AVILA During your visit today, we recorded the following information about you: Temperature Pulse Respiration Blood pressure 98.5 degrees 81/minute 18/minute 118/82 Weight Height 89.4 kg 1.683 m Andrew Kellogg LPN 02/25/2025 2:32 PM Signed Patient is here for his annual Medicare Wellness Exam. BP Controlled (<130/80) due on 02/15/2024 Advance Directive Discussion due on 11/27/2024 Depression Screening due on 03/07/2025 Anxiety Screening due on 03/07/2025 Andrew Kellogg LPN February 25, 2025 2:32 PM Lizette Avila MD 02/25/2025 2:47 PM Signed Screening schedule The following prevention plan is recommended: Advance Directive Discussion due on 11/27/2024 Depression Screening due on 03/07/2025 Anxiety Screening due on 03/07/2025 WHAT YOU CAN DO TO PREVENT FALLS Many falls can be prevented. By making some changes, you can lower your chances of falling. Four things YOU can do to prevent falls for you* and your caregiver 1. Begin a regular exercise program Exercise is one of the most important ways to lower your chances of falling. It makes you stronger and helps you feel better. Exercises that improve balance and coordination (like Shakir Chi) are the most helpful. Lack of exercise leads to weakness and increases your chances of falling. Ask your doctor or health care provider about the best type of exercise program for you. 2. Have your health care provider review your medicines Have your doctor or pharmacist review all the medicines you take, even glla-xnk-anwxxfz medicines. As you get older, the way medicines work in your body can change. Some medicines, or combinations of medicines, can make you sleepy or dizzy and can cause you to fall. 3. Have your vision checked Have your eyes checked by an eye doctor at least once a year. You may be wearing the wrong glasses or have a condition like glaucoma or cataracts that limits your vision. Poor vision can increase your chances of falling. 4. Make your home safer About half of all falls happen at home. To make your home safer: Remove things you can trip over (like papers, books, clothes, and shoes) from stairs and places where you walk. Remove small throw rugs or use double-sided tape to keep the rugs from slipping. Keep items you use often in cabinets you can reach easily without using a step stool. Have grab bars put in next to your toilet and in the tub or shower. Use non-slip mats in the bathtub and on shower floors. Improve the lighting in your home. As you get older, you need brighter lights to see well. Hang light-weight curtains or shades to reduce glare. Have handrails and lights put in on all staircases. Wear shoes both inside and outside the house. Avoid going barefoot or wearing slippers. For more information, contact: Centers for Disease Control and Prevention www.cdc.gov/injury * This information may not apply if you have certain medical conditions. Lizette Avila MD 02/25/2025 2:50 PM Signed Willy Sanders is a 69 year old male here for a Medicare wellness visit. Medicare Health Risk Assessment General Health Excellent Exercise: Minutes/Day 0 min Exercise: Days/Week 0 days Alcohol: Daily Use Never Alcohol: Drinks/Day Patient does not drink Alcohol: 6 or more drinks Never Feel off balance No Concerns: Teeth/Dentures No Concerns: Sexual function Yes Troubled by feelings None of the above Frequency: Eating healthy diet More than half the days ADLs requiring help None of the above Safety precautions in home/vehicle No Smoke, vape, chews tobacco No Difficulty hearing No Difficulty seeing No Current Providers Specialists: I have reviewed specialist-related care of the patient in the medical record. Medical/Family history review Reviewed and updated problem list, medical/surgical/fam juan manuel/social history, medications, and allergies. Opioid use review Opioid Medications (last 90 days) No data to display Anxiety/Depression screening PHQ-2 Score: 0 (Lower risk for depression) LUÍS-2 Score: 0 (Lower risk for anxiety) Recommendation: no further intervention at this time Cognitive screening Mini Cog Score: 3 Cognitive screening reviewed and No further action needed (score 3-5). Functional Observation Was the patient's Timed Up AND Go test unsteady or >= 12 seconds? No Advance Care Planning Patient did not wish or was not able to name a surrogate decision maker or provide an advance care plan Measurements BP 118/82 Pulse 81 Temp 36.9 ?C (98.5 ?F) (Temporal) Resp 18 Ht 168.3 cm (5' 6.25) Wt 89.4 kg (197 lb) SpO2 95% BMI 31.56 kg/m? Vision Screening: Follows with optometry/ophthalmol ogy Assessment/Plan Medicare annual wellness visit, subseq (more content not included)... [facility] CNTHERAPYon 01-16-2025 CNTHERAPY OT/PT/Speech Visit (SPNEPH) WILLY SANDERS ([id number]) 1955 M Date Time Provider Department 01/16/25 9:30 AM MILTON RAE Date Time Provider Department Center 01/16/2025 9:30 [id number] for Visit: Speech Evaluation [6707] Speech Discharge [1160] Primary Visit Diagnosis:Cognitive communication deficit [R41.841] Allergies As of Date: 01/16/2025 (No Known Allergies) Date Reviewed: 01/15/2025 Reviewed by: Lizette Avila MD - Fully Assessed Prescriptions as of 04/02/2025 - rosuvastatin (CRESTOR) 5 mg tablet Take 1 tablet by mouth daily at bedtime. - tamsulosin (FLOMAX) 0.4 mg Take 1 capsule by mouth at bedtime as needed. - amLODIPine (NORVASC) 10 mg tablet Take 1 tablet by mouth once daily. - pantoprazole DR (PROTONIX) 40 mg tablet Take 1 tablet by mouth once daily. Normal [facility] 25(OH)D3 SerPl-mCncon 2024 25-hydroxyvitamin D3 [Mass/Vol] Normal [facility] Comment on above: Order Comment: Rere hawkins Type: BLOOD SPECIMENOrdering Facility: [facility] Address: [address] [place] [address] Result Comment: Unab le to assay due to interference from hemolysis. Suggest reorder as clinically indicated. Performed By: #### 2 857-1, 1989-01 ####[facility] LABORATORYCLIA [id number] [address] [place] CBC panel Auto (Bld)on 01-15 Erythrocyte distribution width (RBC) [Ratio] 13.1 % Normal 11.5-15.0 [facility] Comment on above: Order Comment: Rere hawkins Type: BLOOD SPECIMEN [facility]: [facility] Address: [address] [place] [address] Performed By: #### 5 8410-2 #### [facility] CLIA [id number] [place] Hematocrit (Bld) [Volume fraction] 46.5 % Normal 39.0-51.0 [facility] Comment on above: Order Comment: Rere hawkins Type: BLOOD SPECIMEN [facility]ing Facility: [facility] Address: [address] [place] [address] Performed By: #### 5 8410-2 #### [facility] CLIA [id number] [address] [place] [address] [place] Hemoglobin (Bld) [Mass/Vol] 15.4 g/dL Normal 13.0-17.0 [facility] Comment on above: Order Comment: Rere hawkins Type: BLOOD SPECIMEN [facility]: [facility] Address: [address] [place] [address] Performed By: #### 5 8410-2 #### [facility] CLIA [id number] [address] [place] [place] [address] [place] MCH (RBC) [Entitic mass] 30.3 pg Normal 26.0-34.0 [facility] Comment on above: Order Comment: Speci men Type: BLOOD SPECIMEN Ordering Facility: [facility] Address: [address] [place] [address] Performed By: #### 5 8410-2 #### [facility] CLIA [id number] [address] [place] [address] [place] MCHC (RBC) [Mass/Vol] 33.1 g/dL Normal 30.5-36.0 [facility] Comment on above: Order Comment: Speci men Type: BLOOD SPECIMEN Order[facility]: [facility] Address: [address] [place] [address] Performed By: #### 5 8410-2 #### [facility] CLIA [id number] [address] [place] [address] [place] MCV (RBC) [Entitic vol] 91.4 fL Normal 80.0-100.0 [facility] Comment on above: Order Comment: Speci men Type: BLOOD SPECIMEN Ordering Facility: [facility] Address: [address] [place] [address] Performed By: #### 5 8410-2 #### [facility] CLIA [id number] [address] [place] [address] [place] Platelet mean volume (Bld) [Entitic vol] 12.0 fL Normal 9.0-12.7 [facility] Comment on above: Order Comment: Speci men Type: BLOOD SPECIMEN Ordering Facility: [facility] Address: [address] [place] [address] Performed By: #### 5 8410-2 #### [facility] CLIA [id number] [address] [place], [place] [address] [place] Platelets (Bld) [#/Vol] 201 10*3/uL Normal 150-400 [facility] Comment on above: Order Comment: Speci men Type: BLOOD SPECIMEN Ordering Facility: [facility] Address: [address] [place] [address] Performed By: #### 5 8410-2 #### [facility] CLIA [id number] [address] [place] [address] [place] RBC (Bld) [#/Vol] 5.09 10*6/uL Normal 4.20-6.00 [facility] Comment on above: Order Comment: Speci men Type: BLOOD SPECIMEN Ordering Facility: [facility] Address: [address] [place], [place] [address] Performed By: #### 5 8410-2 #### [facility] CLIA [id number] [address] [place] [address] [facility] WBC (Bld) [#/Vol] 9.44 10*3/uL Normal 3.70-11.00 [facility] Comment on above: Order Comment: Speci men Type: BLOOD SPECIMEN Ordering [facility]: [facility] Address: [address] [place], [place] [address] [id number] Performed By: #### 5 8410-2 #### [facility] CLIA [id number] [address] [place] [address] [facility] CNOVon 01-15-2025 CNOV Office Visit (FAMAAR) WILLY SANDERS ([id number]) 1955 M Date Time Provider Department 01/15/25 9:10 AM LIZETTE AVILA FAMAAR During your visit today, we recorded the following information about you: Pulse Blood pressure Weight Height 57/minute 128/82 98.4 kg 1.702 m Lizette Avila MD 01/15/2025 9:37 AM Addendum This note was created using NoteWriter. Subjective Willy Lafleur Marilyn is a 69 year old male. HPI Follow Up (Willy is here today with concerns of foot swelling and numbness for the past month. Also concerned about his memory feels more forgetful. Forgetting where he put things. Bilateral feet numbness for 2 years getting worse. Back pain chronic aching. Hypertension controlled. Stable on current medications. No headache or palpitations. No lightheadedness. GERD on PPI symptoms controlled , no dysphagia, no weight loss, no blood in the stool. Stable to continue. BPH on flomax. PAST MEDICAL HISTORY Diagnosis Date GERD without esophagitis 10/17/2022 Hypertension PAST SURGICAL HISTORY Procedure Laterality Date EXCISION OF A GRANULOMA SUTURE 1999 throat Social History Tobacco Use Smoking status: [...] difficulty urinating, dysuria, enuresis and flank pain. Skin: Negative for color change and pallor. Allergic/Immunologic : Negative for environmental allergies, food allergies and immunocompromised state. Neurological: Negative for dizziness, facial asymmetry, light-headedness and headaches. Hematological: Negative for adenopathy. Does not bruise/bleed easily. Psychiatric/Behavior al: Positive for decreased concentration. Objective BP 128/82 Pulse (!) 57 Ht 170.2 cm (5' 7) Wt 98.4 kg (217 lb) SpO2 98% BMI 33.99 kg/m? Physical Exam Vitals and nursing note [...] present. Musculoskeletal: General: Normal range of motion. Cervical back: Normal range of motion and neck supple. Lymphadenopathy: Cervical: No cervical adenopathy. Skin: Findings: No bruising, lesion or rash. Neurological: Mental Status: He is alert and oriented to person, place, and time. Mental status is at baseline. Cranial Nerves: No cranial nerve deficit. Motor: No weakness. Gait: Gait normal. Psychiatric: Mood and Affect: Mood normal. Behavior: Behavior normal. Assessment and Plan ASSESSMENT/PLAN: 1. Essential hypertension - ICD9: 401.9, ICD10: I10 (primary diagnosis) - Controlled - Recommend home blood pressure monitoring, to bring results to next visit - Encouraged sodium restriction, DASH or Mediterranean diet - Recommend regular aerobic exercise - COMPLETE BLOOD COUNT - COMPREHENSIVE METABOLIC PANEL - THYROID STIMULATING HORMONE - AMLODIPINE 10 MG TABLET 2. Combined hyperlipidemia - ICD9: 272.2, ICD10: E78.2 - Controlled - Counseled on healthy diet and regular exercise - LIPID PANEL BASIC 3. Benign prostatic hyperplasia with lower urinary tract symptoms, symptom details unspecified - ICD9: 600.01, ICD10: N40.1 - PROSTATE-SPECIFIC ANTIGEN DIAGNOSTIC 4. Vitamin D deficiency - ICD9: 268.9, ICD10: E55.9 - VITAMIN D 25 HYDROXY - VITAMIN B12 5. Obesity, Class I, BMI 30-34.9 - ICD9: 278.00, ICD10: E66.811 Obesity Body mass index is 33.99 kg/m?. Last Wt 01/15/25 : 98.4 kg (217 lb) 5% weight loss = 206 lbs, 10% weight loss = 195 lbs The patient is asked to make an att (more content not included)... Normal [facility] Comprehensive metabolic 2000 panelon 01-15-2025 Albumin [Mass/Vol] 4.3 g/dL Normal 3.2-5.0 [facility] Comment on above: Order Comment: Speci men Type: BLOOD SPECIMENOrdering Facility: [facility] Address: [address] [place] [address] Performed By: #### 2 132-9, 93173-9, 3 ####[facility] LABORATORYCLIA [id number] [address] [place]#### 49920-7 ####[facility] LABORATORYCLIA [id number] [place] [address] [facility] [place] LABCLIA [id number] [place] [address] [place] ALP [Catalytic activity/Vol] 65 U/L Normal 45-117 [facility] Comment on above: Order Comment: Speci men Type: BLOOD SPECIMENOrdering Facility: [facility] Address: [address] [place] [address] Performed By: #### 2 132-9, 67249-1, 3016-01 ####[facility] LABORATORYCLIA [id number] [address] [place]#### 35647-3 ####[facility] LABORATORYCLIA [id number] [place] [address] [facility] LABCLIA [id number] [place] [address] [place] ALT [Catalytic activity/Vol] 108 U/L High 13-61 [facility] Comment on above: Order Comment: Speci men Type: BLOOD SPECIMENOrdering Facility: [facility] Address: [address] [place] [address] Result Comment: Resu lts may be falsely depressed after the administration of Sulfasalazine and/or Sulfapyridine. Performed By: #### 2 132-9, 04121-0, 3016-01 ####[facility] LABORATORYCLIA [id number] [address] [place]#### 69674-0 ####[facility] LABORATORYCLIA [id number] [address] [place] LABCLIA [id number] [place] [address] [place] [facility] Anion gap [Moles/Vol] 10 mmol/L Normal 5-16 [facility] Comment on above: Order Comment: Speci men Type: BLOOD SPECIMENOrdering Facility: [facility] Address: [address] [place] [address] Performed By: #### 2 132-9, 48417-6, 6-3 ####[facility] LABORATORYCLIA [id number] [address]#### 40147-6 ####[facility] LABORATORYCLIA [id number] [address] LABCLIA [id number] [address] STATES [facility] AST [Catalytic activity/Vol] Normal [facility] Comment on above: Order Comment: Speci men Type: BLOOD SPECIMENOrdering Facility: [facility] Address: [address] [place] [address] Result Comment: Unab le to assay due to interference from hemolysis. Suggest reorder as clinically indicated. Results may be falsely depressed after the administration of Sulfasalazine and/or Sulfapyridine. Performed By: #### 2 132-9, 97004-9, 6-3 ####[facility] LABORATORYCLIA [id number] [address] [place]#### 70554-7 ####[facility] LABORATORYCLIA [id number] [address] [place] LABCLIA [id number] [place] [address] [place] Bilirubin [Mass/Vol] 0.7 mg/dL Normal 0.2-1.0 [facility] Comment on above: Order Comment: Speci men Type: BLOOD SPECIMENOrdering Facility: [facility] Address: [address], [place] [address] Performed By: #### 2 132-9, 18630-1, 3016-3 ####[facility] LABORATORYCLIA [id number] [address] OF [place]#### 17413-9 ####[facility] LABORATORYCLIA [id number] [place] [address] [place] [facility] [place] LABCLIA [id number] [place] [address] [place] [facility] Calcium [Mass/Vol] 10.0 mg/dL Normal 8.5-10.5 [facility] Comment on above: Order Comment: Speci men Type: BLOOD SPECIMENOrdering Facility: [facility] Address: [address] [place], [place] [address] [address] Performed By: #### 2 132-9, 68537-0, 6-3 ####[facility] LABORATORYCLIA [id number] [place] [address] [place]#### 14260-5 ####[facility] LABORATORYCLIA [id number] [place] [address] [place] [facility] [place] LABCLIA [id number] [address] STATES [facility] Chloride [Moles/Vol] 105 mmol/L Normal 98-107 [facility] Comment on above: Order Comment: Speci men Type: BLOOD SPECIMENOrdering Facility: [facility] Address: [address] [facility] [place]JENNA [place] [address] Performed By: #### 2 132-9, 32458-5, 3016-3 ####[facility] LABORATORYCLIA [id number] [place] [address] [place]#### 05649-0 ####[facility] LABORATORYCLIA [id number] [place] [address] [place] [facility] [place] LABCLIA [id number] [place] [address] [place] CO2 [Moles/Vol] 24 mmol/L Normal 21-32 [facility] Comment on above: Order Comment: Speci men Type: BLOOD SPECIMENOrdering Facility: [facility] Address: [address] [place] [address] Performed By: #### 2 132-9, 06934-5, 3016-3 ####[facility] LABORATORYCLIA [id number] [address]#### 30400-5 ####[facility] LABORATORYCLIA [id number] [address] LABCLIA [id number] [address] Creatinine [Mass/Vol] 0.84 mg/dL Normal 0.50-1.40 [facility] Comment on above: Order Comment: Speci men Type: BLOOD SPECIMENOrdering Facility: [facility] Address: [address] [place] [address] Result Comment: Janie ents receiving either N-Acetylcysteine (NAC) or Metamizole prior to venipuncture, may have falsely depressed results. Performed By: #### 2 132-9, 62710-2, 6-3 ####[facility] LABORATORYCLIA [id number] [address]#### 18595-6 ####[facility] LABORATORYCLIA [id number] [address] LABCLIA [id number] [address] Creatinine and Glomerular filtration rate.predicted panel (S/P/Bld) 94 mL/min/1.73m??? Normal >=60 [facility] Comment on above: Order Comment: Speci men Type: BLOOD SPECIMENOrdering Facility: [facility] Address: [address] [place] [address] Result Comment: Jodie mated Glomerular Filtration Rate [...] reflect actual GFR. Performed By: #### 2 132-9, 81948-8, 3016-3 ####[facility] LABORATORYCLIA [id number] [address]#### 95062-0 ####[facility] LABORATORYCLIA [id number] [place] [address] [facility] LABCLIA [id number] [place] [address] [facility] Glucose [Mass/Vol] 99 mg/dL Normal 70-100 [facility] Comment on above: Order Comment: Speci men Type: BLOOD SPECIMENOrdering Facility: [facility] Address: [address] [place] [address] Result Comment: The [place] Diabetes Association (ADA) provides guidance for cutoff [...] Standards of Medical Care in Diabetes 2016, [place] Diabetes Association. Diabetes Care. 2016.39(Suppl 1). Results may be falsely elevated after the administration of Sulfapyridine. Results may be falsely depressed after the administration of Sulfasalazine. Performed By: #### 2 132-9, 03993-5, 6-3 ####[facility] LABORATORYCLIA [id number] [place] [address] [facility]#### 77607-0 ####[facility] LABORATORYCLIA [id number] [place] [address] [facility] [place] LABCLIA [id number] [place] [address] [place] Potassium [Moles/Vol] Normal [facility] Comment on above: Order Comment: Speci men Type: BLOOD SPECIMENOrdering Facility: [facility] Address: [address] [place] [address] Result Comment: Unab le to assay due to interference from hemolysis. Suggest reorder as clinically indicated. Performed By: #### 2 132-9, 72205-7, 3016-3 ####[facility] LABORATORYCLIA [id number] [address] OF [facility]#### 64947-7 ####[facility] LABORATORYCLIA [id number] [address] LABCLIA [id number] [address] [place] Protein [Mass/Vol] 8.2 g/dL Normal 6.0-8.5 [facility] Comment on above: Order Comment: Speci men Type: BLOOD SPECIMENOrdering Facility: [facility] Address: [address] [place] [address] Performed By: #### 2 132-9, 24742-9, 6-3 ####[facility] LABORATORYCLIA [id number] [address] [place]#### 05456-9 ####[facility] LABORATORYCLIA [id number] [place] [address] [facility] [place] LABCLIA [id number] [address] Sodium [Moles/Vol] 139 mmol/L Normal 136-145 [facility] Comment on above: Order Comment: Speci men Type: BLOOD SPECIMENOrdering Facility: [facility] Address: [address] [place] [address] Performed By: #### 2 132-9, 20806-0, 6-3 ####[facility] LABORATORYCLIA [id number] [place] [address] [place]#### 15710-7 ####[facility] LABORATORYCLIA [id number] [place] [address] [facility] [place] LABCLIA [id number] [place] [address] [place] Urea nitrogen [Mass/Vol] 10 mg/dL Normal 7-26 [facility] Comment on above: Order Comment: Speci men Type: BLOOD SPECIMENOrdering Facility: [facility] Address: [address] [place] [address] Performed By: #### 2 132-9, 57600-0, 6-3 ####[facility] LABORATORYCLIA [id number] [place] [address] [place]#### 73055-1 ####[facility] LABORATORYCLIA [id number] [address] [place] LABCLIA [id number] [place] [address] [place] HbA1c (Bld)on 01-15-2025 Average glucose Estimated from glycated hemoglobin (Bld) [Mass/Vol] 114 mg/dL Normal [facility] Comment on above: Order Comment: Speci men Type: BLOOD SPECIMENOrdering Facility: [facility] Address: [address] [place] [address] Result Comment: eAG: (Estimated average glucose) is a calculated value from HgbA1c and is pharmaceutical specialty representative of the average blood glucose level in the last 2-3 month period. Performed By: #### 5 5454-3 ####[facility] LABCLIA [id number] [facility] [id number] [place] [address] [place] HbA1c (Bld) [Mass fraction] 5.6 % Normal 4.3-5.6 [facility] Comment on above: Order Comment: Speci men Type: BLOOD SPECIMENOrdering Facility: [facility] Address: [address] [place] [address] Result Comment: [place] Diabetes Association guidelines indicate that patients with HgbA1c in the range 5.7-6.4% are at increased risk for development of diabetes, and intervention by lifestyle modification may be beneficial. HgbA1c greater or equal to 6.5% is considered diagnostic of diabetes. Performed By: #### 5 5454-3 ####[facility] LABCLIA [id number] [facility] [id number] [address] [place] Lipid 1996 panelon 5 Cholesterol [Mass/Vol] 211 mg/dL High 0-199 [facility] Comment on above: Order Comment: Rere hawkins Type: BLOOD SPECIMENOrdering Facility: [facility] Address: [address] [place] [address] Result Comment: <200 mg/dL, Desirable 200-239 mg/dL, Borderline high >239 mg/dL, High Performed By: #### 2 132-9, 87960-7, 3016-3 ####[facility] LABORATORYCLIA [id number] [address] [place]#### 69773-2 ####[facility] LABORATORYCLIA [id number] [address] LABCLIA [id number] [place] [address] [place] Cholesterol in HDL [Mass/Vol] 46 mg/dL Normal >40 [facility] Comment on above: Order Comment: Rere hawkins Type: BLOOD SPECIMENOrdering Facility: [facility] Address: [address] [place] [address] Result Comment: 40-5 9 mg/dL, Acceptable >59 mg/dL, High: Negative risk factor for coronary heart disease <40 mg/dL, Low: Positive risk factor for coronary heart disease Performed By: #### 2 132-9, 56568-2, 3016-3 ####[facility] LABORATORYCLIA [id number] [place] [address] [place]#### 50898-8 ####[facility] LABORATORYCLIA [id number] [place] [address] [place] AMERICAMERCY [place] LABCLIA [id number] [place] [address] [place] Cholesterol in LDL [Mass/Vol] 138 mg/dL High 0-129 [facility] Comment on above: Order Comment: Speci men Type: BLOOD SPECIMENOrdering Facility: [facility] Address: [address] [place] [address] Result Comment: <100 mg/dL, Optimal 100-129 mg/dL, Near optimal/above optimal 130-159 mg/dL, Borderline high 160-189 mg/dL, High >189 mg/dL, Very high Secondary prevention optimal LDL Cholesterol levels are recommended to be < 70 mg/dL Performed By: #### 2 132-9, 88364-3, 3016-3 ####[facility] LABORATORYCLIA [id number] [place] [address] [place]#### 88389-3 ####[facility] LABORATORYCLIA [id number] [place] [address] [place] AMERICAMERCY [place] LABCLIA [id number] [place] [address] [place] Cholesterol in LDL/Cholesterol in HDL [Mass ratio] 3.00 {ratio} High <2.54 [facility] Comment on above: Order Comment: Speci men Type: BLOOD SPECIMENOrdering Facility: [facility] Address: [address] [place] [address] Result Comment: Dustin murray: 1. National Cholesterol Education Program ATP III Guideline At-A-Glance Quick Desk Reference: National Heart, Lung, and Blood Bland. National Institutes of Health. 2001: NIH Publication No. 01-3305. 2. An International Atherosclerosis Society position paper: global recommendations for the management of dyslipidemia: executive summary, Atherosclerosis. 2014: 232(2):410-413. Performed By: #### 2 132-9, , 3016-01 ####[facility] LABORATORYCLIA [id number] [place] [address] [place]#### 78164-9 ####[facility] LABORATORYCLIA [id number] [place] [address] [place] [facility] [place] LABCLIA [id number] [place] [address] [place] Cholesterol in VLDL [Mass/Vol] 27 mg/dL Normal <30 [facility] Comment on above: Order Comment: Speci men Type: BLOOD SPECIMENOrdering Facility: [facility] Address: [address] [place] [address] Performed By: #### 2 132-9, , 3016-01 ####[facility] LABORATORYCLIA [id number] [place] [address] [facility] OF [place]#### 09280-8 ####[facility] LABORATORYCLIA [id number] [place] [address] [place] [facility] [place] LABCLIA [id number] [place] [address] [place] Cholesterol non HDL [Mass/Vol] 165 mg/dL High <130 [facility] Comment on above: Order Comment: Speci men Type: BLOOD SPECIMENOrdering Facility: [facility] Address: [address] [place] [address] Result Comment: <130 mg/dL, Optimal 130-159 mg/dL, Near optimal/above optimal 160-189 mg/dL, Borderline high 190-219 mg/dL, High >219 mg/dL, Very high Secondary prevention optimal non HDL Cholesterol levels are recommended to be <100 mg/dL Performed By: #### 2 132-9, 97808-2, 3016-01 ####[facility] LABORATORYCLIA [id number] [place] [address] [place]#### 01983-7 ####[facility] LABORATORYCLIA [id number] [place] [address] [facility] [place] LABCLIA [id number] [place], [place] [address] [place] [address] Cholesterol.total/Maryanne sterol in HDL [Mass ratio] 4.59 {ratio} Normal <5.10 [facility] Comment on above: Order Comment: Speci men Type: BLOOD SPECIMENOrdering Facility: [facility] Address: [address] [place] [address] Performed By: #### 2 132-9, 85564-3, 6-3 ####[facility] LABORATORYCLIA [id number] [address] [place]#### 07792-7 ####[facility] LABORATORYCLIA [id number] [address] LABCLIA [id number] [place], [place] [address] [place] [address] OF [facility] FASTING TIME 12 hrs Normal [facility] Comment on above: Order Comment: Speci men Type: BLOOD SPECIMENOrdering Facility: [facility] Address: [address] [place] [address] Performed By: #### 2 132-9, 95273-0, 6-3 ####[facility] LABORATORYCLIA [id number] [address] OF [place]#### 58930-1 ####[facility] LABORATORYCLIA [id number] [address] [place] LABCLIA [id number] [place], [place] [address] [place] [address] OF [place] Triglyceride [Mass/Vol] 135 mg/dL Normal 30-149 [facility] Comment on above: Order Comment: Speci men Type: BLOOD SPECIMENOrdering Facility: [facility] Address: [address] [facility] [address] Result Comment: <150 mg/dL, Normal 150-199 mg/dL, Borderline high 200-499 mg/dL, High >499 mg/dL, Very high Patients receiving either N-Acetylcysteine (NAC) or Metamizole prior to venipuncture, may have falsely depressed results. Performed By: #### 2 132-9, 22477-4, 3016-01 ####[facility] LABORATORYCLIA [id number] [address] [place]#### 44623-7 ####[facility] LABORATORYCLIA [id number] [address] STATES OF [facility] [place] LABCLIA [id number] [place] [address] [facility] PSA SerPl-mCncon 01-15-2025 Prostate specific Ag [Mass/Vol] 1.60 ng/mL Normal <2.60 [facility] Comment on above: Order Comment: Speci men Type: BLOOD SPECIMENOrdering Facility: [facility] Address: [address] [place] [address] Result Comment: This is a new methodology for this marker. Tumor markers obtained from different assay methods cannot be used interchangeably. Expect results of this assay to run lower than the previous assay. It is recommended to re-baseline patients when changing to a new methodology. Performed By: #### 2 857-1, 1989-01 ####[facility] LABORATORYCLIA [id number] [address] STATES OF [facility] TSH SerPl-aCncon 01-15-2025 TSH Qn 1.892 m[IU]/L Normal 0.358-3.740 [facility] Comment on above: Order Comment: Speci men Type: BLOOD SPECIMENOrdering Facility: [facility] Address: [address] [place] [address] Result Comment: 3rd generation ultra sensitive TSH. Performed By: #### 2 132-9, 25711-3, 3016-01 ####[facility] LABORATORYCLIA [id number] [address] [place]#### 90084-1 ####[facility] LABORATORYCLIA [id number] [address] AMERICAMERCY [place] LABCLIA [id number] [place] [address] [facility] Vit B12 SerPl-mCncon 025 Cobalamin (Vitamin B12) [Mass/Vol] 512 pg/mL Normal 193-986 [facility] Comment on above: Order Comment: Speci men Type: BLOOD SPECIMENOrdering Facility: [facility] Address: [facility] [place] [address] Performed By: #### 2 132-9, 02905-0, 3016-3 ####[facility] LABORATORYCLIA [id number] [address]#### 99854-3 ####[facility] LABORATORYCLIA [id number] [address] LABCLIA [id number] [place] [address] [facility] XR LUMBAR 3V AP/LAT/L5-S1on 01-15-2025 XR LUMBAR 3V AP/LAT/L5-S1 * * *Final Report* * * DATE OF EXAM: Jan 15 2025 11:51AM RMX [id number] - XR LUMBAR 3V AP/LAT/L5-S1 / PROCEDURE REASON: multiple diagnoses * * * * Physician Interpretation * * * * XR LUMBAR 3V AP/LAT/L5-S1 Ordering Physician: LIZETTE AVILA 01/15/2025 11:51 AM LUMBAR SPINE Clinical Statement: Back pain FINDINGS: 3 images of the lumbar spine were obtained. There were no prior studies available for comparison. There are 5 lumbar-type vertebral bodies. There are no acute compression fractures. There is good alignment anteriorly and posteriorly. There is moderate multilevel degenerative disc disease. There is moderate to severe degenerative change at L5-S1. The posterior elements are intact. The aorta is atherosclerotic. IMPRESSION: Moderate diffuse degenerative disc disease. There is moderate to severe degenerative change at L5-S1. Honing Machine Try Out Setter: JAMAL Transcribe Date/Time: Jan 18 2025 12:48P Dictated by : BENJIE RUFF MD This examination was interpreted and the report reviewed and electronically signed by: BENJIE RUFF MD on Jan 18 2025 12:49PM EST [id number] CN [facility] CNOValfredo 10-01-2024 [facility] Office Visit (FAMAAR) WILLY SANDERS ([id number]) 1955 M Date Time Provider Department 10/01/24 4:10 PM LIZETTE AVILA FAMAAR During your visit today, we recorded the following information about you: Pulse Blood pressure Weight Height 85/minute 138/69 95.3 kg 1.702 m Lizette Avila MD 10/01/2024 4:21 PM Signed This note was created using Nextinitriter. Subjective Willy Sanders is a 69 year old male. [facility] F/U (Willy is here today following Isela ER visit 09/19. Was found to be hypertensive. Was given medication and sent home. States he is not having anymore dizziness since starting the medication. Started low dose norvasc 2.5 mg will up the dose. Improved dizziness. GERD on PPI symptoms controlled , no dysphagia, no weight loss, no blood in the stool. Stable to continue. 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 Allergic/Immunologic : Negative for environmental allergies, food allergies and immunocompromised state. Neurological: Positive for dizziness. Negative for facial asymmetry, light-headedness and headaches. Hematological: Negative for adenopathy. Does not bruise/bleed easily. Objective BP 155/85 (BP Site: Left Arm, BP Position: Sitting, BP Cuff Size: Large Adult) Pulse 85 Ht 170.2 cm (5' 7) Wt 95.3 kg (210 lb 3.2 oz) SpO2 95% BMI 32.92 kg/m? Physical Exam Vitals and nursing note reviewed. Constitutional: General: He is not in acute distress. Appearance: Normal appearance. He is not ill-appearing. HENT: Head: Normocephalic [...] present. Musculoskeletal: General: Normal range of motion. Cervical back: Normal range of motion and [...] Behavior normal. Assessment and Plan ASSESSMENT/PLAN: 1. Essential hypertension - ICD9: 401.9, ICD10: I10 (primary diagnosis) - Controlled - Continue current medications - Recommend home blood pressure monitoring, to bring results to next visit - Encouraged sodium restriction, DASH or Mediterranean diet - Recommend regular aerobic exercise - AMLODIPINE 5 MG TABLET - COMPLETE BLOOD COUNT - COMPREHENSIVE METABOLIC PANEL - LIPID PANEL BASIC - THYROID STIMULATING HORMONE 2. 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 GERD without esophagitis - ICD9: 530.81, ICD10: K21.9 - Discussed lifestyle modifications including losing weight, limiting caffeine, no meals three hours before sleep, and head of bed elevation 4. Benign prostatic hyperplasia with lower urinary tract symptoms, symptom details unspecified - ICD9: 600.01, ICD10: N40.1 - PROSTATE-SPECIFIC ANTIGEN DIAGNOSTIC 5. Vitamin D deficien (more content not included)... [facility] 12 Lead EKGon 09-19-2024 12 Lead EKG [facility] Cardiovascular Services [address] [place] [address] 12 Lead EKG 09/19/24 0513 MR#: [id number] Acct: [id number] Name: WILLY SANDERS II Rep #: [id number] : 1955 69 From: Magen Owusu MD Attending Dr: Status: DEP ER Ordering Dr: Benny Dunham MD Date: 09/19/24 Location: ED Sex: M C Admitted: Test Reason : CP Blood Pressure : / mmHG Vent. Rate : 071 BPM Atrial Rate : 071 BPM P-R Int : 168 ms QRS Dur : 090 ms QT Int : 376 ms P-R-T Axes : 028 -18 043 degrees QTc Int : 408 ms Normal sinus rhythm Normal ECG Confirmed by DARIO RMAON, MAGEN ([id number]), assistant film editor JUAN RAMON BARNES ([id number]) on 09/20/2024 9:53:21 AM Referred By: TERESA Confirmed By:MAGEN OWUSU MD 09/20/24 0953 Date Magen Owusu MD CC: Dr. Lizette Avila MD; Dr. Benny Dunham MD Signed [facility] Basic Metabolic Profile (BMP )on 09-19-2024 BUN/CRE 11.5 RATIO Normal - [facility] Comment on above: Order Comment: 1 Y Performed By: #### L 100.0100, L500.2500, L501.5425 #### [facility] [address] [place], [address] CA,Total 9.4 mg/dL Normal 8.5-10.1 [facility] Comment on above: Order Comment: 1 Y Performed By: #### L 100.0100, L500.2500, L501.5425 #### [facility] [address] [place], [address] Chloride [Moles/Vol] 109 mmol/L High 98-107 [facility] Comment on above: Order Comment: 1 Y Performed By: #### L 100.0100, L500.2500, L501.5425 #### [facility] [address] [place], [address] CO2 [Moles/Vol] 25.0 mmol/L Normal 21.0-32.0 [facility] Comment on above: Order Comment: 1 Y Performed By: #### L 100.0100, L500.2500, L501.5425 #### [facility] [address] [place], [address] Creatinine [Mass/Vol] 0.96 mg/dL Normal 0.70-1.30 [facility] Comment on above: Order Comment: 1 Y Result Comment: The validity of the calculated GFR GFRAA in patients over 70 years has not been determined. Clinical correlation is essential. Performed By: #### L 100.0100, L500.2500, L501.5425 #### [facility] [address] [place], [address] ECRCL 74.70 ml/min Normal [facility] Comment on above: Order Comment: 1 Y Performed By: #### L 100.0100, L500.2500, L501.5425 #### [facility] [address] [place], [address] EST GFR - AA 100 mL/min Normal >60 [facility] Comment on above: Order Comment: 1 Y Result Comment: Afri can Niuean GFR Calc Performed By: #### L 100.0100, L500.2500, L501.5425 #### [facility] [address] [place], [address] GAP 5 Normal 5-15 [facility] Comment on above: Order Comment: 1 Y Performed By: #### L 100.0100, L500.2500, L501.5425 #### [facility] [address] [place], [address] GFR/1.73 sq M.predicted among non-blacks MDRD (S/P/Bld) [Vol rate/Area] 83 mL/min/{1.73_m2} Normal >60 [facility] Comment on above: Order Comment: 1 Y Result Comment: Non- GFR Calc Performed By: #### L 100.0100, L500.2500, L501.5425 #### [facility] [address] [place], [address] Glucose [Mass/Vol] 110 mg/dL High 74-106 [facility] Comment on above: Order Comment: 1 Y Result Comment: Fast ing Glucose result from 100 to 125 mg/dL suggests IMPAIRED HOMEOSTASIS per A.D.A. criteria. Performed By: #### L 100.0100, L500.2500, L501.5425 #### [facility] [address] [place], [address] Potassium [Moles/Vol] 3.9 mmol/L Normal 3.5-5.1 [facility] Comment on above: Order Comment: 1 Y Result Comment: Mode rate Hemolysis, Result may be falsely increased. Performed By: #### L 100.0100, L500.2500, L501.5425 #### [facility] [address] [place], [address] Sodium [Moles/Vol] 139 mmol/L Normal 136-145 [facility] Comment on above: Order Comment: 1 Y Performed By: #### L 100.0100, L500.2500, L501.5425 #### [facility] [address] [place], [address] Urea nitrogen [Mass/Vol] 11 mg/dL Normal 7-18 [facility] Comment on above: Order Comment: 1 Y Performed By: #### L 100.0100, L500.2500, L501.5425 #### [facility] [address] [place], [address] Brain/Head without Contrasto n 09-19-2024 Brain/Head without Contrast [facility] Imaging Services [address] [place] [address] Brain/Head without Contrast MR#: [id number] Acct: [id number] Name: WILLY SANDERS II Rep #: [id number] : 1955 M 69 From: Heather Mcmanus MD PCP: Dr. Lizette Avila MD Status: [facility] Study: Brain/Head without Contrast Date of Exam: 08/28 03/20 Exam# [id number] Ordering Dr: Benny Dunham MD [id number] STUDY: CT BRAIN WITHOUT CONTRAST REASON FOR EXAM: Male, 69 years old patient with hypertension. RADIATION DOSAGE (If Supplied By Facility): CTDIvol = ( 44.99 ) mGy, DLP = ( 812.98 ) mGycm TECHNIQUE: Transaxial CT imaging of the brain was performed without administration of intravenous contrast material. Individualized dose optimization techniques were used for this CT. COMPARISON: No relevant priors. FINDINGS: Normal soft tissue structures. Normal calvarium. Normal size ventricles and extra-axial spaces for the patient''s age. Normal white matter tracts of the cerebral hemispheres. Normal basal ganglia and thalami. Normal brainstem. Normal cerebellum. There is no intracranial hemorrhage. There are no findings of an acute ischemic infarction. There is mild mucosal thickening in the right maxillary sinus. CT/Brain/Head without Contrast IMPRESSION: No CT evidence of acute intracranial hemorrhage. Electronically Signed: Heather Mcmanus MD at 7:47 EDT , CC: Dr. Lizette Avila MD; Dr. Benny Dunham MD Honing Machine Try Out Setter: Signed Normal [facility] CBC W/Diff, Automatedon 10- Absolute Lymph 4.44 X10 3/uL Normal 0.83-4.51 [facility] Comment on above: Performed By: #### L 100.0100, L500.2500, L501.5425 #### [facility] [address] [facility] [place], [address] Absolute Neut 4.6 X10 3/uL Normal 2.0-7.7 [facility] Comment on above: Performed By: #### L 100.0100, L500.2500, L501.5425 #### [facility] [address] [place], [address] Basophils/100 WBC (Bld) 0.5 % Normal 0-1 [facility] Comment on above: Performed By: #### L 100.0100, L500.2500, L501.5425 #### [facility] [address] [place], [address] Eosinophils/100 WBC (Bld) 2.9 % Normal 0-5 [facility] Comment on above: Performed By: #### L 100.0100, L500.2500, L501.5425 #### [facility] [address] [place], [address] Erythrocyte distribution width (RBC) [Ratio] 12.8 % Normal 11.6-14.6 [facility] Comment on above: Performed By: #### L 100.0100, L500.2500, L501.5425 #### [facility] [address] [place], [address] Hematocrit (Bld) [Volume fraction] 44.2 % Normal 40-54 [facility] Comment on above: Performed By: #### L 100.0100, L500.2500, L501.5425 #### [facility] [address] [place], [address] Hemoglobin (Bld) [Mass/Vol] 14.4 g/dL Normal 13.0-16.5 [facility] Comment on above: Performed By: #### L 100.0100, L500.2500, L501.5425 #### [facility] [address] [place], [address] IG% 0.300 Normal 0.0-0.9 [facility] Comment on above: Result Comment: IG% - Immature Granulocytes (promyelocytes, myelocytes and metamyelocytes) > 1% indicates that a LEFT SHIFT is Present. Performed By: #### L 100.0100, L500.2500, L501.5425 #### [facility] [address] [place], [address] Lymphocytes/100 WBC (Bld) 42.6 % High 19-41 [facility] Comment on above: Performed By: #### L 100.0100, L500.2500, L501.5425 #### [facility] [address] [place], [address] MCH (RBC) [Entitic mass] 29.8 pg Normal 27.0-32.0 [facility] Comment on above: Performed By: #### L 100.0100, L500.2500, L501.5425 #### [facility] [address] [place], [address] MCHC (RBC) [Mass/Vol] 32.6 g/dL Normal 32-36 [facility] Comment on above: Performed By: #### L 100.0100, L500.2500, L501.5425 #### [facility] [address] [place], [address] MCV (RBC) [Entitic vol] 91.3 fL Normal 80-94 [facility] Comment on above: Performed By: #### L 100.0100, L500.2500, L501.5425 #### [facility] [address] [place], [address] Monocytes/100 WBC (Bld) 9.7 % Normal 0-10 [facility] Comment on above: Performed By: #### L 100.0100, L500.2500, L501.5425 #### [facility] [address] [place], [address] Neutrophils/100 WBC (Bld) 44.0 % Low 47-70 [facility] Comment on above: Performed By: #### L 100.0100, L500.2500, L501.5425 #### [facility] [address] [place], [address] Nucleated RBC (Bld) [#/Vol] 0 10*3/uL Normal 0-5 [facility] Comment on above: Performed By: #### L 100.0100, L500.2500, L501.5425 #### [facility] [address] [place], [address] Platelet mean volume (Bld) [Entitic vol] 11.0 fL Normal 6.2-12.0 [facility] Comment on above: Performed By: #### L 100.0100, L500.2500, L501.5425 #### [facility] [address] [place], [address] Platelets (Bld) [#/Vol] 240 10*3/uL Normal 150-450 [facility] Comment on above: Performed By: #### L 100.0100, L500.2500, L501.5425 #### [facility] [address] [place], [address] RBC (Bld) [#/Vol] 4.84 10*6/uL Normal 4.6-6.2 [facility] Comment on above: Performed By: #### L 100.0100, L500.2500, L501.5425 #### [facility] [address] [place], [address] RDW SD 42.8 fl Normal 35.1-43.9 [facility] Comment on above: Performed By: #### L 100.0100, L500.2500, L501.5425 #### [facility] [address] [place], [address] WBC (Bld) [#/Vol] 10.4 10*3/uL Normal 4.4-11.0 [facility] Comment on above: Performed By: #### L 100.0100, L500.2500, L501.5425 #### [facility] [address] [place], [address] Chest 1 View (Portable)on Chest 1 View (Portable) [facility] Imaging Services [address] [place] [address] Chest 1 View (Portable) MR#: [id number] Acct: [id number] Name: WILLY SANDERS SIRENA Rep #: [id number] : 1955 M 69 From: Heather Mcmanus MD PCP: Dr. Lizette Avila MD Status: REG ER Study: Chest 1 View (Portable) Date of Exam: 09/19/24 Exam# [id number] Ordering Dr: Benny Dunham MD [id number] STUDY: X-RAY CHEST REASON FOR EXAM: Male, 69 years old patient with chest pain. TECHNIQUE: Single AP portable view of the chest. COMPARISON: Prior comparable comparison studies are not available for review at this time. FINDINGS: Cardiac monitoring leads are present. There are prominent bronchovascular markings in both lungs. There is no demonstrated pleural abnormality. There is borderline cardiomegaly. Normal mediastinum and tunde. There is prominence of the pulmonary hilar arteries with peripheral pulmonary vascular congestion. Normal visualized aortic arch and descending thoracic aorta. Normal visualized thoracic spine. Normal visualized ribs, clavicles, and shoulders. There is no demonstrated abnormality of the visualized soft tissue structures of the upper abdomen. RAD/Chest 1 View (Portable) IMPRESSION: Borderline cardiomegaly and mild pulmonary vascular congestion. Electronically Signed: Heather Mcmanus MD at 7:59 EDT Reading Location ID and State: [address] [place] [address] , Service support , CC: Dr. Lizette Avila MD; Dr. Benny Dunham MD Honing Machine Try Out Setter: Signed Normal [facility] Emergency Department Summary on 09-19-2024 Emergency Department Summary [facility] Medical Records Department [address] [place] [address] Emergency Department Summary 09/19/24 MR#: [id number] Acct: [id number] Name: WILLY SANDERS II Rep #: [id number] : 1955 69 From: Benny Dunham MD PCP: Dr. Lizette Avila MD Status:REG ER Location: ED HPI History of Present Illness Chief Complaint: Chest Pain Narrative Narrative: 69-year-old male past medical history of hypertension, states that he is not currently on medication for high blood pressure because 10 years ago they could not find a medication that would treat his hypertension effectively without dropping his blood pressure too low. He states that since Monday evening, approximately 2 days ago, he started having chest pressure in the middle of his chest. It is nonradiating. It never completely goes away, but it subsides. He denies any fevers or chills, no nausea or vomiting associated with this, no shortness of breath or sweating. Today, he had a 15- minute episode of what he called confusion, which she states can happen when his blood pressure is too high. He states that his chest pressure only lasts a few minutes at a time, then will subside. No leg swelling, no other symptoms. [facility] Medical History Loss of hearing Wears dentures Wears partial dentures Wears glasses Arthritis Back pain Gastric reflux Non-smoker Hypertension Home Medications ???Medication ???Instructions ???Recorded ???Last Taken ???Type pantoprazole 20 mg tablet,delayed 20 mg PO QHS 10/16/23 Unknown History release (Protonix) amlodipine 2.5 mg tablet 2.5 mg PO DAILY #30 tabs 09/19/24 Unknown Rx tamsulosin 0.4 mg capsule 0.4 mg PO QHS 09/19/24 Unknown History Allergy/AdvReac Type Severity Reaction Status Date / Time No Known Allergies Allergy Verified 09/19/24 05:13 Family History Mother Cancer Surgical History Hx of colonoscopy Social History Smoking Status: Never smoker alcohol intake: never substance use type: does not use ROS ROS ED ROS Narrative Constitutional: No fever, no chills. HEENT: No sore throat. No neck pain. No loss of vision. No rhinorrhea. Cardiovascular: Positive chest pressure/chest pain. No palpitations. No pedal edema. Respiratory: No cough, no shortness of breath. Abdominal: No abdominal pain. No nausea. No vomiting. Genitourinary: No dysuria. No hematuria. Musculoskeletal: No myalgias. No arthralgias. Neurologic: No headaches. No dizziness. No lightheadedness. 15-minute episode of confusion yesterday. Skin: No rash. No change in color. Psychiatric: No depression. No anxiety. EXAM Physical Exam Narrative Exam Narrative: Afebrile. Vital signs noted. Nontoxic-appearing. Regular rate and rhythm. Lungs clear to auscultation bilaterally. Abdomen soft nontender with normal active bowel sounds. Neurological examination nonfocal nonlateralizing. Awake, alert, oriented. No pedal edema. Const Vital Signs: 09/19/24 05:13 09/19/24 05:27 09/19/24 05:30 Temperature 98.0 F Temperature Source Oral Pulse Rate 72 68 67 Respiratory Rate 15 17 23 H Blood Pressure 191/107 H 171/89 H Blood Pressure Mean 135 111 Pulse Ox 96 95 96 Oxygen Delivery Method Room Air 09/19/24 05:41 09/19/24 05:45 09/19/24 06:00 Temperature Temperature Source Pulse Rate 64 Respiratory Rate 18 Blood Pressure 158/93 H 129/102 H Blood Pressure Mean 111 110 Pulse Ox 96 Oxygen Delivery Method Room Air 09/19/24 06:10 09/19/24 06:16 09/19/24 06:17 Temperature Temperature Source Pulse Rate 63 62 Respiratory Rate 22 H 17 Blood Pressure 169/87 H Blood Pressure Mean 112 Pulse Ox 97 Oxygen Delivery Method 09/19/24 06:30 09/19/24 06:45 09/19/24 07:48 Temperature Temperature Source Pulse Rate 61 71 58 L Respiratory Rate 18 23 H 16 Blood Pressure 154/77 H 154/71 H 160/89 H Blood Pressure Mean 100 98 112 Pulse Ox 94 95 94 Oxygen Delivery Method Room Air 09/19/24 08:27 Temperature Temperature Source Pulse Rate 62 Respiratory Rate 16 Blood Pressure 160/104 H Blood Pressure Mean 122 Pulse Ox 95 Oxygen Delivery Method MDM MDM MDM Narrative Medical decision making narrative: Initially upon arrival, his blood pressure was 191/107. Upon my history and physical, his blood pressure did come down to 156 systolic. Differential diagnosis includes but not limited to hypertensive urgency versus ACS versus pulmonary embolism versus pneumothorax. I have low suspicion for pulmonary embolism because is no (more content not included)... Normal [facility] L501.4020on 09-19-2024 TROPONIN-I HS 6 pg/mL Normal 3.0-78.0 [facility] Comment on above: Result Comment: Plecarie se Note: New Test Units and Gender Specific Reference Ranges. For more information see Policy Stat Procedure [place] High Sensitivity Troponin (TNIH) and attachments. Performed By: #### L 501.4020 #### [facility] [address] [place], [address] L501.5425on 09-19-2024 TROPONIN-I HS 5 pg/mL Normal 3.0-78.0 [facility] Comment on above: Order Comment: 1 Y Result Comment: Plecarie [place] Note: New Test Units and Gender Specific Reference Ranges. For more information see Policy Stat Procedure [place] High Sensitivity Troponin (TNIH) and attachments. Performed By: #### L 100.0100, L500.2500, L501.5425 #### [facility] [address] [place], [address] XR Finger - right AP and Lat eral and obliqueon 07-18-2024 IMPRESSION: Moderate osteoarthritic change first carpometacarpal joint. Honing Machine Try Out Setter: JAMAL Transcribe Date/Time: Jul 18 2024 6:22A Dictated by : BARBARA PALUMBO MD This examination was interpreted and the report reviewed and electronically signed by: BARBARA PALUMBO MD on Jul 18 2024 6:23AM [facility] * * *Final Report* * * [...] interphalangeal joint. No chondrocalcinosis or erosive arthropathy. [facility] RAD[facility] Provider, [facility] - 07/18/2024 * * *Final Report* * [...] IMPRESSION: Moderate osteoarthritic change first carpometacarpal joint. Honing Machine Try Out Setter: PSCB Transcribe Date/Time: Jul 18 2024 6:22A Dictated by : BARBARA PALUMBO MD This examination was interpreted and the report reviewed and electronically signed by: BARBARA PALUMBO MD on Jul 18 2024 6:23AM EST [facility] XR Finger - right AP and Lat eral and obliqueOrdered By: [facility] Provider on 07-18-2024 [facility] Small Joint Arthro/Inj: R th umb CMCon 07-17-2024 Delma Cheek MD 07/17/2024 11:49 AM Small Joint Arthro/Inj: R thumb [facility] Informed Consent Consent Obtained: Verbal [place] Protocol A moment to CARE was completed. [...] usual sterile fashion. Medications: 3 mg betamethasone acetate-betamethason e sodium phosphate 6 mg/mL Anesthetics: 0.5 mL lidocaine (PF) 10 mg/mL (1 %) Outcome: tolerated well, no immediate complications Post-injection instructions were reviewed with the patient and the patient voiced understanding of these instructions. SIGN OUT All instruments, equipment, possible retained foreign bodies accounted for. [facility] 25-hydroxyvitamin D3 [Mass/V ol]on 07-15-2024 Interpretation and review of laboratory results Abnormal [facility] CBC panel Auto (Bld)Ordered By: Lynne Wheeler on 07-15-2024 Erythrocyte distribution width (RBC) [Ratio] 12.9 % 11.5 - 15.0 % [facility] Hematocrit (Bld) [Volume fraction] 45.0 % 39.0 - 51.0 % [facility] Hemoglobin (Bld) [Mass/Vol] 14.8 g/dL 13.0 - 17.0 g/dL [facility] Interpretation and review of laboratory results Normal [facility] MCH (RBC) [Entitic mass] 29.5 pg 26.0 - 34.0 pg [facility] MCHC (RBC) [Mass/Vol] 32.9 g/dL 30.5 - 36.0 g/dL [facility] MCV (RBC) [Entitic vol] 89.6 fL 80.0 - 100.0 fL [facility] Platelet mean volume (Bld) [Entitic vol] 10.3 fL 9.0 - 12.7 fL [facility] Platelets (Bld) [#/Vol] 241 10*3/uL [facility] RBC (Bld) [#/Vol] 5.02 10*6/uL 4.20 - 6.0 0 m/uL [facility] WBC (Bld) [#/Vol] 9.11 10*3/uL [facility] Comprehensive metabolic 2000 panelon 07-15-2024 Albumin [Mass/Vol] 4.1 g/dL 3.2 - 5.0 g/dL [facility] ALP [Catalytic activity/Vol] 64 U/L 45 - 117 U/L [facility] ALT [Catalytic activity/Vol] 71 U/L High 13 - 61 U/L [facility] Comment on above: Results may be false ly depressed after the administration of Sulfasalazine and/or Sulfapyridine. Anion gap [Moles/Vol] 8 mmol/L 5 - 16 mmol/L [facility] AST [Catalytic activity/Vol] 61 U/L High 8 - 34 U/L [facility] Comment on above: Results may be false ly depressed after the administration of Sulfasalazine and/or Sulfapyridine. Bilirubin [Mass/Vol] 0.5 mg/dL 0.2 - 1 .0 mg/dL [facility] Calcium [Mass/Vol] 10.1 mg/dL 8.5 - 10. 5 mg/dL [facility] Chloride [Moles/Vol] 107 mmol/L 98 - 10 7 mmol/L [facility] CO2 [Moles/Vol] 24 mmol/L 21 - 32 mmol/L [facility] Creatinine [Mass/Vol] 0.85 mg/dL 0.50 - 1.40 mg/dL [facility] Comment on above: Patients receiving e ither N-Acetylcysteine (NAC) or Metamizole prior to venipuncture, may have falsely depressed results. GFR/1.73 sq M.predicted among non-blacks MDRD (S/P/Bld) [Vol rate/Area] 94 mL/min/{1.73_m2} - PINF [facility] Comment on above: Estimated Glomerular Filtration [...] [Mass/Vol] 100 mg/dL 70 - 100 mg/dL [facility] Comment on above: The [place] Diabete s Association (ADA) provides guidance for [...] Standards of Medical Care in Diabetes 2016, [place] Diabetes Association. Diabetes Care. 2016.39(Suppl 1). Results may be falsely elevated after the administration of Sulfapyridine. Results may be falsely depressed after the administration of Sulfasalazine. Potassium [Moles/Vol] 4.2 mmol/L 3.5 - 5.1 mmol/L [facility] Protein [Mass/Vol] 8.0 g/dL 6.0 - 8.5 g/dL [facility] Sodium [Moles/Vol] 139 mmol/L 136 - 145 mmol/L [facility] Urea nitrogen [Mass/Vol] 11 mg/dL 7 - 26 mg/dL [facility] Lipid 1996 panelon 4 Cholesterol [Mass/Vol] 202 mg/dL High 0 - 1 99 mg/dL [facility] Comment on above: <200 mg/dL, Desirabl e 200-239 mg/dL, Borderline high >239 mg/dL, High Cholesterol in HDL [Mass/Vol] 45 mg/dL 40 - PINF mg/dL [facility] Comment on above: 40-59 mg/dL, Accepta ble >59 mg/dL, High: Negative risk factor for coronary heart disease <40 mg/dL, Low: Positive risk factor for coronary heart disease Cholesterol in LDL [Mass/Vol] 116 mg/dL 0 - 129 mg/dL [facility] Comment on above: <100 mg/dL, Optimal 100-129 mg/dL, Near optimal/above optimal 130-159 mg/dL, Borderline high 160-189 mg/dL, High >189 mg/dL, Very high Secondary prevention optimal LDL Cholesterol levels are recommended to be < 70 mg/dL Cholesterol in LDL/Cholesterol in HDL [Mass ratio] 2.58 {ratio} High NINF - 2.54 [facility] Comment on above: Reference: 1. National Cholesterol Education Program ATP III Guideline At-A-Glance Quick Desk Reference: National Heart, Lung, and Blood [place]land. National Institutes of Health. 2001: NIH Publication No. 01-3305. 2. An International Atherosclerosis Society position paper: global recommendations for the management of dyslipidemia: executive summary, Atherosclerosis. 2014: 232(2):410-413. Cholesterol in VLDL [Mass/Vol] 41 mg/dL High NINF - 30 mg/dL [facility] Cholesterol non HDL [Mass/Vol] 157 mg/dL High NINF - 130 mg/dL [facility] Comment on above: <130 mg/dL, Optimal 130-159 mg/dL, Near optimal/above optimal 160-189 mg/dL, Borderline high 190-219 mg/dL, High >219 mg/dL, Very high Secondary prevention optimal non HDL Cholesterol levels are recommended to be <100 mg/dL Cholesterol.total/Maryanne sterol in HDL [Mass ratio] 4.49 {ratio} NINF - 5.10 [facility] Fasting Time 12 hrs [facility] Triglyceride [Mass/Vol] 203 mg/dL High 30 - 149 mg/dL [facility] Comment on above: <150 mg/dL, Normal 150-199 mg/dL, Borderline high 200-499 mg/dL, High >499 mg/dL, Very high Patients receiving either N-Acetylcysteine (NAC) or Metamizole prior to venipuncture, may have falsely depressed results. No Panel Informationon 07-15 [facility] Interpretation and review of laboratory results Abnormal [facility] PROSTATE-SPECIFIC ANTIGEN DI AGNOSTICon 07-15-2024 Prostate specific Ag [Mass/Vol] 1.48 ng/mL NINF - 2.60 ng/mL [facility] Comment on above: This is a new method ology for this marker. Tumor markers obtained from different assay methods cannot be used interchangeably. Expect results of this assay to run lower than the previous assay. It is recommended to re-baseline patients when changing to a new methodology. Prostate specific Ag [Mass/V ol]on 07-15-2024 Interpretation and review of laboratory results Normal [facility] THYROID STIMULATING HORMONEo n 07-15-2024 TSH Qn 1.672 m[IU]/L [facility] Comment on above: 3rd generation ultra sensitive TSH. TSH Qnon 07-15-2024 Interpretation and review of laboratory results Normal [facility] VITAMIN D 25 HYDROXYon 07-15 25-hydroxyvitamin D3 [Mass/Vol] 18.8 ng/mL Low 30.0 - 100.0 ng/mL [facility] Comment on above: Deficiency Less than 20 ng/mL Insufficiency 20 - Less than 30 ng/mL Sufficiency 30 - 100 ng/mL XR Finger - right AP and Lat eral and obliqueon 07-15-2024 Radiology Study observation (narrative) Radha mantilla [facility] US Head and neck soft tissue on 03-19-2024 IMPRESSION: Prominent lymph nodes in the right and left neck areas of concern as detailed above which are probably reactive based on sonographic features. Clinical follow-up is recommended. Honing Machine Try Out Setter: JAMAL Transcribe Date/Time: Mar 19 2024 1:09P Dictated by : ETHEL ROJAS MD This examination was interpreted and the report reviewed and electronically signed by: ETHEL ROJAS MD on Mar 19 2024 1:14PM [facility] * * *Final Report* * * [...] Doppler. The surrounding soft tissues are unremarkable. [facility] RADIOLOGY Provider, [facility] - 03/19/2024 * * *Final Report* * * DATE OF EXAM: Mar 19 2024 12:18PM RMU 1052 - US HEAD/NECK SOFT TISSUE OTHER [...] on sonographic features. Clinical follow-up is recommended. Honing Machine Try Out Setter: JAMAL Transcribe Date/Time: Mar 19 2024 1:09P Dictated by : ETHEL ROJAS MD This examination was interpreted and the report reviewed and electronically signed by: ETHEL ROJAS MD on Mar 19 2024 1:14PM EST [facility] Radiology Study observation (narrative) [facility] US Head and neck soft tissue Ordered By: [facility] Provider on 03-19-2024 [facility] Colonoscopy Reporton 023 Colonoscopy Report [facility] Medical Records Department [address] [place] [id number] Colonoscopy Report MR#: [id number] Acct: [id number] Name: WILLY SANDERS II Rep #: [id number] : 1955 68 From: Javier Portillo MD PCP: ARTI BROOKS Status:[facility] Patient Name: Willy Sanders Procedure Date: 11/07/2023 7:56 AM Date of : 1955 Age: 68 Procedure: Colonoscopy Indications: Follow-up of colitis Providers: Javier Portillo MD Medicines: Propofol per Anesthesia Patient Profile: This is a 68 year old male. Refer to note in patient chart for documentation of history and physical. Last Colonoscopy: several years ago. Complications: No immediate complications. Procedure: Pre-Anesthesia Assessment: - Prior to the procedure, a History and Physical was performed, and patient medications and allergies were reviewed. The patient's tolerance of previous anesthesia was also reviewed. The risks and benefits of the procedure and the sedation options and risks were discussed with the patient. All questions were answered, and informed consent was obtained. Prior Anticoagulants: The patient has taken no anticoagulant or antiplatelet agents. After reviewing the risks and benefits, the patient was deemed in satisfactory condition to undergo the procedure. After I obtained informed consent, the scope was passed under direct vision. Throughout the procedure, the patient's blood pressure, pulse, and oxygen saturations were monitored continuously. The Colonoscope was introduced through the anus and advanced to the terminal ileum, with identification of the appendiceal orifice and IC valve. The colonoscopy was performed without difficulty. The patient tolerated the procedure well. The quality of the bowel preparation was good. Anatomical landmarks were photographed. Scope In: 8:03:13 AM Scope Withdrawal Time 0 hours 6 minutes 3 seconds Scope Out: 8:12:52 AM Total Procedure Duration Time 0 hours 9 minutes 39 seconds Findings: The entire examined colon appeared normal on direct and retroflexion views. Impression: - The entire examined colon is normal on direct and retroflexion views. - No specimens collected. Recommendation: - Discharge patient to home. - Resume previous diet. - Continue present medications. - Repeat colonoscopy is not recommended due to current age (66 years or older) for screening purposes. Procedure Code(s): --- Professional --- 36820, Colonoscopy, flexible; diagnostic, including collection of specimen(s) by brushing or washing, when performed (separate procedure) Diagnosis Code(s): --- Professional --- K52.9, Noninfective gastroenteritis and colitis, unspecified CPT copyright 2021 [employer]. All rights reserved. The codes documented in this report are preliminary and upon data coder operator review may be revised to meet current compliance requirements. Javier Portillo MD 11/07/2023 8:19:41 AM This report has been signed electronically. Number of Addenda: 0 Note Initiated On: 11/07/2023 7:56 AM 11/07/23 0820 Date Javier Portillo MD Cosigner Signature: Date (if indicated) CC: ARTI BROOKS; Dr. Javier Portillo MD Date Dictated: 11/07/23 0756 Date Transcribed: Honing Machine Try Out Setter: SARAH Signed Normal [facility] Surgery Visit Reporton 10-16 Surgery Visit Report [facility] [address] [place] [address] OFFICE VISIT Date of Service: 10/16/23 MR#: [id number] Acct: [id number] Name: WILLY SANDERS SIRENA Rep #: [id number] : 1955 Provider: Dr. Javier medeiros MD Age/Sex: 68/M Location: [facility] Status: Signed Intake Vital Signs 09/02/23 22:25 10/16/23 13:20 Height 5 ft 7 in 5 ft 7 in Weight: 204 lb BMI 31.9 BP 162/77 H Blood Pressure Location Rt brachial Position Sitting Respiration 17 Pulse 69 Pulse Source Monitor Temp 97.8 F Temp Source Temporal Pulse Oximetry (%) 96 Oxygen Delivery Method room air Intake Visit Reasons: COLONOSCOPY Chief Complaint: colonoscopy Is patient in pain?: No Allergies No Known Allergies Allergy (Verified 10/16/23 13:21) Medications pantoprazole 20 mg tablet,delayed release (Protonix) 20 mg PO DAILY 10/16/23 [History Confirmed 10/16/23] PFSH Family History (Updated 10/16/23 @ 13:19 by Lisseth Eason) Mother Cancer Social History (Updated 10/16/23 @ 13:20 by Lisseth Eason) Smoking Status: Never smoker alcohol intake: never substance use type: does not use HPI HPI HPI: Patient is a 68-year-old male here for follow-up after ER visit. He was in the emergency room in early August and was diagnosed with right-sided colitis. He was given antibiotics. He says that it took about 4 weeks to finally go away but he is feeling better now with no current complaints. He does have family history of colon cancer and his last colonoscopy was 8 years ago. He denies any blood in his stool. ROS General General: No weight change, appetite, fatigue, colon cancer, breast cancer or weakness HEENT HEENT: No difficulty swallowing, eye injury, eye surgery, swollen glands or hoarseness Endo Endocrine: No thyroid disease, diabetes mellitus, thyroid cancer, Hair loss, heat intolerance or cold intolerance Skin Skin: No rash or changing moles Musc Musculoskeletal: Yes back problems and arthritis; No rheumatoid arthritis, gout or joint pain Cardio Cardiovascular: No murmur, pacemaker, heart disease, atrial fibrillation, high blood pressure, heart attack, heart stent, palpitations, shortness of breat with exertion or chest pain Psych Psychiatric: No depression, anxiety or hearing voices Resp Respiratory: No shortness of breath, No sleep apnea, No cough, No COPD, No asthma, No emphysema and No wheezing Gastro Gastrointestinal: No abdominal pain, No nausea or vomiting, No diarrhea, No constipation, No blood in stool, Yes acid reflux, Yes hemorrhoids, No ulcers, No gallbladder problem and No black,tarry stools Binu Hematologic: No blood thinners, No blood disorders, No bleeding, No anemia and No blood clots Neuro Neurologic: No system reviewed and no additional complaints, except as documented, No as per HPI, No abnormal gait, No abnormal hearing, No abnormal movements, No abnormal speech, No behavioral changes, No burning sensations, No confusion, No convulsions, No disequilibrium, No dizziness, No localized weakness, No frequent falls, No headache(s), No lack of coordination, No loss of vision, No memory loss, No numbness, No other visual disturbances, No radicular pain, No restless legs, No sensory deficit, No syncope, No tingling, No tremor(s), No weakness and No other Exam Const General: cooperative Orientation: alert and oriented x3 HENOR Head: normal to inspection Neck Neck: normal visual inspection and full ROM Chest Chest palpation inspection: normal inspection of the chest Resp Effort Inspection: normal respiratory effort Auscultation: clear to auscultation bilaterally Cardio Rate: regular rate Rhythm: regular rhythm GI Inspection: non-distended Palpation: soft and nontender Skin General: no rashes or lesions noted Neuro General: patient alert and patient oriented x3 Extrem General: full ROM Psych Appearance: grossly normal Mental Status: mental status grossly normal Assessment and Plan Assessment and Plan (1) History of colitis: Status: Acute Plan: The patient had colitis in early August and he is sent here for follow-up colonoscopy. His last colonoscopy was 8 years ago. I explained endoscopy in detail to the patient. I explained the risks including but not limited to stroke or heart attack with anesthesia, perforation of the GI tract, bleeding, infection. I explained that any of these could necessitate further emergency surgery. The patient understands and all questions were answered sufficiently. The patient wishes to proceed with procedure. Javier Portillo MD Pager: [facility] [address] [place] [address], [address] [place] [address] Office: Order (more content not included)... Normal [facility] Absolute lymphocyte countOrd ered By: Mohamud Chung on 09-02-2023 Lymphocytes Auto (Unsp spec) [#/Vol] 1.81 10*3/uL 0.83-4.51 [facility] Basophil percentageOrdered B y: Mohamud Chung on 09-02-2023 Basophil percentage 0-5 SEEN /hpf 0-5 [facility] Basophils/100 WBC (Bld) 0.4 % 0-1 [facility] Bilirubin [Mass/Vol] 0.50 mg/dL 0.20-1.00 [facility] Comment on above: For patients on eltr ombopag therapy, use of Dimension [place] TBIL is not recommended. Chloride [Moles/Vol] 106 mmol/L 98-107 [facility] Eosinophils/100 WBC (Bld) 0.2 % 0-5 [facility] Glucose [Mass/Vol] 101 mg/dL 74-106 [facility] Comment on above: Fasting Glucose resu lt from 100 to 125 mg/dL suggests IMPAIRED HOMEOSTASIS per A.D.A. criteria. Neutrophils (Bld) [#/Vol] 11.0 10*3/uL 2.0-7.7 [facility] Neutrophils/100 WBC (Bld) 79.1 % 47-70 [facility] Potassium [Moles/Vol] 3.6 mmol/L 3.5-5.1 [facility] Protein [Mass/Vol] 7.6 g/dL 6.4-8.2 [facility] Sodium [Moles/Vol] 135 mmol/L 136-145 [facility] WBC (Bld) [#/Vol] 13.9 10*3/uL 4.4-11.0 [facility] Bilirubin Test strip Ql (U)O rdered By: Mohamud Chung on 09-02-2023 Bilirubin Ql (U) Negative Negative [facility] Blood erythrocytes count (nu mber/volume)Ordered By: Mohamud Chung on 09-02-2023 RBC (Bld) [#/Vol] 4.98 10*6/uL 4.6-6.2 [facility] Blood hemoglobin measurement (mass/volume)Ordered By: Mohamud Chung on 09-02-2023 Hemoglobin (Bld) [Mass/Vol] 14.8 g/dL 13.0-16.5 [facility] Blood lymphocytes/100 leukoc ytesOrdered By: Mohamud Chung on 09-02-2023 Lymphocytes/100 WBC (Bld) 13.0 % 19-41 [facility] Blood monocytes/100 leukocyt esOrdered By: Mohamud Chung on 09-02-2023 Monocytes/100 WBC (Bld) 6.9 % 0-10 [facility] Blood platelet mean volumeOr dered By: Mohamud Chung on 09-02-2023 Platelet mean volume (Bld) [Entitic vol] 10.5 fL 6.2-12.0 [facility] Determination of erythrocyte mean corpuscular volume (MCV)Ordered By: Mohamud Chung on 09-02-2023 MCV (RBC) [Entitic vol] 91.0 fL 80-94 [facility] Hematocrit Auto (Bld) [Volum e fraction]Ordered By: Mohamud Chung on 09-02-2023 Hematocrit (Bld) [Volume fraction] 45.3 % 40-54 [facility] Ketones Test strip Ql (U)Ord ered By: Mohamud Chung on 09-02-2023 Ketones Ql (U) 15 mg/dl Negative [facility] Laboratory - Chemistry and C hemistry - challengeOrdered By: Mohamud Chung on 09-02-2023 ALP [Catalytic activity/Vol] 59 U/L 45-117 [facility] ALT [Catalytic activity/Vol] 45 U/L 16-61 [facility] CO2 [Moles/Vol] 22.0 mmol/L 21.0-32.0 [facility] Globulin (S) [Mass/Vol] 3.9 g/dL 2.2-4.2 [facility] Lipase [Catalytic activity/Vol] 38 U/L 13-75 [facility] Comment on above: Please note:LIPASE r evised reference range effective 23. New Lipase methodology. Expected to produce lower values than the previous assay method. NEW Reference Range: 13 - 75 U/L Urea nitrogen/Creatinine [Mass ratio] 8.6 mg/mg 10-20 [facility] Laboratory - Hematology and Cell countsOrdered By: Mohamud Chung on 09-02-2023 Erythrocyte distribution width (RBC) [Entitic vol] 42.8 fL 35.1-43.9 [facility] Erythrocyte distribution width (RBC) [Ratio] 12.9 % 11.6-14.6 [facility] Immature granulocytes/100 WBC (Bld) 0.400 % 0.0-0.9 [facility] Comment on above: IG% - Immature Granu locytes (promyelocytes, myelocytes and metamyelocytes) > 1% indicates that a LEFT SHIFT is Present. MCH (RBC) [Entitic mass] 29.7 pg 27.0-32.0 [facility] Nucleated RBC/100 WBC (Bld) [Ratio] 0 % 0-5 [facility] MCHC Auto (RBC) [Mass/Vol]Or dered By: Mohamud Chung on 09-02-2023 MCHC (RBC) [Mass/Vol] 32.7 g/dL 32-36 [facility] Mucus LM Ql (Urine sed)Order ed By: Mohamud Chung on 09-02-2023 Mucus Ql (Urine sed) 0 SEEN /hpf [facility] Nitrite Test strip Ql (U)Ord ered By: Mohamud Chung on 09-02-2023 Nitrite Ql (U) Negative Negative [facility] No Panel InformationOrdered By: Mohamud Chung on 09-02-2023 Estimated Creatinine Clearance Calc 62.95 ml/min [facility] Estimated GFR (MDRD) Amer 90 mL/min >60 [facility] Comment on above: GFR Calc Estimated GFR (MDRD) Non-Af Amer 75 mL/min >60 [facility] Comment on above: Non- GFR Calc Platelets bldOrdered By: Ángel Chung on 09-02-2023 Platelets (Bld) [#/Vol] 226 10*3/uL 150-450 [facility] Protein Test strip Ql (U)Ord ered By: Mohamud Chung on 09-02-2023 Protein Ql (U) 30 mg/dl Negative [facility] Serum or plasma albumin letty urement (mass/volume)Ordered By: Mohamud Chung on 09-02-2023 Albumin [Mass/Vol] 3.7 g/dL 3.2-5.0 [facility] Serum or plasma albumin/glob ulin mass ratioOrdered By: Mohamud Chung on 09-02-2023 Albumin/Globulin [Mass ratio] 0.9 {ratio} 0.9-2.4 [facility] Serum or plasma calcium letty urement (mass/volume)Ordered By: Mohamud Chung on 09-02-2023 Calcium [Mass/Vol] 9.3 mg/dL 8.5-10.1 [facility] Serum or plasma creatinine m easurement (mass/volume)Ordered By: Mohamud Chung on 09-02-2023 Creatinine [Mass/Vol] 1.05 mg/dL 0.70-1.30 [facility] Comment on above: The validity of the calculated GFR & GFRAA in patients over 70 years has not been determined. Clinical correlation is essential. Serum or plasma urea nitroge n measurement (mass/volume)Ordered By: Mohamud Chung on 09-02-2023 Urea nitrogen [Mass/Vol] 9 mg/dL 7-18 [facility] Squamous epithelial cells de tection in urine sediment by light microscopyOrdered By: Mohamud Chung on 09-02-2023 Epithelial cells.squamous LM Ql (Urine sed) 0 SEEN /hpf 0-5 [facility] Thin prep Papanicolaou smear with manual screeningOrdered By: Mohamud Chung on 09-02-2023 Thin prep Papanicolaou smear with manual screening 22 U/L 15-37 [facility] Thin prep Papanicolaou smear with manual screening 7 5-15 [facility] Urine blood detectionOrdered By: Mohamud Chung on 09-02-2023 RBC Ql (U) 150 /ul Negative [facility] RBC Ql (U) 0-5 SEEN /hpf 0-5 [facility] Urine clarityOrdered By: Ángel Chung on 09-02-2023 Clarity (U) Clear Clear [facility] Urine color determinationOrd ered By: Mohamud Chung on 09-02-2023 Color (U) Yellow Yellow [facility] Urine glucose detectionOrder ed By: Mohamud Chung on 09-02-2023 Glucose Ql (U) Normal mg/dl Normal [facility] Urine leukocyte esterase det ection by dipstickOrdered By: Mohamud Chung on 09-02-2023 Leukocyte esterase Test strip Ql (U) 25 /ul Negative [facility] Urine pHOrdered By: Mohamud bower on 09-02-2023 pH (U) 6.0 [pH] 5.0 - 8.0 [facility] Urine sediment bacteria coun t by microscopy (number/high power field)Ordered By: Mohamud Chung on 09-02-2023 Bacteria LM.HPF (Urine sed) [#/Area] RARE /hpf None Seen [facility] Urine specific gravity measu rementOrdered By: Mohamud Chung on 09-02-2023 Specific gravity (U) [Rel density] 1.025 1.002-1.030 [facility] Urobilinogen Auto test strip Ql (U)Ordered By: Mohamud Chung on 09-02-2023 Urobilinogen Ql (U) Normal mg/dl Normal [facility] CVFLURVon 10-31-2022 FLU A PCR Negative Normal Negative [facility] ([place]) Comment on above: Result Comment: Note s [id number] Performed By: #### C VFLURV #### [place] [address] FLU B PCR Negative Normal Negative [facility] ([place]) Comment on above: Result Comment: Note s [id number] Performed By: #### C VFLURV #### [place] [address] [place] [address] RSV PCR Negative Normal Negative [facility] ([place]) Comment on above: Result Comment: Note s [id number] Performed By: #### C VFLURV #### [place] [address] SARS-CoV-2 (COVID-19) RNA SAMMY+probe Ql (Unsp spec) Negative Normal Negative [facility] ([place]) Comment on above: Result Comment: Note s [id number] This test has been authorized by FDA [...] results. Performed By: #### C VFLURV #### [address] [address] LAC 10-31-2022 Lactic Acid Lvl 1.6 mmol/L Normal 0.2-2.0 [facility] ([place]) Comment on above: Performed By: #### L AC #### [address] [address] Lactic Acid Lvl 2.1 mmol/L High 0.2-2.0 [facility] ([place]) Comment on above: Performed By: #### L AC #### [address] [address] .Auto Diffon 10-30-2022 Basophil, Absolute 0.0 10 3/mcL Normal 0.0-0.2 [facility] ([place]) Comment on above: Performed By: #### B MP, TROPHS, GFR #### Ara [address] [address] Basophils/100 WBC (Bld) 0.4 % Normal 0.0-2.5 A [facility] ([place]) Comment on above: Performed By: #### B MP, TROPHS, GFR #### [address] [address] Eosinophil, Absolute 0.2 10 3/mcL Normal 0.0-0.4 [facility] ([place]) Comment on above: Performed By: #### B MP, TROPHS, GFR #### [address] [address] Eosinophils/100 WBC (Bld) 1.8 % Normal 0.0-7.0 [facility] ([place]) Comment on above: Performed By: #### B MP, TROPHS, GFR #### [address] [address] Lymphocyte, Absolute 2.3 10 3/mcL Normal 0.8-3.9 [facility] ([place]) Comment on above: Performed By: #### B MP, TROPHS, GFR #### [address] [address] Lymphocytes/100 WBC (Bld) 18.3 % Normal 10.0-50.0 [facility] ([place]) Comment on above: Performed By: #### B MP, TROPHS, GFR #### [address] [address] Monocyte, Absolute 1.2 10 3/mcL High 0.2-1.0 [facility] ([place]) Comment on above: Performed By: #### B MP, TROPHS, GFR #### [address] [address] Monocytes/100 WBC (Bld) 9.3 % Normal 1.7-13.0 A [facility] ([place]) Comment on above: Performed By: #### B MP, TROPHS, GFR #### [address] [address] Neutrophils/100 WBC (Bld) 70.2 % Normal 37.0-80.0 [facility] ([place]) Comment on above: Performed By: #### B MP, TROPHS, GFR #### [address] [address] .GFRon 10-30-2022 GFR 97 ml/min/1.73sqm Normal [facility] ([place]) Comment on above: Result Comment: GFR Population [...] meters Performed By: #### C VFLURV #### [address] [address] GFR Non- 80 ml/min/1.73sqm Normal [facility] ([place]) Comment on above: Result Comment: GFR Population [...] meters Performed By: #### C VFLURV #### [address] [address] .MDWon 10-30-2022 Monocyte Distribution Width 16.70 Normal 0.00-20.00 [facility] ([place]) Comment on above: Result Comment: For ED adult patients suspected of sepsis, MDW<=20.0 does not rule out sepsis or risk of sepsis Performed By: #### B MP, TROPHS, GFR #### [address] [address] .NEUABSon 10-30-2022 Neutrophil, Absolute 8.9 10 3/mcL High 2.9-6.2 [facility] ([place]) Comment on above: Performed By: #### B MP, TROPHS, GFR #### [address] [address] BMPon 10-30-2022 BUN/Creatinine Ratio 9 ratio Normal 7-27 [facility] ([place]) Comment on above: Performed By: #### C VFLURV #### [address] [address] Calcium [Mass/Vol] 9.3 mg/dL Normal 8.4-10.2 [facility] ([place]) Comment on above: Performed By: #### C VFLURV #### [address] [address] Chloride [Moles/Vol] 102 mmol/L Normal 98-107 [facility] ([place]) Comment on above: Performed By: #### C VFLURV #### [address] [address] CO2 [Moles/Vol] 29 mmol/L Normal 23-31 [facility] ([place]) Comment on above: Performed By: #### C VFLURV #### [address] [address] Creatinine [Mass/Vol] 0.94 mg/dL Normal 0.70-1.30 [facility] ([place]) Comment on above: Performed By: #### C VFLURV #### [address] [address] Electrolyte Balance 9.0 mEq/L Normal 4.0-15.0 [facility] ([place]) Comment on above: Performed By: #### C VFLURV #### [address] [address] Glucose [Mass/Vol] 108 mg/dL Normal 80-115 [facility] ([place]) Comment on above: Performed By: #### C VFLURV #### [address] [address] Potassium [Moles/Vol] 4.0 mmol/L Normal 3.5-5.1 [facility] ([place]) Comment on above: Performed By: #### C VFLURV #### [address] [address] Sodium [Moles/Vol] 140 mmol/L Normal 136-145 [facility] ([place]) Comment on above: Performed By: #### C VFLURV #### [address] [address] Urea nitrogen [Mass/Vol] 8 mg/dL Normal 7-18 [facility] ([place]) Comment on above: Performed By: #### C VFLURV #### [address] [address] CBCon 10-30-2022 Erythrocyte distribution width (RBC) [Ratio] 13.4 % Normal 11.5-14.5 [facility] ([place]) Comment on above: Performed By: #### B MP, TROPHS, GFR #### [address] [address] Hematocrit (Bld) [Volume fraction] 44.3 % Normal 42.0-52.0 [facility] ([place]) Comment on above: Performed By: #### B MP, TROPHS, GFR #### [address] [address] Hgb 15.0 G/dL Normal 14.0-18.0 [facility] ([place]) Comment on above: Performed By: #### B MP, TROPHS, GFR #### [address] [address] MCH (RBC) [Entitic mass] 30.1 pg Normal 27.0-31.2 [facility] ([place]) Comment on above: Performed By: #### B MP, TROPHS, GFR #### [address] [address] MCHC 33.8 G/dL Normal 31.8-35.4 [facility] ([place]) Comment on above: Performed By: #### B MP, TROPHS, GFR #### [address] [address] MCV (RBC) [Entitic vol] 89.0 fL Normal 80.0-94.0 A [facility] ([place]) Comment on above: Performed By: #### B MP, TROPHS, GFR #### [address] [address] Platelet 223 10 3/mcL Normal 130-400 [facility] ([place]) Comment on above: Performed By: #### B MP, TROPHS, GFR #### [address] [address] Platelet mean volume (Bld) [Entitic vol] 8.5 fL Normal 7.4-10.4 [facility] ([place]) Comment on above: Performed By: #### B MP, TROPHS, GFR #### [address] [address] RBC 4.98 10 6/mcL Normal 4.04-6.13 [facility] ([place]) Comment on above: Performed By: #### B MP, TROPHS, GFR #### [address] [address] WBC 12.7 10 3/mcL High 4.6-10.8 [facility] ([place]) Comment on above: Performed By: #### B MP, TROPHS, GFR #### [address] [address] [address] HEAD OR BRAIN W/O CONTRAS Ton [...] 10/30/2022 7:47:48 PM Ordering Provider: FAN Lindsay [facility] ([place]) LABORATORYOrdered By: Allyssa chen on 10-30-2022 Lactate [...] Comment on above: Result [place] [id number] FLUBV RNA SAMMY+probe Ql (Resp) Negative 3 (10/30/22 9:11 PM) Invalid Interpretation Code Negative AH Auto Viro/Sero SS Comment on above: [place] [id number] RSV PCR Negative 4 (10/30/22 9:11 PM) Invalid Interpretation Code Negative AH Auto Viro/Sero SS Comment on above: Result Comment: [place] [id number] SARS-CoV-2 (COVID-19) RNA SAMMY+probe Ql (Resp) Negative 1 (10/30/22 9:11 PM) Invalid Interpretation Code Negative AH Auto Viro/Sero SS Comment on above: Result Comment: [place] [id number] LABORATORYOrdered By: SYSTEM SYSTEM on 10-30-2022 Troponin [...] 10-30 Culture Urine No growth to date [facility] Microscopic examination of blood, culture Culture has been received in lab and is no growth to date. Routine cultures are held for 5 days. [facility] TROPHSon 10-30-2022 Troponin I High Sensitivity <2.50 Normal 0.00-54.00 [facility] ([place]) Comment on above: Result Comment: If t he High Sensitive Troponin result is below the 99th percentile value (<45 ng/L) at the first blood draw, at least two additional blood samples should be drawn before results are interpreted as negative for AMI. Performed By: #### T ROP #### [place] [address] Troponin I High Sensitivity 5.8 ng/L Normal 0.0-76.2 [facility] ([place]) Comment on above: Performed By: #### C VFLURV #### [place] [address] Troponin I High Sensitivity 7.0 ng/L Normal 0.0-76.2 [facility] ([place]) Comment on above: Performed By: #### C VFLURV #### [place] [id number] UAon 10-30-2022 Color (U) Yellow Normal [facility] ([place] Comment on above: Performed By: #### U A #### [place] [address] Glucose (U) [Mass/Vol] Negative Normal Negative [facility] ([place]) Comment on above: Performed By: #### U A #### [place] [id number] Ketones Ql (U) Trace Normal Neg-Trace [facility] ([place]) Comment on above: Performed By: #### U A #### [place] [id number] UA Appear Clear Normal Clear [facility] ([place] Comment on above: Performed By: #### U A #### [address] [address] UA Blood Negative Normal Neg-Trace [facility] ([place] Comment on above: Performed By: #### U A #### [address] [address] UA Leuk Est Negative Normal Negative [facility] ([place]) Comment on above: Performed By: #### U A #### [place] [id number] UA Nitrite Negative Normal Negative [facility] ([place] Comment on above: Performed By: #### U A #### [place] [address] UA pH 7.0 Normal 5.0 - 8.0 [facility] ([place]) Comment on above: Performed By: #### U A #### [place] [id number] UA Protein Negative Normal Negative [facility] ([place] Comment on above: Performed By: #### U A #### [place] [id number] UA Spec Grav 1.020 Normal 1.006-1.029 [facility] ([place]) Comment on above: Performed By: #### U A #### [place] [address] UA Specimen Type Clean Catch Normal [facility] ([place] Comment on above: Performed By: #### U A #### [place] [address] UA Urobilinogen 1.0 E.U./dL Normal 0.2-1.0 [facility] ([place]) Comment on above: Performed By: #### U A #### [place] [address] Urobilinogen (U) [Mass/Vol] Negative Normal Neg-Trace [facility] ([place] Comment on above: Performed By: #### U A #### [place] [address] XR CHEST 1 VIEWon 10-30-2022 XR CHEST [...] 10/30/2022 9:30:03 AM Ordering Provider: SO MEJÍA Normal [facility] ([place] STREP (POC)on 04-29-2022 Perf Loc - POCT Tested at AM Normal [facility]) Comment on above: Result Comment: [place] [address] [place], [place] [address] Group A Streptococcus Antigen (POC) Negative Normal Negative [facility] ([place]) Comment on above: Result Comment: Grou p A streptococcus antigen screen results are not quantitative. Positive results have been reported in asymptomatic carriers of Group A Strep. Test results must be evaluated in conjunction with other clinical data. Performing Instrument - POCT IDNOW3 Normal [facility] ([place]) Vital Signs Date Time Vital Sign Value Performing Clinician Facility 08-12-2025 14:17-0400 Body height 170.2 cm Lizette Avila MD Work Phone: [facility] 08-12-2025 14:17-0400 Body mass index (BMI) [Ratio] 30.46 kg/m2 Lizette Avila MD Work Phone: [facility] 08-12-2025 14:17-0400 Body weight 88.22 kg Lizette Avila MD Work Phone: [facility] 08-12-2025 14:17-0400 Diastolic blood pressure 68 mm[Hg] Lizette Avila MD Work Phone: [facility] 08-12-2025 14:17-0400 Heart rate 76 /min Lizette Avila MD Work Phone: [facility] 08-12-2025 14:17-0400 SaO2% (BldA) [Mass fraction] 98 % Lizette Avila MD Work Phone: [facility] 08-12-2025 14:17-0400 Systolic blood pressure 122 mm[Hg] Lizette Avila MD Work Phone: [facility] 07-07-2025 15:25-0400 Body height 170.2 cm Lizette Avila MD Work Phone: [facility] 07-07-2025 15:25-0400 Body mass index (BMI) [Ratio] 31.11 kg/m2 Lizette Avila MD Work Phone: [facility] 07-07-2025 15:25-0400 Body weight 90.08 kg Lizette Avila MD Work Phone: [facility] 07-07-2025 15:25-0400 Diastolic blood pressure 72 mm[Hg] Lizette Avila MD Work Phone: [facility] 07-07-2025 15:25-0400 Heart rate 58 /min Lizette Avila MD Work Phone: [facility] 07-07-2025 15:25-0400 SaO2% (BldA) [Mass fraction] 96 % Lizette Avila MD Work Phone: [facility] 07-07-2025 15:25-0400 Systolic blood pressure 128 mm[Hg] Lizette Avila MD Work Phone: [facility] 02-25-2025 14:30-0400 Body height 168.3 cm Lizette Avila MD Work Phone: [facility] 02-25-2025 14:30-0400 Body mass index (BMI) [Ratio] 31.56 kg/m2 Lizette Avila MD Work Phone: [facility] 02-25-2025 14:30-0400 Body temperature 98.49 [degF] Lizette Avila MD Work Phone: [facility] 02-25-2025 14:30-0400 Body weight 89.36 kg Lizette Avila MD Work Phone: [facility] 02-25-2025 14:30-0400 Diastolic blood pressure 82 mm[Hg] Lizette Avila MD Work Phone: [facility] 02-25-2025 14:30-0400 Heart rate 81 /min Lizette Avila MD Work Phone: [facility] 02-25-2025 14:30-0400 Respiratory rate 18 /min Lizette Avila MD Work Phone: [facility] 02-25-2025 14:30-0400 SaO2% (BldA) [Mass fraction] 95 % Lizette Avila MD Work Phone: [facility] 02-25-2025 14:30-0400 Systolic blood pressure 118 mm[Hg] Lizette Avila MD Work Phone: [facility] 01-15-2025 09:16-0500 Body height 170.2 cm Lizette Avila MD Work Phone: [facility] 01-15-2025 09:16-0500 Body mass index (BMI) [Ratio] 33.99 kg/m2 Lizette Avila MD Work Phone: [facility] 01-15-2025 09:16-0500 Body weight 98.43 kg Lizette Avila MD Work Phone: [facility] 01-15-2025 09:16-0500 Diastolic blood pressure 82 mm[Hg] Lizette Avila MD Work Phone: [facility] 01-15-2025 09:16-0500 Heart rate 57 /min Lizette Avila MD Work Phone: [facility] 01-15-2025 09:16-0500 SaO2% (BldA) [Mass fraction] 98 % Lizette Avila MD Work Phone: [facility] 01-15-2025 09:16-0500 Systolic blood pressure 128 mm[Hg] Lizette Avila MD Work Phone: [facility] 10-01-2024 16:17-0500 Diastolic blood pressure 69 mm[Hg] Lizette Avila MD Work Phone: [facility] 10-01-2024 16:17-0500 Systolic blood pressure 138 mm[Hg] Lizette Avila MD Work Phone: [facility] 10-01-2024 16:00-0500 Body height 170.2 cm Lizette Avila MD Work Phone: [facility] 10-01-2024 16:00-0500 Body mass index (BMI) [Ratio] 32.92 kg/m2 Lizette Avila MD Work Phone: [facility] 10-01-2024 16:00-0500 Body weight 95.35 kg Lizette Avila MD Work Phone: [facility] 10-01-2024 16:00-0500 Heart rate 85 /min Lizette Avila MD Work Phone: [facility] 10-01-2024 16:00-0500 SaO2% (BldA) [Mass fraction] 95 % Lizette Avila MD Work Phone: [facility] 07-17-2024 10:32-0400 Body height 170.2 cm Delma Cheek MD Work Phone: [facility] 07-17-2024 10:32-0400 Body mass index (BMI) [Ratio] 32.26 kg/m2 Delma Cheek MD Work Phone: [facility] 07-17-2024 10:32-0400 Body weight 93.44 kg Delma Cheek MD Work Phone: [facility] 07-17-2024 10:32-0400 Heart rate 78 /min Delma Cheek MD Work Phone: [facility] 07-17-2024 10:32-0400 SaO2% (BldA) [Mass fraction] 98 % Delma Cheek MD Work Phone: [facility] 07-15-2024 09:09-0400 Body height 170.2 cm Lizette Avila MD Work Phone: [facility] 07-15-2024 09:09-0400 Body mass index (BMI) [Ratio] 32.26 kg/m2 Lizette Avila MD Work Phone: [facility] 07-15-2024 09:09-0400 Body weight 93.44 kg Lizette Avila MD Work Phone: [facility] 07-15-2024 09:09-0400 Diastolic blood pressure 70 mm[Hg] Lizette Avila MD Work Phone: [facility] 07-15-2024 09:09-0400 Heart rate 61 /min Lizette Avila MD Work Phone: [facility] 07-15-2024 09:09-0400 SaO2% (BldA) [Mass fraction] 95 % Lizette Avila MD Work Phone: [facility] 07-15-2024 09:09-0400 Systolic blood pressure 135 mm[Hg] Lizette Avila MD Work Phone: [facility] 03-07-2024 09:50-0400 Body height 170.2 cm Evelia Noling AUTOMOTIVE BUYER[employer]OVEL ENGINEER Work Phone: [facility] 03-07-2024 09:50-0400 Body temperature 98.49 [degF] Evelia Noling AUTOMOTIVE BUYER.SHOVEL ENGINEER Work Phone: [facility] 03-07-2024 09:50-0400 Body weight 92.99 kg Evelia Noling AUTOMOTIVE BUYER.SHOVEL ENGINEER Work Phone: [facility] 03-07-2024 09:50-0400 Diastolic blood pressure 86 mm[Hg] Evelia Noling AUTOMOTIVE BUYER.SHOVEL ENGINEER Work Phone: [facility] 03-07-2024 09:50-0400 Heart rate 85 /min Evelia Noling AUTOMOTIVE BUYER.SHOVEL ENGINEER Work Phone: [facility] 03-07-2024 09:50-0400 SaO2% (BldA) [Mass fraction] 98 % Evelia Noling AUTOMOTIVE BUYER.SHOVEL ENGINEER Work Phone: [facility] 03-07-2024 09:50-0400 Systolic blood pressure 124 mm[Hg] Evelia Noling AUTOMOTIVE BUYER.SHOVEL ENGINEER Work Phone: [facility] 11-07-2023 08:32-0500 Body temperature 97.9 [degF] No Primary Care Physician [facility] 11-07-2023 08:32-0500 Diastolic blood pressure 72 mm[Hg] No Primary Care Physician [facility] 11-07-2023 08:32-0500 Heart rate 71 /min No Primary Care Physician [facility] 11-07-2023 08:32-0500 Respiratory rate 16 /min No Primary Care Physician [facility] 11-07-2023 08:32-0500 SaO2% (BldA) [Mass fraction] 97 % No Primary Care Physician [facility] 11-07-2023 08:32-0500 Systolic blood pressure 111 mm[Hg] No Primary Care Physician [facility] 11-07-2023 07:17-0500 Body height 167.64 cm No Primary Care Physician [facility] 11-07-2023 07:17-0500 Body mass index (BMI) [Ratio] 32.8 kg/m2 No Primary Care Physician [facility] 11-07-2023 07:17-0500 Body weight 92.2 kg No Primary Care Physician [facility] 10-16-2023 13:20-0500 Body mass index (BMI) [Ratio] 31.9 kg/m2 No Primary Care Physician [facility] 10-16-2023 13:20-0500 Body temperature 97.8 [degF] No Primary Care Physician [facility] 10-16-2023 13:20-0500 Body weight 92.53 kg No Primary Care Physician [facility] 10-16-2023 13:20-0500 Diastolic blood pressure 77 mm[Hg] No Primary Care Physician [facility] 10-16-2023 13:20-0500 Heart rate 69 /min No Primary Care Physician [facility] 10-16-2023 13:20-0500 Respiratory rate 17 /min No Primary Care Physician [facility] 10-16-2023 13:20-0500 SaO2% (BldA) [Mass fraction] 96 % No Primary Care Physician [facility] 10-16-2023 13:20-0500 Systolic blood pressure 162 mm[Hg] No Primary Care Physician [facility] 09-12-2023 16:11-0400 Body temperature 98.71 [degF] Evelia Noling AUTOMOTIVE BUYER.SHOVEL ENGINEER Work Phone: [facility] 09-12-2023 16:11-0400 Body weight 90.99 kg Evelia Noling AUTOMOTIVE BUYER.SHOVEL ENGINEER Work Phone: [facility] 09-12-2023 16:11-0400 Diastolic blood pressure 90 mm[Hg] Evelia Noling AUTOMOTIVE BUYER.SHOVEL ENGINEER Work Phone: [facility] 09-12-2023 16:11-0400 Heart rate 70 /min Evelia Noling AUTOMOTIVE BUYER.SHOVEL ENGINEER Work Phone: [facility] 09-12-2023 16:11-0400 Respiratory rate 17 /min Evelia Noling AUTOMOTIVE BUYER.SHOVEL ENGINEER Work Phone: [facility] 09-12-2023 16:11-0400 SaO2% (BldA) [Mass fraction] 96 % Evelia Noling AUTOMOTIVE BUYER.SHOVEL ENGINEER Work Phone: [facility] 09-12-2023 16:11-0400 Systolic blood pressure 140 mm[Hg] Evelia Noling AUTOMOTIVE BUYER.SHOVEL ENGINEER Work Phone: [facility] 09-03-2023 02:38-0400 Diastolic blood pressure 79 mm[Hg] No Primary Care Physician [facility] 09-03-2023 02:38-0400 Heart rate 82 /min No Primary Care Physician [facility] 09-03-2023 02:38-0400 Respiratory rate 18 /min No Primary Care Physician [facility] 09-03-2023 02:38-0400 SaO2% (BldA) [Mass fraction] 96 % No Primary Care Physician [facility] 09-03-2023 02:38-0400 Systolic blood pressure 148 mm[Hg] No Primary Care Physician [facility] 09-02-2023 22:25-0400 Body mass index (BMI) [Ratio] 31.6 kg/m2 No Primary Care Physician [facility] 09-02-2023 22:25-0400 Body temperature 97.8 [degF] No Primary Care Physician [facility] 09-02-2023 22:25-0400 Body weight 91.62 kg No Primary Care Physician [facility] 08-17-2023 13:51-0400 Body height 170.2 cm Lizette Avila MD Work Phone: [facility] 08-17-2023 13:51-0400 Body temperature 97.7 [degF] Lizette Avila MD Work Phone: [facility] 08-17-2023 13:51-0400 Body weight 91.08 kg Lizette Avila MD Work Phone: [facility] 08-17-2023 13:51-0400 Diastolic blood pressure 88 mm[Hg] Lizette Avila MD Work Phone: [facility] 08-17-2023 13:51-0400 Heart rate 65 /min Lizette Avila MD Work Phone: [facility] 08-17-2023 13:51-0400 Respiratory rate 20 /min Lizette Avila MD Work Phone: [facility] 08-17-2023 13:51-0400 SaO2% (BldA) [Mass fraction] 96 % Lizette Avila MD Work Phone: [facility] 08-17-2023 13:51-0400 Systolic blood pressure 134 mm[Hg] Lizette Avila MD Work Phone: [facility] 02-14-2023 11:24-0400 Body height 170.2 cm Lizette Avila MD Work Phone: [facility] 02-14-2023 11:24-0400 Body temperature 97 [degF] Lizette Avila MD Work Phone: [facility] 02-14-2023 11:24-0400 Body weight 92.08 kg Lizette Avila MD Work Phone: [facility] 02-14-2023 11:24-0400 Diastolic blood pressure 80 mm[Hg] Lizette Avila MD Work Phone: [facility] 02-14-2023 11:24-0400 Heart rate 67 /min Lizette Avila MD Work Phone: [facility] 02-14-2023 11:24-0400 Respiratory rate 18 /min Lizette Avila MD Work Phone: [facility] 02-14-2023 11:24-0400 SaO2% (BldA) [Mass fraction] 96 % Lizette Avila MD Work Phone: [facility] 02-14-2023 11:24-0400 Systolic blood pressure 136 mm[Hg] Lizette Avila MD Work Phone: [facility] 10-30-2022 23:45-0500 Diastolic Blood Pressure Non-Invasive 49 1 PADILLA BONNER MD [facility] 10-30-2022 23:45-0500 Heart rate 88 /min PADILLA BONNER MD [facility] 10-30-2022 23:45-0500 Reason For Taking VItal Signs PADILLA BONNER MD [facility] 10-30-2022 23:45-0500 Respiratory rate 20 /min PADILLA BONNER MD [facility] 10-30-2022 23:45-0500 Systolic Blood Pressure Non-Invasive 112 1 PADILLA BONNER MD [facility] 10-30-2022 23:30-0500 Diastolic Blood Pressure Non-Invasive 57 1 PADILLA BONNER MD [facility] 10-30-2022 23:30-0500 Heart rate 95 /min PADILLA BONNER MD [facility] 10-30-2022 23:30-0500 Mean blood pressure 75 mm[Hg] PADILLA BONNER MD [facility] 10-30-2022 23:30-0500 Respiratory rate 22 /min PADILLA BONNER MD [facility] 10-30-2022 23:30-0500 Systolic Blood Pressure Non-Invasive 118 1 PADILLA BONNER MD [facility] 10-30-2022 23:15-0500 Diastolic Blood Pressure Non-Invasive 56 1 PADILLA BONNER MD [facility] 10-30-2022 23:15-0500 Heart rate 92 /min PADILLA BONNER MD [facility] 10-30-2022 23:15-0500 Mean blood pressure 77 mm[Hg] PADILLA BONNER MD [facility] 10-30-2022 23:15-0500 Reason For Taking VItal Signs PADILLA BONNER MD [facility] 10-30-2022 23:15-0500 Respiratory rate 20 /min PADILLA BONNER MD [facility] 10-30-2022 23:15-0500 Systolic Blood Pressure Non-Invasive 128 1 PADILLA BONNER MD [facility] 10-30-2022 23:00-0500 Heart rate 97 /min PADILLA BONNER MD [facility] 10-30-2022 22:30-0500 Heart rate 100 /min PADILLA BONNER MD [facility] 10-30-2022 22:15-0500 Heart rate 103 /min PADILLA BONNER MD [facility] 10-30-2022 21:19-0500 Body temperature 102.38 [degF] PADILLA BONNER MD [facility] 10-30-2022 18:58-0500 Body temperature 100.22 [degF] PADILLA BONNER MD [facility] 10-30-2022 18:58-0500 Body weight 91.6 kg PADILLA BONNER MD [facility] 10-30-2022 10:13-0500 Diastolic Blood Pressure Non-Invasive 86 1 SO REICH[place] DO [facility] 10-30-2022 10:13-0500 Heart rate 72 /min SO REICHFIELD DO [facility] 10-30-2022 10:13-0500 Respiratory rate 18 /min SO REICHFIELD DO [facility] 10-30-2022 10:13-0500 Systolic Blood Pressure Non-Invasive 148 1 SO REICHFIELD DO [facility] 10-30-2022 08:54-0500 Body temperature 98.78 [degF] SO REICHFIELD DO [facility] 10-30-2022 08:54-0500 Diastolic Blood Pressure Non-Invasive 101 1 SO REICHFIELD DO [facility] 10-30-2022 08:54-0500 Heart rate 85 /min SO REICHFIELD DO [facility] 10-30-2022 08:54-0500 Respiratory rate 18 /min SO REICHFIELD DO [facility] 10-30-2022 08:54-0500 Systolic Blood Pressure Non-Invasive 192 1 SO REICHFIELD DO [facility] Encounters Encounter Date Encounter Type Care Provider Facility Start: 08-12-2025 End: 08-12-2025 Patient encounter procedure Lizette Avila MD Work Phone: [facility] Comment on above: Chronic diarrhea (Pr imary Dx); Essential (primary) hypertension Start: 08-12-2025 End: 08-12-2025 ambulatory LIZETTE AVILA Facility:[id number] Start: 08-11-2025 End: 08-11-2025 Telephone encounter Lizette Avila MD Work Phone: [facility] Start: 08-04-2025 End: 08-04-2025 Telephone encounter Lizette Avila MD Work Phone: [facility] Start: 07-30-2025 End: 07-30-2025 Telephone encounter Lizette Avila MD Work Phone: [facility] Start: 07-07-2025 End: 07-07-2025 Patient encounter procedure Lizette Avila MD Work Phone: [facility] Comment on above: Chronic diarrhea (Pr imary Dx); Essential (primary) hypertension; Combined hyperlipidemia; Acute diverticulitis Start: 07-07-2025 End: 07-07-2025 ambulatory LIZETTE AVILA Facility:[id number] Start: 04-15-2025 End: 04-15-2025 ambulatory LIZETTE AVILA Facility:[id number] Start: 03-06-2025 End: 03-06-2025 Patient encounter procedure [facility] Provider [facility] Start: 02-25-2025 End: 02-25-2025 ambulatory LIZETTE AVILA Facility:[id number] Start: 02-25-2025 End: 02-25-2025 Patient encounter procedure Lizette Avila MD Work Phone: [facility] Comment on above: Primary osteoarthrit is of right hand (Primary Dx); Screening for depression; Encounter for screening examination for other mental health and behavioral disorders; Chronic midline low back pain without sciatica; Combined hyperlipidemia; Elevated LFTs; Obesity, Class I, BMI 30-34.9; Medicare annual wellness visit, subsequent Start: 01-16-2025 End: 01-16-2025 ambulatory Milton Rae CF[employer] [facility] [place] Comment on above: Cognitive communicat ion deficit (Primary Dx) Start: 01-15-2025 End: 01-15-2025 ambulatory LIZETTE AVILA Facility:[id number] Start: 01-15-2025 End: 01-15-2025 Subsequent hospital visit by physician X[facility] Work Phone: [facility] Comment on above: Chronic midline low back pain without sciatica [M54.50, G89.29] Start: 01-15-2025 End: 01-15-2025 Patient encounter procedure Lizette Avila MD Work Phone: [facility] [place] Comment on above: Essential hypertensi on (Primary Dx); Combined hyperlipidemia; Benign prostatic hyperplasia with lower urinary tract symptoms, symptom details unspecified; Vitamin D deficiency; Obesity, Class I, BMI 30-34.9; Mild cognitive impairment; Benign prostatic hyperplasia with urinary frequency; GERD without esophagitis; Peripheral polyneuropathy; Chronic midline low back pain without sciatica Start: 01-15-2025 End: 01-15-2025 ambulatory LIZETTE AVILA Facility:[id number] Start: 01-01-2025 End: 01-01-2025 Refill Lizette Avila MD Work Phone: [facility] [place] Comment on above: Refill Request Start: 12-01-2024 End: 12-02-2024 Refill Lizette Avila MD Work Phone: [facility] Comment on above: Refill Request Start: 11-10-2024 End: 11-11-2024 Refill Lizette Avila MD Work Phone: [facility] Comment on above: Refill Request Start: 11-05-2024 End: 11-05-2024 Refill Lizette Avila MD [facility] Comment on above: Refill Request Start: 10-11-2024 End: 10-11-2024 Refill Lizette Avila MD Work Phone: [facility] [place] Comment on above: Refill Request Start: 10-01-2024 End: 10-01-2024 Patient encounter procedure Lizette Avila MD Work Phone: [facility] Comment on above: Essential hypertensi on (Primary Dx); Combined hyperlipidemia; GERD without esophagitis; Benign prostatic hyperplasia with lower urinary tract symptoms, symptom details unspecified; Vitamin D deficiency Start: 10-01-2024 End: 10-01-2024 ambulatory LIZETTE AVILA Facility:[id number] Start: 09-24-2024 End: 09-24-2024 [facility] Start: 09-24-2024 End: 09-24-2024 Follow-up encounter Karena Vora RN [facility] [employer] Comment on above: Primary Care Coordin ator Ed Follow Up (Message) Start: 09-23-2024 End: 09-23-2024 ambulatory [facility] Start: 09-23-2024 End: 09-23-2024 Follow-up encounter Karena Vora RN [facility] [employer] Comment on above: Primary Care Coordin ator Ed Follow Up Start: 09-19-2024 End: 09-19-2024 Emergency department patient visit [facility] Facility:[facility] Start: 07-22-2024 End: 07-22-2024 ambulatory Marga Cm OTR/L Work Phone: [facility] Comment on above: Osteoarthritis of ri ght thumb Start: 07-17-2024 End: 07-17-2024 Patient encounter procedure Delma Cheek MD Work Phone: [facility] Comment on above: Osteoarthritis of ri ght thumb (Primary Dx) Start: 07-15-2024 End: 07-15-2024 Subsequent hospital visit by physician [facility] Work Phone: [facility] [place] Comment on above: Primary osteoarthrit is of first carpometacarpal joint of right hand [M18.11] Start: 07-15-2024 End: 07-15-2024 Patient encounter procedure Lizette Avila MD Work Phone: [facility] Comment on above: Primary osteoarthrit is of first carpometacarpal joint of right hand (Primary Dx); Benign prostatic hyperplasia with urinary frequency; Obesity, Class I, BMI 30-34.9; Combined hyperlipidemia; Essential hypertension; Vitamin D deficiency Start: 05-31-2024 Refill Evelia Maya AUTOMOTIVE BUYER.SHOVEL ENGINEER Work Phone: [facility] Comment on above: Refill Request Start: 05-27-2024 Telephone encounter Lizette Avila MD Work Phone: [facility] Comment on above: Pantoprazole is avai lable without a PA Start: 05-20-2024 Telephone encounter Lizette Avila MD Work Phone: [facility] Comment on above: Refill Request Start: 03-19-2024 Telephone encounter Evelia cota APRN.SHOVEL ENGINEER Work Phone: [facility] Comment on above: Results Start: 03-19-2024 End: 03-19-2024 Subsequent hospital visit by physician [facility] [place] [facility] [place] Comment on above: Lymphadenopathy, cer vical [R59.0] Start: 03-07-2024 End: 03-07-2024 Office outpatient visit 15 minutes Evelia Maya AUTOMOTIVE BUYER.SHOVEL ENGINEER Work Phone: [facility] Comment on above: GERD without esophag itis (Primary Dx); Tonsillar hypertrophy; Seasonal allergic rhinitis, unspecified trigger; Lymphadenopathy, cervical Start: 11-07-2023 Non-patient / Non-visit [facility] Start: 11-07-2023 End: 11-07-2023 Admission to same day surgery center No Primary Care Physician [facility] Work Phone: Start: 11-07-2023 End: 11-07-2023 ambulatory No Primary Care Physician [facility] Work Phone: Start: 10-16-2023 End: 10-16-2023 Patient encounter procedure No Primary Care Physician [facility] Work Phone: Start: 10-16-2023 End: 10-16-2023 ambulatory No Primary Care Physician Facility:[facility] Start: 09-12-2023 End: 09-12-2023 Office outpatient visit 15 minutes Evelia Maya APRN.CNP Work Phone: [facility] Comment on above: Encounter for suppor t and coordination of transition of care (Primary Dx); Colitis; Chronic diarrhea; History of colonic polyps Start: 09-02-2023 End: 09-03-2023 Emergency department patient visit No Primary Care Physician [facility] Work Phone: Start: 08-17-2023 End: 08-17-2023 Patient encounter procedure Lizette Avila MD Work Phone: [facility] Comment on above: Combined hyperlipide jian (Primary Dx); GERD without esophagitis; Obesity, Class I, BMI 30-34.9; Osteoarthritis of both knees, unspecified osteoarthritis type; Benign prostatic hyperplasia with urinary frequency; Essential hypertension; Abdominal wall swelling Start: 02-14-2023 End: 02-14-2023 Patient encounter procedure Lizette Avila MD Work Phone: [facility] Comment on above: Essential hypertensi on (Primary Dx); GERD without esophagitis; Combined hyperlipidemia; Vitamin D deficiency; Osteoarthritis of both knees, unspecified osteoarthritis type; Grade I hemorrhoids Start: 10-30-2022 End: 10-31-2022 Emergency department patient visit GUY PINEDA Facility:A Start: 10-30-2022 End: 10-31-2022 Emergency department patient visit PADILLA BONNER MD [facility] Start: 10-30-2022 End: 10-30-2022 [facility] Start: 10-30-2022 End: 10-30-2022 [facility] Start: 04-29-2022 End: 04-29-2022 Emergency department patient visit LYNNETTE ALCARAZ MD Facility:A Procedures Date Procedure Procedure Detail Performing Clinician Start: 02-25-2025 Adult depression scr eening assessment Lizette Avila MD Work Phone: Start: 01-15-2025 Lipid 1996 panel - S shay or Plasma [facility] [place] Work Phone: Start: 07-17-2024 Arthrocentesis aspir &/inj small jt/bursa w/o us Delma Cheek MD Work Phone: Start: 07-15-2024 Radex fingr minimum 2 views Lizette Avila MD Work Phone: Start: 07-15-2024 Lipid 1996 panel - S shay or Plasma Lizette Avila MD Work Phone: Start: 03-19-2024 Us soft tissue head & neck real time imge mayur Maya AUTOMOTIVE BUYER.SHOVEL ENGINEER Work Phone: Start: 03-07-2024 Adult depression scr eening assessment Lizette Avila MD Work Phone: Start: 11-07-2023 Colonoscopy No Primary Care Physician Start: 09-02-2023 Computed tomography of abdomen and pelvis with intravenous contrast No Primary Care Physician Start: 09-02-2023 US scan of gallbladder No Primary Care Physician Start: 10-17-2022 Lipid 1996 panel - S shay or Plasma Lizette Avila MD Work Phone: None (qualifier value) SO MEJÍA DO Plan of Treatment Date Care Activity Detail Author Start: 2030 RSV Vaccine (1 - 1-d ose 75+ series) RSV Vaccine (1 - 1-dose 75+ series) [facility] Start: 01-15-2030 Lipid panel Lipid Screening [facility] Start: 07-15-2029 Lipid panel Lipid Screening [facility] Start: 07-15-2029 Prostate specific antigen measurement Prostate Cancer Screening Discussion [facility] Start: 01-15-2028 Diabetes Screening Diabetes Screen[facility] Start: 10-17-2027 Lipid 1996 panel - Serum or Plasma Lipid Screening [facility] Start: 10-17-2027 Lipid panel Lipid Screening [facility] Start: 10-17-2027 LIPID SCREEN LIPID SCREEN [facility] Start: 10-17-2027 PROSTATE CANCER SCREENING DISCUSSION PROSTATE CANCER SCREENING DISCUSSION [facility] Start: 10-17-2027 Prostate specific antigen measurement Prostate Cancer Screening Discussion [facility] Start: 07-15-2027 Diabetes Screening Diabetes Screenin g [facility] Start: 08-12-2026 Annual PCP Team Freight Rate Clerk aaliyah Disease Visit Annual PCP Team Chronic Disease Visit [facility] Start: 07-07-2026 Annual PCP Team Freight Rate Clerk aaliyah Disease Visit Annual PCP Team Chronic Disease Visit [facility] Start: 02-25-2026 Annual PCP Team Freight Rate Clerk aaliyah Disease Visit Annual PCP Team Chronic Disease Visit [facility] Start: 02-25-2026 Anxiety Screening Anxiety Screening [facility] Start: 02-25-2026 BP Controlled (<130/80) BP Controlle d (<130/80) [facility] Start: 02-25-2026 Depression Screening Depression Scre ening [facility] Start: 01-24-2026 COLOGUARD (FIT-DNA) COLOGUARD (FIT-D NA) [facility] Start: 01-24-2026 COLORECTAL CANCER SCREENING COLORECTAL CANCER SCREENING [facility] Start: 01-24-2026 Screening for malign ant neoplasm of colon [facility] Start: 01-15-2026 Annual PCP Team Freight Rate Clerk aaliyah Disease Visit Annual PCP Team Chronic Disease Visit [facility] Start: 10-17-2025 DIABETES SCREEN DIABETES SCREEN [facility] Start: 10-17-2025 Diabetes Screening Diabetes Screenin g [facility] Start: 10-09-2025 End: 10-09-2025 Patient encounter procedure 10/09/2025 10:30 AM EST Office Visit [facility] [address] [place] [phone] Lizette Avila MD [address] [place] [address] 6 month follow up [facility] Comment on above: 6 month follow up Start: 10-01-2025 Annual PCP Team Freight Rate Clerk aaliyah Disease Visit Annual PCP Team Chronic Disease Visit [facility] Start: 08-12-2025 End: 08-12-2025 Patient encounter procedure 08/12/2025 3:00 PM EDT Office Visit [facility] [address] [place] [phone] Lizette Avila MD [address] [place], [place] [address] Discuss possible parasite in colon [facility] Comment on above: Discuss possible par asite in colon Start: 07-15-2025 Annual PCP Team Freight Rate Clerk aaliyah Disease Visit Annual PCP Team Chronic Disease Visit [facility] Start: 04-15-2025 End: 04-15-2025 Patient encounter procedure 04/15/2025 9:30 AM EDT Office Visit [facility] [address] [place] [phone] Lizette Avila MD [address] [place], [place] [id number] 3 month follow up [facility] Comment on above: 3 month follow up Start: 03-07-2025 Annual PCP Team Freight Rate Clerk aaliyah Disease Visit Annual PCP Team Chronic Disease Visit [facility] Start: 03-07-2025 Anxiety Screening Anxiety Screening [facility] Start: 03-07-2025 Depression Screening Depression Scre ening [facility] Start: 02-25-2025 End: 02-25-2025 Patient encounter procedure 02/25/2025 2:20 PM EDT Office Visit [facility] [address] [place] [phone] Lizette Avila MD [address] [place] [address] Annual Medicare Wellness Exam [facility] Comment on above: Annual Medicare Well ness Exam Start: 02-25-2025 End: 02-25-2026 Comprehensive metabolic 2000 panel - Serum or Plasma COMPREHENSIVE METABOLIC PANEL Lab Routine Elevated LFTs Expected: 02/25/2025, Expires: 02/25/2026 [facility] Work Phone: Comment on above: Expected: 02/25/2025 , Expires: 02/25/2026 Start: 02-25-2025 End: 05-27-2025 Lipid 1996 panel - Serum or Plasma LIPID PANEL, FASTING Lab Routine Combined hyperlipidemia Expected: 02/25/2025, Expires: 05/27/2025 [facility] Comment on above: Expected: 02/25/2025 , Expires: 05/27/2025 Start: 01-21-2025 End: 01-21-2025 ambulatory 01/21/2025 10:15 AM EST OT/PT/Speech Visit [facility] [address] [address] [place] Rae CF-LIFE SKILLS INSTRUCTOR G31.84 (ICD-10-CM) - Mild cognitive impairment [facility] [place] Comment on above: G31.84 (ICD-10-CM) - Mild cognitive impairment Start: 01-16-2025 End: 01-16-2025 ambulatory 01/16/2025 9:30 AM EST OT/PT/Speech Visit [facility] [place] [address] Milton Rae CF-LIFE SKILLS INSTRUCTOR G31.84 (ICD-10-CM) - Mild cognitive impairment [facility] [place] Comment on above: G31.84 (ICD-10-CM) - Mild cognitive impairment Start: 01-15-2025 End: 01-15-2026 Cobalamin (Vitamin B12) [Mass/volume] in Serum or Plasma [facility] Work Phone: Comment on above: Expected: 01/15/2025 , Expires: 01/15/2026 Start: 01-15-2025 End: 01-15-2026 Hemoglobin A1c in Blood [facility] Comment on above: Expected: 01/15/2025 , Expires: 01/15/2026 Start: 01-15-2025 End: 01-15-2025 Patient encounter procedure 01/15/2025 9:10 AM EST Office Visit [facility] [address] [place] [phone] Lizette Avila MD [address] [place] [address] AMW [facility] Comment on above: [facility] Start: 11-27-2024 Advance Directive Discussion Advance Directive Discussion [facility] Start: 10-01-2024 End: 10-01-2025 25-hydroxyvitamin D3 [Mass/volume] in Serum or Plasma VITAMIN D 25 HYDROXY Lab Routine Vitamin D deficiency Expected: 10/01/2024, Expires: 10/01/2025 [facility] Comment on above: Expected: 10/01/2024 , Expires: 10/01/2025 Start: 10-01-2024 End: 10-01-2025 CBC panel - Blood by Automated count COMPLETE BLOOD COUNT Lab Routine Essential hypertension Combined hyperlipidemia Expected: 10/01/2024, Expires: 10/01/2025 [facility] Work Phone: Comment on above: Expected: 10/01/2024 , Expires: 10/01/2025 Start: 10-01-2024 End: 10-01-2025 Comprehensive metabolic 2000 panel - Serum or Plasma COMPREHENSIVE METABOLIC PANEL Lab Routine Essential hypertension Combined hyperlipidemia Expected: 10/01/2024, Expires: 10/01/2025 [facility] Comment on above: Expected: 10/01/2024 , Expires: 10/01/2025 Start: 10-01-2024 End: 10-01-2025 Lipid 1996 panel - Serum or Plasma LIPID PANEL BASIC Lab Routine Essential hypertension Expected: 10/01/2024, Expires: 10/01/2025 [facility] Comment on above: Expected: 10/01/2024 , Expires: 10/01/2025 Start: 10-01-2024 End: 09-22-2025 Prostate specific Ag [Mass/volume] in Serum or Plasma PROSTATE-SPECIFIC ANTIGEN DIAGNOSTIC Lab Routine Benign prostatic hyperplasia with lower urinary tract symptoms, symptom details unspecified Expected: 10/01/2024, Expires: 09/22/2025 [facility] Comment on above: Expected: 10/01/2024 , Expires: 09/22/2025 Start: 10-01-2024 End: 10-01-2025 Thyrotropin [Units/volume] in Serum or Plasma THYROID STIMULATING HORMONE Lab Routine Essential hypertension Expected: 10/01/2024, Expires: 10/01/2025 [facility] Comment on above: Expected: 10/01/2024 , Expires: 10/01/2025 Start: 09-12-2024 Annual PCP Team Freight Rate Clerk aaliyah Disease Visit Annual PCP Team Chronic Disease Visit [facility] Start: 08-17-2024 Annual PCP Team Freight Rate Clerk aaliyah Disease Visit Annual PCP Team Chronic Disease Visit [facility] Start: 07-22-2024 End: 07-22-2024 ambulatory 07/22/2024 10:00 AM EDT OT/PT/Speech Visit [facility] [address] [place] [address] Marga Cm OTR/Nela [address] [place] [address] Osteoarthritis of right thumb [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] [facility] Comment on above: Osteoarthritis of ri ght thumb [M18.11] Start: 07-17-2024 End: 07-17-2024 Patient encounter procedure 07/17/2024 10:30 AM EDT Office Visit [facility] [address] [facility] [address] [place] [address] Delma Cheek MD [address] [place] [address] right thumb arthritis [facility] Comment on above: right thumb arthriti s Start: 04-08-2024 End: 04-08-2024 Patient encounter procedure 04/08/2024 8:00 AM EDT Office Visit [facility] [address] [facility] [address] [place] [phone] Lizette Avila MD [address] [place], [place] [phone] 6 month follow up [facility] Comment on above: 6 month follow up Start: 02-15-2024 ANNUAL PCP TEAM ENERGY ECONOMIST AALIYAH DISEASE VISIT ANNUAL PCP TEAM CHRONIC DISEASE VISIT [facility] Start: 02-15-2024 BP CONTROLLED (<130/80) BP CONTROLLE D (<130/80) [facility] Start: 11-27-2023 Advance Directive Discussion Advance Directive Discussion [facility] Start: 11-07-2023 Patient [facility] Start: 09-03-2023 End: 09-03-2023 [facility] Start: 08-17-2023 End: 08-17-2024 CBC panel - Blood by Automated count CBC Lab Routine Essential hypertension Expected: 08/17/2023, Expires: 08/17/2024 [facility] Work Phone: Comment on above: Expected: 08/17/2023 , Expires: 08/17/2024 Start: 08-17-2023 End: 08-17-2024 Comprehensive metabolic 2000 panel - Serum or Plasma COMP METABOLIC PANEL Lab Routine Combined hyperlipidemia Essential hypertension Expected: 08/17/2023, Expires: 08/17/2024 [facility] Work Phone: Comment on above: Expected: 08/17/2023 , Expires: 08/17/2024 Start: 08-17-2023 End: 08-17-2024 Lipid 1996 panel - Serum or Plasma LIPID PANEL BASIC Lab Routine Combined hyperlipidemia Essential hypertension Expected: 08/17/2023, Expires: 08/17/2024 [facility] Work Phone: Comment on above: Expected: 08/17/2023 , Expires: 08/17/2024 Start: 08-17-2023 End: 08-07-2024 Prostate specific Ag [Mass/volume] in Serum or Plasma PSA/PROSTSPECAG DIAG Lab Routine Benign prostatic hyperplasia with urinary frequency Expected: 08/17/2023, Expires: 08/07/2024 [facility] Work Phone: Comment on above: Expected: 08/17/2023 , Expires: 08/07/2024 Start: 08-17-2023 End: 08-17-2024 Thyrotropin [Units/volume] in Serum or Plasma TSH BLD Lab Routine Essential hypertension Expected: 08/17/2023, Expires: 08/17/2024 [facility] Work Phone: Comment on above: Expected: 08/17/2023 , Expires: 08/17/2024 Start: 02-14-2023 End: 02-15-2024 25-hydroxyvitamin D3 [Mass/volume] in Serum or Plasma VITAMIN D 25 HYDROXY Lab Routine Vitamin D deficiency Expected: 02/14/2023, Expires: 02/15/2024 [facility] Work Phone: Comment on above: Expected: 02/14/2023 , Expires: 02/15/2024 Start: 02-14-2023 End: 02-15-2024 ALBUMIN/CREAT RATIO RND UR ALBUMIN/CREAT RATIO RND UR Lab Routine Essential hypertension Expected: 02/14/2023, Expires: 02/15/2024 [facility] Work Phone: Comment on above: Expected: 02/14/2023 , Expires: 02/15/2024 Start: 02-14-2023 End: 02-15-2024 CBC panel - Blood by Automated count CBC Lab Routine Combined hyperlipidemia Expected: 02/14/2023, Expires: 02/15/2024 [facility] Work Phone: Comment on above: Expected: 02/14/2023 , Expires: 02/15/2024 Start: 02-14-2023 End: 02-15-2024 Comprehensive metabolic 2000 panel - Serum or Plasma COMP METABOLIC PANEL Lab Routine Combined hyperlipidemia Expected: 02/14/2023, Expires: 02/15/2024 [facility] Work Phone: Comment on above: Expected: 02/14/2023 , Expires: 02/15/2024 Start: 02-14-2023 End: 02-15-2024 Lipid 1996 panel - Serum or Plasma LIPID PANEL BASIC Lab Routine Combined hyperlipidemia Expected: 02/14/2023, Expires: 02/15/2024 [facility] Work Phone: Comment on above: Expected: 02/14/2023 , Expires: 02/15/2024 Start: 02-14-2023 End: 02-15-2024 Thyrotropin [Units/volume] in Serum or Plasma TSH BLD Lab Routine Combined hyperlipidemia Expected: 02/14/2023, Expires: 02/15/2024 [facility] Work Phone: Comment on above: Expected: 02/14/2023 , Expires: 02/15/2024 Start: 2015 RSV Vaccine (1 - 1-d ose 60+ series) RSV Vaccine (1 - 1-dose 60+ series) [facility] Start: 2000 Colonoscopy COLONOSCOPY [facility] Start: [address] COLONOGRAPHY [facility] Start: 2000 FECAL OCCULT BLOOD FECAL OCCULT BLOO D [facility] Start: 2000 Screening for malign ant neoplasm of colon [facility] Start: 2000 SIGMOIDOSCOPY SIGMOIDOSCOPY [facility] Colonoscopy [facility] ENTERIC BACTERIAL PA SHANIKA BY PCR ENTERIC BACTERIAL PANEL BY PCR Lab Routine Chronic diarrhea Ordered: 07/07/2025 [facility] Work Phone: Comment on above: Ordered: 07/07/2025 Patient Education ED Understanding Coliti s [facility] Work Phone: Patient referral [facility] Work Phone: End: 09-15-2024 US ABDOMEN COMPLETE US ABDOMEN COMPLETE Radiology Routine Benign prostatic hyperplasia with urinary frequency Abdominal wall swelling 1 Occurrences starting 08/17/2023 until 09/15/2024 [facility] Work Phone: Comment on above: 1 Occurrences starti ng 08/17/2023 until 09/15/2024 End: 04-06-2025 US Head and neck soft tissue US HEAD/NECK SOFT TISSUE OTHER Radiology Routine Lymphadenopathy, cervical 1 Occurrences starting 03/07/2024 until 04/06/2025 [facility] Work Phone: Comment on above: 1 Occurrences starti ng 03/07/2024 until 04/06/2025 End: 08-14-2025 XR Finger - right AP and Lateral and oblique XR DIGIT GENERAL 3V FRONTAL/LAT/OBL RIGHT Radiology Routine Primary osteoarthritis of first carpometacarpal joint of right hand 1 Occurrences starting 07/15/2024 until 08/14/2025 [facility] Work Phone: Comment on above: 1 Occurrences starti ng 07/15/2024 until 08/14/2025 XR Finger - right AP and Lateral and oblique XR DIGIT GENERAL 3V FRONTAL/LAT/OBL RIGHT Radiology Routine Primary osteoarthritis of first carpometacarpal joint of right hand 07/15/2024 10:29 AM EDT [facility] End: 02-14-2026 XR Lumbar spine 3 Views XR LUMBAR GENERAL 3V AP/LAT/L5-S1 Radiology Routine Chronic midline low back pain without sciatica 1 Occurrences starting 01/15/2025 until 02/14/2026 [facility] Comment on above: 1 Occurrences starti ng 01/15/2025 until 02/14/2026 XR Lumbar spine 3 Views XR LUMBA R GENERAL 3V AP/LAT/L5-S1 Radiology Routine Chronic midline low back pain without sciatica 01/15/2025 11:51 AM EST [facility] Payers Date Payer Category Payer Medicare (Managed Care) 1.2. [id number] 2024 Unknown [facility] ANTH MEDICARE ADVANTAGE HMO [id number] 2024-[facility] [phone] [address] [place] [address] O [id number] 2024 Medicare [id number] 2023 Self-pay 2023 Medicaid [id number] 2022 Medicare [id number] 2022 Private Health Insurance [id number] 1955 Unknown [id number] 1955 Unknown [id number] 1955 Unknown [id number] Medicare MEDICARE PART A B [id number] Unknown [id number] Unknown [id number] Unknown [id number] Unknown [id number] Social History Date Type Detail Facility Start: 10-30-2022 End: 07-15-2024 Tobacco smoking status Never smoked tobacco (finding) [facility] Sex Assigned At Sex [facility] Start: 10-17-2022 End: 07-15-2024 Tobacco use and exposure Smokeless tobacco non-user [facility] Start: 02-14-2023 End: 03-07-2024 Alcohol intake Lifetime non-drinker (finding) [facility] Start: 1955 Sex Assigned At Not on file C [facility] Start: 08-17-2023 End: 04-15-2025 History of Social function [facility] Start: 08-17-2023 End: 04-15-2025 [facility] Utilities [facility] Has the [employer], [employer], or water [employer] threatened to shut off services in your home in past 12Mo No [facility] How often to you hav e a drink containing alcohol? Monthly or less [facility] How many standard dr inks containing alcohol do you have on a typical day? 1 or 2 [facility] How often do you hav e 6 or more drinks on 1 occasion? Never [facility] [facility] How hard is it for y ou to pay for the very basics like food, housing, medical care, and heating Not very hard [facility] Start: 08-30-2022 Adult Depression Screening Assessment 0 [facility] Work Phone: Do you feel stress - tense, restless, nervous, or anxious, or unable to sleep at night because your mind is troubled all the time - these days [OSQ] Only a little [facility] (I/We) worried tony er (my/our) food would run out before (I/we) got money to buy more. Never true [facility] Start: 11-02-2023 Tobacco smoking stat us NHIS Unknown if ever smoked [facility] Start: 1955 Sex Assigned At Male [facility] Start: 07-15-2024 End: 08-12-2025 Alcoholic beverage intake Ex-drinker (finding) [facility] Start: 07-15-2024 Education 21 [facility] Are you now , , , , never or living with a partner? [facility] Do you belong to any clubs or organizations such as alevism groups, unions, fraternal or athletic groups, or school groups? Yes [facility] Do you feel stress - tense, restless, nervous, or anxious, or unable to sleep at night because your mind is troubled all the time - these days [OSQ] Not at all [facility] NEGATED: Highlighted rowStart: NINF History of tobacco use Passive smoker [facility] Goals Date Patient Goal Desired Activity /State Functional Status Date Assessment Result Facility 02-25-2025 Total score [AUDIT-C] 0 02/26/20 25 2:27 PM EDT Andrew Kellogg LPN [facility] 02-25-2025 Humiliation, Afraid, Rape, and Kick questionnaire [HARK] [facility] 10-31-2022 Functional Status [facility] Functional Status Standard Safet y ID band on, Call device within reach, Bed in low position, Wheels locked, Bedside Cart Locked, Visitor at bedside [facility] 10-30-2022 Functional [facility] Mental Status Date Assessment Result Facility 11-07-2023 Cognitive function Level Of Cons ciousness Follows Commands;Drowsy [facility] Work Phone: 11-07-2023 Cognitive function Voice/Name [facility] Work Phone: 10-31-2022 Mental Status Orientation Oriented x 4 [facility] 10-30-2022 Mental Status [facility] 10-30-2022 Mental Status Orientation Oriented x 4 [facility] 10-30-2022 Mental Status [facility] Clinical Notes 10-30-2022 to 08-12-2025 Addendum Note - Lizette Avila MD - 08/12/2025 2:40 PM EDTAddendum Note - Lizette Avila MD - 08/12/2025 2:40 PM EDTALizette Rico MD - 08/12/2025 2:28 PM EDTPatient Instructions Note Date & Type Note Facility 08-12-2025 Note Addended by: LIZETTE AVILA on: 08/12/2025 02:40 PM Modules accepted: Orders [facility] 08-12-2025 Miscellaneous Notes Addended by: LIZETTE AVILA on: 08/12/2025 02:40 PM Modules accepted: Orders documented in this encounter [facility] 08-12-2025 Note HNO ID: [id number] Author: LIZETTE AVILA MD Service: ? Author Type: Physician Type: Progress Notes Filed: 08/12/2025 14:33 Note Text: The patient is a 70-year-old male presenting for evaluation of abdominal cramps and diarrhea concerning for suspected parasitic infection. Abdominal Cramping and Diarrhea: - Abdominal cramping, borborygmi, flatulence, and diarrhea. - Symptoms similar to those experienced by Willy's daughter. ALLERGIES No Known Allergies Current Outpatient Medications Medication Sig rosuvastatin (CRESTOR) 5 mg tablet Take 1 tablet by mouth daily at bedtime. tamsulosin (FLOMAX) 0.4 mg Take 1 capsule by mouth at bedtime as needed. (Patient taking differently: Take 0.4 mg by mouth once daily.) amLODIPine (NORVASC) 10 mg tablet Take 1 tablet by mouth once daily. pantoprazole DR (PROTONIX) 40 mg tablet Take 1 tablet by mouth once daily. albendazole (ALBENZA) 200 mg tablet Take 2 tablets by mouth two times a day for 3 days. No current facility-administered medications for this visit. PAST MEDICAL HISTORY Diagnosis Date GERD without esophagitis 10/17/2022 Hypertension PAST SURGICAL HISTORY Procedure Laterality Date EXCISION OF A GRANULOMA SUTURE 2000 throat FAMILY HISTORY Problem Relation Age of Onset other (stomach cancer) Mother Brain Cancer Father SOCIAL HISTORY[1] All medications have been reviewed and verified. Gastrointestinal: (+) abdominal cramps, (+) abdominal gurgling, (+) flatulence, (+) diarrhea VITALS: Blood pressure 122/68, pulse 76, height 170.2 cm (5' 7), weight 88.2 kg (194 lb 8 oz), SpO2 98%., Body mass index is 30.46 kg/m?. GENERAL: NAD, alert and oriented SKIN: unremarkable, no rash or skin lesions. HEAD: normocephalic EYES: PERRLA, EOMI, conjunctiva clear EARS: external ears normal, canals clear, TM's normal. NOSE/SINUSES: Nares normal. Septum midline. OROPHARYNX: lips, mucosa, and tongue normal, good dentition. No oral lesions noted. NECK: Supple, no lymphadenopathy, normal thyroid, no carotid bruits. LUNGS: Clear to auscultation bilaterally, no wheezes/rhonchi/rales. HEART: Regular rate and rhythm, no murmurs. No ectopy. EXTREMITIES: Normal, No deformities, No skin discoloration, No edema. NEURO: Awake, alert and oriented x3, cranial nerves II-XII grossly intact, normal gait, no involuntary motions 1. Chronic diarrhea (K52.9) - Symptoms include abdominal cramps, borborygmi, flatulence, and diarrhea. - Empiric treatment with albendazole 400 mg PO once daily for 3 days. - Discussed that if symptoms persist after treatment, further evaluation will be pursued, including stool testing and possible referral to GI for colonoscopy. - Patient expressed understanding and agreement with the plan. 2. Essential (primary) hypertension (I10) Continue current management plan. Recording using [employer] software for draft documentation of the visit was discussed with the patient/authorized pharmaceutical specialty representative; all questions welcomed and answered. Patient/authorized pharmaceutical specialty representative agreed to proceed Lizette Avila MD [1] Social History Tobacco Use Smoking status: Never Passive exposure: Never Smokeless tobacco: Never Vaping Use Vaping status: Never Used Substance Use Topics Alcohol use: Not Currently Drug use: Never [facility] 08-12-2025 History of Present illness Narrative The patient is a 70-year-old male presenting for evaluation of abdominal cramps and diarrhea concerning for suspected parasitic infection. Abdominal Cramping and Diarrhea: - Abdominal cramping, borborygmi, flatulence, and diarrhea. - Symptoms similar to those experienced by Willy's daughter. ALLERGIES No Known Allergies Current Outpatient Medications Medication Sig rosuvastatin (CRESTOR) 5 mg tablet Take 1 tablet by mouth daily at bedtime. tamsulosin (FLOMAX) 0.4 mg Take 1 capsule by mouth at bedtime as needed. (Patient taking differently: Take 0.4 mg by mouth once daily.) amLODIPine (NORVASC) 10 mg tablet Take 1 tablet by mouth once daily. pantoprazole DR (PROTONIX) 40 mg tablet Take 1 tablet by mouth once daily. albendazole (ALBENZA) 200 mg tablet Take 2 tablets by mouth two times a day for 3 days. No current facility-administered medications for this visit. PAST MEDICAL HISTORY Diagnosis Date GERD without esophagitis 10/17/2022 Hypertension PAST SURGICAL HISTORY Procedure Laterality Date EXCISION OF A GRANULOMA SUTURE 2000 throat FAMILY HISTORY Problem Relation Age of Onset other (stomach cancer) Mother Brain Cancer Father SOCIAL HISTORY[1] All medications have been reviewed and verified. Gastrointestinal: (+) abdominal cramps, (+) abdominal gurgling, (+) flatulence, (+) diarrhea VITALS: Blood pressure 122/68, pulse 76, height 170.2 cm (5' 7), weight 88.2 kg (194 lb 8 oz), SpO2 98%., Body mass index is 30.46 kg/m . GENERAL: NAD, alert and oriented SKIN: unremarkable, no rash or skin lesions. HEAD: normocephalic EYES: PERRLA, EOMI, conjunctiva clear EARS: external ears normal, canals clear, TM's normal. NOSE/SINUSES: Nares normal. Septum midline. OROPHARYNX: lips, mucosa, and tongue normal, good dentition. No oral lesions noted. NECK: Supple, no lymphadenopathy, normal thyroid, no carotid bruits. LUNGS: Clear to auscultation bilaterally, no wheezes/rhonchi/rales. HEART: Regular rate and rhythm, no murmurs. No ectopy. EXTREMITIES: Normal, No deformities, No skin discoloration, No edema. NEURO: Awake, alert and oriented x3, cranial nerves II-XII grossly intact, normal gait, no involuntary motions 1. Chronic diarrhea (K52.9) - Symptoms include abdominal cramps, borborygmi, flatulence, and diarrhea. - Empiric treatment with albendazole 400 mg PO once daily for 3 days. - Discussed that if symptoms persist after treatment, further evaluation will be pursued, including stool testing and possible referral to GI for colonoscopy. - Patient expressed understanding and agreement with the plan. 2. Essential (primary) hypertension (I10) Continue current management plan. Recording using ambient [employer] software for draft documentation of the visit was discussed with the patient/authorized pharmaceutical specialty representative; all questions welcomed and answered. Patient/authorized pharmaceutical specialty representative agreed to proceed Lizette Avila MD [1] Social History Tobacco Use Smoking status: Never Passive exposure: Never Smokeless tobacco: Never Vaping Use Vaping status: Never Used Substance Use Topics Alcohol use: Not Currently Drug use: Never documented in this encounter [facility] 08-11-2025 Telephone encounter Note Please schedule routine appointment to address. [facility] 08-11-2025 Miscellaneous Notes Please schedule routine appointment to address. Patient concerned about having a parasite is his colon. He has been looking online and has all the symptoms. Would like tested. Please advise. documented in this encounter [facility] 08-11-2025 Telephone encounter Note Patient concerned about having a parasite is his colon. He has been looking online and has all the symptoms. Would like tested. Please advise. [facility] 08-04-2025 Telephone encounter Note Spoke with patient and advised of referral information. Advised pt to call GI office for appt. Pt was also advised if the office stated they do not have referral to call me back and I will send directly. [facility] Work Phone: 08-04-2025 Miscellaneous Notes Spoke with patient and advised of referral information. Advised pt to call GI office for appt. Pt was also advised if the office stated they do not have referral to call me back and I will send directly. Pt called inquiring about the status of his referral. Called him back, left vmail. KATIE Anderson August 04, 2025 2:12 PM documented in this encounter [facility] 08-04-2025 Telephone encounter Note Pt called inquiring about the status of his referral. Called him back, left vmail. KATEI Anderson August 04, 2025 2:12 PM [facility] 07-30-2025 Telephone encounter Note Diagnoses and all orders for this visit: Chronic diarrhea - CONSULT TO GASTROENTEROLOGY; Future [facility] 07-30-2025 Miscellaneous Notes Diagnoses and all orders for this visit: Chronic diarrhea - CONSULT TO GASTROENTEROLOGY; Future Patient stool testing negative. Still having diarrhea, wanting to know what is the next step. Please advise. documented in this encounter [facility] 07-30-2025 Telephone encounter Note Patient stool testing negative. Still having diarrhea, wanting to know what is the next step. Please advise. [facility] 07-07-2025 Instructions Lizette Avila MD - 07/07/2025 3:39 PM EDT - Start taking Flagyl (metronidazole) and Cipro (ciprofloxacin) for 7 days; prescription has been sent to your [facility] pharmacy. - If your diarrhea does not improve after finishing the antibiotics, collect and submit a stool sample using the kit provided. - Have blood work drawn in March before your next appointment in September; the lab request has already been submitted. documented in this encounter [facility] 07-07-2025 Note HNO ID: [id number] Author: LIZETTE AVILA MD Service: ? Author Type: Physician Type: Progress Notes Filed: 07/07/2025 15:41 Note Text: Diarrhea (Willy is here today with concerns of diarrhea for the past 6 weeks. 4-5 episodes per day. States he had a fever and cold sores on the lips 2 weeks ago . Willy Sanders is a 70-year-old male with a history of diverticulitis, presenting with diarrhea x6 weeks. Diarrhea: - Diarrhea x6 weeks, occurring approximately 5 times daily. - Stool consistency varies between watery and soft. - Uncertain about presence of blood in stool. - Associated with abdominal cramping, particularly severe prior to bowel movements. - Reports a burning sensation during defecation, suspecting too much acid in the system. - Developed a rash around the anus, possibly due to frequent bowel movements. - No recent dietary changes; denies consumption of probiotics. - Recent weight loss noted. - Similar episode of diarrhea occurred a few years ago, but current symptoms are described as different. - Last colonoscopy was approximately one year ago. - Last blood work was in December, with results reported as normal. - No other household members are experiencing similar symptoms. ALLERGIES[1] CURRENT MEDICATIONS[2] PAST MEDICAL HISTORY[3] PAST SURGICAL HISTORY Procedure Laterality Date EXCISION OF A GRANULOMA SUTURE 1999 throat FAMILY HISTORY[4] SOCIAL HISTORY[5] All medications have been reviewed and verified. Constitutional: (+) weight loss Gastrointestinal: (+) diarrhea, (+) abdominal cramps, (+) anal burning, (-) blood in stool Musculoskeletal: (+) back pain Skin: (+) perianal rash VITALS: Blood pressure 128/72, pulse (!) 58, height 170.2 cm (5' 7), weight 90.1 kg (198 lb 9.6 oz), SpO2 96%., Body mass index is 31.11 kg/m?. GENERAL: NAD, alert and oriented. SKIN: Unremarkable, no rash or skin lesions. HEAD: Normocephalic. EYES: PERRLA, EOMI, conjunctiva clear. EARS: External ears normal, canals clear, TM's normal. NOSE/SINUSES: Nares normal. Septum midline. OROPHARYNX: Lips, mucosa, and tongue normal, good dentition. No oral lesions noted. NECK: Supple, no lymphadenopathy, normal thyroid, no carotid bruits. LUNGS: Clear to auscultation bilaterally, no wheezes/rhonchi/rales. HEART: Regular rate and rhythm, no murmurs. No ectopy. EXTREMITIES: Normal, no deformities, no skin discoloration, no edema. ABDOMEN: Tenderness noted in the left lower quadrant. NEURO: Awake, alert and oriented x3, cranial nerves II-XII grossly intact, normal gait, no involuntary motions. Labs: - (December) Blood work: All values reported as normal Tests: - Colonoscopy: Performed approximately one year ago; no results discussed in the transcript 1. Chronic diarrhea (K52.9) 2. Acute diverticulitis (K57.92) - Diarrhea for 6 weeks, 5 times daily, with associated abdominal cramping and perianal rash; abdominal tenderness on exam. - Treated with Flagyl and Cipro for 7 days. - Provided stool sample collection kit; if no improvement after antibiotics, will submit sample for further testing. - Advised use of Vaseline for perianal rash. 3. Essential (primary) hypertension (I10) 4. Combined hyperlipidemia (E78.2) LIPID. Recording using [employer] software for draft documentation of the visit was discussed with the patient/authorized pharmaceutical specialty representative; all questions welcomed and answered. Patient/authorized pharmaceutical specialty representative agreed to proceed Lizette Avila MD [1] No Known Allergies [2] Current Outpatient Medications Medication Sig rosuvastatin (CRESTOR) 5 mg tablet Take 1 tablet by mouth daily at bedtime. tamsulosin (FLOMAX) 0.4 mg Take 1 capsule by mouth at bedtime as needed. (Patient taking differently: Take 0.4 mg by mouth once daily.) amLODIPine (NORVASC) 10 mg tablet Take 1 tablet by mouth once daily. pantoprazole DR (PROTONIX) 40 mg tablet Take 1 tablet by mouth once daily. ciprofloxacin HCl (CIPRO) 500 mg tablet Take 1 tablet by mouth two times a day for 7 days. metroNIDAZOLE (FLAGYL) 500 mg tablet Take 1 tablet by mouth three times a day for 7 days. Lactobac 66-Bifido 4-S.thermo (PROBIOTIC ACIDOPHILUS,14-STRN,) 3 billion cell chew Take 1 tablet by mouth two times a day for 7 days. No current facility-administered medications for this visit. [3] Past Medical History: 10/17/2022: GERD without esophagitis No date: Hypertension [4] Review of patient's family history indicates: Problem: other (stomach cancer) Relation: Mother Age of Onset: (Not Specified) Problem: Brain Cancer Relation: Father Age of Onset: (Not Specified) [5] Social History Tobacco Use Smoking status: Never Passive exposure: Never Smokeless tobacco: Never Vaping Use Vaping status: Never Used Substance Use Topics Alcohol use: Not Currently Drug use: Never [facility] 07-07-2025 History of Present illness Narrative Diarrhea (Willy is here today with concerns of diarrhea for the past 6 weeks. 4-5 episodes per day. States he had a fever and cold sores on the lips 2 weeks ago . Willy Sanders is a 70-year-old male with a history of diverticulitis, presenting with diarrhea x6 weeks. Diarrhea: - Diarrhea x6 weeks, occurring approximately 5 times daily. - Stool consistency varies between watery and soft. - Uncertain about presence of blood in stool. - Associated with abdominal cramping, particularly severe prior to bowel movements. - Reports a burning sensation during defecation, suspecting too much acid in the system. - Developed a rash around the anus, possibly due to frequent bowel movements. - No recent dietary changes; denies consumption of probiotics. - Recent weight loss noted. - Similar episode of diarrhea occurred a few years ago, but current symptoms are described as different. - Last colonoscopy was approximately one year ago. - Last blood work was in December, with results reported as normal. - No other household members are experiencing similar symptoms. ALLERGIES[1] CURRENT MEDICATIONS[2] PAST MEDICAL HISTORY[3] PAST SURGICAL HISTORY Procedure Laterality Date EXCISION OF A GRANULOMA SUTURE 1999 throat FAMILY HISTORY[4] SOCIAL HISTORY[5] All medications have been reviewed and verified. Constitutional: (+) weight loss Gastrointestinal: (+) diarrhea, (+) abdominal cramps, (+) anal burning, (-) blood in stool Musculoskeletal: (+) back pain Skin: (+) perianal rash VITALS: Blood pressure 128/72, pulse (!) 58, height 170.2 cm (5' 7), weight 90.1 kg (198 lb 9.6 oz), SpO2 96%., Body mass index is 31.11 kg/m . GENERAL: NAD, alert and oriented. SKIN: Unremarkable, no rash or skin lesions. HEAD: Normocephalic. EYES: PERRLA, EOMI, conjunctiva clear. EARS: External ears normal, canals clear, TM's normal. NOSE/SINUSES: Nares normal. Septum midline. OROPHARYNX: Lips, mucosa, and tongue normal, good dentition. No oral lesions noted. NECK: Supple, no lymphadenopathy, normal thyroid, no carotid bruits. LUNGS: Clear to auscultation bilaterally, no wheezes/rhonchi/rales. HEART: Regular rate and rhythm, no murmurs. No ectopy. EXTREMITIES: Normal, no deformities, no skin discoloration, no edema. ABDOMEN: Tenderness noted in the left lower quadrant. NEURO: Awake, alert and oriented x3, cranial nerves II-XII grossly intact, normal gait, no involuntary motions. Labs: - (December) Blood work: All values reported as normal Tests: - Colonoscopy: Performed approximately one year ago; no results discussed in the transcript 1. Chronic diarrhea (K52.9) 2. Acute diverticulitis (K57.92) - Diarrhea for 6 weeks, 5 times daily, with associated abdominal cramping and perianal rash; abdominal tenderness on exam. - Treated with Flagyl and Cipro for 7 days. - Provided stool sample collection kit; if no improvement after antibiotics, will submit sample for further testing. - Advised use of Vaseline for perianal rash. 3. Essential (primary) hypertension (I10) 4. Combined hyperlipidemia (E78.2) LIPID. Recording using [employer] software for draft documentation of the visit was discussed with the patient/authorized pharmaceutical specialty representative; all questions welcomed and answered. Patient/authorized pharmaceutical specialty representative agreed to proceed Lizette Avila MD [1] No Known Allergies [2] Current Outpatient Medications Medication Sig rosuvastatin (CRESTOR) 5 mg tablet Take 1 tablet by mouth daily at bedtime. tamsulosin (FLOMAX) 0.4 mg Take 1 capsule by mouth at bedtime as needed. (Patient taking differently: Take 0.4 mg by mouth once daily.) amLODIPine (NORVASC) 10 mg tablet Take 1 tablet by mouth once daily. pantoprazole DR (PROTONIX) 40 mg tablet Take 1 tablet by mouth once daily. ciprofloxacin HCl (CIPRO) 500 mg tablet Take 1 tablet by mouth two times a day for 7 days. metroNIDAZOLE (FLAGYL) 500 mg tablet Take 1 tablet by mouth three times a day for 7 days. Lactobac 66-Bifido 4-S.thermo (PROBIOTIC ACIDOPHILUS,14-STRN,) 3 billion cell chew Take 1 tablet by mouth two times a day for 7 days. No current facility-administered medications for this visit. [3] Past Medical History: 10/17/2022: GERD without esophagitis No date: Hypertension [4] Review of patient's family history indicates: Problem: other (stomach cancer) Relation: Mother Age of Onset: (Not Specified) Problem: Brain Cancer Relation: Father Age of Onset: (Not Specified) [5] Social History Tobacco Use Smoking status: Never Passive exposure: Never Smokeless tobacco: Never Vaping Use Vaping status: Never Used Substance Use Topics Alcohol use: Not Currently Drug use: Never documented in this encounter [facility] 04-15-2025 Note HNO ID: [id number] Author: LIZETTE AVILA MD Service: ? Author Type: Physician Type: Progress Notes Filed: 04/15/2025 09:59 Note Text: Willy is a 69-year-old male presenting for a follow-up visit, with complaints of right thumb pain. Right Thumb Pain: - Chronic aching pain in the right thumb, attributed to arthritis. - Previously received an injection from orthopedics with minimal relief. - Tried using a wrist brace with thumb support but found it restrictive and exacerbated pain when removed. - Pain seems to improve with activity. - Taking ibuprofen PRN, but reports it causes blisters on lips and believes it raises body temperature. Hypertension controlled. Stable on current medications. No headache or palpitations. No lightheadedness. Hyperlipidemia on statin no myalgia taking the pill at night. Lipid panel reviewed. To continue current medication. Discussed healthy diet. GERD on PPI symptoms controlled , no dysphagia, no weight loss, no blood in the stool. Stable to continue. ALLERGIES No Known Allergies Current Outpatient Medications Medication Sig rosuvastatin (CRESTOR) 5 mg tablet Take 1 tablet by mouth daily at bedtime. tamsulosin (FLOMAX) 0.4 mg Take 1 capsule by mouth at bedtime as needed. (Patient taking differently: Take 0.4 mg by mouth once daily.) amLODIPine (NORVASC) 10 mg tablet Take 1 tablet by mouth once daily. pantoprazole DR (PROTONIX) 40 mg tablet Take 1 tablet by mouth once daily. meloxicam (MOBIC) 15 mg tablet Take 1 tablet by mouth once daily as needed for pain. No current facility-administered medications for this visit. PAST MEDICAL HISTORY Diagnosis Date GERD without esophagitis 10/17/2022 Hypertension PAST SURGICAL HISTORY Procedure Laterality Date EXCISION OF A GRANULOMA SUTURE 1999 throat FAMILY HISTORY Problem Relation Age of Onset other (stomach cancer) Mother Brain Cancer Father Social History Tobacco Use Smoking status: Never Passive exposure: Never Smokeless tobacco: Never Vaping Use Vaping status: Never Used Substance Use Topics Alcohol use: Not Currently Drug use: Never All medications have been reviewed and verified. Musculoskeletal: (+) right thumb arthralgia VITALS: Blood pressure 118/66, pulse 65, height 170.2 cm (5' 7), weight 90.9 kg (200 lb 4.8 oz), SpO2 99%., Body mass index is 31.37 kg/m?. GENERAL: NAD, alert and oriented SKIN: unremarkable, no rash or skin lesions. HEAD: normocephalic EYES: PERRLA, EOMI, conjunctiva clear EARS: external ears normal, canals clear, TM's normal. NOSE/SINUSES: Nares normal. Septum midline. OROPHARYNX: lips, mucosa, and tongue normal, good dentition. No oral lesions noted. NECK: Supple, no lymphadenopathy, normal thyroid, no carotid bruits. LUNGS: Clear to auscultation bilaterally, no wheezes/rhonchi/rales. HEART: Regular rate and rhythm, no murmurs. No ectopy. EXTREMITIES: Right thumb with tenderness noted at the metacarpal joint. Otherwise normal, no deformities, no skin discoloration, no edema. NEURO: Awake, alert and oriented x3, cranial nerves II-XII grossly intact, normal gait, no involuntary motions 1. Essential (primary) hypertension (I10) - Stable on current management. 2. Combined hyperlipidemia (E78.2) - Stable on current management. 3. Primary osteoarthritis of right hand (M19.041) - Persistent pain in right thumb metacarpal despite previous corticosteroid injection. - Discussed surgical options, including fusion surgery, but not recommended at this time due to potential complications and limited benefit. - Advised against regular use of ibuprofen due to adverse effects (oral blisters) and potential renal impact. - Prescribed Meloxicam 15 mg orally once daily as an alternative NSAID. - Recommended continued use of heat therapy. 4. Benign prostatic hyperplasia with lower urinary tract symptoms, symptom details unspecified (N40.1) - Stable on current management. 5. GERD without esophagitis (K21.9) - Stable on current management. 6. Vitamin D deficiency (E55.9) - Stable on current management. Recording using [employer] software for draft documentation of the visit was discussed with the patient/authorized pharmaceutical specialty representative; all questions welcomed and answered. Patient/authorized pharmaceutical specialty representative agreed to proceed Lizette Avila MD [facility] 02-25-2025 Note HNO ID: [id number] Author: LIZETTE AVILA MD Service: ? Author Type: Physician Type: Progress Notes Filed: 02/25/2025 14:50 Note Text: Willy Sanders is a 69 year old male here for a Medicare wellness visit. Medicare Health Risk Assessment General Health Excellent Exercise: Minutes/Day 0 min Exercise: Days/Week 0 days Alcohol: Daily Use Never Alcohol: Drinks/Day Patient does not drink Alcohol: 6 or more drinks Never Feel off balance No Concerns: Teeth/Dentures No Concerns: Sexual function Yes Troubled by feelings None of the above Frequency: Eating healthy diet More than half the days ADLs requiring help None of the above Safety precautions in home/vehicle No Smoke, vape, chews tobacco No Difficulty hearing No Difficulty seeing No Current Providers Specialists: I have reviewed specialist-related care of the patient in the medical record. Medical/Family history review Reviewed and updated problem list, medical/surgical/family/social history, medications, and allergies. Opioid use review Opioid Medications (last 90 days) No data to display Anxiety/Depression screening PHQ-2 Score: 0 (Lower risk for depression) LUÍS-2 Score: 0 (Lower risk for anxiety) Recommendation: no further intervention at this time Cognitive screening Mini Cog Score: 3 Cognitive screening reviewed and No further action needed (score 3-5). Functional Observation Was the patient's Timed Up AND Go test unsteady or >= 12 seconds? No Advance Care Planning Patient did not wish or was not able to name a surrogate decision maker or provide an advance care plan Measurements BP 118/82 Pulse 81 Temp 36.9 ?C (98.5 ?F) (Temporal) Resp 18 Ht 168.3 cm (5' 6.25) Wt 89.4 kg (197 lb) SpO2 95% BMI 31.56 kg/m? Vision Screening: Follows with optometry/ophthalmology Assessment/Plan Medicare annual wellness visit, subsequent (Z00.00) - Counseled on healthy diet and regular exercise - Fall avoidance information provided - Personalized prevention plan provided Additional Concerns The following concerns were also discussed with the patient: The patient consented to the use of [employer] software for draft documentation of the visit consistent with [facility]?s Notice of Privacy Practices. Right Thumb Pain: - Received an injection in the right thumb by Dr. Cheek, an principal technical specialist, with no significant relief. - Pain is exacerbated by frequent use of the right hand at work. - X-ray of the thumb was performed last year, showing signs of arthritis. - Completed occupational therapy as recommended by Dr. Cheek. - Currently taking ibuprofen PRN for pain management. Back Pain: - Recent x-ray on 01/15 showed moderate to severe degenerative changes in L5-S1. - Denies current use of pain medication for back pain. Hyperlipidemia: - Previously on Lipitor, but discontinued. - Recent lab work showed total cholesterol of 211 mg/dL and LDL of 138 mg/dL. Lifestyle: - Lives with his , who drives him; does not cook. - Denies alcohol consumption. - Takes Centrum Silver vitamins, but has not taken them for the past few weeks. - Reports a decrease in weight from 210-206 lbs to 197 lbs, noting that the recent weight was taken without shoes. Musculoskeletal: (+) right thumb pain, (+) back pain BP 118/82 Pulse 81 Temp 36.9 ?C (98.5 ?F) (Temporal) Resp 18 Ht 168.3 cm (5' 6.25) Wt 89.4 kg (197 lb) SpO2 95% BMI 31.56 kg/m? GENERAL: NAD, alert and oriented. SKIN: Unremarkable, no rash or skin lesions. HEAD: Normocephalic. EYES: PERRLA, EOMI, conjunctiva clear. EARS: External ears normal, canals clear, TM's normal. NOSE/SINUSES: Nares normal. Septum midline. OROPHARYNX: Lips, mucosa, and tongue normal, good dentition. No oral lesions noted. NECK: Supple, no lymphadenopathy, normal thyroid, no carotid bruits. LUNGS: Clear to auscultation bilaterally, no wheezes/rhonchi/rales. HEART: Regular rate and rhythm, no murmurs. No ectopy. EXTREMITIES: Normal, no deformities, no skin discoloration, no edema. NEURO: Awake, alert and oriented x3, cranial nerves II-XII grossly intact, normal gait, no involuntary motions. Depression- Depression sceening done at this visit today and the scores noted and discussed with the patient. Medication options if appropriate were discussed/offfered, as well as possible referrals to counseling or psych. Minimum 15 minutes spent on completing assessment, reviewing, and discussing with patient. ACP- 30 minutes spent in advanced care planning with over 50 percent of the time face to face with the patient. We discussed Living Will and Power of Franchise Development Manager and the importance of clarifying end of life wishes. Patient reports interest in completing these forms. Forms explained and given to patient. Patient will call if any questions or concerns regarding the forms. BMI- About 15 minutes spent today on counseling with (more content not included)... [facility] 02-25-2025 History of Present illness Narrative Images from the original note were not included. Willy Sanders is a 69 year old male here for a Medicare wellness visit. Medicare Health Risk Assessment General Health Excellent Exercise: Minutes/Day 0 min Exercise: Days/Week 0 days Alcohol: Daily Use Never Alcohol: Drinks/Day Patient does not drink Alcohol: 6 or more drinks Never Feel off balance No Concerns: Teeth/Dentures No Concerns: Sexual function Yes Troubled by feelings None of the above Frequency: Eating healthy diet More than half the days ADLs requiring help None of the above Safety precautions in home/vehicle No Smoke, vape, chews tobacco No Difficulty hearing No Difficulty seeing No Current Providers Specialists: I have reviewed specialist-related care of the patient in the medical record. Medical/Family history review Reviewed and updated problem list, medical/surgical/family/social history, medications, and allergies. Opioid use review Opioid Medications (last 90 days) No data to display Anxiety/Depression screening PHQ-2 Score: 0 (Lower risk for depression) LUÍS-2 Score: 0 (Lower risk for anxiety) Recommendation: no further intervention at this time Cognitive screening Mini Cog Score: 3 Cognitive screening reviewed and No further action needed (score 3-5). Functional Observation Was the patient's Timed Up & Go test unsteady or >= 12 seconds? No Advance Care Planning Patient did not wish or was not able to name a surrogate decision maker or provide an advance care plan Measurements BP 118/82 Pulse 81 Temp 36.9 C (98.5 F) (Temporal) Resp 18 Ht 168.3 cm (5' 6.25) Wt 89.4 kg (197 lb) SpO2 95% BMI 31.56 kg/m Vision Screening: Follows with optometry/ophthalmology Assessment/Plan Medicare annual wellness visit, subsequent (Z00.00) - Counseled on healthy diet and regular exercise - Fall avoidance information provided - Personalized prevention plan provided Additional Concerns The following concerns were also discussed with the patient: The patient consented to the use of [employer] software for draft documentation of the visit consistent with [facility] s Notice of Privacy Practices. Right Thumb Pain: - Received an injection in the right thumb by Dr. Cheek, an principal technical specialist, with no significant relief. - Pain is exacerbated by frequent use of the right hand at work. - X-ray of the thumb was performed last year, showing signs of arthritis. - Completed occupational therapy as recommended by Dr. Cheek. - Currently taking ibuprofen PRN for pain management. Back Pain: - Recent x-ray on 01/15 showed moderate to severe degenerative changes in L5-S1. - Denies current use of pain medication for back pain. Hyperlipidemia: - Previously on Lipitor, but discontinued. - Recent lab work showed total cholesterol of 211 mg/dL and LDL of 138 mg/dL. Lifestyle: - Lives with his , who drives him; does not cook. - Denies alcohol consumption. - Takes Centrum Silver vitamins, but has not taken them for the past few weeks. - Reports a decrease in weight from 210-206 lbs to 197 lbs, noting that the recent weight was taken without shoes. Musculoskeletal: (+) right thumb pain, (+) back pain BP 118/82 Pulse 81 Temp 36.9 C (98.5 F) (Temporal) Resp 18 Ht 168.3 cm (5' 6.25) Wt 89.4 kg (197 lb) SpO2 95% BMI 31.56 kg/m GENERAL: NAD, alert and oriented. SKIN: Unremarkable, no rash or skin lesions. HEAD: Normocephalic. EYES: PERRLA, EOMI, conjunctiva clear. EARS: External ears normal, canals clear, TM's normal. NOSE/SINUSES: Nares normal. Septum midline. OROPHARYNX: Lips, mucosa, and tongue normal, good dentition. No oral lesions noted. NECK: Supple, no lymphadenopathy, normal thyroid, no carotid bruits. LUNGS: Clear to auscultation bilaterally, no wheezes/rhonchi/rales. HEART: Regular rate and rhythm, no murmurs. No ectopy. EXTREMITIES: Normal, no deformities, no skin discoloration, no edema. NEURO: Awake, alert and oriented x3, cranial nerves II-XII grossly intact, normal gait, no involuntary motions. Depression- Depression sceening done at this visit today and the scores noted and discussed with the patient. Medication options if appropriate were discussed/offfered, as well as possible referrals to counseling or psych. Minimum 15 minutes spent on completing assessment, reviewing, and discussing with patient. ACP- 30 minutes spent in advanced care planning with over 50 percent of the time face to face with the patient. We discussed Living Will and Power of Franchise Development Manager and the importance of clarifying end of life wishes. Patient reports interest in completing these forms. Forms explained and given to patient. Patient will call if any questions or concerns regarding the forms. BMI- About 15 minutes spent today on counseling with over 50 percent of the time spent face to face with the patient. We discussed the impact of weight loss and how it can improve overall health. We discussed the importance and usefulness of exercise, and also some dietary changes that could be done. Follow up in 6 months on progress will be scheduled. CVD- 15 minutes spent on counseling with over 50 percent of the time spent face to face with the patient. We discussed the vital impact of exercise and lifestyle changes on cardiac health. Advised to limit high fat diet, high cholesterol foods, limit salt, processed foods, and calorie intake.Exercise 150 minutes per week and low cholesterol diet encouraged. Baby aspirin 81mg enteric coated recommended, if appropriate, daily to reduce the risk of heart attack and stroke. Keep appointments every 3-6 months for BP checks and labs. ASSESSMENT/PLAN: 1. Primary osteoarthritis of right hand - ICD9: 715.14, ICD10: M19.041 (primary diagnosis) To follow with orthopedic. 2. Screening for depression - ICD9: V79.0, ICD10: Z13.31 - DEPRESSION SCREENING 3. Encounter for screening examination for other mental health and behavioral disorders - ICD9: V79.8, ICD10: Z13.39 - ANXIETY SCREENING 4. Chronic midline low back pain without sciatica - ICD9: 724.2, 338.29, ICD10: M54.50, G89.29 PT. 5. Combined hyperlipidemia - ICD9: 272.2, ICD10: E78.2 - Uncontrolled - Counseled on healthy diet and regular exercise - ROSUVASTATIN 5 MG TABLET - LIPID PANEL, FASTING 6. Elevated LFTs - ICD9: 790.6, ICD10: R79.89 - COMPREHENSIVE METABOLIC PANEL 7. Obesity, Class I, BMI 30-34.9 - ICD9: 278.00, ICD10: E66.811 Obesity Body mass index is 31.56 kg/m . Last Wt 02/25/25 : 89.4 kg (197 lb) 5% weight loss = 187 lbs, 10% weight loss = 177 lbs The patient is asked to make an attempt to improve diet and exercise patterns to aid in medical management of this problem. Counseling 15 min . 8. Medicare annual wellness visit, subsequent - ICD9: V70.0, ICD10: Z00.00 - Counseled on healthy diet and regular exercise Lizette Avila MD Patient is here for his annual Medicare Wellness Exam. BP Controlled (<130/80) due on 02/15/2024 Advance Directive Discussion due on 11/27/2024 Depression Screening due on 03/07/2025 Anxiety Screening due on 03/07/2025 Andrew Kellogg LPN February 25, 2025 2:32 PM documented in this encounter [facility] 02-25-2025 Instructions Lizette Avila MD - 02/25/2025 2:47 PM EDT Screening schedule The following prevention plan is recommended: Advance Directive Discussion due on 11/27/2024 Depression Screening due on 03/07/2025 Anxiety Screening due on 03/07/2025 WHAT YOU CAN DO TO PREVENT FALLS Many falls can be prevented. By making some changes, you can lower your chances of falling. Four things YOU can do to prevent falls for you* and your caregiver 1. Begin a regular exercise program Exercise is one of the most important ways to lower your chances of falling. It makes you stronger and helps you feel better. Exercises that improve balance and coordination (like Shakir Chi) are the most helpful. Lack of exercise leads to weakness and increases your chances of falling. Ask your doctor or health care provider about the best type of exercise program for you. 2. Have your health care provider review your medicines Have your doctor or pharmacist review all the medicines you take, even [id number] medicines. As you get older, the way medicines work in your body can change. Some medicines, or combinations of medicines, can make you sleepy or dizzy and can cause you to fall. 3. Have your vision checked Have your eyes checked by an eye doctor at least once a year. You may be wearing the wrong glasses or have a condition like glaucoma or cataracts that limits your vision. Poor vision can increase your chances of falling. 4. Make your home safer About half of all falls happen at home. To make your home safer: Remove things you can trip over (like papers, books, clothes, and shoes) from stairs and places where you walk. Remove small throw rugs or use double-sided tape to keep the rugs from slipping. Keep items you use often in cabinets you can reach easily without using a step stool. Have grab bars put in next to your toilet and in the tub or shower. Use non-slip mats in the bathtub and on shower floors. Improve the lighting in your home. As you get older, you need brighter lights to see well. Hang light-weight curtains or shades to reduce glare. Have handrails and lights put in on all staircases. Wear shoes both inside and outside the house. Avoid going barefoot or wearing slippers. For more information, contact: Centers for Disease Control and Prevention www.cdc.gov/injury * This information may not apply if you have certain medical conditions. documented in this encounter [facility] 02-25-2025 Note HNO ID: [id number] Author: ANDREW KELLOGG LPN Service: ? Author Type: LICENSED NURSE Type: Progress Notes Filed: 02/25/2025 14:32 Note Text: Patient is here for his annual Medicare Wellness Exam. BP Controlled (<130/80) due on 02/15/2024 Advance Directive Discussion due on 11/27/2024 Depression Screening due on 03/07/2025 Anxiety Screening due on 03/07/2025 Andrew Kellogg LPN February 25, 2025 2:32 PM [facility] 01-16-2025 Note HNO ID: [id number] Author: MILTON RAE CF-LIFE SKILLS INSTRUCTOR Service: ? Author Type: Speech Language Pathologist Type: Progress Notes Filed: 04/02/2025 17:07 Note Text: 04/02/2025 [facility] SPEECH DISCONTINUANCE OF CARE Plan of Care Period: Start of Care Date: 01/16/25 Last Visit Date: 01/16/2025 Therapy Program: Patient did not return for follow up care as planned. Please refer to last visit note for interventions provided for this episode of care. Assessment: Unable to formally assess goal achievement. Reason for Discontinuation of Care: Patient has not returned to therapy or scheduled additional follow-up appointments. Milton Rae CF-LIFE SKILLS INSTRUCTOR Episode Visit Count: 1 Therapist That Will Accept/Oversee The Plan Of Care: Milton JONES-LIFE SKILLS INSTRUCTOR Start of Care Date: 01/16/25 Onset Date: 01/16/24 Patient Identified by Name and Date of : Lloyd [facility] COGNITIVE LINGUISTIC EVALUATION PLAN OF CARE: Impression: Communication deficits identified: Cognitive-Linguistic deficits RECOMMENDATION: LIFE SKILLS INSTRUCTOR Recommendations: Outpatient Speech Therapy Results and Recommendations Discussed With: Patient Goals for Episode of Care: created on 01/16/2025 through 04/15/25 COGNITIVE GOALS All goals to target the patient's overall ability to facilitate functional cognitive linguistic skills. 1. Pt will complete memory tasks with 90% accuracy with assistance. 2. Pt will complete executive functioning tasks with 90% accuracy with assistance 3. Pt will be educated on memory strategies that LIFE SKILLS INSTRUCTOR deems appropriate. Planned Interventions, Frequency, and Duration: Planned Treatment Interventions: Speech Treatment ([id number]) Current Frequency: 1x/week Duration: 12 weeks PLAN FOR NEXT VISIT: target goals, introduce memory strategies Patient demonstrates good understanding of plan of care and treatment. The above goals and plan of care were discussed and agreed upon by patient. SUBJECTIVE: Willy Sanders is a 69 year old male seen today for a diagnostic. 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 Patient pleasant and able to participate in session. PROMIS Scales 01/16/2025 Speech Communication Score 50 Cognitve Function T-Score 40 (moderate dysfunction) Cognitive Function Percentile 16 Proxy-reported T-scores: mean of general population = 50. 5 points is clinically meaningfully difference Percentiles provide an indication of how the patient's score ranks in relation to the general population. Higher percentile rankings indicate better function/quality of life. 50th percentile is the average of the general population and indicates half of respondents had a worse score. OBJECTIVE MEASURES WITH LEVEL OF FUNCTION: Hearing Deficits: Hard Of Hearing The standardized testing was utilized in the evaluation of the patient: Oral expression - 95 (WFL) Orientation - 100 (WFL) Memory - 53 (moderate impairment) Speech comprehension - 100 (WFL) Reading comprehension - 83 (mild impairment) Writing - 86 (Mild impairment) Attention - 94 (WFL) Problem solving - 91 (WFL) Overall score = 81, which equates to a mild impairment Willy Sanders presents with a mild cognitive communication deficit. Speech therapy is required to educate on memory strategies and enhance memory capacity. Education: Education Learning Preferences: Explanation Barriers: None Learning/Educational Needs: Cognitive Skills, Compensatory Strategies Education Provided: Yes, see treatment interventions for education provided Education Provided To: Patient Education Mode/Type: Demonstration, Explanation/Discussion Response to Education/Teach Back: States/Identifies TREATMENT: Evaluation: Eval Sound Production with Language Expression and Control Chemist ([id number]) Billing: Eval Sound Production with Language Expression and Control Chemist ([id number]) Total time / Length of visit: 45 minutes Session Start Time : 929 Session Stop Time : 101 Milton Rae CF-LIFE SKILLS INSTRUCTOR [facility] 01-16-2025 History of Present illness Narrative Images from the original note were not included. Episode Visit Count: 1 Therapist That Will Accept/Oversee The Plan Of Care: Milton JONES-LIFE SKILLS INSTRUCTOR Start of Care Date: 01/16/25 Onset Date: 01/16/24 Patient Identified by Name and Date of : Yes [facility] COGNITIVE LINGUISTIC EVALUATION PLAN OF CARE: Impression: Communication deficits identified: Cognitive deficits RECOMMENDATION: LIFE SKILLS INSTRUCTOR Recommendations: Outpatient Speech Therapy Results and Recommendations Discussed With: Patient Goals for Episode of Care: created on 01/16/2025 through 04/15/25 COGNITIVE GOALS All goals to target the patient's overall ability to facilitate functional cognitive linguistic skills. 1. Pt will complete memory tasks with 90% accuracy with assistance. 2. Pt will complete executive functioning tasks with 90% accuracy with assistance 3. Pt will be educated on memory strategies that LIFE SKILLS INSTRUCTOR deems appropriate. Planned Interventions, Frequency, and Duration: Planned Treatment Interventions: Speech Treatment ([id number]) Current Frequency: 1x/week Duration: 12 weeks PLAN FOR NEXT VISIT: target goals, introduce memory strategies Patient demonstrates good understanding of plan of care and treatment. The above goals and plan of care were discussed and agreed upon by patient. SUBJECTIVE: Willy Sanders is a 69 year old male seen today for a diagnostic. 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 Patient pleasant and able to participate in session. PROMIS Scales 01/16/2025 Speech Communication Score 50 Cognitve Function T-Score 40 (moderate dysfunction) Cognitive Function Percentile 16 Proxy-reported T-scores: mean of general population = 50. 5 points is clinically meaningfully difference Percentiles provide an indication of how the patient's score ranks in relation to the general population. Higher percentile rankings indicate better function/quality of life. 50th percentile is the average of the general population and indicates half of respondents had a worse score. OBJECTIVE MEASURES WITH LEVEL OF FUNCTION: Hearing Deficits: Hard Of Hearing The standardized testing was utilized in the evaluation of the patient: Oral expression - 95 (WFL) Orientation - 100 (WFL) Memory - 53 (moderate impairment) Speech comprehension - 100 (WFL) Reading comprehension - 83 (mild impairment) Writing - 86 (Mild impairment) Attention - 94 (WFL) Problem solving - 91 (WFL) Overall score = 81, which equates to a mild impairment Willy Sanders presents with a mild cognitive communication deficit. Speech therapy is required to educate on memory strategies and enhance memory capacity. Education: Education Learning Preferences: Explanation Learning/Educational Needs: Cognitive Skills, Compensatory Strategies Education Provided: Yes, see treatment interventions for education provided Education Provided To: Patient Education Mode/Type: Demonstration, Explanation/Discussion Response to Education/Teach Back: States/Identifies TREATMENT: Evaluation: Eval Sound Production with Language Expression and Control Chemist ([id number]) Billing: Eval Sound Production with Language Expression and Control Chemist ([id number]) Total time / Length of visit: 45 minutes Session Start Time : 929 Session Stop Time : 1015 JESSIKA Fermin documented in this encounter [facility] 01-15-2025 History of Present illness Narrative Radiology Service Progress Note PATIENT NAME: Willy Sanders DATE OF SERVICE: January 15, 2025 TIME: 12:19 PM PATIENT IDENTITY VERIFICATION COMPLETED USING TWO (2) IDENTIFIERS: Name and Date of confirmed by patient verbally. FALL SCREENING: Has the patient had 2 falls in the last year or 1 fall with injury or currently using an Ambulatory Assistive Device (Walker, Cane, Wheelchair, Crutches, etc.)? No PATIENT GENDER DATA: Assigned male at PATIENT RELEVANT IMPLANT DATA REVIEWED: Not Applicable PATIENT PRESENTS WITH AN IMPLANTABLE OR ATTACHED SECURITY INSPECTOR: No RADIOLOGY DEPARTMENT: General X-ray: Exam(s) Completed: Spine X-Ray(s): Lumbar AP / LAT / L5-S1 PERIPHERAL IV DATA: Not applicable SIGNED BY: RT Kei(Rhona) January 15, 2025 12:19 PM documented in this encounter [facility] 01-15-2025 Note HNO ID: [id number] Author: BLAYNE HEART RT (R) Service: ? Author Type: Technologist Type: Progress Notes Filed: 01/15/2025 12:24 Note Text: Radiology Service Progress Note PATIENT NAME: Willy Sanders DATE OF SERVICE: January 15, 2025 TIME: 12:19 PM PATIENT IDENTITY VERIFICATION COMPLETED USING TWO (2) IDENTIFIERS: Name and Date of confirmed by patient verbally. FALL SCREENING: Has the patient had 2 falls in the last year or 1 fall with injury or currently using an Ambulatory Assistive Device (Walker, Cane, Wheelchair, Crutches, etc.)? No PATIENT GENDER DATA: Assigned male at PATIENT RELEVANT IMPLANT DATA REVIEWED: Not Applicable PATIENT PRESENTS WITH AN IMPLANTABLE OR ATTACHED SECURITY INSPECTOR: No RADIOLOGY DEPARTMENT: General X-ray: Exam(s) Completed: Spine X-Ray(s): Lumbar AP / LAT / L5-S1 PERIPHERAL IV DATA: Not applicable SIGNED BY: RT Kei(R) January 15, 2025 12:19 PM [facility] 01-15-2025 Note Addended by: LIZETTE AVILA on: 01/15/2025 09:37 AM Modules accepted: Orders [facility] 01-15-2025 Miscellaneous Notes Addended by: LIZETTE AVILA on: 01/15/2025 09:37 AM Modules accepted: Orders documented in this encounter [facility] 01-15-2025 Note HNO ID: [id number] Author: LIZETTE AVILA MD Service: ? Author Type: Physician Type: Progress Notes Filed: 01/15/2025 09:37 Note Text: This note was created using Nextinitriter. Subjective Willy Sanders is a 69 year old male. HPI Follow Up (Willy is here today with concerns of foot swelling and numbness for the past month. Also concerned about his memory feels more forgetful. Forgetting where he put things. Bilateral feet numbness for 2 years getting worse. Back pain chronic aching. Hypertension controlled. Stable on current medications. No headache or palpitations. No lightheadedness. GERD on PPI symptoms controlled , no dysphagia, no weight loss, no blood in the stool. Stable to continue. BPH on flomax. PAST MEDICAL HISTORY Diagnosis Date GERD without esophagitis 10/17/2022 Hypertension PAST SURGICAL HISTORY Procedure Laterality Date EXCISION OF A GRANULOMA SUTURE 1999 throat Social History Tobacco Use Smoking status: [...] difficulty urinating, dysuria, enuresis and flank pain. Skin: Negative for color change and pallor. Allergic/Immunologic: Negative for environmental allergies, food allergies and immunocompromised state. Neurological: Negative for dizziness, facial asymmetry, light-headedness and headaches. Hematological: Negative for adenopathy. Does not bruise/bleed easily. Psychiatric/Behavioral: Positive for decreased concentration. Objective BP 128/82 Pulse (!) 57 Ht 170.2 cm (5' 7) Wt 98.4 kg (217 lb) SpO2 98% BMI 33.99 kg/m? Physical Exam Vitals and nursing note [...] present. Musculoskeletal: General: Normal range of motion. Cervical back: Normal range of motion and neck supple. Lymphadenopathy: Cervical: No cervical adenopathy. Skin: Findings: No bruising, lesion or rash. Neurological: Mental Status: He is alert and oriented to person, place, and time. Mental status is at baseline. Cranial Nerves: No cranial nerve deficit. Motor: No weakness. Gait: Gait normal. Psychiatric: Mood and Affect: Mood normal. Behavior: Behavior normal. Assessment and Plan ASSESSMENT/PLAN: 1. Essential hypertension - ICD9: 401.9, ICD10: I10 (primary diagnosis) - Controlled - Recommend home blood pressure monitoring, to bring results to next visit - Encouraged sodium restriction, DASH or Mediterranean diet - Recommend regular aerobic exercise - COMPLETE BLOOD COUNT - COMPREHENSIVE METABOLIC PANEL - THYROID STIMULATING HORMONE - AMLODIPINE 10 MG TABLET 2. Combined hyperlipidemia - ICD9: 272.2, ICD10: E78.2 - Controlled - Counseled on healthy diet and regular exercise - LIPID PANEL BASIC 3. Benign prostatic hyperplasia with lower urinary tract symptoms, symptom details unspecified - ICD9: 600.01, ICD10: N40.1 - PROSTATE-SPECIFIC ANTIGEN DIAGNOSTIC 4. Vitamin D deficiency - ICD9: 268.9, ICD10: E55.9 - VITAMIN D 25 HYDROXY - VITAMIN B12 5. Obesity, Class I, BMI 30-34.9 - ICD9: 278.00, ICD10: E66.811 Obesity Body mass index is 33.99 kg/m?. Last Wt 01/15/25 : 98.4 kg (217 lb) 5% weight loss = 206 lbs, 10% weight loss = 195 lbs The patient is asked to make an attempt to improve diet and exercise patterns to aid in medical management of this problem. Counseling 15 min . 6. Mild cognitive impairment - ICD9: 331.83, ICD10: G31.84 - CONSULT TO SPEECH THERAPY 7. Benign prostatic hyperplasia with urinary frequency - ICD9: 600.01, 78 (more content not included)... [facility] 01-15-2025 History of Present illness Narrative This note was created using [employer]. Subjective Willy Sanders is a 69 year old male. HPI Follow Up (Willy is here today with concerns of foot swelling and numbness for the past month. Also concerned about his memory feels more forgetful. Forgetting where he put things. Bilateral feet numbness for 2 years getting worse. Back pain chronic aching. Hypertension controlled. Stable on current medications. No headache or palpitations. No lightheadedness. GERD on PPI symptoms controlled , no dysphagia, no weight loss, no blood in the stool. Stable to continue. BPH on flomax. PAST MEDICAL HISTORY Diagnosis Date GERD without esophagitis 10/17/2022 Hypertension PAST SURGICAL HISTORY Procedure Laterality Date EXCISION OF A GRANULOMA SUTURE 1999 throat Social History Tobacco Use Smoking status: [...] difficulty urinating, dysuria, enuresis and flank pain. Skin: Negative for color change and pallor. Allergic/Immunologic: Negative for environmental allergies, food allergies and immunocompromised state. Neurological: Negative for dizziness, facial asymmetry, light-headedness and headaches. Hematological: Negative for adenopathy. Does not bruise/bleed easily. Psychiatric/Behavioral: Positive for decreased concentration. Objective BP 128/82 Pulse (!) 57 Ht 170.2 cm (5' 7) Wt 98.4 kg (217 lb) SpO2 98% BMI 33.99 kg/m Physical Exam Vitals and nursing note [...] present. Musculoskeletal: General: Normal range of motion. Cervical back: Normal range of motion and neck supple. Lymphadenopathy: Cervical: No cervical adenopathy. Skin: Findings: No bruising, lesion or rash. Neurological: Mental Status: He is alert and oriented to person, place, and time. Mental status is at baseline. Cranial Nerves: No cranial nerve deficit. Motor: No weakness. Gait: Gait normal. Psychiatric: Mood and Affect: Mood normal. Behavior: Behavior normal. Assessment and Plan ASSESSMENT/PLAN: 1. Essential hypertension - ICD9: 401.9, ICD10: I10 (primary diagnosis) - Controlled - Recommend home blood pressure monitoring, to bring results to next visit - Encouraged sodium restriction, DASH or Mediterranean diet - Recommend regular aerobic exercise - COMPLETE BLOOD COUNT - COMPREHENSIVE METABOLIC PANEL - THYROID STIMULATING HORMONE - AMLODIPINE 10 MG TABLET 2. Combined hyperlipidemia - ICD9: 272.2, ICD10: E78.2 - Controlled - Counseled on healthy diet and regular exercise - LIPID PANEL BASIC 3. Benign prostatic hyperplasia with lower urinary tract symptoms, symptom details unspecified - ICD9: 600.01, ICD10: N40.1 - PROSTATE-SPECIFIC ANTIGEN DIAGNOSTIC 4. Vitamin D deficiency - ICD9: 268.9, ICD10: E55.9 - VITAMIN D 25 HYDROXY - VITAMIN B12 5. Obesity, Class I, BMI 30-34.9 - ICD9: 278.00, ICD10: E66.811 Obesity Body mass index is 33.99 kg/m . Last Wt 01/15/25 : 98.4 kg (217 lb) 5% weight loss = 206 lbs, 10% weight loss = 195 lbs The patient is asked to make an attempt to improve diet and exercise patterns to aid in medical management of this problem. Counseling 15 min . 6. Mild cognitive impairment - ICD9: 331.83, ICD10: G31.84 - CONSULT TO SPEECH THERAPY 7. Benign prostatic hyperplasia with urinary frequency - ICD9: 600.01, 788.41, ICD10: N40.1, R35.0 - TAMSULOSIN 0.4 MG CAPSULE 8. GERD without esophagitis - ICD9: 530.81, ICD10: K21.9 - PANTOPRAZOLE 40 MG TABLET,DELAYED RELEASE Lizette Avila MD documented in this encounter [facility] 10-01-2024 Note HNO ID: [id number] Author: LIZETTE AVILA MD Service: ? Author Type: Physician Type: Progress Notes Filed: 10/01/2024 16:21 Note Text: This note was created using Nextinitriter. Subjective Willy Sanders is a 69 year old male. [facility] F/U (Willy is here today following [facility] visit 09/19. Was found to be hypertensive. Was given medication and sent home. States he is not having anymore dizziness since starting the medication. Started low dose norvasc 2.5 mg will up the dose. Improved dizziness. GERD on PPI symptoms controlled , no dysphagia, no weight loss, no blood in the stool. Stable to continue. PAST MEDICAL HISTORY Diagnosis Date GERD without esophagitis 10/17/2022 Hypertension PAST SURGICAL HISTORY Procedure Laterality Date EXCISION OF A GRANULOMA SUTURE 2000 throat Social History Tobacco Use Smoking status: [...] allergies, food allergies and immunocompromised state. Neurological: Positive for dizziness. Negative for facial asymmetry, light-headedness and headaches. Hematological: Negative for adenopathy. Does not bruise/bleed easily. Objective BP 155/85 (BP Site: Left Arm, BP Position: Sitting, BP Cuff Size: Large Adult) Pulse 85 Ht 170.2 cm (5' 7) Wt 95.3 kg (210 lb 3.2 oz) SpO2 95% BMI 32.92 kg/m? Physical Exam Vitals and nursing note reviewed. Constitutional: General: He is not in acute distress. Appearance: Normal appearance. He is not ill-appearing. HENT: Head: Normocephalic [...] present. Musculoskeletal: General: Normal range of motion. Cervical back: Normal range of motion and [...] Behavior normal. Assessment and Plan ASSESSMENT/PLAN: 1. Essential hypertension - ICD9: 401.9, ICD10: I10 (primary diagnosis) - Controlled - Continue current medications - Recommend home blood pressure monitoring, to bring results to next visit - Encouraged sodium restriction, DASH or Mediterranean diet - Recommend regular aerobic exercise - AMLODIPINE 5 MG TABLET - COMPLETE BLOOD COUNT - COMPREHENSIVE METABOLIC PANEL - LIPID PANEL BASIC - THYROID STIMULATING HORMONE 2. 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 GERD without esophagitis - ICD9: 530.81, ICD10: K21.9 - Discussed lifestyle modifications including losing weight, limiting caffeine, no meals three hours before sleep, and head of bed elevation 4. Benign prostatic hyperplasia with lower urinary tract symptoms, symptom details unspecified - ICD9: 600.01, ICD10: N40.1 - PROSTATE-SPECIFIC ANTIGEN DIAGNOSTIC 5. Vitamin D deficiency - ICD9: 268.9, ICD10: E55.9 - VITAMIN D 25 HYDROXY 6.Obesity Body mass index is 32.92 kg/m?. Last Wt 10/01/24 : 95.3 kg (210 lb 3.2 oz) 5% weight loss = 200 lbs, 10% weight loss = 189 lbs The patient is asked to make an attempt to improve diet and exercise patte (more content not included)... [facility] 10-01-2024 History of Present illness Narrative This note was created using Nextinitriter. Subjective Willy Sanders is a 69 year old male. [facility] F/U (Willy is here today following [facility] visit 09/19. Was found to be hypertensive. Was given medication and sent home. States he is not having anymore dizziness since starting the medication. Started low dose norvasc 2.5 mg will up the dose. Improved dizziness. GERD on PPI symptoms controlled , no dysphagia, no weight loss, no blood in the stool. Stable to continue. PAST MEDICAL HISTORY Diagnosis Date GERD without esophagitis 10/17/2022 Hypertension PAST SURGICAL HISTORY Procedure Laterality Date EXCISION OF A GRANULOMA SUTURE 2000 throat Social History Tobacco Use Smoking status: [...] allergies, food allergies and immunocompromised state. Neurological: Positive for dizziness. Negative for facial asymmetry, light-headedness and headaches. Hematological: Negative for adenopathy. Does not bruise/bleed easily. Objective BP 155/85 (BP Site: Left Arm, BP Position: Sitting, BP Cuff Size: Large Adult) Pulse 85 Ht 170.2 cm (5' 7) Wt 95.3 kg (210 lb 3.2 oz) SpO2 95% BMI 32.92 kg/m Physical Exam Vitals and nursing note reviewed. Constitutional: General: He is not in acute distress. Appearance: Normal appearance. He is not ill-appearing. HENT: Head: Normocephalic [...] present. Musculoskeletal: General: Normal range of motion. Cervical back: Normal range of motion and [...] Behavior normal. Assessment and Plan ASSESSMENT/PLAN: 1. Essential hypertension - ICD9: 401.9, ICD10: I10 (primary diagnosis) - Controlled - Continue current medications - Recommend home blood pressure monitoring, to bring results to next visit - Encouraged sodium restriction, DASH or Mediterranean diet - Recommend regular aerobic exercise - AMLODIPINE 5 MG TABLET - COMPLETE BLOOD COUNT - COMPREHENSIVE METABOLIC PANEL - LIPID PANEL BASIC - THYROID STIMULATING HORMONE 2. 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 GERD without esophagitis - ICD9: 530.81, ICD10: K21.9 - Discussed lifestyle modifications including losing weight, limiting caffeine, no meals three hours before sleep, and head of bed elevation 4. Benign prostatic hyperplasia with lower urinary tract symptoms, symptom details unspecified - ICD9: 600.01, ICD10: N40.1 - PROSTATE-SPECIFIC ANTIGEN DIAGNOSTIC 5. Vitamin D deficiency - ICD9: 268.9, ICD10: E55.9 - VITAMIN D 25 HYDROXY 6.Obesity Body mass index is 32.92 kg/m . Last Wt 10/01/24 : 95.3 kg (210 lb 3.2 oz) 5% weight loss = 200 lbs, 10% weight loss = 189 lbs The patient is asked to make an attempt to improve diet and exercise patterns to aid in medical management of this problem. Counseling 15 min . Lizette Avila MD documented in this encounter [facility] 09-24-2024 Note HNO ID: [id number] Author: KARENA VORA RN Service: ? Author Type: Registered Nurse Type: Progress Notes Filed: 09/24/2024 13:29 Note Text: Summary: ED follow up ED Follow-Up Note Provider Action / FYI: Call completed by: RN Patient seen in ED: Out of Network ED Contact made with Patient: No, left message. Unable to make contact Patient identified by name and date of : YES An attempt was made to contact: Patient Was a voicemail left? Yes including my name, role, and return number Outreach Plan: Follow up call needed:No Karena Vora RN September 24, 2024 1:29 PM [facility] 09-24-2024 History of Present illness Narrative Summary: ED follow up ED Follow-Up Note Provider Action / FYI: Call completed by: RN Patient seen in ED: Out of Network ED Contact made with Patient: No, left message. Unable to make contact Patient identified by name and date of : YES An attempt was made to contact: Patient Was a voicemail left? Yes including my name, role, and return number Outreach Plan: Follow up call needed:No Karena Vora RN September 24, 2024 1:29 PM documented in this encounter [facility] 09-24-2024 Note Patient Outreach (MR CERNA) WILLY SANDERS ([id number]) 1955 M Date Time Provider Department 09/24/24 KARENA VORA [facility] During your visit today, we recorded the following information about you: Karena oVra RN 09/24/2024 1:29 PM Signed ED Follow-Up Note Provider Action / FYI: Call completed by: RN Patient seen in ED: Out of Network ED Contact made with Patient: No, left message. Unable to make contact Patient identified by name and date of : YES An attempt was made to contact: Patient Was a voicemail left? 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 Problem List As Of Date 09/24/2024 Noted Resolved Obesity, Class I, BMI 30-34.9 [E66.811] 10/17/2022 Essential (primary) hypertension [I10] 10/17/2022 GERD without esophagitis [K21.9] 10/17/2022 Combined hyperlipidemia [E78.2] 02/14/2023 Vitamin D deficiency [E55.9] 02/14/2023 Chest pain [R07.9] 10/30/2022 08/17/2023 Diagnosed: 08/17/2023 Disorder of teeth and supporting structures [K0*10/30/2022 08/17/2023 Diagnosed: 08/17/2023 Osteoarthritis of both knees [M17.0] 08/17/2023 Benign prostatic hyperplasia with lower urinary*08/17/2023 Encounter Status:Closed by KARENA VORA on 09/24/24 [facility] 09-23-2024 Note HNO ID: [id number] Author: KARENA VORA RN Service: ? Author Type: Registered Nurse Type: Progress Notes Filed: 09/23/2024 12:31 Note Text: Summary: ED follow up ED Follow-Up Note Provider Action / FYI: Call completed by: RN Patient seen in ED: Out of Network ED Contact made with Patient: No, left message to return my call at [phone] ext [phone] [facility] Chart Review Patient identified for Care Coordination from: Notify report: ED discharge: Patient discharged from [facility] on 09/19/25 . ED Summary: 69-year-old male past medical history of hypertension, states that he is not currently on medication for high blood pressure because 10 years ago they could not find a medication that would treat his hypertension effectively without dropping his blood pressure too low. He states that since Monday evening, approximately 2 days ago, he started having chest pressure in the middle of his chest. EKG was obtained and interpreted by myself independently as normal sinus rhythm at 71 bpm without ectopy or acute ST changes. No STEMI. Initial high-sensitivity troponin is 5. His blood pressure was 154/71. He was given amlodipine 2.5 mg orally here and a prescription written to take 1 tablet daily for the next 30 days. He was told that he may need to invest in a blood pressure cuff and keep a log of his pressures for his primary care provider. Chest x-ray 1 view interpreted by myself independently shows no evidence of an acute process. No pneumonia, no pneumothorax. Prescriptions: New amlodipine 2.5 mg tablet 2.5 mg PO DAILY Qty: 30 0RF Outreach Plan:Follow up call needed:Yes MEG Harding RN September 23, 2024 12:27 PM [facility] 09-23-2024 History of Present illness Narrative Summary: ED follow up ED Follow-Up Note Provider Action / FYI: Call completed by: RN Patient seen in ED: Out of Network ED Contact made with Patient: No, left message to return my call at [phone] ext [phone] [facility] Chart Review Patient identified for Care Coordination from: Notify report: ED discharge: Patient discharged from [facility] on 09/19/25 . ED Summary: 69-year-old male past medical history of hypertension, states that he is not currently on medication for high blood pressure because 10 years ago they could not find a medication that would treat his hypertension effectively without dropping his blood pressure too low. He states that since Monday evening, approximately 2 days ago, he started having chest pressure in the middle of his chest. EKG was obtained and interpreted by myself independently as normal sinus rhythm at 71 bpm without ectopy or acute ST changes. No STEMI. Initial high-sensitivity troponin is 5. His blood pressure was 154/71. He was given amlodipine 2.5 mg orally here and a prescription written to take 1 tablet daily for the next 30 days. He was told that he may need to invest in a blood pressure cuff and keep a log of his pressures for his primary care provider. Chest x-ray 1 view interpreted by myself independently shows no evidence of an acute process. No pneumonia, no pneumothorax. Prescriptions: New amlodipine 2.5 mg tablet 2.5 mg PO DAILY Qty: 30 0RF Outreach Plan:Follow up call needed:Yes MEG Harding RN September 23, 2024 12:27 PM documented in this encounter [facility] 09-23-2024 Note Patient Outreach (MR CERNA) WILLY SANDERS ([id number]) 1955 M Date Time Provider Department 09/23/24 KARENA VORA [facility] During your visit today, we recorded the following information about you: Karena Vora RN 09/23/2024 12:31 PM Signed ED Follow-Up Note Provider Action / FYI: Call completed by: RN Patient seen in ED: Out of Network ED Contact made with Patient: No, left message to return my call at [phone] ext [phone] [facility] Chart Review Patient identified for Care Coordination from: Notify report: ED discharge: Patient discharged from [facility] on 09/19/25 . ED Summary: 69-year-old male past medical history of hypertension, states that he is not currently on medication for high blood pressure because 10 years ago they could not find a medication that would treat his hypertension effectively without dropping his blood pressure too low. He states that since Monday evening, approximately 2 days ago, he started having chest pressure in the middle of his chest. EKG was obtained and interpreted by myself independently as normal sinus rhythm at 71 bpm without ectopy or acute ST changes. No STEMI. Initial high-sensitivity troponin is 5. His blood pressure was 154/71. He was given amlodipine 2.5 mg orally here and a prescription written to take 1 tablet daily for the next 30 days. He was told that he may need to invest in a blood pressure cuff and keep a log of his pressures for his primary care provider. Chest x-ray 1 view interpreted by myself independently shows no evidence of an acute process. No pneumonia, no pneumothorax. 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 Problem List As Of Date 09/23/2024 Noted Resolved Obesity, Class I, BMI 30-34.9 [E66.811] 10/17/2022 Essential (primary) hypertension [I10] 10/17/2022 GERD without esophagitis [K21.9] 10/17/2022 Combined hyperlipidemia [E78.2] 02/14/2023 Vitamin D deficiency [E55.9] 02/14/2023 Chest pain [R07.9] 10/30/2022 08/17/2023 Diagnosed: 08/17/2023 Disorder of teeth and supporting structures [K0*10/30/2022 08/17/2023 Diagnosed: 08/17/2023 Osteoarthritis of both knees [M17.0] 08/17/2023 Benign prostatic hyperplasia with lower urinary*08/17/2023 Encounter Status:Closed by KARENA VORA on 09/23/24 [facility] 07-22-2024 History of Present illness Narrative Episode Visit Count: 1 Therapist That Will Accept/Oversee The Plan Of Care: VY Hanson/Nela CHAntonia Start of Care Date: 07/22/24 Onset Date: 03/27/24 Plan of Care Certification Date: 07/22/24 Next Certification Due Date: 07/22/24 Patient Identified by Name and Date of : Yes [facility] OCCUPATIONAL THERAPY [...] 1 Planned Treatment Interventions: Prefabricated orthosis fitting, Self-snf management (95634), Orthotics management and training ([id number]) PLAN FOR NEXT VISIT: Patient demonstrates good [...] Arthritis Right or Left Handed: Right 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 Home Environment [...] Wrist AROM: WFL Thumb AROM: WFL Strength: Registered Nurse Cardiovascular Icu Position 2, Pinch Meter Sensation: Denies tingling or numbness Dexterity/Coordination: Observed to be functional Hand Strength Registered Nurse Cardiovascular Icu Tool Number: 2 R Registered Nurse Cardiovascular Icu Position 2 (lbs): 47 lbs L Registered Nurse Cardiovascular Icu Position 2 (lbs): 85 lbs R Lateral [...] : Prefabricated Orthosis Fitting, Orthotic Mgmt/Train (Initial), Self-Usp Management Evaluation Self-Usp Management: 1: Pt education regarding diagnosis and POC 2: Pt education regarding CMC joint protection; handout provided 3: Pt instructed in CMC joint stabilization exercises; pt returns demonstration and agrees to incorporate into a HEP; handout provided 4: Pt instructed in use of Metagrip orthosis for the thumb; pt reports good fit of orthosis. 5: yellow putty issued with instruction for deputy sheriff custody and pinch with pain free efforts Skilled [...] Time (minutes): 38 Session Start Time : 946 Session Stop Time : 1025 SRI Hanson CHT documented in this encounter [facility] 07-17-2024 Nurse Note 69 year male pt here for pain in his right thumb. Xray done on 07-15-24. [facility] 07-17-2024 Nurse Note 69 year male pt here for pain in his right thumb. Xray done on 07-15-24. documented in this encounter [facility] 07-17-2024 History of Present illness Narrative Associated Order(s): Small Joint Arthro/Inj: R thumb CMC Post-Procedure Diagnose(s): Osteoarthritis of right thumb Images from the original note were not included. Delma Cheek MD Hand & Upper Extremity Surgery [address], [facility] [address] [address] [facility] 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 Actively follows with paint prep technician: No Blood thinners: None GLP agonists: None [...] compensatory hyperextension of the MP joint. MUSCLE: Registered Nurse Cardiovascular Icu and pinch strength are decreased due to [...] thumb CMC Informed Consent Consent Obtained: Verbal [place] Protocol A moment to CARE was completed. [...] Cheek MD This note was generated using PetBox voice dictation. All resonable efforts were made to correct dictation errors but they still may occur given the nature of the software. Phone: [phone] ([phone] FAX: [phone] ([phone]) Medical Decision Making: Problems: Moderate: 1+ chronic illnesses with change Data: Unique source(s) for external note(s) reviewed: 1 Unique test result(s) reviewed: 1 Risk: Moderate: Moderate risk from testing/treatment Medical Decision Making Level: 4 - Moderate documented in this encounter [facility] 07-15-2024 History of Present illness Narrative Radiology [...] PATIENT PRESENTS WITH AN IMPLANTABLE OR ATTACHED SECURITY INSPECTOR: No RADIOLOGY DEPARTMENT: General X-ray: Exam(s) Completed: Upper Extremity X-Ray(s): Fingers/Thumb, right PERIPHERAL IV DATA: Not applicable SIGNED BY: RT Harpal(R) July 15, 2024 10:29 AM documented in this encounter [facility] 07-15-2024 History of Present illness Narrative Images from the original note were not included. This note was created using Visible World. Subjective Willy Sanders is a 69 year [...] Adult) Pulse 61 Ht 170.2 cm (5' 7) Wt 93.4 kg (206 lb) SpO2 95% [...] Lizette Avila MD documented in this encounter [facility] 05-27-2024 Telephone encounter Note Items addressed in this encounter: Prior Authorization I received a PA request for Pantoprazole and after PA was submitted, plan responded back with No PA required. Able to close encounter. Michelle Alexandra MA May 27, 2024 10:13 AM 10:13 AM [facility] 05-27-2024 Miscellaneous Notes Items addressed in this encounter: Prior Authorization I received a PA request for Pantoprazole and after PA was submitted, plan responded back with No PA required. Able to close encounter. Michelle Alexandra MA May 27, 2024 10:13 AM 10:13 AM documented in this encounter [facility] 05-20-2024 Telephone encounter Note Medication was sent to pharmacy [facility] 05-20-2024 Miscellaneous Notes Medication was sent to pharmacy Summary: refill Pt needs tamsulosin refilled send to [facility], stated its . documented in this encounter [facility] 05-20-2024 Telephone encounter Note Summary: refill Pt needs tamsulosin refilled send to [facility], stated its . [facility] 03-19-2024 Telephone encounter Note Patient states he has had huge improvements since the pantoprazole was increased and had no further questions regarding US results. [facility] 03-19-2024 Miscellaneous Notes Patient states he [...] increased his pantoprazole? documented in this encounter [facility] 03-19-2024 Telephone encounter Note Please let patient know that there are 2 lymph nodes on the right side of his neck and 1 on the left that appear enlarged on exam by ultrasound. All of them appear to be benign and likely reactive. Is he having any improvement in his sore throat since we increased his pantoprazole? [facility] 03-07-2024 Instructions Evelia Maya APRN.CNP - 03/07/2024 10:30 AM EDT Call [phone] to schedule ultrasound Flonase 1 spray each nostril twice a day Increase pantoprazole to 40mg Use ibuprofen or tylenol as needed for discomfort documented in this encounter [facility] 03-07-2024 History of Present illness Narrative Willy [...] 5.7 4.3 - 6.0 % Final Comment: [place] Diabetes Association guidelines indicate that patients with [...] - US HEAD/NECK SOFT TISSUE OTHER Evelia Maya APRN.CNP PATIENT NAME: Willy Sanders DATE: March 07, 2024 SIGNATURE: Evelia Maya APRN.SHOVEL ENGINEER documented in this encounter [facility] 11-07-[address] [facility] 11-07-2023 Note [facility] Medical Records Department [address] [place] [address] History Physical Exam 11/07/23 0750 MR#: [id number] Acct: [id number] Name: WILLY SANDERS SIRENA Rep #: [id number] : 1955 68 From: Javier Portillo MD PCP: ARTI BROOKS Status:[facility] Location: [place] [address] History and Physical Date of Admission: 11/07/23 Intake Vital Signs 09/02/2322:25 10/16/2313:20 Height 5 ft 7 in 5 ft 7 in Weight: 204 lb BMI 31.9 BP 162/77 H Blood Pressure Location Rt brachial Position Sitting Respiration 17 Pulse 69 Pulse Source Monitor Temp 97.8 F Temp Source Temporal Pulse Oximetry (%) 96 Oxygen Delivery Method room air Intake Visit Reasons: COLONOSCOPY Chief Complaint: colonoscopy Is patient in pain?: No Allergies No Known Allergies Allergy (Verified 10/16/23 13:21) Medications pantoprazole 20 mg tablet,delayed release (Protonix) 20 mg PO DAILY 10/16/23 [History Confirmed 10/16/23] PFSH Family History (Updated 10/16/23 @ 13:19 by Lisseth Eason) Mother Cancer Social History (Updated 10/16/23 @ 13:20 by Lisseth Eason) Smoking Status: Never smoker alcohol intake: never substance use type: does not use HPI HPI HPI: Patient is a 68-year-old male here for follow-up after ER visit. He was in the emergency room in early August and was diagnosed with right-sided colitis. He was given antibiotics. He says that it took about 4 weeks to finally go away but he is feeling better now with no current complaints. He does have family history of colon cancer and his last colonoscopy was 8 years ago. He denies any blood in his stool. ROS General General: No weight change, appetite, fatigue, colon cancer, breast cancer or weakness HEENT HEENT: No difficulty swallowing, eye injury, eye surgery, swollen glands or hoarseness Endo Endocrine: No thyroid disease, diabetes mellitus, thyroid cancer, Hair loss, heat intolerance or cold intolerance Skin Skin: No rash or changing moles Musc Musculoskeletal: Yes back problems and arthritis; No rheumatoid arthritis, gout or joint pain Cardio Cardiovascular: No murmur, pacemaker, heart disease, atrial fibrillation, high blood pressure, heart attack, heart stent, palpitations, shortness of breat with exertion or chest pain Psych Psychiatric: No depression, anxiety or hearing voices Resp Respiratory: No shortness of breath, No sleep apnea, No cough, No COPD, No asthma, No emphysema and No wheezing Gastro Gastrointestinal: No abdominal pain, No nausea or vomiting, No diarrhea, No constipation, No blood in stool, Yes acid reflux, Yes hemorrhoids, No ulcers, No gallbladder problem and No black,tarry stools Binu Hematologic: No blood thinners, No blood disorders, No bleeding, No anemia and No blood clots Neuro Neurologic: No system reviewed and no additional complaints, except as documented, No as per HPI, No abnormal gait, No abnormal hearing, No abnormal movements, No abnormal speech, No behavioral changes, No burning sensations, No confusion, No convulsions, No disequilibrium, No dizziness, No localized weakness, No frequent falls, No headache(s), No lack of coordination, No loss of vision, No memory loss, No numbness, No other visual disturbances, No radicular pain, No restless legs, No sensory deficit, No syncope, No tingling, No tremor(s), No weakness and No other Exam Const General: cooperative Orientation: alert and oriented x3 HENMT Head: normal to inspection Neck Neck: normal visual inspection and full ROM Chest Chest palpation inspection: normal inspection of the chest Resp Effort Inspection: normal respiratory effort Auscultation: clear to auscultation bilaterally Cardio Rate: regular rate Rhythm: regular rhythm GI Inspection: non-distended Palpation: soft and nontender Skin General: no rashes or lesions noted Neuro General: patient alert and patient oriented x3 Extrem General: full ROM Psych Appearance: grossly normal Mental Status: mental status grossly normal Assessment and Plan Assessment and Plan (1) History of colitis: Status: Acute Plan: The patient had colitis in early August and he is sent here for follow-up colonoscopy. His last colonoscopy was 8 years ago. I explained endoscopy in detail to the patient. I explained the risks including but not limited to stroke or heart attack with anesthesia, perforation of the GI tract, bleeding, infection. I explained that any of these could necessitate further emergency surgery. The patient understands and all questions were answered sufficiently. The patient wishes to proceed with procedure. Javier Portillo MD Pager: [facility] [address] [place] [address], [address] [place] [address] Office: (more content not included)... [facility] 09-12-2023 Instructions Evelia Maya APRN.CNP - 09/12/2023 4:34 PM EDT Finish antibiotic [place] diet, advance as tolerated Referral to GI, please let us know if you have not heard from them in 1 week. documented in this encounter [facility] 09-12-2023 History of Present illness Narrative Willy Sanders is a 68 year old male who presents with ED Follow-up Willy presents today for f/u from [facility] 09/02 for colitis. He was started [...] 5.7 4.3 - 6.0 % Final Comment: [place] Diabetes Association guidelines indicate that patients with [...] ICD10: Z86.010 - CONSULT TO GASTROENTEROLOGY Evelia Maya APRN.BLANCA PATIENT NAME: Willy Sanders DATE: September 12, 2023 SIGNATURE: Evelia Maya APRN.SHOVEL ENGINEER documented in this encounter [facility] 09-12-2023 Nurse Note ER follow up 09/02/2023 [facility] Abdominal pain, diarrhea, continuous nausea. [...] 2023 4:10 PM documented in this encounter [facility] 08-17-2023 History of Present illness Narrative Office [...] resp. rate 20, height 170.2 cm (5' 7), weight 91.1 kg (200 lb 12.8 oz), [...] placed or performed in visit on 10/17/22 [facility] Result Value Ref Range Stool DNA Negative [...] Lizette Avila MD documented in this encounter [facility] 08-17-2023 Nurse Note Willy is here today for a 6 month follow up to chronic conditions. C/O having trouble urinating in the mornings. No other concerns at this time MELVINA MALLORY MA August 17, 2023 1:44 PM documented in this encounter [facility] 02-14-2023 History of Present illness Narrative [...] resp. rate 18, height 170.2 cm (5' 7), weight 92.1 kg (203 lb), SpO2 96 [...] Patient declined immunizations documented in this encounter [facility] 11-05-2022 Note . MICRO - Microbiology [...] Locations *1: This test was performed at: [facility], [address] [place] [address], [id number] , [facility] ([place]) 11-05-2022 Note . MICRO - Microbiology PROCEDURE: [...] Locations *1: This test was performed at: [address], [facility] , [facility] ([place]) 11-01-2022 Note . MICRO - Microbiology PROCEDURE: [...] Locations *1: This test was performed at: [address], [facility] , [facility] ([place]) 10-31-2022 Hospital Discharge instructions Patient Education 10/30/2022 [...] cloves at drugstores. Some pharmacies carry an iuri-ttw-ukdhiip toothache kit. This contains a paste that you can put on the exposed tooth to make it less sensitive. Put a cold pack on your jaw over the sore area to help reduce pain. You may use unxs-imq-cjjvebe medicine to ease pain, unless another medicine [...] healthcare provider Pus drains from the tooth [id number] [employer] [place] [address], [place] [address]. All rights reserved. This information is not intended as a substitute for professional medical care. Always follow your healthcare professional's instructions. Follow Up Care 10/30/2022 18:36:59 With:Freetext Address: When:2-4 days Comments:Follow-up with your dentist as soon as possible. [facility] 10-30-2022 Emergency department Discharge summary Discharge Instructions Thank you for allowing [facility] to assist you with your healthcare needs. [...] You can buy oil of cloves at [employer] Some pharmacies carry an ljbf-pxw-iljkmqr toothache kit. This contains a paste that you can put on the exposed tooth to make it less sensitive. Put a cold pack on your jaw over the sore area to help reduce pain. You may use cnbs-nki-kbuoxwh medicine to ease pain, unless another medicine [...] healthcare provider Pus drains from the tooth [id number] [employer] [place] [address], [place] [address]. All rights reserved. This information is not intended as a substitute for professional medical care. Always follow your healthcare professional's instructions. Additional Information VACCINATE! IT SAVES LIVES! Members of the community who have not yet received the COVID-19 vaccine and would like to receive it can visit one of [facility] vaccine clinics. There are many vaccine clinic locations within the [facility]. For locations and available times, please visit [email or web address]. It is important to note that some COVID mobile vaccine clinics are held outdoors and may be canceled in rainy or stormy conditions. To learn more about pediatric vaccinations (ages 5-11), we invite you to visit the [facility] webpage. https://[email or web address] [email or web address] [email or web address]-Freque lbug-Zhkgk-Mldqpwjfj.html To learn more about the COVID-19 vaccine, we invite you to visit the [facility] website for a list of frequently asked questions. [email or web address] [email or web address]-[email or web address]/[email or web address]-Nrs quently_[email or web address].pdf [facility] Patient Portal Access Instructions: Stay connected with your healthcare team and access your personal medical information anytime with the [facility] Patient Portal. If you would like a full copy of your medical records please contact the [facility] Medical Records Department Monday through Monday between 8a.m. and 4:30p.m. Please follow the directions below to access the portal: 1.Access the email account you provided upon registration to the hospital.2.Look for an invitation email from [facility].3.Open the email and access the invitation link: Accept Invitation to [facility]4.Fill in the required ramos to create your account. Sign into [email or web address] with your username and password that you [...] you will allow to register on the [facility] Patient Portal for access to your information. You can also access the [facility] Patient Portal on the K[employer]. Simply click on Health Records under Health Data and then click on the [employer] logo. HOW TO SAFELY DISPOSE OF PRESCRIPTION [...] Call your local pharmacy or go to http://youmag.Wiser (formerly [employer])/9A5Dm7t to find one close to you.3.Make use of household items: Use cat litter or old coffee grounds to dispose medications if other options are not available. Mix your drugs with these household products, seal them in an airtight container and throw it into the garbage. Call [facility]: [phone] to be sure your drugs can be [...] aware that I should contact my doctor. 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 Signature: Date/Time: Relationship to Patient: ____ Witness Name/Signature: Date/Time: [facility] 10-30-2022 Note ORIGINAL EXAMINATION: CT OF THE [...] by: Jc Carvajal Preliminary Report By: Soledad Mendzeally signed By Jc Carvajal Dictated Date: 10/30/2022 7:26:22 PM Prelim Date: 10/30/2022 7:28:57 PM Sign Date: 10/30/2022 7:47:48 PM Ordering Provider: [facility] 10-30-2022 Note ORIGINAL EXAMINATION: CT OF THE [...] Sign Date: 10/30/2022 7:47:48 PM Ordering Provider: [facility] 10-30-2022 History of Past i llness Narrative Problem Noted Date Diagnosed Date Resolved Date Chest pain 10/30/2022 08/17/2023 08/17/2023 Disorder of teeth and supporting structures 10/30/2022 08/17/2023 08/17/2023 documented as of this encounter (statuses as of 08/18/2023) [facility]12-04-2022 History of Past illness Narrative* Problem Noted Date Diagnosed Date Resolved Date Chest pain 10/30/2022 08/17/2023 08/17/2023 Disorder of teeth and supporting structures 10/30/2022 08/17/2023 08/17/2023 documented as of this encounter (statuses as of 09/13/2023) [facility] History of Past illness Narrative* Problem Noted Date Diagnosed Date Resolved Date Chest pain 10/30/2022 08/17/2023 08/17/2023 Disorder of teeth and supporting structures 10/30/2022 08/17/2023 08/17/2023 documented as of this encounter (statuses as of 03/08/2024) [facility]2022 Note Discharge Instructions Thank you for [...] MD When Within 1-2 days Where: [address] [place] [address] [id number] [facility] [place] [address] [id number] Follow Up with Go to emergency room if symptoms worsen When Within 2-4 days Follow Up with GAVIN DURON APRN-SHOVEL ENGINEER When Within 2-4 days Where: [address] [facility] [address] [place] [address]- Allergies NKA Medications Please ask your primary [...] temperature. Use toothpaste made for sensitive teeth. [place] gently up and down instead of sideways. Brushing sideways can wear away root surfaces if they are exposed. If your tooth is chipped or cracked, or if there is a large open cavity, put oil of cloves directlyon the tooth to relieve pain. You can buy oil of cloves at [employer] Some pharmacies carry an kuwe-ubz-yxcufcb toothache kit. This contains a paste that you can put on the exposed tooth to make it less sensitive. Put a cold pack on your jaw over the sore area to help reduce pain. You may use oujr-drb-uvldlqm medicine to ease pain, unless your doctor [...] healthcare provider Pus drains from the tooth [employer]. [address] [place] [address]. All rights reserved. This information is not [...] Swelling, pain or redness in one leg [employer]. [address] [place], [place] [id number]. All rights reserved. This information is not intended as a substitute for professional medical care. Always follow yourhealthcare professional's instructions. Additional Information VACCINATE! IT SAVES LIVES! Members of the community who have not yet received the COVID-19 vaccine and would like to receive it can visit one of [facility] vaccine clinics. There are many vaccine clinic locations within the [facility]. For locations and available times, please visit [email or web address]. It is important to note that some COVID mobile vaccine clinics are held outdoors and may be canceled in rainy orstormy conditions. To learn more about pediatric vaccinations (ages 5-11), we invite you to visit the [employer] webpage. https://www.[email or web address]/pages/5511-Ncxmb-Oushnvfbbuh-Kjmwukgqdu-Chmey-Wua stions.htmlTo learn more about the COVID-19 vaccine, we invite you to visit the [facility] website for a list of frequently asked questions. [email or web address]-[email or web address]/zcehe-Bnwnzbe-Gutangyvvq _Asked-Questions.pdf [facility] Patient Portal Access Instructions: Stay connected with your healthcare team and access your personal medical information anytime with the [facility] Patient Portal. If you would like a full copy of your medical records please contact the [facility] Medical Records Department Monday through Monday between 8a.m. and 4:30p.m. Please follow the directions below to access the portal: 1.Access the email account you provided upon registration to the [facility].2.Look for an invitation email from [facility].3.Open the email and access the invitation link: Accept Invitation to [facility]4.Fill in the required ramos to create your account. Sign into [email or web address] with your username and password that you [...] you will allow to register on the [facility] Patient Portal for access to your information. You can also access the [facility] Patient Portal on the [employer] chito. Simply click on Health Records under [employer] and then click on the [employer] logo. HOW TO SAFELY DISPOSE OF PRESCRIPTION [...] Call your local pharmacy or go to http://youmag.Wiser (formerly [employer])/7Y8Aa9n to find one close to you.3.Make use of household items: Use cat litter or old coffee grounds to dispose medications if other options arenot available. Mix your drugs with these household products, seal them in an airtight container andthrow it into the garbage. Call [facility]: [phone] to be sure your drugs can be [...] been reviewed and explained to me and I,MARNIENATHANIEL WILLY Ciarra understand my current condition and have read and understand these discharge instructions. I have received a written copy of the plan/instructions. If I have questions, I am aware that I should contactmy doctor. 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 Use toothpaste made for sensitive teeth. [place] gently up and down instead of sideways. Brushing sideways can wear away root surfaces if they are exposed. If your tooth is chipped or cracked, or if there is a large open cavity, put oil of cloves directlyon the tooth to relieve pain. You can buy oil of cloves at drugstores. Some pharmacies carry an akap-tag-cwoutuy toothache kit. This contains a paste that you can put on the exposed tooth to make it less sensitive. Put a cold pack on your jaw over the sore area to help reduce pain. You may use zgxe-jyc-vxyfugc medicine to ease pain, unless your doctor [...] healthcare provider Pus drains from the tooth [id number] [employer]. [address] [place] [address]. All rights reserved. This information is not [...] Swelling, pain or redness in one leg [id number] [employer] [place] [address]. All rights reserved. This information is not intended as a substitute for professional medical care. Always follow yourhealthcare professional's instructions. Follow Up Care 10/30/2022 08:48:40 With:Dental Referral List Address:Unknown When:2-4 days With:SOCO XAVIER MD Address: [address] [place] [address] [id number] [facility] [place] [phone] When:1-2 days With:Go to emergency room if symptoms worsen Address:Unknown When:2-4 days With:GAVIN DURON APRN-SHOVEL ENGINEER Address: [address] [place] [phone] When:2-4 days [facility] 12-04-2022 Note ORIGINAL EXAMINATION: ONE XRAY [...] Sign Date: 10/30/2022 9:30:03 AM Ordering Provider: [facility]12-04-2022 Note ORIGINAL EXAMINATION: ONE XRAY VIEW OF [...] Sign Date: 10/30/2022 9:30:03 AM [facility] No data available for this section [facility] Evaluation note* Diagnosis Essential hypertension- Primary Unspecified essential hypertension GERD without esophagitis Esophageal reflux Combined hyperlipidemia Mixed hyperlipidemia Vitamin D deficiency Unspecified vitamin D deficiency Osteoarthritis of both knees, unspecified osteoarthritis type Grade I hemorrhoids Unspecified hemorrhoids without mention of complication [facility] Combined hyperlipidemia- Primary Mixed hyperlipidemia GERD without esophagitis Esophageal reflux Obesity, Class I, BMI 30-34.9 Obesity, unspecified Osteoarthritis of both knees, unspecified osteoarthritis type Benign prostatic hyperplasia with urinary frequency Essential hypertension Unspecified essential hypertension Abdominal wall swelling Abdominal or pelvic swelling, mass or lump, unspecified site [facility] Diagnosis Encounter for support and coordination of transition of care- Primary Colitis Other and unspecified noninfectious gastroenteritis and colitis Chronic diarrhea Diarrhea History of colonic polyps Personal history of colonic polyps documented [facility]* Diagnosis Onset Date Resolution Status History of colitis acute [facility] Work Phone: Evaluation note* Diagnosis GERD without esophagitis- Primary Esophageal reflux Tonsillar hypertrophy Hypertrophy of tonsils alone Seasonal allergic rhinitis, unspecified trigger Lymphadenopathy, cervical Enlargement of lymph nodes [facility]* Diagnosis Benign prostatic hyperplasia with urinary frequency [facility]* Diagnosis GERD without esophagitis Esophageal reflux [facility]* Diagnosis Primary osteoarthritis of first carpometacarpal joint of right hand- Primary Primary localized osteoarthrosis, hand Benign prostatic hyperplasia with urinary frequency Obesity, Class I, BMI 30-34.9 Obesity, unspecified Combined hyperlipidemia Mixed hyperlipidemia Essential hypertension Unspecified essential hypertension Vitamin D deficiency Unspecified vitamin D deficiency [facility]* Diagnosis Osteoarthritis of right thumb- Primary [facility]* Diagnosis Osteoarthritis of right thumb [facility] Diagnosis Primary osteoarthritis of first carpometacarpal joint of right hand Primary localized osteoarthrosis, hand [facility]* Diagnosis Lymphadenopathy, cervical Enlargement of lymph nodes [facility]* Diagnosis Essential hypertension- Primary Unspecified essential hypertension Combined hyperlipidemia Mixed hyperlipidemia GERD without esophagitis Esophageal reflux Benign prostatic hyperplasia with lower urinary tract symptoms, symptom details unspecified Vitamin D deficiency Unspecified vitamin D deficiency [facility]* Diagnosis GERD without esophagitis Esophageal reflux [facility]* Diagnosis Essential hypertension- Primary Unspecified essential hypertension Combined hyperlipidemia Mixed hyperlipidemia Benign prostatic hyperplasia with lower urinary tract symptoms, symptom details unspecified Vitamin D deficiency Unspecified vitamin D deficiency Obesity, Class I, BMI 30-34.9 Obesity, unspecified Mild cognitive impairment Mild cognitive impairment, so stated Benign prostatic hyperplasia with urinary frequency GERD without esophagitis Esophageal reflux Peripheral polyneuropathy Unspecified hereditary and idiopathic peripheral neuropathy Chronic midline low back pain without sciatica [facility]* Diagnosis Chronic midline low back pain without sciatica [facility]* Diagnosis Cognitive communication deficit- Primary [facility]* Diagnosis Primary osteoarthritis of right hand- Primary Primary localized osteoarthrosis, hand Screening for depression Encounter for screening examination for other mental health and behavioral disorders Chronic midline low back pain without sciatica Combined hyperlipidemia Mixed hyperlipidemia Elevated LFTs Other abnormal blood chemistry Obesity, Class I, BMI 30-34.9 Obesity, unspecified Medicare annual wellness visit, subsequent Routine general medical examination at a health care facility [facility] Diagnosis Chronic diarrhea- Primary Diarrhea Essential (primary) hypertension Unspecified essential hypertension Combined hyperlipidemia Mixed hyperlipidemia Acute diverticulitis Diverticulitis of colon (without mention of hemorrhage) [facility]* Diagnosis Chronic diarrhea- Primary Diarrhea [facility]* Diagnosis Chronic diarrhea- Primary Diarrhea Essential (primary) hypertension Unspecified essential hypertension [facility] Author Javier Portillo [facility] November 07, 2023 7:50am Note Date/Time November 07, 2023 7:50am [facility] Medical Records Department [address] [place] [address] History & Physical Exam 11/07/23 0750 MR#: [id number] Acct: [id number] Name: WILLY SANDERS II Rep #:[id number] : 1955 68 From: Javier alba MD PCP: ARTI BROOKS Status:[facility] Location: [place] [id number] History and Physical Date of Admission: 11/07/23 Intake Vital Signs 09/02/2322:25 10/16/2313:20 Height 5 ft 7 in 5 ft 7 in Weight: 204 lb BMI 31.9 BP 162/77 H Blood Pressure Location Rt brachial Position Sitting Respiration 17 Pulse 69 Pulse Source Monitor Temp 97.8 F Temp Source Temporal Pulse Oximetry (%) 96 Oxygen Delivery Method room air Intake Visit Reasons: COLONOSCOPY Chief Complaint: colonoscopy Is patient in pain?: No Allergies No Known Allergies Allergy (Verified 10/16/23 13:21) Medications pantoprazole 20 mg tablet,delayed release (Protonix) 20 mg PO DAILY 10/16/23 [History Confirmed 10/16/23] PFSH Family History (Updated 10/16/23 @ 13:19 by Lisseth Eason) Mother Cancer Social History (Updated 10/16/23 @ 13:20 by Lisseth Eason) Smoking Status: Never smoker alcohol intake: never substance use type: does not use HPI HPI HPI: Patient is a 68-year-old male here for follow-up after ER visit. He was in the emergency room in early August and was diagnosed with right-sided colitis. He was given antibiotics. He says that it took about 4 weeks to finally go away but he is feeling better now with no current complaints. He does have family history of colon cancer and his last colonoscopy was 8 years ago. He denies anyblood in his stool. ROS General General: No weight change, appetite, fatigue, colon cancer, breast cancer or weakness HEENT HEENT: No difficulty swallowing, eye injury, eye surgery, swollen glands or hoarseness Endo Endocrine: No thyroid disease, diabetes mellitus, thyroid cancer, Hair loss, heat intolerance or cold intolerance Skin Skin: No rash or changing moles Musc Musculoskeletal: Yes back problems and arthritis; No rheumatoid arthritis, gout or joint pain Cardio Cardiovascular: No murmur, pacemaker, heart disease, atrial fibrillation, high blood pressure, heart attack, heart stent, palpitations, shortness of breat withexertion or chest pain Psych Psychiatric: No depression, anxiety or hearing voices Resp Respiratory: No shortness of breath, No sleep apnea, No cough, No COPD, No asthma, No emphysema and No wheezing Gastro Gastrointestinal: No abdominal pain, No nausea or vomiting, No diarrhea, No constipation, No blood in stool, Yes acid reflux, Yes hemorrhoids, No ulcers, Nogallbladder problem and No black,tarry stools Binu Hematologic: No blood thinners, No blood disorders, No bleeding, No anemia and No blood clots Neuro Neurologic: No system reviewed and no additional complaints, except as documented, No as per HPI, No abnormal gait, No abnormal hearing, No abnormal movements, No abnormal speech, No behavioral changes, No burning sensations, No confusion, No convulsions, No disequilibrium, No dizziness, No localized weakness, No frequent falls, No headache(s), No lack of coordination, No loss ofvision, No memory loss, No numbness, No other visual disturbances, No radicular pain, No restless legs, No sensory deficit, No syncope, No tingling, No tremor(s), No weakness and No other Exam Const General: cooperative Orientation: alert and oriented x3 HENMT Head: normal to inspection Neck Neck: normal visual inspection and full ROM Chest Chest palpation & inspection: normal inspection of the chest Resp Effort & Inspection: normal respiratory effort Auscultation: clear to auscultation bilaterally Cardio Rate: regular rate Rhythm: regular rhythm GI Inspection: non-distended Palpation: soft and nontender Skin General: no rashes or lesions noted Neuro General: patient alert and patient oriented x3 Extrem General: full ROM Psych Appearance: grossly normal Mental Status: mental status grossly normal Assessment and Plan Assessment and Plan (1) History of colitis: Status: Acute Plan: The patient had colitis in early August and he is sent here for follow-up colonoscopy. His last colonoscopy was 8 years ago. I explained endoscopy in detail to the patient. I explained the risks including but not limited to stroke or heart attack with anesthesia, perforation of the GI tract, bleeding, infection. I explained that any of these could necessitate further emergency surgery. The patient understands and all questions were answered sufficiently. The patient wishes to proceed with procedure. Javier Portillo MD Pager: [facility] [address] [place] [address], [address] [place] [phone] Office: I have examined the patient and the H&P has been reviewed. There are no clinicalchanges since date of exam. 11/07/23 0750 <Electronically signed by Javier Portillo MD> Cosigner Signature (if applicable): CC: ARTI BROOKS; Dr. Javier Portillo MD~ Signed [facility] Work Phone: Reason for referral (narrative)* Diagnostic Procedure Only (Routine) - Pending Review Specialty Diagnoses / Procedures Referred By Luli orozco Referred To Contact US IMAGING Diagnoses Benign prostatic hyperplasia with urinary frequency Abdominal wall swelling Procedures US ABDOMEN COMPLETE US ABDOMINAL REAL TIME W/IMAGE DOCUMENTATION Wu Brooks, Lizette Reis MD [address] [place] [address] [place] [address] Referral ID Status Reason Start Date Expiration Date Visits Requested Visits Authorized [id number] Pending Review Auto-Generat ed Referral 08/17/2023 09/15/2024 1 1 [facility] [place] for referral (narrative)* Diagnostic Procedure Only (Routine) - Authorized Specialty Diagnoses / Procedures Referred By Luli orozco Referred To Contact US IMAGING Diagnoses Lymphadenopathy, cervical Procedures US HEAD/NECK SOFT TISSUE OTHER US SOFT TISSUE HEAD & NECK REAL TIME IMGE Evelia Ruffin AUTOMOTIVE BUYER.SHOVEL ENGINEER [address] [place] [address] [place] [address] Referral ID Status Reason Start Date Expiration Date Visits Requested Visits Authorized [id number] Authorized Auto-Generat ed Referral 03/07/2024 04/06/2025 1 1 [facility] for referral (narrative)* Diagnostic Procedure Only (Routine) - Closed Specialty Diagnoses / Procedures Referred By Contac t Referred To Contact XR IMAGING Diagnoses Primary osteoarthritis of first carpometacarpal joint of right hand Procedures XR DIGIT GENERAL 3V FRONTAL/LAT/OBL RIGHT RADEX FINGR MINIMUM 2 VIEWS Lizette Avila MD [address] [place] [address] [place] [address] Referral ID Status Reason Start Date Expiration Date V isits Requested Visits Authorized [id number] Closed Auto-Generate d Referral 07/15/2024 08/14/2025 1 1 [facility] for referral (narrative)* Diagnostic Procedure Only (Routine) - Closed Specialty Diagnoses / Procedures Referred By Contac t Referred To Contact US IMAGING Diagnoses Lymphadenopathy, cervical Procedures US HEAD/NECK SOFT TISSUE OTHER US SOFT TISSUE HEAD & NECK REAL TIME IMGE DOCEvelia Todd AUTOMOTIVE BUYER.SHOVEL ENGINEER [address] [place] [address] [place] [address] Referral ID Status Reason Start Date Expiration Date V isits Requested Visits Authorized [id number] Closed Auto-Generate d Referral 03/07/2024 04/06/2025 1 1 [facility] for visit Narrative* Diagnostic Procedure Only (Routine) - Closed Specialty Diagnoses / Procedures Referred By Contac t Referred To Contact XR IMAGING Diagnoses Primary osteoarthritis of first carpometacarpal joint of right hand Procedures XR DIGIT GENERAL 3V FRONTAL/LAT/OBL RIGHT RADEX FINGR MINIMUM 2 VIEWS Lizette Avila MD [address] [place] [address] [place] [address] Referral ID Status Reason Start Date Expiration Date V isits Requested Visits Authorized [id number] Closed Auto-Generate d Referral 07/15/2024 08/14/2025 1 1 [facility] for visit Narrative* Diagnostic Procedure Only (Routine) - Closed Specialty Diagnoses / Procedures Referred By Contac t Referred To Contact US IMAGING Diagnoses Lymphadenopathy, cervical Procedures US HEAD/NECK SOFT TISSUE OTHER US SOFT TISSUE HEAD & NECK REAL TIME IMGE Evelia Ruffin, AUTOMOTIVE BUYER.SHOVEL ENGINEER [address] [place] [address] [place] [address] Referral ID Status Reason Start Date Expiration Date V isits Requested Visits Authorized [id number] Closed Auto-Generate d Referral 03/07/2024 04/06/2025 1 1 [facility] for visit Narrative* Diagnostic Procedure Only (Routine) - Closed Specialty Diagnoses / Procedures Referred By Contac t Referred To Contact XR IMAGING Diagnoses Chronic midline low back pain without sciatica Procedures XR LUMBAR GENERAL 3V AP/LAT/L5-S1 RADEX SPINE LUMBOSACRAL 2/3 VIEWS Lizette Avila MD [address] [place] [address] Phone: tel: fax: [place] [address] Referral ID Status Reason Start Date Expiration Date V isits Requested Visits Authorized [id number] Closed Auto-Generate d Referral 01/15/2025 02/14/2026 1 1 [facility] Summary Purpose Family History Relationship Condition Age at Onset Recorded Date/T baljinder mother Malignant neoplasm Unknown Advance Directives Advance Directive Response Recorded Date/ Time Living Will No Ash 7th, 20 23 10:47am Power of Franchise Development Manager No November 02, 2023 10:47am Medications Administered Section Inactive Administered Medications - up to 3 most recent administrations Medication Order MAR Action Action Date Dose Rate Site triamcinolone acetonide 40 mg injection (KeNALog 40) 40 mg, INTRAMUSCULAR, ONCE, 1 dose, On 02/14/23 at 1200 Given 02/14/2023 12:32 PM EDT 40 mg Buttocks, Right Reason for Referral Specialty Diagnoses / Procedures Referred By Contac t Referred To Contact Occupational Therapy / OCCUPATIONAL THERAPY Diagnoses Osteoarthritis of right thumb Procedures CONSULT TO MANAGER LINE OCCUPATIONAL THERAPY EVAL HIGH COMPLEX 60 MINS Delma Cheek MD [address] [facility] [address] [place] [address] Marga Cm OTR/L [address] [place] [address] Referral ID Status Reason Start Date Expiration Date Visits Requested Visits Authorized [id number] Authorized Auto-Generat ed Referral 06/27/2024 11/26/2024 20 20 Specialty Diagnoses / Procedures Referred By Contac t Referred To Contact Orthopedics Diagnoses Primary osteoarthritis of first carpometacarpal joint of right hand Procedures CONSULT TO ORTHOPAEDIC SURGERY OFFICE/OUTPATIENT [facility] MDM 60 MINUTES Lizette Avila MD [address] [place] [address] Delma Cheek MD [address] [facility] [address] [place] [address] Referral ID Status Reason Start Date Expiration Date Visits Requested Visits Authorized [id number] Authorized PCP Requested Referral 07/15/2024 07/15/2025 1 1 Specialty Diagnoses / Procedures Referred By Contac t Referred To Contact XR IMAGING Diagnoses Primary osteoarthritis of first carpometacarpal joint of right hand Procedures XR DIGIT GENERAL 3V FRONTAL/LAT/OBL RIGHT RADEX FINGR MINIMUM 2 VIEWS Lizette Avila MD [address] [place] [address] [place] [address] Referral ID Status Reason Start Date Expiration Date V isits Requested Visits Authorized [id number] Closed Auto-Generate d Referral 07/15/2024 08/14/2025 1 1 Specialty Diagnoses / Procedures Referred By Luli orozco Referred To Contact Gastroenterology Diagnoses Colitis Chronic diarrhea History of colonic polyps Procedures CONSULT TO GASTROENTEROLOGY Evelia Maya APRN.SHOVEL ENGINEER [address] [place] [address] Friend[employer]ames B, DO [address] [place] [address] Referral ID Status Reason Start Date Expiration Date Visits Requested Visits Authorized [id number] Ref Not Required PCP Requested Referral 3 12/11/2023 3 3 Chief Complaint and Reason for Visit Chief Complaint ABD PAIN COLONOSCOPY Reason for Visit History of colitis Additional Source Comments Care Team (unrecognized sect ion and content) Care Team Personnel Name: GUY PINEDA Member Role: Primary Care Physician Address: Address: [address] [place] [address] [place] Name: SO MEJÍA DO Position: ED Physician Member Role: Attending Physician Address: Address: [address] [place] [address] Care Team Related Persons Name: EMIGDIO SANDERS Care Team Personnel Name: GUY PINEDA Member Role: Primary Care Physician Address: Address: [address] [place] [address] Name: ABIGAIL ROCHA MD Position: Resident Member Role: Resident Address: Address: [address] [place] [address] ED Resident [address] Name: FAN VENTURA Position: ED Physician Fertilizing Machine Operator Member Role: ED PA Address: Address: [address] [place] [address] Name: PADILLA BONNER MD Position: ED Physician Member Role: Attending Physician Address: Address: [address] [place] [address] [facility] [address] Care Team Related Persons Name: EMIGDIO SANDERS (unrecognized sect ion and content) No Status Records FoundNo Status Records FoundNo Status Records Found INFORMATION SOURCE (unrecogn ized section and content) DATE CREATED AUTHOR 11/16/2022 [facility] ([place]) DATE CREATED AUTHOR AUTHOR'S ORGANIZ ATION 10/13/2024 [facility] DATE CREATED AUTHOR AUTHOR'S ORGANIZ ATION 08/12/2025 [facility] nter Source Comments (unrecognize d section and content) In the event this informatio n is protected by the Federal Confidentiality of Alcohol and Drug Abuse Patient Records regulations: The Federal rules restrict any use of the information to criminally investigate or prosecute any alcohol or drug abuse patient.[facility] the event this information is protected by the Federal Confidentiality of Alcohol and Drug Abuse Patient Records regulations: The Federal rules restrict any use of the information to criminally investigate or prosecute any alcohol or drug abuse patient.[facility] the event this information is protected by the Federal Confidentiality of Alcohol and Drug Abuse Patient Records regulations: The Federal rules restrict any use of the information to criminally investigate or prosecute any alcohol or drug abuse patient.[facility] the event this information is protected by the Federal Confidentiality of Alcohol and Drug Abuse Patient Records regulations: The Federal rules restrict any use of the information to criminally investigate or prosecute any alcohol or drug abuse patient.[facility] the event this information is protected by the Federal Confidentiality of Alcohol and Drug Abuse Patient Records regulations: The Federal rules restrict any use of the information to criminally investigate or prosecute any alcohol or drug abuse patient.[facility] the event this information is protected by the Federal Confidentiality of Alcohol and Drug Abuse Patient Records regulations: The Federal rules restrict any use of the information to criminally investigate or prosecute any alcohol or drug abuse patient.[facility] the event this information is protected by the Federal Confidentiality of Alcohol and Drug Abuse Patient Records regulations: The Federal rules restrict any use of the information to criminally investigate or prosecute any alcohol or drug abuse patient.[facility] Hospital[facility] the event this information is protected by the Federal Confidentiality of Alcohol and Drug Abuse Patient Records regulations: The Federal rules restrict any use of the information to criminally investigate or prosecute any alcohol or drug abuse patient.[facility] Hospital[facility] the event this information is protected by the Federal Confidentiality of Alcohol and Drug Abuse Patient Records regulations: The Federal rules restrict any use of the information to criminally investigate or prosecute any alcohol or drug abuse patient.[facility] HospitalIn the event this information is protected by the Federal Confidentiality of Alcohol and Drug Abuse Patient Records regulations: The Federal rules restrict any use of the information to criminally investigate or prosecute any alcohol or drug abuse patient.[facility] HospitalIn the event this information is protected by the Federal Confidentiality of Alcohol and Drug Abuse Patient Records regulations: The Federal rules restrict any use of the information to criminally investigate or prosecute any alcohol or drug abuse patient.[facility] HospitalIn the event this information is protected by the Federal Confidentiality of Alcohol and Drug Abuse Patient Records regulations: The Federal rules restrict any use of the information to criminally investigate or prosecute any alcohol or drug abuse patient.[facility] HospitalIn the event this information is protected by the Federal Confidentiality of Alcohol and Drug Abuse Patient Records regulations: The Federal rules restrict any use of the information to criminally investigate or prosecute any alcohol or drug abuse patient.[facility] HospitalIn the event this information is protected by the Federal Confidentiality of Alcohol and Drug Abuse Patient Records regulations: The Federal rules restrict any use of the information to criminally investigate or prosecute any alcohol or drug abuse patient.[facility] HospitalIn the event this information is protected by the Federal Confidentiality of Alcohol and Drug Abuse Patient Records regulations: The Federal rules restrict any use of the information to criminally investigate or prosecute any alcohol or drug abuse patient.[facility] HospitalIn the event this information is protected by the Federal Confidentiality of Alcohol and Drug Abuse Patient Records regulations: The Federal rules restrict any use of the information to criminally investigate or prosecute any alcohol or drug abuse patient.[facility] HospitalIn the event this information is protected by the Federal Confidentiality of Alcohol and Drug Abuse Patient Records regulations: The Federal rules restrict any use of the information to criminally investigate or prosecute any alcohol or drug abuse patient.[facility] HospitalIn the event this information is protected by the Federal Confidentiality of Alcohol and Drug Abuse Patient Records regulations: The Federal rules restrict any use of the information to criminally investigate or prosecute any alcohol or drug abuse patient.[facility] HospitalIn the event this information is protected by the Federal Confidentiality of Alcohol and Drug Abuse Patient Records regulations: The Federal rules restrict any use of the information to criminally investigate or prosecute any alcohol or drug abuse patient.[facility] HospitalIn the event this information is protected by the Federal Confidentiality of Alcohol and Drug Abuse Patient Records regulations: The Federal rules restrict any use of the information to criminally investigate or prosecute any alcohol or drug abuse patient.[facility] HospitalIn the event this information is protected by the Federal Confidentiality of Alcohol and Drug Abuse Patient Records regulations: The Federal rules restrict any use of the information to criminally investigate or prosecute any alcohol or drug abuse patient.[facility] HospitalIn the event this information is protected by the Federal Confidentiality of Alcohol and Drug Abuse Patient Records regulations: The Federal rules restrict any use of the information to criminally investigate or prosecute any alcohol or drug abuse patient.[facility] HospitalIn the event this information is protected by the Federal Confidentiality of Alcohol and Drug Abuse Patient Records regulations: The Federal rules restrict any use of the information to criminally investigate or prosecute any alcohol or drug abuse patient.[facility] HospitalIn the event this information is protected by the Federal Confidentiality of Alcohol and Drug Abuse Patient Records regulations: The Federal rules restrict any use of the information to criminally investigate or prosecute any alcohol or drug abuse patient.[facility] HospitalIn the event this information is protected by the Federal Confidentiality of Alcohol and Drug Abuse Patient Records regulations: The Federal rules restrict any use of the information to criminally investigate or prosecute any alcohol or drug abuse patient.[facility] HospitalIn the event this information is protected by the Federal Confidentiality of Alcohol and Drug Abuse Patient Records regulations: The Federal rules restrict any use of the information to criminally investigate or prosecute any alcohol or drug abuse patient.[facility] HospitalIn the event this information is protected by the Federal Confidentiality of Alcohol and Drug Abuse Patient Records regulations: The Federal rules restrict any use of the information to criminally investigate or prosecute any alcohol or drug abuse patient.[facility] HospitalIn the event this information is protected by the Federal Confidentiality of Alcohol and Drug Abuse Patient Records regulations: The Federal rules restrict any use of the information to criminally investigate or prosecute any alcohol or drug abuse patient.[facility] HospitalIn the event this information is protected by the Federal Confidentiality of Alcohol and Drug Abuse Patient Records regulations: The Federal rules restrict any use of the information to criminally investigate or prosecute any alcohol or drug abuse patient.[facility] HospitalIn the event this information is protected by the Federal Confidentiality of Alcohol and Drug Abuse Patient Records regulations: The Federal rules restrict any use of the information to criminally investigate or prosecute any alcohol or drug abuse patient.[facility] HospitalIn the event this information is protected by the Federal Confidentiality of Alcohol and Drug Abuse Patient Records regulations: The Federal rules restrict any use of the information to criminally investigate or prosecute any alcohol or drug abuse patient.[facility] Reason for Visit (unrecogniz ed section [...] Referred By Luli orozco Referred To Contact Orthopedics Diagnoses Primary osteoarthritis of first carpometacarpal joint of right hand Procedures CONSULT TO ORTHOPAEDIC SURGERY OFFICE/OUTPATIENT NEW HIGH MDM 60 MINUTES Lizette Avila MD [address] [place] [address] Delma Cheek MD [address] [place] [address] Referral ID Status Reason Start Date Expiration Date V isits Requested Visits Authorized [id number] Closed PCP Requested Referral 07/15/2024 07/15/2025 1 1 Reason Comments OT Discharge Specialty Diagnoses / Procedures Referred By Contac t Referred To Contact Occupational Therapy / OCCUPATIONAL THERAPY Diagnoses Osteoarthritis of right thumb Procedures CONSULT TO MANAGER LINE OCCUPATIONAL THERAPY EVAL HIGH COMPLEX 60 MINS Delma Cheek MD [address] [place] [address] Marga Cm, OTR/L [address] [place] [address] Referral ID Status Reason Start Date Expiration Date Visits Requested Visits Authorized [id number] Authorized Auto-Generat ed Referral 06/27/2024 11/26/2024 20 20 Reason Onset Date Comments Natural Resources Specialist Ed Follow Up 09/23/2024 Reason Onset Date Comments Natural Resources Specialist Ed Follow Up 09/24/2024 Message Reason Comments Hospital F/U Willy is here today following [facility] ER visit 09/19. Was found to be hypertensive. Was given medication and sent home. States he is not having anymore dizziness since starting the medication. Tracee Duarte 2023 3:57 PM Reason Comments Follow Up Willy is here today with concerns of foot swelling and numbness for the past month. Also concerned about his memory feels more forgetful. Justino Duarte 2024 9:15 AM Reason Comments Speech Evaluation Specialty Diagnoses / Procedures Referred By Luli orozco Referred To Contact [facility] Diagnoses Mild cognitive impairment Procedures CONSULT TO SPEECH THERAPY OFFICE/OUTPATIENT [facility] MDM 60 MINUTES EVAL SPEECH SOUND PR[employer] LANGUAGE COMPREHENSION Lizette Avila MD [address] [place] [address] Phone: tel: fax: [facility] [phone] [place] [address] Referral ID Status Reason Start Date Expiration Date Visits Requested Visits Authorized [id number] Authorized Auto-Generat ed Referral 11/27/2024 11/26/2025 20 20 Reason Comments Medicare Wellness Exam Reason Comments Diarrhea Willy is here today with concerns of diarrhea for the past 6 weeks. 4- 5 episodes per day. States he had a fever and cold sores on the lips 2 weeks ago. Mil Henson, LPNAugust 2024 3:26 PM Reason Comments Follow Up Willy is here today with concerns of parasite in stool/colon. He has been having abdominal cramping, diarrhea for 4 months . Previous bacterial stool testing was negative. Mil Henson, LPNSeptember 2024 2:18 PM Care Teams (unrecognized sec tion and content) Associate Professor Of Counseling Relationship Specialty Start Date End Date Lizette Avila MD [address] [place], [place] [id number] PCP - General Family Medicine 08/17/23 Associate Professor Of Counseling Relationship Specialty Start Date End Date Lizette Avila MD [address] [place], [place] [id number] PCP - General Family Medicine 08/17/23 Team Status: Active Member Role Status Dates ARTI BROOKS Primary Care Provider Active Team Status: Inactive Member Role Status Dates No Primary Care Physician Referring Provider Active Dr. Javier Portillo MD Attending Provider Active Team Status: Active Member Role Status Dates Dr. Javier Portillo MD Attending Pr ovider, Referring Provider, Other Provider Active GUY CHI Primary Care Provider Active Team Status: Inactive Member Role Status Dates Dr. Mohamud Chung DO Attending Provider, Emergency Provider Active No Primary Care Physician Primary Care Provider Active Team Status: Inactive Member Role Status Dates Dr. Javier Portillo MD Attending Provider, Referr ing Provider Active GUY CHI Primary Care Provider Active Associate Professor Of Counseling Relationship Specialty Start Date End Date Lizette Avila MD [address] [place], [place] [id number] PCP - General Family Medicine 08/17/23 Associate Professor Of Counseling Relationship Specialty Start Date End Date Lizette Avila MD [address] [place] [address] PCP - General Family Medicine 08/17/23 Associate Professor Of Counseling Relationship Specialty Start Date End Date Lizette Avila MD [address] [place] [address] PCP - General Family Medicine 08/17/23 Associate Professor Of Counseling Relationship Specialty Start Date End Date Lizette Avila MD [address] [place] [address] PCP - General Family Medicine 08/17/23 Associate Professor Of Counseling Relationship Specialty Start Date End Date Lizette Avila MD [address] [place] [address] PCP - General Family Medicine 08/17/23 Associate Professor Of Counseling Relationship Specialty Start Date End Date Lizette Avila MD [address] [place] [address] PCP - General Family Medicine 08/17/23 Associate Professor Of Counseling Relationship Specialty Start Date End Date Lizette Avila MD [address] [place] [address] PCP - General Family Medicine 08/17/23 Associate Professor Of Counseling Relationship Specialty Start Date End Date Lizette Avila MD [address] [place] [address] PCP - General Family Medicine 08/17/23 Associate Professor Of Counseling Relationship Specialty Start Date End Date Lizette Avila MD [address] [place] [address] PCP - General Family Medicine 08/17/23 Associate Professor Of Counseling Relationship Specialty Start Date End Date Lizette Avila MD [address] [address] PCP - General Family Medicine 08/17/23 Associate Professor Of Counseling Relationship Specialty Start Date End Date Lizette Avila MD [address] [place] [address] PCP - General Family Medicine 08/17/23 Associate Professor Of Counseling Relationship Specialty Start Date End Date Lizette Avila MD [address] [place] [address] PCP - General Family Medicine 08/17/23 Associate Professor Of Counseling Relationship Specialty Start Date End Date Lizette Avila MD [address] [address] PCP - General Family Medicine 08/17/23 Associate Professor Of Counseling Relationship Specialty Start Date End Date Lizette Avila MD [address] [place] [address] PCP - General Family Medicine 08/17/23 Associate Professor Of Counseling Relationship Specialty Start Date End Date Lizette Avila MD [address] [place] [address] PCP - General Family Medicine 08/17/23 Associate Professor Of Counseling Relationship Specialty Start Date End Date Lizette Avila MD [address] [place] [address] PCP - General Family Medicine 08/17/23 Associate Professor Of Counseling Relationship Specialty Start Date End Date Lizette Avila MD [address] [place] [address] PCP - General Family Medicine 08/17/23 FOR [...] BE BASED ON THE PRIMARY CLINICAL RECORDS. [facility] provides no warranty or guarantee of the accuracy or completeness of information in this document.
[2025-11-19 05:01] VITALS: BP 148/72; PULSE 78; RESP 18; O2SAT 95
[2025-11-19 05:12] LABS: Troponin T High Sens 2 HR < 6 ng/L (<=22)
[2025-11-19 05:21] VITALS: BP 141/73; PULSE 82; RESP 16; TEMP 36.7; O2SAT 95
== END 2025-11-19 05:26 | disposition home or self-care (01) ==
PROVIDERS: Emergency Provider Emergency Medicine; PCP Student in an Organized Health Care Education/Training Program; Visit Provider Emergency Medicine
DX: R07.9 Chest pain, unspecified (principal); N40.0 Benign prostatic hyperplasia without lower urinary tract symptoms; I10 Essential (primary) hypertension; E78.5 Hyperlipidemia, unspecified; R06.02 Shortness of breath
CPT/HCPCS: 71046; 80048; 80076; 83690; 83735; 84484; 85025; 85379; 93005; 96374; 99284; A4216